=== PATIENT | female | born 1955 | race Caucasian/White ===

== ENCOUNTER 2018-02-08 19:52 | Emergency (ER) | payer BC ==
[2018-02-08] MEDS ORDERED: NORMAL SALINE 1000 ML 1,000 ML IV ONE (20:13)
[2018-02-08 20:29] LABS: ABSOLUTE BASOPHILS # (AUTO) 0.1 10^3/uL (0.0-0.2); ABSOLUTE EOSINOPHILS # (AUTO) 0.1 10^3/uL (0.0-0.6); ABSOLUTE LYMPHOCYTES (AUTO) 2.7 10^3/uL (0.5-4.7); ABSOLUTE MONOCYTES (AUTO) 0.5 10^3/uL (0.1-1.4); ABSOLUTE NEUT (AUTO) 4.8 10^3/uL (1.7-8.2); BASOPHILS % (AUTO) 0.7 % (0-2); EOSINOPHILS % (AUTO) 1.2 % (0-6); HEMATOCRIT 38.3 % (36.0-47.0); HEMOGLOBIN 12.8 g/dL (12.0-15.5); LYMPHOCYTES % (AUTO) 32.8 % (13-45); MEAN CORPUSCULAR HEMOGLOBIN 31.7 pg (27.0-33.4); MEAN CORPUSCULAR HGB CONC 33.5 g/dL (32.0-36.0); MEAN CORPUSCULAR VOLUME 95 fl (80-97); MONOCYTES % (AUTO) 6.6 % (3-13); PLATELET COUNT 253 10^3/uL (150-450); RED BLOOD COUNT 4.04 10^6/uL (3.72-5.28); RED CELL DISTRIBUTION WIDTH 13.2 % (11.5-14.0); SEGMENTED NEUTROPHILS % (AUTO) 58.7 % (42-78); TOTAL CELLS COUNTED % (AUTO) 100 %; WHITE BLOOD COUNT 8.2 10^3/uL (4.0-10.5)
--- NOTE | 2018-02-08 20:39 | ER Document Report ---
ED General - General Stated Complaint: BODY PAIN Time Seen by Provider: 02/08/18 19:59 Mode of Arrival: Medic Information source: Patient, Emergency Med Personnel Notes: Patient presents complaining of a 3 day history of dry mouth. Patient states that she has had recent psychiatric medication changes over the past week. Patient states that her Geodon dose has been increased and Cogentin has been added. Patient states that after taking her medications she feels like she is "on the outside looking in at herself" and feels very drowsy at times. Patient does report cough for the past 3 weeks. Patient denies any nausea vomiting or diarrhea. TRAVEL OUTSIDE OF THE [place] IN LAST 30 DAYS: No - HPI Onset: Other - 3 days Onset/Duration: Persistent Quality of pain: No pain Associated symptoms: Other - dry mouth, fatigue. denies: Fever, Nausea Exacerbated by: Denies Relieved by: Denies Similar symptoms previously: No Recently seen / treated by doctor: No - Related Data Allergies/Adverse Reactions: sulfamethoxazole [From Septra DS] Allergy (Severe, Verified 01/17/16 11:29) trimethoprim [From Septra DS] Allergy (Severe, Verified 01/17/16 11:29) Iodinated Contrast- Oral and IV Dye [IV Dye, Iodine Containing] Allergy (Unknown , Verified 01/17/16 11:29) Sulfa (Sulfonamide Antibiotics) Allergy (Unknown, Verified 01/17/16 11:29) thiopental [Thiopental] Allergy (Unknown, Verified 01/17/16 11:29) mirtazapine [From Remeron] Allergy (Verified 01/17/16 11:29) Seizures zolpidem tartrate [From Ambien] Allergy (Verified 01/17/16 11:29) Past Medical History - General Information source: Patient, Relative - Social History Smoking Status: Never Smoker Frequency of alcohol use: None Drug Abuse: None Occupation: none Lives with: Spouse/Significant other Family History: CAD, DM, Other - Past Medical History Cardiac Medical History: Reports: Hx Atrial Fibrillation - Previous episode in the past, Hx Hypercholesterolemia Pulmonary Medical History: Reports: Hx Asthma - inhaler daily, Hx Bronchitis - 2 YEARS AGO, Hx Pneumonia - 10 YEARS AGO Neurological Medical History: Reports: Hx Migraine, Hx Seizures - SLEEP SEIZURES Malignancy Medical History: Reports: Hx Skin Cancer GI Medical History: Reports: Hx Gastroesophageal Reflux Disease, Hx Ulcer - stomach, states diet controlled Musculoskeltal Medical History: Reports Hx Musculoskeletal Deformity, Reports Hx Musculoskeletal Trauma Psychiatric Medical History: Reports: Hx Anxiety, Hx Bipolar Disorder, Hx Depression Traumatic Medical History: Reports: Hx Fractures Infectious Medical History: Past Surgical History: Reports: Hx Appendectomy, Hx Section, Hx Cholecystectomy, Hx Hysterectomy, Hx Oral Surgery - wisdom teeth, Hx Orthopedic Surgery - cervical fusion - Immunizations Hx Diphtheria, Pertussis, Tetanus Vaccination: Yes Hx Pneumococcal Vaccination: 05/25/11 Review of Systems - Review of Systems Constitutional: Other - drowsy after taking medications EENT: Other - dry mouth Cardiovascular: No symptoms reported. denies: Chest pain, Syncope, Lightheaded Respiratory: Cough. denies: Short of breath Gastrointestinal: No symptoms reported. denies: Abdominal pain, Diarrhea, Nausea, Vomiting Genitourinary: No symptoms reported Female Genitourinary: No symptoms reported Musculoskeletal: No symptoms reported. denies: Back pain, Neck pain Skin: No symptoms reported Hematologic/Lymphatic: No symptoms reported Neurological/Psychological: No symptoms reported. denies: Headaches Physical Exam - Vital signs Vitals: Pulse Ox 92 02/08/18 19:56 - General General appearance: Appears well In distress: None - HEENT Head: Normocephalic Eyes: Normal Eyelashes: Normal Pupils: PERRL Ears: Normal External canal: Normal Tympanic membrane: Normal Mouth/Lips: Normal Mucous membranes: Dry Pharynx: Other - dry mouth/posterior pharynx. No: Exudate, Peritonsillar abscess, Tonsillar hypertrophy Neck: Normal, Supple. No: Lymphadenopathy - Respiratory Respiratory status: No respiratory distress Chest status: Nontender Breath sounds: Normal. No: Rales, Rhonchi, Stridor, Wheezing Chest palpation: Normal - Cardiovascular Rhythm: Regular Heart sounds: S1 appreciated, S2 appreciated Murmur: No - Abdominal Inspection: Obese Distension: No distension Bowel sounds: Normal Tenderness: Nontender Organomegaly: No organomegaly - Back Back: Normal, Nontender. No: CVA tenderness, Vertebra tenderness - Extremities General upper extremity: Normal inspection, Nontender, Normal strength General lower extremity: Normal inspection, Nontender, Normal strength. No: Edema - Neurological Neuro grossly intact: Yes Cognition: Normal [place] Coma Scale Eye Opening: Spontaneous [place] Coma Scale Verbal: Oriented [place] Coma Scale Motor: Obeys Commands [place] Coma Scale Total: 15 - Psychological Associated symptoms: Flat affect - Skin Skin Temperature: Warm Skin Moisture: Dry Skin Color: Normal Course - Re-evaluation Re-evalutation: 02/08/18 23:04 Patient awake, alert and oriented, spouse at bedside. Patient complains of continued dry mouth symptoms. Patient without any additional symptoms at this time. Spoke with RN who had not yet heard back from Dr. Carrion, voice message left on Dr. Carrion's answering machine for return call. Patient presents with symptoms concerning for adverse medication side effects and is likely overmedicated given symptoms reported by patient's spouse. Plan is to consult with Dr. Carrion regarding any potential medication adjustments. 02/08/18 23:[address] Rudd regarding patient's symptoms and recent medication changes. Advises decreasing patient's Geodon dose back to only twice a day versus 3 times a day dosing and cutting her Cogentin dose to just 1 mg daily. Advises that if patient is still having increased drowsy symptoms that she should just stop the Cogentin altogether. Discussed plan medication changes with patient and her spouse. Patient advised of plan medication adjustments. Patient encouraged to follow-up with her mental health provider first thing on Saturday morning to discuss her symptoms and her medication regimen. - Vital Signs Vital signs: Temp Pulse Resp BP Pulse Ox 98.4 F 12 102/63 92 02/08/18 20:00 02/08/18 23:15 02/08/18 23:15 02/08/18 23:15 - Laboratory Result Diagrams: 02/08/18 20:15 02/08/18 20:15 Laboratory results interpreted by me: 02/08/18 22:04 Ur Leukocyte Esterase MODERATE H Labs- Entire Visit 02/08/18 02/08/18 02/08/18 20:15 20:15 20:15 WBC 8.2 RBC 4.04 Hgb 12.8 Hct 38.3 MCV 95 MCH 31.7 MCHC 33.5 RDW 13.2 Plt Count 253 Seg Neutrophils % 58.7 Lymphocytes % 32.8 Monocytes % 6.6 Eosinophils % 1.2 Basophils % 0.7 Absolute Neutrophils 4.8 Absolute Lymphocytes 2.7 Absolute Monocytes 0.5 Absolute Eosinophils 0.1 Absolute Basophils 0.1 Sodium 139.9 Potassium 4.5 Chloride 104 Carbon Dioxide 24 Anion Gap 12 BUN 13 Creatinine 0.82 Est GFR ( Amer) > 60 Est GFR (Non-Af Amer) > 60 Glucose 91 Calcium 9.5 Magnesium 2.0 Total Bilirubin 0.7 Direct Bilirubin 0.3 Neonat Total Bilirubin Not Reportable Neonat Direct Bilirubin Not Reportable Neonat Indirect Bili Not Reportable AST 19 ALT 27 Alkaline Phosphatase 74 Total Protein 6.3 Albumin 4.2 TSH 2.22 Urine Color Urine Appearance Urine pH Ur Specific [place] Urine Protein Urine Glucose (UA) Urine Ketones Urine Blood Urine Nitrite Urine Bilirubin Urine Urobilinogen Ur Leukocyte Esterase Urine WBC (Auto) Urine RBC (Auto) Urine Bacteria (Auto) Squamous Epi Cells Auto Urine Mucus (Auto) Urine Ascorbic Acid 02/08/18 22:04 WBC RBC Hgb Hct MCV MCH MCHC RDW Plt Count Seg Neutrophils % Lymphocytes % Monocytes % Eosinophils % Basophils % Absolute Neutrophils Absolute Lymphocytes Absolute Monocytes Absolute Eosinophils Absolute Basophils Sodium Potassium Chloride Carbon Dioxide Anion Gap BUN Creatinine Est GFR ( Amer) Est GFR (Non-Af Amer) Glucose Calcium Magnesium Total Bilirubin Direct Bilirubin Neonat Total Bilirubin Neonat Direct Bilirubin Neonat Indirect Bili AST ALT Alkaline Phosphatase Total Protein Albumin TSH Urine Color YELLOW Urine Appearance SLIGHTLY-CLOUDY Urine pH 6.0 Ur Specific [place] 1.006 Urine Protein NEGATIVE Urine Glucose (UA) NEGATIVE Urine Ketones NEGATIVE Urine Blood NEGATIVE Urine Nitrite NEGATIVE Urine Bilirubin NEGATIVE Urine Urobilinogen NEGATIVE Ur Leukocyte Esterase MODERATE H Urine WBC (Auto) 15 Urine RBC (Auto) 4 Urine Bacteria (Auto) TRACE Squamous Epi Cells Auto 10 Urine Mucus (Auto) RARE Urine Ascorbic Acid NEGATIVE - Diagnostic Test Radiology reviewed: Reports reviewed Discharge - Discharge Clinical Impression: Medication side effects UTI (urinary tract infection) Qualifiers: Urinary tract infection type: site unspecified Hematuria presence: without hematuria Qualified Code(s): N39.0 - Urinary tract infection, site not specified Condition: Stable Disposition: HOME, SELF-CARE Instructions: Cephalexin ([facility]), Medication Side Effects ([facility]), Urinary Tract Infection ([facility]) Additional Instructions: Return immediately for any new or worsening symptoms Followup with your primary care provider, call tomorrow to make a followup appointment It seems that you are having side effects due to adverse reactions from your medications. You should decrease your Geodon dose to just 80 mg twice a day. You should also cut your Cogentin tablet in half so that you are only taking 1 mg daily. Follow-up with your mental health provider on Saturday morning for recheck to discuss the symptoms that you are having and so that they can adjust your medications as needed. Prescriptions: Cephalexin Monohydrate [Keflex 500 mg Capsule] 500 mg PO BID 7 Days capsule Referrals: BISHNU MERIDA NP [NO LOCAL MD] - 02/10/18
[2018-02-08 20:45] LABS: ALANINE AMINOTRANSFERASE 27 U/L (9-52); ALBUMIN 4.2 g/dL (3.5-5.0); ALKALINE PHOSPHATASE 74 U/L (38-126); ANION GAP 12 (5-19); ASPARTATE AMINO TRANSFERASE 19 U/L (14-36); BILIRUBIN,DIRECT 0.3 mg/dL (0.0-0.4); BILIRUBIN,TOTAL 0.7 mg/dL (0.2-1.3); BLOOD UREA NITROGEN 13 mg/dL (7-20); CALCIUM 9.5 mg/dL (8.4-10.2); CARBON DIOXIDE 24 mmol/L (22-30); CHLORIDE 104 mmol/L (98-107); GLUCOSE 91 mg/dL (75-110); POTASSIUM 4.5 mmol/L (3.6-5.0); SODIUM 139.9 mmol/L (137-145); TOTAL PROTEIN 6.3 g/dL (6.3-8.2)
--- NOTE | 2018-02-08 21:40 | RADIOLOGY REPORT (SQ) ---
EXAM DESCRIPTION: CHEST PA/LAT COMPLETED DATE/TIME: 02/08/2018 9:21 pm REASON FOR STUDY: cough COMPARISON: 05/16/2016 EXAM PARAMETERS: NUMBER OF VIEWS: two views TECHNIQUE: Digital Frontal and Lateral radiographic views of the chest acquired. RADIATION DOSE: NA LIMITATIONS: none FINDINGS: LUNGS AND PLEURA: No opacities, masses or pneumothorax. No pleural effusion. MEDIASTINUM AND HILAR STRUCTURES: No masses or contour abnormalities. HEART AND VASCULAR STRUCTURES: Heart normal size. No evidence for failure. BONES: No acute findings. HARDWARE: None in the chest. OTHER: No other significant finding. IMPRESSION: NO SIGNIFICANT RADIOGRAPHIC FINDING IN THE CHEST. TECHNICAL DOCUMENTATION: JOB ID: [id number] [employer]- All Rights Reserved Reading location - IP/workstation name: [email or web address]
[2018-02-08 22:18] LABS: APPEARANCE,URINE SLIGHTLY-CLOUDY; BILIRUBIN,URINE NEGATIVE (NEGATIVE); COLOR,URINE YELLOW; GLUCOSE, URINE NEGATIVE (NEGATIVE); KETONES,URINE NEGATIVE (NEGATIVE); LEUKOCYTE ESTERASE,URINE MODERATE (NEGATIVE); NITRITE,URINE NEGATIVE (NEGATIVE); PROTEIN,URINE NEGATIVE (NEGATIVE); URINE SPECIFIC GRAVITY 1.006; UROBILINOGEN,URINE NEGATIVE mg/dL (<2.0)
[2018-02-08] MEDS ORDERED: CEFTRIAXONE INJ 1000 MG VIAL IV ONE (22:26)
--- NOTE | 2018-02-08 23:56 | EKG REPORT ---
SEVERITY:- BORDERLINE ECG - SINUS RHYTHM BORDERLINE R WAVE PROGRESSION, ANTERIOR LEADS : Confirmed by: Damon Chew MD 08-Feb-2018 23:54:45
[2018-02-09 00:15] VITALS: BP 102/63
== END 2018-02-09 | disposition home or self-care (01) ==
LOC: ER 19:52
DX: N39.0 Urinary tract infection, site not specified (principal); M79.1 Myalgia; T50.905A Adverse effect of unspecified drugs, medicaments and biological substances, initial encounter; Z88.2 Allergy status to sulfonamides; I48.91 Unspecified atrial fibrillation; Z90.49 Acquired absence of other specified parts of digestive tract; Z90.710 Acquired absence of both cervix and uterus; Z98.1 Arthrodesis status
CPT/HCPCS: 93005; 99284; 96361; 96374; 36415; 87086; 83735; 84443; 85025; 80053; 81001; 71046; 93010; J0696; J7030

== ENCOUNTER 2018-08-05 06:08 | Emergency (ER) | payer BC ==
[2018-08-05] MEDS ORDERED: LORAZEPAM INJ 2 MG/1 ML VIAL ONE (06:12)
[2018-08-05] MEDS ORDERED: LORAZEPAM INJ 2 MG/1 ML VIAL IV ONE (06:13)
--- NOTE | 2018-08-05 06:15 | ER Document Report ---
ED Seizure - General Stated Complaint: POSSIBLE SEIZURES Time Seen by Provider: 08/05/18 06:12 Notes: Family members notified EMS that patient was having a seizure. Patient has history of seizures when she gets off of her benzodiazepines. Was on Restoril. Ran out several days ago. EMS witnessed seizure while in route. Patient became apneic. Rigid and seizing. 2.5 mg of Versed was given. IV established. Patient postictal on arrival to the emergency department. - HPI Patient complains to provider of: History of seizures - Related Data Allergies/Adverse Reactions: sulfamethoxazole [From Septra DS] Allergy (Severe, Verified 01/17/16 11:29) trimethoprim [From Septra DS] Allergy (Severe, Verified 01/17/16 11:29) Iodinated Contrast- Oral and IV Dye [IV Dye, Iodine Containing] Allergy (Unknown , Verified 01/17/16 11:29) Sulfa (Sulfonamide Antibiotics) Allergy (Unknown, Verified 01/17/16 11:29) thiopental [Thiopental] Allergy (Unknown, Verified 01/17/16 11:29) mirtazapine [From Remeron] Allergy (Verified 01/17/16 11:29) Seizures zolpidem tartrate [From Ambien] Allergy (Verified 01/17/16 11:29) Past Medical History - General Information source: Emergency Med Personnel, [facility] Records Cannot obtain history due to: Altered mental status - Social History Smoking Status: Smoker,Current Status Unk Frequency of alcohol use: Unknown Drug Abuse: Other - Unknown Lives with: Other - Unknown Family History: CAD, DM, Other - Past Medical History Cardiac Medical History: Reports: Hx Atrial Fibrillation - Previous episode in the past, Hx Hypercholesterolemia Pulmonary Medical History: Reports: Hx Asthma - inhaler daily, Hx Bronchitis - 2 YEARS AGO, Hx Pneumonia - 10 YEARS AGO Neurological Medical History: Reports: Hx Migraine, Hx Seizures - SLEEP SEIZURES Malignancy Medical History: Reports: Hx Skin Cancer GI Medical History: Reports: Hx Gastroesophageal Reflux Disease, Hx Ulcer - stomach, states diet controlled Musculoskeletal Medical History: Reports Hx Musculoskeletal Deformity, Reports Hx Musculoskeletal Trauma Psychiatric Medical History: Reports: Hx Anxiety, Hx Bipolar Disorder, Hx Depression Traumatic Medical History: Reports: Hx Fractures Infectious Medical History: Past Surgical History: Reports: Hx Appendectomy, Hx Section, Hx Cholecystectomy, Hx Hysterectomy, Hx Oral Surgery - wisdom teeth, Hx Orthopedic Surgery - cervical fusion - Immunizations Hx Diphtheria, Pertussis, Tetanus Vaccination: Yes Hx Pneumococcal Vaccination: 05/25/11 Review of Systems - Review of Systems -: Yes ROS unobtainable due to patient's medical condition - Patient postictal and unresponsive Physical Exam - Vital signs Vitals: Pulse Ox 99 08/05/18 06:10 Interpretation: Normal - General Notes: Patient postictal at this time. Some sonorous respirations - HEENT Head: Normocephalic, Atraumatic Eyes: Normal Pupils: PERRL - Respiratory Respiratory status: No respiratory distress Chest status: Nontender Breath sounds: Normal Chest palpation: Normal - Cardiovascular Rhythm: Regular Heart sounds: Normal auscultation Murmur: No - Abdominal Inspection: Normal Distension: No distension Bowel sounds: Normal Tenderness: Nontender Organomegaly: No organomegaly - Back Back: Normal, Nontender - Extremities General upper extremity: Normal inspection, Nontender, Normal color, Normal ROM , Normal temperature General lower extremity: Normal inspection, Nontender, Normal color, Normal ROM , Normal temperature. No: Marcia's sign - Neurological Sensory: Normal Notes: Postictal time of evaluation. Gross neurological intact. - Skin Skin Temperature: Warm Skin Moisture: Dry Skin Color: Normal Course - Re-evaluation Re-evalutation: 08/05/18 06:29 Patient having benzo withdrawal seizures. 1 mg of Ativan ordered. Placed on monitor. Labs obtained. Will continue to follow. 08/05/18 08:16 Patient back to her baseline mental status. Answering all questions appropriately. is at the bedside and states that she has not taken her Restoril in 2 days and every time she cannot take her Restoril she will have a seizure. states that she never hit the ground. Patient was observed during the initial seizure at home as well as with EMS and no trauma. 08/05/18 08:16 Laboratory 08/05/18 08/05/18 06:26 06:26 WBC 15.2 H RBC 4.15 Hgb 13.0 Hct 40.3 MCV 97 MCH 31.4 MCHC 32.3 RDW 13.5 Plt Count 346 Total Counted 100 Seg Neutrophils % Not Reportable Seg Neuts % (Manual) 78 Band Neutrophils % 1 L Lymphocytes % Not Reportable Lymphocytes % (Manual) 15 Monocytes % Not Reportable Monocytes % (Manual) 4 Eosinophils % Not Reportable Eosinophils % (Manual) 2 Basophils % Not Reportable Basophils % (Manual) 0 Absolute Neutrophils Not Reportable Abs Neuts (Manual) 12.0 H Absolute Lymphocytes Not Reportable Abs Lymphs (Manual) 2.3 Absolute Monocytes Not Reportable Abs Monocytes (Manual) 0.6 Absolute Eosinophils Not Reportable Absolute Eos (Manual) 0.3 Absolute Basophils Not Reportable Abs Basophils (Manual) 0.0 Platelet Comment ADEQUATE Polychromasia SLIGHT Poikilocytosis 1+ Ovalocytes SLIGHT [place] Cells SLIGHT Sodium Cancelled Potassium Cancelled Chloride Cancelled Carbon Dioxide Cancelled Anion Gap Cancelled BUN Cancelled Creatinine Cancelled Est GFR ( Amer) Cancelled Est GFR (Non-Af Amer) Cancelled Glucose Cancelled Calcium Cancelled Total Bilirubin Cancelled Direct Bilirubin Cancelled Neonat Total Bilirubin Cancelled Neonat Direct Bilirubin Cancelled Neonat Indirect Bili Cancelled AST Cancelled ALT Cancelled Alkaline Phosphatase Cancelled Total Protein Cancelled Albumin Cancelled Serum Alcohol Cancelled - Vital Signs Vital signs: Temp Pulse Resp BP Pulse Ox 97.7 F 12 127/77 H 100 08/05/18 06:15 08/05/18 10:01 08/05/18 10:00 08/05/18 10:01 - Laboratory Result Diagrams: 08/05/18 06:26 08/05/18 07:57 Laboratory results interpreted by me: 08/05/18 08/05/18 06:26 07:57 WBC 15.2 H Band Neutrophils % 1 L Abs Neuts (Manual) 12.0 H Glucose 129 H - EKG Interpretation by Fl EKG shows normal: Allison, Intervals, QRS Complexes, ST-T Waves Rate: Tachycardia Discharge - Discharge Clinical Impression: Seizure concurrent with and due to anxiolytic withdrawal Condition: Good Disposition: HOME, SELF-CARE Instructions: Seizure, Known Epileptic ([facility]) Prescriptions: Temazepam [Restoril 7.5 mg Capsule] 7.5 mg PO QHS 15 Days #15 cap
[2018-08-05] MEDS ORDERED: LEVETIRACETAM 1000 MG/NACL-ISO 1,000 MG/100 ML RTUPB IV ONE (06:30)
[2018-08-05 06:39] LABS: HEMATOCRIT 40.3 % (36.0-47.0); MEAN CORPUSCULAR HEMOGLOBIN 31.4 pg (27.0-33.4); MEAN CORPUSCULAR HGB CONC 32.3 g/dL (32.0-36.0); MEAN CORPUSCULAR VOLUME 97 fl (80-97); PLATELET COUNT 346 10^3/uL (150-450); RED BLOOD COUNT 4.15 10^6/uL (3.72-5.28); RED CELL DISTRIBUTION WIDTH 13.5 % (11.5-14.0); WHITE BLOOD COUNT 15.2 10^3/uL (4.0-10.5)
[2018-08-05 07:05] LABS: ABSOLUTE LYMPHOCYTES# (MANUAL) 2.3 10^3/uL (0.5-4.7); ABSOLUTE MONOCYTES # (MANUAL) 0.6 10^3/uL (0.1-1.4); BAND NEUTROPHILS % (MANUAL) 1 % (3-5); BASOPHILS % (MANUAL) 0 % (0-2); BURR CELLS SLIGHT; EOSINOPHILS % (MANUAL) 2 % (0-6); LYMPHOCYTES % (MANUAL) 15 % (13-45); MONOCYTES % (MANUAL) 4 % (3-13); OVALOCYTES SLIGHT; POIKILOCYTOSIS 1+; POLYCHROMASIA SLIGHT; SEGMENTED NEUTROPHILS % (MAN) 78 % (42-78); TOTAL CELLS COUNTED 100
[2018-08-05 07:06] LABS: PLATELET COMMENT ADEQUATE
[2018-08-05 08:59] LABS: ALANINE AMINOTRANSFERASE 22 U/L (9-52); ALBUMIN 4.4 g/dL (3.5-5.0); ALKALINE PHOSPHATASE 93 U/L (38-126); ANION GAP 13 (5-19); ASPARTATE AMINO TRANSFERASE 23 U/L (14-36); BILIRUBIN,DIRECT 0.2 mg/dL (0.0-0.4); BILIRUBIN,TOTAL 0.4 mg/dL (0.2-1.3); BLOOD UREA NITROGEN 7 mg/dL (7-20); CALCIUM 9.5 mg/dL (8.4-10.2); CARBON DIOXIDE 23 mmol/L (22-30); CHLORIDE 104 mmol/L (98-107); GLUCOSE 129 mg/dL (75-110); POTASSIUM 4.4 mmol/L (3.6-5.0); TOTAL PROTEIN 7.1 g/dL (6.3-8.2)
[2018-08-05 09:05] LABS: ALCOHOL < 10 mg/dL (NONE DETECTED)
--- NOTE | 2018-08-05 09:36 | EKG REPORT ---
SEVERITY:- ABNORMAL ECG - SINUS TACHYCARDIA LEFT ATRIAL ABNORMALITY : Confirmed by: Ezio Greenfield 05-Aug-2018 09:35:04
[2018-08-05] MEDS ORDERED: TEMAZEPAM 7.5 MG CAPSULE PO ONE (09:44)
[2018-08-05 10:43] VITALS: BP 127/77
== END 2018-08-05 10:59 | disposition home or self-care (01) ==
LOC: ER 06:08
DX: F13.239 Sedative, hypnotic or anxiolytic dependence with withdrawal, unspecified (principal); T42.4X5A Adverse effect of benzodiazepines, initial encounter; R56.9 Unspecified convulsions; Z79.899 Other long term (current) drug therapy; R06.81 Apnea, not elsewhere classified; F17.200 Nicotine dependence, unspecified, uncomplicated; J45.909 Unspecified asthma, uncomplicated
CPT/HCPCS: 93005; 99284; 36415; 80177; 80307; 85025; 80053; 93010; J2060; J3490; J1953

== ENCOUNTER 2018-08-17 14:08 | Emergency (ER) | payer BC ==
--- NOTE | 2018-08-17 16:14 | ER Document Report ---
ED Medical Screen (RME) - General Chief Complaint: Seizure Stated Complaint: POSSIBLE SEIZURE Time Seen by Provider: 08/17/18 16:10 Notes: Patient is here to be evaluated because she is not feeling right and that is concerning her and her . Patient has a history of seizure disorder of unknown etiology. She had a seizure, her most recent, about 2 weeks ago. She had run out of her Keppra for a couple of days and had a seizure. She has been back on her Keppra plus Aption and temazepam for the seizures and has not had another one since that one about 2 weeks ago. Patient has had seizures since 2010. Unknown why she has seizures.. No history of head injury, brain infection, etc. She is here this evening because she has been feeling funny and she and her are concerned she might have another seizure. She is nauseated but not vomiting. She has had some cough. History of asthma. Has had pneumonia. Has not noted any fever. TRAVEL OUTSIDE OF THE [place] IN LAST 30 DAYS: No - Related Data Allergies/Adverse Reactions: sulfamethoxazole [From Septra DS] Allergy (Severe, Verified 08/17/18 16:06) trimethoprim [From Septra DS] Allergy (Severe, Verified 08/17/18 16:06) Iodinated Contrast- Oral and IV Dye [IV Dye, Iodine Containing] Allergy (Unknown , Verified 08/17/18 16:06) Sulfa (Sulfonamide Antibiotics) Allergy (Unknown, Verified 08/17/18 16:06) thiopental [Thiopental] Allergy (Unknown, Verified 08/17/18 16:06) mirtazapine [From Remeron] Allergy (Verified 08/17/18 16:06) Seizures zolpidem tartrate [From Ambien] Allergy (Verified 08/17/18 16:06) Past Medical History - Social History Chew tobacco use (# tins/day): No Frequency of alcohol use: None Drug Abuse: None - Past Medical History Cardiac Medical History: Reports: Hx Atrial Fibrillation - Previous episode in the past, Hx Hypercholesterolemia Pulmonary Medical History: Reports: Hx Asthma - inhaler daily, Hx Bronchitis - 2 YEARS AGO, Hx Pneumonia - 10 YEARS AGO Neurological Medical History: Reports: Hx Migraine, Hx Seizures - SLEEP SEIZURES Renal/ Medical History: Denies: Hx Peritoneal Dialysis Malignancy Medical History: Reports: Hx Skin Cancer GI Medical History: Reports: Hx Gastroesophageal Reflux Disease, Hx Ulcer - stomach, states diet controlled Musculoskeltal Medical History: Reports Hx Musculoskeletal Deformity, Reports Hx Musculoskeletal Trauma Psychiatric Medical History: Reports: Hx Anxiety, Hx Bipolar Disorder, Hx Depression Traumatic Medical History: Reports: Hx Fractures Infectious Medical History: Past Surgical History: Reports: Hx Appendectomy, Hx Section, Hx Cholecystectomy, Hx Hysterectomy, Hx Oral Surgery - wisdom teeth, Hx Orthopedic Surgery - cervical fusion - Immunizations Hx Diphtheria, Pertussis, Tetanus Vaccination: Yes Physical Exam - Vital signs Vitals: Temp Pulse Resp BP Pulse Ox 98.2 F 76 16 135/75 H 96 08/17/18 14:50 08/17/18 14:50 08/17/18 14:50 08/17/18 14:50 08/17/18 14:50 Course - Vital Signs Vital signs: Temp Pulse Resp BP Pulse Ox 98.2 F 76 16 135/75 H 96 08/17/18 14:50 08/17/18 14:50 08/17/18 14:50 08/17/18 14:50 08/17/18 14:50
[2018-08-17 18:20] LABS: ABSOLUTE EOSINOPHILS # (AUTO) 0.1 10^3/uL (0.0-0.6); ABSOLUTE LYMPHOCYTES (AUTO) 2.5 10^3/uL (0.5-4.7); ABSOLUTE MONOCYTES (AUTO) 0.5 10^3/uL (0.1-1.4); ABSOLUTE NEUT (AUTO) 5.9 10^3/uL (1.7-8.2); BASOPHILS % (AUTO) 0.5 % (0-2); EOSINOPHILS % (AUTO) 1.1 % (0-6); HEMATOCRIT 40.6 % (36.0-47.0); HEMOGLOBIN 13.8 g/dL (12.0-15.5); LYMPHOCYTES % (AUTO) 27.4 % (13-45); MEAN CORPUSCULAR HEMOGLOBIN 32.5 pg (27.0-33.4); MEAN CORPUSCULAR HGB CONC 34.1 g/dL (32.0-36.0); MEAN CORPUSCULAR VOLUME 95 fl (80-97); MONOCYTES % (AUTO) 5.6 % (3-13); PLATELET COUNT 317 10^3/uL (150-450); RED BLOOD COUNT 4.27 10^6/uL (3.72-5.28); RED CELL DISTRIBUTION WIDTH 13.3 % (11.5-14.0); SEGMENTED NEUTROPHILS % (AUTO) 65.4 % (42-78); TOTAL CELLS COUNTED % (AUTO) 100 %
[2018-08-17 18:38] LABS: ALANINE AMINOTRANSFERASE 25 U/L (9-52); ALBUMIN 4.6 g/dL (3.5-5.0); ALKALINE PHOSPHATASE 96 U/L (38-126); ANION GAP 11 (5-19); ASPARTATE AMINO TRANSFERASE 24 U/L (14-36); BILIRUBIN,DIRECT 0.2 mg/dL (0.0-0.4); BILIRUBIN,TOTAL 0.5 mg/dL (0.2-1.3); BLOOD UREA NITROGEN 14 mg/dL (7-20); CALCIUM 10.2 mg/dL (8.4-10.2); CARBON DIOXIDE 29 mmol/L (22-30); CHLORIDE 98 mmol/L (98-107); GLUCOSE 101 mg/dL (75-110); POTASSIUM 5.1 mmol/L (3.6-5.0); SODIUM 138.4 mmol/L (137-145); TOTAL PROTEIN 7.6 g/dL (6.3-8.2)
[2018-08-17 19:46] LABS: APPEARANCE,URINE CLEAR; BILIRUBIN,URINE NEGATIVE (NEGATIVE); COLOR,URINE YELLOW; GLUCOSE, URINE NEGATIVE (NEGATIVE); KETONES,URINE NEGATIVE (NEGATIVE); LEUKOCYTE ESTERASE,URINE NEGATIVE (NEGATIVE); NITRITE,URINE NEGATIVE (NEGATIVE); PROTEIN,URINE NEGATIVE (NEGATIVE); URINE SPECIFIC GRAVITY 1.016; UROBILINOGEN,URINE NEGATIVE mg/dL (<2.0)
[2018-08-17] MEDS ORDERED: DIPHENHYDRAMINE HCL 50 MG/ML VIAL IV ONE (20:29)
[2018-08-17] MEDS ORDERED: METOCLOPRAMIDE HCL INJ/PF 10 MG/2 ML SDV IV ONE (20:29)
[2018-08-17] MEDS ORDERED: LORAZEPAM 1 MG TABLET PO ONE (20:30)
[2018-08-17] MEDS ORDERED: NORMAL SALINE 500 ML IV ONE (20:33)
--- NOTE | 2018-08-17 20:34 | ER Document Report ---
ED General - General Chief Complaint: Seizure Stated Complaint: POSSIBLE SEIZURE Time Seen by Provider: 08/17/18 16:10 Mode of Arrival: Ambulatory Information source: Patient Notes: 61-year-old female with seizures, migraines, atrial fibrillation, obstructive sleep apnea, bipolar disorder, anxiety, Bhandari's palsy presents with complaint of headache and "feeling funny in my head". Patient states that headache started 6 hours prior to arrival. It is located in the temporal region bilaterally and described as a throbbing pain. Patient has had similar headaches in the past and takes Excedrin and Tylenol for them. She states that she experiences headaches several times a week. TRAVEL OUTSIDE OF THE [place] IN LAST 30 DAYS: No - Related Data Allergies/Adverse Reactions: sulfamethoxazole [From Septra DS] Allergy (Severe, Verified 08/17/18 16:06) trimethoprim [From Septra DS] Allergy (Severe, Verified 08/17/18 16:06) Iodinated Contrast- Oral and IV Dye [IV Dye, Iodine Containing] Allergy (Unknown , Verified 08/17/18 16:06) Sulfa (Sulfonamide Antibiotics) Allergy (Unknown, Verified 08/17/18 16:06) thiopental [Thiopental] Allergy (Unknown, Verified 08/17/18 16:06) mirtazapine [From Remeron] Allergy (Verified 08/17/18 16:06) Seizures zolpidem tartrate [From Ambien] Allergy (Verified 08/17/18 16:06) Past Medical History - General Information source: Patient, Relative, PENDING SALE TO [facility] Records - Social History Smoking Status: Never Smoker Chew tobacco use (# tins/day): No Frequency of alcohol use: None Drug Abuse: None Lives with: Spouse/Significant other Family History: CAD, DM, Other Patient has suicidal ideation: No Patient has homicidal ideation: No - Past Medical History Cardiac Medical History: Reports: Hx Atrial Fibrillation - Previous episode in the past, Hx Hypercholesterolemia Pulmonary Medical History: Reports: Hx Asthma - inhaler daily, Hx Bronchitis - 2 YEARS AGO, Hx Pneumonia - 10 YEARS AGO Neurological Medical History: Reports: Hx Migraine, Hx Seizures - SLEEP SEIZURES Renal/ Medical History: Denies: Hx Peritoneal Dialysis Malignancy Medical History: Reports: Hx Skin Cancer GI Medical History: Reports: Hx Gastroesophageal Reflux Disease, Hx Ulcer - stomach, states diet controlled Musculoskeletal Medical History: Reports Hx Musculoskeletal Deformity, Reports Hx Musculoskeletal Trauma Psychiatric Medical History: Reports: Hx Anxiety, Hx Bipolar Disorder, Hx Depression Traumatic Medical History: Reports: Hx Fractures Infectious Medical History: Past Surgical History: Reports: Hx Appendectomy, Hx Section, Hx Cholecystectomy, Hx Hysterectomy, Hx Oral Surgery - wisdom teeth, Hx Orthopedic Surgery - cervical fusion - Immunizations Hx Diphtheria, Pertussis, Tetanus Vaccination: Yes Hx Pneumococcal Vaccination: 05/25/11 Review of Systems - Review of Systems Notes: REVIEW OF SYSTEMS: CONSTITUTIONAL : Denies fever, chills, or sweats. Denies recent illness. Denies weight loss, recent hospitalizations. EENT: Denies visual changes, eye pain. Denies sore throat, oral lesions, difficulty swallowing. CARDIOVASCULAR: Denies chest pain. Denies palpitations. Denies lower extremity edema. RESPIRATORY: Denies cough. Denies shortness of breath, wheezing. GASTROINTESTINAL: Denies abdominal pain or distention. Denies nausea, vomiting , or diarrhea. Denies blood in vomitus, stools, or per rectum. Denies black, tarry stools. Denies constipation. GENITOURINARY: Denies difficulty urinating, painful urination, frequency, blood in urine, or vaginal discharge. MUSCULOSKELETAL: Denies back or neck pain or stiffness. Denies joint pain or swelling. SKIN: Denies rash, lesions or sores. HEMATOLOGIC : Denies easy bruising or bleeding. LYMPHATIC: Denies swollen glands. NEUROLOGICAL: Denies confusion or altered mental status. Denies loss of consciousness. Denies dizziness or lightheadedness. Denies weakness or paralysis. Denies problems difficulty with ambulation, slurred speech. Denies sensory loss, numbness, or tingling. Denies seizures. PSYCHIATRIC: Denies anxiety or stress. Denies depression, suicidal ideation, or homicidal ideation. Denies visual or auditory hallucinations. Physical Exam - Vital signs Vitals: Temp Pulse Resp BP Pulse Ox 98.2 F 76 16 135/75 H 96 08/17/18 14:50 08/17/18 14:50 08/17/18 14:50 08/17/18 14:50 08/17/18 14:50 - Notes Notes: PHYSICAL EXAMINATION: GENERAL: Well-appearing, well-nourished and in no acute distress. HEAD: Atraumatic, normocephalic. EYES: Pupils equal round and reactive to light, extraocular movements intact, conjunctiva are normal. ENT: Nares patent, oropharynx clear without exudates. Moist mucous membranes. NECK: Normal range of motion, supple without lymphadenopathy LUNGS: Breath sounds clear to auscultation bilaterally and equal. No wheezes rales or rhonchi. HEART: Regular rate and rhythm without murmurs ABDOMEN: Soft, nontender, nondistended abdomen. No guarding, no rebound. No masses appreciated. Female : deferred Musculoskeletal: Normal range of motion, no pitting or edema. No cyanosis. NEUROLOGICAL: Cranial nerves grossly intact. Normal speech, normal gait. Normal sensory, motor exams PSYCH: Normal mood, normal affect. SKIN: Warm, Dry, normal turgor, no rashes or lesions noted. Course - Re-evaluation Re-evalutation: Laboratory 08/17/18 08/17/18 08/17/18 18:00 18:00 18:00 WBC 9.0 RBC 4.27 Hgb 13.8 Hct 40.6 MCV 95 MCH 32.5 MCHC 34.1 RDW 13.3 Plt Count 317 Seg Neutrophils % 65.4 Lymphocytes % 27.4 Monocytes % 5.6 Eosinophils % 1.1 Basophils % 0.5 Absolute Neutrophils 5.9 Absolute Lymphocytes 2.5 Absolute Monocytes 0.5 Absolute Eosinophils 0.1 Absolute Basophils 0.0 Sodium 138.4 Potassium 5.1 H Chloride 98 Carbon Dioxide 29 Anion Gap 11 BUN 14 Creatinine 0.84 Est GFR ( Amer) > 60 Est GFR (Non-Af Amer) > 60 Glucose 101 Calcium 10.2 Total Bilirubin 0.5 Direct Bilirubin 0.2 Neonat Total Bilirubin Not Reportable Neonat Direct Bilirubin Not Reportable Neonat Indirect Bili Not Reportable AST 24 ALT 25 Alkaline Phosphatase 96 Troponin I < 0.012 Total Protein 7.6 Albumin 4.6 Urine Color Urine Appearance Urine pH Ur Specific [place] Urine Protein Urine Glucose (UA) Urine Ketones Urine Blood Urine Nitrite Urine Bilirubin Urine Urobilinogen Ur Leukocyte Esterase Urine WBC (Auto) Urine RBC (Auto) Urine Bacteria (Auto) Squamous Epi Cells Auto Urine Mucus (Auto) Urine Ascorbic Acid 08/17/18 18:00 WBC RBC Hgb Hct MCV MCH MCHC RDW Plt Count Seg Neutrophils % Lymphocytes % Monocytes % Eosinophils % Basophils % Absolute Neutrophils Absolute Lymphocytes Absolute Monocytes Absolute Eosinophils Absolute Basophils Sodium Potassium Chloride Carbon Dioxide Anion Gap BUN Creatinine Est GFR ( Amer) Est GFR (Non-Af Amer) Glucose Calcium Total Bilirubin Direct Bilirubin Neonat Total Bilirubin Neonat Direct Bilirubin Neonat Indirect Bili AST ALT Alkaline Phosphatase Troponin I Total Protein Albumin Urine Color YELLOW Urine Appearance CLEAR Urine pH 5.0 Ur Specific [place] 1.016 Urine Protein NEGATIVE Urine Glucose (UA) NEGATIVE Urine Ketones NEGATIVE Urine Blood NEGATIVE Urine Nitrite NEGATIVE Urine Bilirubin NEGATIVE Urine Urobilinogen NEGATIVE Ur Leukocyte Esterase NEGATIVE Urine WBC (Auto) 1 Urine RBC (Auto) 1 Urine Bacteria (Auto) TRACE Squamous Epi Cells Auto 3 Urine Mucus (Auto) RARE Urine Ascorbic Acid NEGATIVE Head CT 08/17/18 20:29 IMPRESSION: No acute intracranial hemorrhage. Unremarkable noncontrast CT of the head. 61-year-old female with seizures, migraines, atrial fibrillation, obstructive sleep apnea, bipolar disorder, anxiety, Bhandari's palsy presents with complaint of headache and "feeling funny in my head". Patient states that headache started 6 hours prior to arrival. It is located in the temporal region bilaterally and described as a throbbing pain. Patient has had similar headaches in the past and takes Excedrin and Tylenol for them. She states that she experiences headaches several times a week. Vital signs stable upon arrival. NIH 0. Patient did receive Reglan, Benadryl and Ativan. No significant laboratory findings CT within normal limits. 08/17/18 23:06 On reevaluation patient is sleeping peacefully. When awoke she reports resolution of her headache. No significant laboratory findings. Has been at the bedside and is comfortable with discharge home. 08/17/18 23:08 After performing a Medical Screening Examination, I estimate there is LOW risk for ACUTE , TEMPORAL ARTERITIS, MENINGITIS, INCRANIAL HEMORRHAGE, or ISCHEMIC STROKE thus I consider the discharge disposition reasonable. I have reevaluated this patient multiple times and no significant life threatening changes are noted. The patient and I have discussed the diagnosis and risks, and we agree with discharging home with close follow-up with the understanding that symptoms and presentations can change. We also discussed returning to the Emergency Department immediately if new or worsening symptoms occur. We have discussed the symptoms which are most concerning (e.g., changing or worsening symptoms, new numbness or weakness, vomiting, fever) that necessitate immediate return. Patient provided the opportunity to ask questions, and express concerns. Discharge instructions discussed. Patient is agreeable with discharge home. Return indications explained and discussed with the patient who displays understanding. Patient encouraged to return to the emergency department immediately with any concerns. Results were discussed with the patient at this point, after careful consideration I feel that that patient can be discharged from the emergency department, the patient was educated treatments and reasons to return to the emergency department based on their presumed diagnosis as noted above, they were advised to followup with a primary care physician in 2-3 days. Patient was agreeable to plan of care. Dictation on this chart was performed using voice recognition software and may result in unintended grammatical, spelling, syntax or errors. 08/19/18 13:22 - Vital Signs Vital signs: Temp Pulse Resp BP Pulse Ox 97.7 F 82 18 123/70 97 08/17/18 23:25 08/17/18 23:25 08/17/18 23:25 08/17/18 23:25 08/17/18 23:25 - Laboratory Result Diagrams: 08/17/18 18:00 08/17/18 18:00 Laboratory results interpreted by me: 08/17/18 18:00 Potassium 5.1 H - Diagnostic Test Radiology reviewed: Image reviewed, Reports reviewed Discharge - Discharge Clinical Impression: Seizure disorder, Elevated blood pressure reading Headache Qualifiers: Headache type: unspecified Headache chronicity pattern: unspecified pattern Intractability: not intractable Qualified Code(s): R51 - Headache Condition: Good Disposition: HOME, SELF-CARE Instructions: Headache ([facility]) Additional Instructions: You have been seen in the Emergency Department (ED) for a headache. Please use Tylenol (acetaminophen) or Motrin (ibuprofen) as needed for symptoms, but only as written on the box. As we have discussed, please follow up with your primary care doctor as soon as possible regarding today's ED visit and your headache symptoms. Call your doctor or return to the ED if you have a worsening headache, sudden and severe headache, confusion, slurred speech, facial droop, weakness or numbness in any arm or leg, extreme fatigue, or other symptoms that concern you. Referrals: ELIZABETH ALVARADO MD [Primary Care Provider] - Follow up as needed ED NIH Stroke Scale - NIH Stroke Scale *: 1. NIH scale should be completed with appropriate accompanying assessment tools. *: 2. The NIH should reflect what the patient is capable of doing and should not be coached by the clinician. 1a. Level of Consciousness: 0=Alert;keenly responsive -: 1=Drowsy -: 2=Obtunded -: 3=Coma/unresponsive or reflex to noxious stimuli. 1a. Responses: 0 1b. Orientation Questions: a. What month is it? -: b. How old are you? -: 0=Answers both questions correctly. -: 1=Answers one question correctly or patient is intubated or has orotracheal trauma. -: 2=Answers neither question correctly. 1b. Responses: 0 1c. Response to commands: a. Open and close eyes? -: b. Physician Office Specialist and release hand? -: Credit is given despite weakness. Demonstration of task is permitted. Substitute command if hands cannot be used. -: 0=Performs both tasks correctly -: 1=Performs one task correctly -: 2=Performs neither task correctly 1c. Responses: 0 2. Gaze: Establish eye contact and instruct patient to "Follow my finger" -: 0=Normal -: 1=Partial gaze palsy. Gaze is abnormal in one or both eyes, but where forced deviation or total gaze paresis is not present. -: 2=Forced deviation or total gaze paresis. 2. Responses: 0 3. Visual Loo: Sees fingers in all four quadrants. -: 0=No visual loss. -: 1=Partial hemianopsia. -: 2=Complete hemianopsia. -: 3=Bilateral hemianopsia (including Cortical blindness) 3. Responses: 0 4. Facial Movement: Instruct patient to: -: a. Show me your teeth -: b. Raise your eyebrows -: c. Close your eyes -: d. Smile -: 0=Normal symmetrical movement -: 1=Minor paralysis (flattened nasolabial fold, asymmetry on smiling). -: 2=Partial paralysis (total or near total paralysis of lower face). -: 3=Complete paralysis of upper and lower face 4. Responses: 0 5. Motor functions (left arm): Alternate sides and extend each arm with palms down (90 degrees if sitting or 45 degrees for supine). -: 0=No drift;limb holds for full 10 seconds. -: 1=Drift; limb holds but drifts down before full 10 seconds, but does not hit bed. -: 2=Some effort against gravity; limb cannot get to or maintain position. -: 3=No effort against gravity; limb falls. -: 4=No movement. -: UN=Amputation, joint fusion, explain in comments. 5. Responses (left arm): 0 5. Motor Functions (right arm): Alternate sides and extend each arm with palms down (90 degrees if sitting or 45 degrees for supine). -: 0=No drift;limb holds for full 10 seconds. -: 1=Drift; limb holds but drifts down before full 10 seconds, but does not hit bed. -: 2=Some effort against gravity; limb cannot get to or maintain position. -: 3=No effort against gravity; limb falls. -: 4=No movement. -: UN=Amputation, joint fusion, explain in comments. 5. Responses (right arm): 0 6. Motor Functions (left leg): With patient lying supine, alternate sides and extend each leg (30 degrees always while supine). -: 0=No drift, leg holds position for full 5 seconds -: 1=Drift; leg falls before full 5 seconds but does not hit bed. -: 2=Some effort against gravity, leg falls to bed but some effort against gravity. -: 3=No effort against gravity, leg falls to bed immediately. -: 4=No movement. -: UN=Amputation, joint fusion; explain in comments. 6. Responses (left leg): 0 6. Motor Functions (right leg): With patient lying supine, alternate sides and extend each leg (30 degrees always while supine). -: 0=No drift, leg holds position for full 5 seconds -: 1=Drift; leg falls before full 5 seconds but does not hit bed. -: 2=Some effort against gravity, leg falls to bed but some effort against gravity. -: 3=No effort against gravity, leg falls to bed immediately. -: 4=No movement. -: UN=Amputation, joint fusion; explain in comments. 6. Responses (right leg): 0 7. Limb Ataxia: With eyes open instruct patient to: -: a. "Touch your finger to your nose". -: b. "Touch your heel to your saravia" -: 0=Absent -: 1=Present in one limb. -: 2=Present in two limbs. -: UN=Amputation or joint fusion; explain in comments. 7. Responses: 0 8. Sensory: Test sensation using pinprick or noxious stimuli. Test as many body parts as possible. -: 0=Normal;no sensory loss -: 1=Mile to moderate sensory loss (patient feels pin prick but is less sharp on affected side). -: 2=Severe or total sensory loss. 8. Responses: 0 9. Best Language: Instruct patient to: -: a. "Describe what you see in this picture." -: b. "Name the items in this picture." -: c. "Read these sentences." -: 0=No aphasia, normal -: 1=Mild to moderate aphasia. -: 2=Severe aphasia -: 3=Mute, global aphasia, no usable speech or auditory comprehension. 9. Responses: 0 10. Articulation, Dysarthia: Instruct patient to: -: "Read these words" or "Repeat these words" -: 0=Normal -: 1=Mild to moderate; patient may slur some words but can be understood without difficulty. -: 2=Severe; patients speech so slurred as to be unintelligible in the absence of dysphasia. -: UN=Intubated or other physical barrier, explain in comments. 10. Responses: 0 11. Extinction or inattention: 0=No abnormality -: 1= Visual, tactile, auditory, spatial, or personal inattention or extinction to bilateral simulation in one or the sensory modalities. -: 2=Profound rocío-inattention or rocío-inattention to more than one modality; does not recognize own hand. 11. Responses: 0 Total Score: 0
--- NOTE | 2018-08-17 21:21 | RADIOLOGY REPORT (SQ) ---
EXAM DESCRIPTION: CT HEAD WITHOUT IV CONTRAST COMPLETED DATE/TME: 08/17/2018 20:29 CLINICAL HISTORY: 62 years, Female, headache Compared to CT head dated 06/04/2016. All CT scanners at this facility use dose modulation, iterative reconstruction, and/or weight based dosing when appropriate to reduce radiation dose to as low as reasonably achievable (ALARA). [facility]: Dose Right [facility]: CareDose [facility]: Dose Right [facility]: Teradose 4D [facility]: Smart Technologies Findings: No acute intracranial hemorrhage, mass effect or midline shift. No extra-axial fluid collections. Ventricles and subarachnoid spaces are preserved. Avina-white matter differentiation is preserved. Visualized paranasal sinuses and the mastoid air cells are clear. The skull is intact. IMPRESSION: No acute intracranial hemorrhage. Unremarkable noncontrast CT of the head.
[2018-08-17 23:27] VITALS: BP 123/70
--- NOTE | 2018-08-18 08:55 | EKG REPORT ---
SEVERITY:- NORMAL ECG - SINUS RHYTHM : Confirmed by: Carla Luke MD 18-Aug-2018 08:54:28
== END 2018-08-17 23:25 | disposition home or self-care (01) ==
LOC: ER 14:08
DX: G40.909 Epilepsy, unspecified, not intractable, without status epilepticus (principal); R51 Headache; R03.0 Elevated blood-pressure reading, without diagnosis of hypertension; J45.909 Unspecified asthma, uncomplicated; Z88.1 Allergy status to other antibiotic agents; Z91.041 Radiographic dye allergy status; Z88.2 Allergy status to sulfonamides; Z88.8 Allergy status to other drugs, medicaments and biological substances; Z85.828 Personal history of other malignant neoplasm of skin
CPT/HCPCS: 93005; 99284; 96374; 96375; 36415; 85025; 80053; 81001; 84484; 70450; 93010; J1200; J2765

== ENCOUNTER → 2018-11-10 | Outpatient (CLI) | payer BC ==
[2018-11-10 15:09] LABS: ALANINE AMINOTRANSFERASE 23 U/L (9-52); ALBUMIN 4.4 g/dL (3.5-5.0); ALKALINE PHOSPHATASE 95 U/L (38-126); ANION GAP 8 (5-19); ASPARTATE AMINO TRANSFERASE 22 U/L (14-36); BILIRUBIN,DIRECT 0.3 mg/dL (0.0-0.4); BILIRUBIN,TOTAL 0.7 mg/dL (0.2-1.3); BLOOD UREA NITROGEN 12 mg/dL (7-20); CALCIUM 9.5 mg/dL (8.4-10.2); CARBON DIOXIDE 31 mmol/L (22-30); CHLORIDE 98 mmol/L (98-107); CHOLESTEROL 233.87 mg/dL (0-200); GLUCOSE 102 mg/dL (75-110); POTASSIUM 5.2 mmol/L (3.6-5.0); SODIUM 137.1 mmol/L (137-145); TOTAL PROTEIN 6.9 g/dL (6.3-8.2); TRIGLYCERIDES 177 mg/dL (<150)
[2018-11-10 15:20] LABS: DIRECT LDL 166 mg/dL (<100)
[2018-11-10 15:23] LABS: VLDL CHOLESTEROL 35.4 mg/dL (10-31)
== END ==
LOC: OD 13:32
PROVIDERS: ATTEND Family Medicine
DX: E78.2 Mixed hyperlipidemia (principal)
CPT/HCPCS: 36415; 80053; 80061

== ENCOUNTER → 2018-11-12 | Outpatient (CLI) | payer BC ==
--- NOTE | 2018-11-12 15:53 | WOMENS IMAGING REPORT ---
EXAM DESCRIPTION: BILAT SCREENING MAMMO W/CAD COMPLETED DATE/TIME: 11/12/2018 8:25 am REASON FOR STUDY: ROUTINE BILATERAL SCREENING;Z12.31 Z12.31 ENCNTR SCREEN MAMMOGRAM FOR MALIGNANT N EOPLASM OF MARY COMPARISON: 2014 TECHNIQUE: Standard craniocaudal and mediolateral oblique views of each breast recorded using InnomiN[employer] l acquisition. LIMITATIONS: None. FINDINGS: Findings present which are benign by mammographic criteria. No suspicious masses, calcifi cations or architectural distortion. Pertinent benign findings: Old stereotactic biopsy clip in the right breast lower inner quadrant. Read with the assistance of CAD. .[facility] - R2 Cenova Version 1.3 .[facility] Imaging - R2 Cenova Version 1.3 .[facility] - R2 Cenova Version 2.4 .[facility] - R2 Cenova Version 2.4 .[facility] BEDS AT THE [facility] - R2 Production Control Coordinator Version 9.2 Benign mammographic findings may include one or more of the following: Smooth masses, popcorn/rim/co arse calcifications, asymmetries, post-procedure changes, and lesions with long-standing stability. IMPRESSION: BENIGN MAMMOGRAPHIC FINDINGS. BIRADS 2 BREAST DENSITY: b. There are scattered areas of fibroglandular density. BIRAD: 2 BENIGN FINDING(S) RECOMMENDATION: ROUTINE SCREENING Please continue yearly bilateral screening mammography/tomosynthesis in October 2019 COMMENT: The patient has been notified of the results by letter per [place] requirements. Additional no tification policies are in place for contacting patient with suspicious or incomplete findings. Quality ID #[id number]: The [employer] [place] recommends an annual screening mammogram for women aged 40 years or over. This facility utilizes a reminder system to ensure that all patients receive reminder letters, and/or direct phone calls for appointments. This includes reminders for routine scr eening mammograms, diagnostic mammograms, or other Breast Imaging Interventions when appropriate. Th is patient will be placed in the appropriate reminder system. The [place] [employer] (ACR) has developed recommendations for screening MRI of the breast s in certain patient populations, to be used in conjunction with mammography. Breast MRI surveillanc e may be appropriate for women with more than 20% lifetime risk of developing breast cancer as deter mined by genetic testing, significant family history of the disease, or history of mantle radiation f or Hodgkins Disease. ACR Practice Guidelines 2008. TECHNICAL DOCUMENTATION: FINDING NUMBER: (1) ASSESSMENT: (1) JOB ID: [id number] [employer]- All Rights Reserved Reading location - IP/workstation name: [email or web address]
== END ==
LOC: WI 07:27
PROVIDERS: ATTEND Family Medicine
DX: Z12.31 Encounter for screening mammogram for malignant neoplasm of breast (principal)
CPT/HCPCS: 77067

== ENCOUNTER → 2019-10-28 | Outpatient (CLI) | payer BC ==
[2019-10-28 12:13] LABS: ABSOLUTE EOSINOPHILS # (AUTO) 0.1 10^3/uL (0.0-0.6); ABSOLUTE LYMPHOCYTES (AUTO) 1.3 10^3/uL (0.5-4.7); ABSOLUTE MONOCYTES (AUTO) 0.2 10^3/uL (0.1-1.4); ABSOLUTE NEUT (AUTO) 4.2 10^3/uL (1.7-8.2); BASOPHILS % (AUTO) 0.3 % (0-2); HEMATOCRIT 37.1 % (36.0-47.0); HEMOGLOBIN 12.8 g/dL (12.0-15.5); LYMPHOCYTES % (AUTO) 22.5 % (13-45); MEAN CORPUSCULAR HEMOGLOBIN 32.3 pg (27.0-33.4); MEAN CORPUSCULAR HGB CONC 34.5 g/dL (32.0-36.0); MEAN CORPUSCULAR VOLUME 94 fl (80-97); MONOCYTES % (AUTO) 4.1 % (3-13); PLATELET COUNT 266 10^3/uL (150-450); RED BLOOD COUNT 3.95 10^6/uL (3.72-5.28); RED CELL DISTRIBUTION WIDTH 12.9 % (11.5-14.0); SEGMENTED NEUTROPHILS % (AUTO) 72.1 % (42-78); TOTAL CELLS COUNTED % (AUTO) 100 %; WHITE BLOOD COUNT 5.8 10^3/uL (4.0-10.5)
[2019-10-28 12:49] LABS: ERYTHROCYTE SEDIMENTATION RATE 19 mm/hr (0-30)
== END ==
LOC: OD 11:11
PROVIDERS: ATTEND Orthopaedic Surgery
DX: M75.122 Complete rotator cuff tear or rupture of left shoulder, not specified as traumatic (principal)
CPT/HCPCS: 36415; 85025; 85652; 86141

== ENCOUNTER 2020-06-28 14:13 | Emergency (ER) | payer MEDICARE ==
--- NOTE | 2020-06-28 17:06 | RADIOLOGY REPORT (SQ) ---
EXAM DESCRIPTION: CHEST SINGLE VIEW IMAGES COMPLETED DATE/TIME: 06/28/2020 4:55 pm REASON FOR STUDY: dyspnea; COVID exposure COMPARISON: None. EXAM PARAMETERS: NUMBER OF VIEWS: One view. TECHNIQUE: Single frontal radiographic view of the chest acquired. RADIATION DOSE: NA LIMITATIONS: None. FINDINGS: LUNGS AND PLEURA: Subtle areas of bilateral ground-glass attenuation. No dense consolidat ion. No pleural effusion or pneumothorax. MEDIASTINUM AND HILAR STRUCTURES: No masses. Contour normal. HEART AND VASCULAR STRUCTURES: Borderline enlarged, stable. BONES: No acute findings. HARDWARE: Cervical fusion hardware. OTHER: No other significant finding. IMPRESSION: Subtle areas of bilateral ground-glass attenuation. Findings nonspecific but are common ly reported imaging features of Covid pneumonia. TECHNICAL DOCUMENTATION: JOB ID: [id number] 2010 [employer]- All Rights Reserved Reading location - IP/workstation name: [email or web address]
[2020-06-28] MEDS ORDERED: AZITHROMYCIN 250 MG TABLET PO ONE (17:14)
[2020-06-28] MEDS ORDERED: DEXAMETHASONE SOD PHOS INJ 10 MG/1 ML VIAL IV ONE (17:14)
[2020-06-28 17:38] VITALS: BP 110/72
[2020-06-28 17:49] LABS: ABSOLUTE LYMPHOCYTES (AUTO) 0.4 10^3/uL (0.5-4.7); ABSOLUTE MONOCYTES (AUTO) 0.2 10^3/uL (0.1-1.4); ABSOLUTE NEUT (AUTO) 6.9 10^3/uL (1.7-8.2); BASOPHILS % (AUTO) 0.2 % (0-2); HEMOGLOBIN 11.4 g/dL (12.0-15.5); LYMPHOCYTES % (AUTO) 5.5 % (13-45); MEAN CORPUSCULAR HEMOGLOBIN 31.6 pg (27.0-33.4); MEAN CORPUSCULAR HGB CONC 33.6 g/dL (32.0-36.0); MEAN CORPUSCULAR VOLUME 94 fl (80-97); MONOCYTES % (AUTO) 2.2 % (3-13); PLATELET COUNT 211 10^3/uL (150-450); RED BLOOD COUNT 3.61 10^6/uL (3.72-5.28); RED CELL DISTRIBUTION WIDTH 13.4 % (11.5-14.0); SEGMENTED NEUTROPHILS % (AUTO) 92.1 % (42-78); TOTAL CELLS COUNTED % (AUTO) 100 %; WHITE BLOOD COUNT 7.4 10^3/uL (4.0-10.5)
[2020-06-28 18:14] LABS: ALBUMIN 3.8 g/dL (3.5-5.0); ALKALINE PHOSPHATASE 145 U/L (38-126); ANION GAP 7 (5-19); ASPARTATE AMINO TRANSFERASE 35 U/L (14-36); BILIRUBIN,DIRECT 0.1 mg/dL (0.0-0.4); BILIRUBIN,TOTAL 0.5 mg/dL (0.2-1.3); BLOOD UREA NITROGEN 7 mg/dL (7-20); CALCIUM 8.5 mg/dL (8.4-10.2); CARBON DIOXIDE 30 mmol/L (22-30); CHLORIDE 96 mmol/L (98-107); GLUCOSE 104 mg/dL (75-110); POTASSIUM 3.6 mmol/L (3.6-5.0); TOTAL PROTEIN 6.5 g/dL (6.3-8.2)
--- NOTE | 2020-06-28 18:18 | ER Document Report ---
ED General - General Chief Complaint: Shortness Of Breath Stated Complaint: SHORTNESS OF BREATH Time Seen by Provider: 06/28/20 16:23 Primary Care Provider: ELIZABETH ALVARADO MD [Primary Care Provider] - Follow up as needed TRAVEL OUTSIDE OF THE [place] IN LAST 30 DAYS: No - HPI Notes: Chief complaint: Shortness of breath, chest pain, cough, alteration of taste and known exposure to COVID-19 History of present illness: 64-year-old female has developed multiple symptoms as indicated above within the past 3 days after exposure to her [id number] who was tested positive for COVID-19 within the last week. Additionally she has some vague flulike symptoms including some dull headache and myalgias. Patient says she is producing scant amounts of white sputum. She denies hemoptysis. She is a non-smoker. - Related Data Allergies/Adverse Reactions: sulfamethoxazole [From Septra DS] Allergy (Severe, Verified 08/17/18 16:06) trimethoprim [From Septra DS] Allergy (Severe, Verified 08/17/18 16:06) Iodinated Contrast Media [IV Dye, Iodine Containing] Allergy (Unknown, Verified 08/17/18 16:06) Sulfa (Sulfonamide Antibiotics) Allergy (Unknown, Verified 08/17/18 16:06) thiopental [Thiopental] Allergy (Unknown, Verified 08/17/18 16:06) mirtazapine [From Remeron] Allergy (Verified 08/17/18 16:06) Seizures zolpidem tartrate [From Ambien] Allergy (Verified 08/17/18 16:06) Home Medications: Keppra Past Medical History - General Information source: Patient, [facility] Records - Social History Smoking Status: Never Smoker Frequency of alcohol use: None Drug Abuse: None Family History: CAD, DM, Other - Past Medical History Cardiac Medical History: Reports: Hx Atrial Fibrillation - Previous episode in the past, Hx Hypercholesterolemia Pulmonary Medical History: Reports: Hx Asthma - inhaler daily, Hx Bronchitis - 2 YEARS AGO, Hx Pneumonia - 10 YEARS AGO Neurological Medical History: Reports: Hx Migraine, Hx Seizures - SLEEP SEIZURES Renal/ Medical History: Denies: Hx Peritoneal Dialysis Malignancy Medical History: Reports: Hx Skin Cancer GI Medical History: Reports: Hx Gastroesophageal Reflux Disease, Hx Ulcer - stomach, states diet controlled Musculoskeletal Medical History: Reports Hx Musculoskeletal Deformity, Reports Hx Musculoskeletal Trauma Psychiatric Medical History: Reports: Hx Anxiety, Hx Bipolar Disorder, Hx Depression Traumatic Medical History: Reports: Hx Fractures Infectious Medical History: Past Surgical History: Reports: Hx Appendectomy, Hx Section, Hx Cholecystectomy, Hx Hysterectomy, Hx Oral Surgery - wisdom teeth, Hx Orthopedic Surgery - cervical fusion - Immunizations Hx Diphtheria, Pertussis, Tetanus Vaccination: Yes Hx Pneumococcal Vaccination: 05/25/11 Review of Systems - Review of Systems Notes: Constitutional: Subjective fever. HENT: Negative for sore throat. Eyes: Negative for visual changes. Cardiovascular: Dull pain in chest with coughing. Respiratory: As per HPI. Gastrointestinal: Negative for abdominal pain, vomiting or diarrhea. Genitourinary: Negative for dysuria. Musculoskeletal: As per HPI. Skin: Negative for rash. Neurological: As per HPI. 10 point ROS negative except as marked above and in HPI. Physical Exam - Vital signs Vitals: Temp Pulse Resp BP Pulse Ox 99.4 F 80 20 102/51 L 96 06/28/20 14:41 06/28/20 14:41 06/28/20 14:41 06/28/20 14:41 06/28/20 14:41 - Notes Notes: Remote Exam Using Telemedicine System for mitigation of COVID-19 risk GENERAL: Well-developed well-nourished female of approximately stated age appearing in no acute distress. SKIN: no rashes. HEAD: Normocephalic atraumatic. EYES: PERRL. EOMI. Conjunctivae and sclerae clear. NOSE: CLEAR. MOUTH: Moist mucosa. Good dentition. No stridor or edema. No drooling. NECK: Full ROM. No visible masses or thyromegaly. No JVD. BACK: Symmetrical. CHEST: Respirations unlabored. Expands symmetrical. Pulse oximetry shows O2 sat 98% on room air. ABDOMEN: Non-distended. GENITALIA: Deferred. EXTREMITIES: No edema. NEUROLOGICAL: GCS 15. Alert and oriented x3. Normal gait. Fluent speech. Cranial nerves II through XII intact. Motor and cerebellar normal. PSYCHIATRIC: Flat affect. Course - Re-evaluation Re-evalutation: 06/28/20 18:23 COVID swab has been requested but presumptively this patient is presenting with a COVID infection. Her chest x-ray shows patchy groundglass infiltrates bilaterally. She also has had classic constellation of symptoms and known exposure to a COVID positive individual. Medically she appears very stable at this time. I am going to empirically give her a dose of Decadron IV and and start her on steroid inhaler at home and I will give her oral azithromycin with a loading dose here and continuation of therapy at home. Patient advised to return here immediately for new or worsening symptoms. She will remain on isolation at home. She will make contact with her primary care physician regarding additional follow-up. Findings, clinical impression and plan of treatment have been discussed with patient/family. Understanding of current findings and recommendations has been acknowledged by them and there is agreement regarding disposition and follow-up. - Vital Signs Vital signs: Temp Pulse Resp BP Pulse Ox 99.6 F 82 20 110/72 97 06/28/20 17:33 06/28/20 17:33 06/28/20 17:33 06/28/20 17:33 06/28/20 17:33 - Laboratory Result Diagrams: 06/28/20 17:38 06/28/20 17:38 Laboratory results interpreted by me: 06/28/20 17:38 RBC 3.61 L Hgb 11.4 L Hct 34.0 L Lymph % (Auto) 5.5 L Mclennan % (Auto) 2.2 L Absolute Lymphs (auto) 0.4 L Seg Neutrophils % 92.1 H - Diagnostic Test Radiology reviewed: Reports reviewed - Patchy bilateral infiltrates with groundg lass appearance consistent with early COVID pneumonia - EKG Interpretation by Me Additional EKG results interpreted by me: 06/28/20 18:27 Twelve-lead EKG obtained at 1732 hrs. reviewed contemporaneously by me showing normal sinus rhythm with a rate of 80 and a normal QRS axis +10 degrees. She has normal intervals. There are no acute ST/T wave changes present. There is no prior tracing for comparison. Indication for current study: Chest pain. Discharge - Discharge Clinical Impression: Bilateral interstitial pneumonitis, Suspected COVID-19 pneumonia Condition: Stable Disposition: HOME, SELF-CARE Additional Instructions: Remain on self-isolation at home. Take prescribed medications. Contact your doctor regarding additional follow-up. Return here as needed for new or worsening symptoms: Shortness of breath that is worsening Uncontrolled vomiting High fever or shaking chills Overall worsening Prescriptions: Hydroxychloroquine Sulfate [Plaquenil 200 mg Tablet] 200 mg PO BID 10 Days #20 tab Budesonide [Pulmicort 90 mcg Flexhaler] 1 inh IH DAILY #1 aer.[email or web address] Azithromycin [Zithromax 250 mg Tablet] 250 mg PO ASDIR PRN #6 tablet PRN Reason: Referrals: ELIZABETH ALVARADO MD [Primary Care Provider] - Follow up as needed
[2020-06-28] MEDS ORDERED: CEFTRIAXONE INJ 1000 MG VIAL IV ONE (18:26)
[2020-06-28] MEDS ORDERED: DEXAMETHASONE SOD PHOSPHATE INJ 4 MG/1 ML VIAL IV ONE (19:00)
--- NOTE | 2020-06-28 19:04 | EKG REPORT ---
SEVERITY:- ABNORMAL ECG - SINUS RHYTHM LOW VOLTAGE IN FRONTAL LEADS : Confirmed by: Damon Chew MD 28-Jun-2020 19:04:04
--- NOTE | 2020-06-28 19:04 | EKG REPORT ---
SEVERITY:- NORMAL ECG - SINUS RHYTHM : Confirmed by: Damon Chew MD 28-Jun-2020 19:03:33
== END 2020-06-28 21:41 | disposition home or self-care (01) ==
LOC: ER 14:13
DX: U07.1 COVID-19 (principal); J84.89 Other specified interstitial pulmonary diseases; Z20.828 Contact with and (suspected) exposure to other viral communicable diseases; I48.91 Unspecified atrial fibrillation; E78.00 Pure hypercholesterolemia, unspecified
CPT/HCPCS: 99285; 96365; A9270; J0696; 36415; 71045; 80053; 85025; 87635; 93005; 93010; C9803

== ENCOUNTER 2020-06-30 09:07 | Inpatient (IN) | payer MEDICARE ==
--- NOTE | 2020-06-30 09:29 | ER Document Report ---
ED Respiratory Problem - General Stated Complaint: FEVER,COUGH Time Seen by Provider: 06/30/20 09:25 Primary Care Provider: ELIZABETH ALVARADO MD [Primary Care Provider] - Follow up as needed TRAVEL OUTSIDE OF THE [place] IN LAST 30 DAYS: No - HPI Notes: 64-year-old female presents with shortness of breath. Patient had a known COVID exposure. For the past 11 days patient has been experiencing cough and trouble breathing. She was seen in the ED 2 days ago for her symptoms, COVID swab was obtained at that time. She was prescribed hydroxychloroquine, azithromycin, and Pulmicort, reports she is taking all these medications. She reports that since her ED visit her symptoms have worsening, she feels very short of breath, states that she becomes extremely short of breath when getting out of bed to use the restroom, she now needs assistance with walking. +productive cough. She feels generally unwell. She has had decreased p.o. intake, nausea and diarrhea. No vomiting. Continues to have fever as well. Her is also sick with similar symptoms. She denies any history of pulmonary disease. - Related Data Allergies/Adverse Reactions: sulfamethoxazole [From Septra DS] Allergy (Severe, Verified 06/30/20 09:47) trimethoprim [From Septra DS] Allergy (Severe, Verified 06/30/20 09:47) Iodinated Contrast Media [IV Dye, Iodine Containing] Allergy (Unknown, Verified 06/30/20 09:47) Sulfa (Sulfonamide Antibiotics) Allergy (Unknown, Verified 06/30/20 09:47) thiopental [Thiopental] Allergy (Unknown, Verified 06/30/20 09:47) mirtazapine [From Remeron] Allergy (Verified 06/30/20 09:47) Seizures zolpidem tartrate [From Ambien] Allergy (Verified 06/30/20 09:47) Past Medical History - Social History Smoking Status: Never Smoker Family History: CAD, DM, Other - Past Medical History Cardiac Medical History: Reports: Hx Atrial Fibrillation - Previous episode in the past, Hx Hypercholesterolemia Pulmonary Medical History: Reports: Hx Asthma - inhaler daily, Hx Bronchitis - 2 YEARS AGO, Hx Pneumonia - 10 YEARS AGO Neurological Medical History: Reports: Hx Migraine, Hx Seizures - SLEEP SEIZURES Renal/ Medical History: Denies: Hx Peritoneal Dialysis Malignancy Medical History: Reports: Hx Skin Cancer GI Medical History: Reports: Hx Gastroesophageal Reflux Disease, Hx Ulcer - stomach, states diet controlled Musculoskeletal Medical History: Reports Hx Musculoskeletal Deformity, Reports Hx Musculoskeletal Trauma Psychiatric Medical History: Reports: Hx Anxiety, Hx Bipolar Disorder, Hx Depression Traumatic Medical History: Reports: Hx Fractures Infectious Medical History: Past Surgical History: Reports: Hx Appendectomy, Hx Section, Hx Cholecystectomy, Hx Hysterectomy, Hx Oral Surgery - wisdom teeth, Hx Orthopedic Surgery - cervical fusion - Immunizations Hx Diphtheria, Pertussis, Tetanus Vaccination: Yes Hx Pneumococcal Vaccination: 05/25/11 Review of Systems - Review of Systems Constitutional: Fever, Weakness EENT: No symptoms reported Cardiovascular: denies: Chest pain Respiratory: Cough, Short of breath, Sputum Gastrointestinal: Diarrhea, Nausea. denies: Abdominal pain, Vomiting Genitourinary: No symptoms reported Musculoskeletal: Other - Algia Skin: No symptoms reported Neurological/Psychological: No symptoms reported Physical Exam - Vital signs Vitals: Resp Pulse Ox 31 H 93 06/30/20 09:19 06/30/20 09:19 Interpretation: No: Tachycardic - General General appearance: Other - Appears unwell - HEENT Head: Normocephalic, Atraumatic Eyes: Normal Pupils: PERRL - Respiratory Respiratory status: No: Respiratory distress Chest status: No: Accessory muscle use Breath sounds: Rhonchi - Cardiovascular Rhythm: Regular Heart sounds: Normal auscultation Normal capillary refill: Yes - Abdominal Tenderness: Nontender - Back Back: Normal - Extremities General lower extremity: No: Edema - Neurological Neuro grossly intact: Yes Cognition: Normal Orientation: AAOx4 - Skin Skin Temperature: Warm Course - Re-evaluation Re-evalutation: 06/30/20 10:23 64-year-old female with fever/cough/shortness of breath, seen in ED 2 days ago for suspected COVID, swab has now resulted and she is positive. She arrived via EMS, febrile to 100 point 8F with them so received 1 g of Tylenol prior to arrival. She was noted to have saturations 91 to 92% on room air therefore supplemental oxygen was started, it has increased her saturations to 94 to 96%. She does have some coarse sounds at her bases. She looks to be unwell, though not overtly toxic appearing. No peripheral edema. Presentation is likely due to acute respiratory disease from COVID-19, superimposed pneumonia a possibility, will check chest x-ray. Will check labs including inflammatory markers. Trial fluids, Zofran and Pepcid for symptoms. Try DuoNeb to see if this improves. Will likely need admission from pulmonary hygiene. 06/30/20 10:47 Labs and imaging reviewed, currently consistent with COVID disease process 06/30/20 10:56 Intubate patient on results. She reports a slight improvement following nebulizer treatment. She was noted to be low 90s on 3 L. Had her do some deep breathing and increased to 4 L, sats improved to 96%. She does look slightly improved, though overall still unwell. Discussed with her need for admission. 06/30/20 10:[address] Farris for admission - Vital Signs Vital signs: Temp Pulse Resp BP Pulse Ox 98.1 F 79 27 H 112/54 L 95 06/30/20 09:42 06/30/20 09:42 06/30/20 10:02 06/30/20 10:02 06/30/20 10:02 - Laboratory Result Diagrams: 06/30/20 09:15 06/30/20 09:15 Laboratory results interpreted by me: 06/30/20 06/30/20 06/30/20 09:15 09:15 09:15 RBC 3.48 L Hgb 11.0 L Hct 32.4 L Lymph % (Auto) 6.6 L Absolute Lymphs (auto) 0.4 L Seg Neutrophils % 87.4 H D-Dimer VBG pH VBG pCO2 Sodium 133.1 L Potassium 3.4 L Glucose 123 H AST 54 H Alkaline Phosphatase 164 H NT-Pro-B Natriuret Pep 906 H Total Protein 6.0 L Albumin 3.2 L 06/30/20 06/30/20 09:15 09:15 RBC Hgb Hct Lymph % (Auto) Absolute Lymphs (auto) Seg Neutrophils % D-Dimer 1.10 H VBG pH 7.48 H VBG pCO2 33.9 L Sodium Potassium Glucose AST Alkaline Phosphatase NT-Pro-B Natriuret Pep Total Protein Albumin Lymphopenia, mild anemia which appears chronic, similar to previous value D-dimer is elevated as expected, this was ordered due to her COVID status, can consider VQ scan as an inpatient as she has a contrast media allergy VBG exhibits evidence of respiratory alkalosis Mild hyponatremia, 1 L of normal saline has been given Mild hypokalemia, will attempt oral supplementation Mild transaminitis which can be seen with COVID disease Elevation of BNP, troponin negative - Diagnostic Test Radiology reviewed: Image reviewed, Reports reviewed Radiology results interpreted by me: 06/30/20 10:16 Bilateral opacities, appear worse from previous chest x-ray 2 days ago - EKG Interpretation by Me Additional EKG results interpreted by me: 06/30/20 10:49 EKG interpreted by me. Overall poor quality. Appears to be a sinus rhythm. Narrow QRS. QTc within normal limits Discharge - Discharge Clinical Impression: Acute respiratory disease due to COVID-19 virus, Hypokalemia, Transaminitis, Elevated d-dimer, Elevated brain natriuretic peptide (BNP) level Condition: Fair Disposition: ADMITTED INPATIENT Admitting Provider: Kaleigh (Hospitalist) Unit Admitted: [facility]U Referrals: ELIZABETH ALVARADO MD [Primary Care Provider] - Follow up as needed
[2020-06-30] MEDS ORDERED: NORMAL SALINE 1000 ML 1,000 ML IV ONE (09:47)
[2020-06-30] MEDS ORDERED: IPRATROPIUM/ALBUTEROL 0.5-2.5 MG/3 ML AMPUL NEB ONE (09:49)
[2020-06-30] MEDS ORDERED: FAMOTIDINE INJ/PF 20 MG/2 ML SDV IV ONE (09:50)
[2020-06-30] MEDS ORDERED: ONDANSETRON HCL INJ/PF 4 MG/2 ML SDV IV ONE (09:50)
[2020-06-30 10:17] LABS: VENOUS BLOOD HCO3 24.5 mmol/L (20-32); VENOUS BLOOD PCO2 33.9 mmHg (35-63); VENOUS BLOOD PH 7.48 (7.30-7.42)
[2020-06-30 10:24] LABS: ALBUMIN 3.2 g/dL (3.5-5.0); ALKALINE PHOSPHATASE 164 U/L (38-126); ANION GAP 8 (5-19); ASPARTATE AMINO TRANSFERASE 54 U/L (14-36); BILIRUBIN,TOTAL 0.4 mg/dL (0.2-1.3); BLOOD UREA NITROGEN 8 mg/dL (7-20); CALCIUM 8.4 mg/dL (8.4-10.2); CARBON DIOXIDE 26 mmol/L (22-30); CHLORIDE 99 mmol/L (98-107); GLUCOSE 123 mg/dL (75-110); POTASSIUM 3.4 mmol/L (3.6-5.0)
--- NOTE | 2020-06-30 10:27 | RADIOLOGY REPORT (SQ) ---
EXAM DESCRIPTION: CHEST SINGLE VIEW IMAGES COMPLETED DATE/TIME: 06/30/2020 10:15 am REASON FOR STUDY: +COVID, SOB COMPARISON: 06/28/2020 EXAM PARAMETERS: NUMBER OF VIEWS: One view. TECHNIQUE: Single frontal radiographic view of the chest acquired. RADIATION DOSE: NA LIMITATIONS: None. FINDINGS: LUNGS AND PLEURA: Progression and multifocal airspace opacities. No pleural effusion. No pneumothorax. MEDIASTINUM AND HILAR STRUCTURES: No masses. Contour normal. HEART AND VASCULAR STRUCTURES: Heart normal in size. Normal vasculature. BONES: No acute findings. HARDWARE: Cervical fusion hardware. OTHER: No other significant finding. IMPRESSION: Increased radiographic conspicuity of multifocal airspace opacities in this patient with reported known diagnosis with COVID. TECHNICAL DOCUMENTATION: JOB ID: [id number] 2010 [employer] All Rights Reserved Reading location - IP/workstation name: [email or web address]
[2020-06-30 10:32] LABS: ABSOLUTE LYMPHOCYTES (AUTO) 0.4 10^3/uL (0.5-4.7); ABSOLUTE MONOCYTES (AUTO) 0.3 10^3/uL (0.1-1.4); ABSOLUTE NEUT (AUTO) 4.8 10^3/uL (1.7-8.2); BASOPHILS % (AUTO) 0.1 % (0-2); EOSINOPHILS % (AUTO) 0.1 % (0-6); HEMATOCRIT 32.4 % (36.0-47.0); LYMPHOCYTES % (AUTO) 6.6 % (13-45); MEAN CORPUSCULAR HEMOGLOBIN 31.7 pg (27.0-33.4); MEAN CORPUSCULAR HGB CONC 34.1 g/dL (32.0-36.0); MEAN CORPUSCULAR VOLUME 93 fl (80-97); MONOCYTES % (AUTO) 5.8 % (3-13); PLATELET COUNT 282 10^3/uL (150-450); RED BLOOD COUNT 3.48 10^6/uL (3.72-5.28); RED CELL DISTRIBUTION WIDTH 13.5 % (11.5-14.0); SEGMENTED NEUTROPHILS % (AUTO) 87.4 % (42-78); TOTAL CELLS COUNTED % (AUTO) 100 %; WHITE BLOOD COUNT 5.4 10^3/uL (4.0-10.5)
[2020-06-30 10:36] LABS: NT PRO BNP 906 pg/mL (<125)
[2020-06-30 10:42] LABS: TROPONIN I < 0.012 ng/mL
[2020-06-30] MEDS ORDERED: POTASSIUM CHLORIDE 20 MEQ PACKET PO ONE (10:47)
[2020-06-30 11:43] LABS: C-REACTIVE PROTEIN 257.5 mg/L (<10.0)
[2020-06-30] MEDS: NORMAL SALINE 1000 ML 1,000 ML IV PRN (12:17)
--- NOTE | 2020-06-30 12:23 | ER Document Report ---
Doctor's Note Notes: 06/30/20 12:22 Saw monitor that patient saturations 88-90%. Into reassess, respirations remain unlabored, she is speaking in complete sentences, is alert and mentating appropriately. Will have nursing give another neb treatment and continue on supplemental oxygen.
[2020-06-30] MEDS: IPRATROPIUM/ALBUTEROL 0.5-2.5 MG/3 ML AMPUL NEB PRN ×2 (12:34→14:40)
--- NOTE | 2020-06-30 12:34 | EKG REPORT ---
SEVERITY:- DEFECTIVE ECG - SINUS OR ECTOPIC ATRIAL RHYTHM LEFT ATRIAL ABNORMALITY ARM LEADS REVERSAL : Confirmed by: Damon Chew MD 30-Jun-2020 12:33:58
[2020-06-30] MEDS ORDERED: REMDESIVIR (EUA) 200 MG in NORMAL SALINE 250 ML IV ONE (14:00)
[2020-06-30] MEDS: IPRATROPIUM/ALBUTEROL 0.5-2.5 MG/3 ML AMPUL NEB SCH ×2 (14:39→20:24)
[2020-06-30] MEDS: LEVETIRACETAM 500 MG TABLET PO SCH ×2 (14:40→22:26)
[2020-06-30] MEDS: DEXAMETHASONE SOD PHOSPHATE INJ 4 MG/1 ML VIAL IV SCH ×2 (14:40→22:26)
--- NOTE | 2020-06-30 16:13 | ER Document Report ---
Doctor's Note Notes: 06/30/20 16:10 Into reassess patient oxygen sats hovering 84 to 86%. With coughing and repositioning the patient will increase her sats to the low 90s, however dips down again to the mid 80s. I discussed with her trialing BiPAP to see if we can help with some recruitment, she is agreeable to this. Respiratory is aware and is currently going to set up BiPAP. Dr Farris made aware
--- NOTE | 2020-06-30 16:28 | ER Document Report ---
Doctor's Note Notes: 06/30/20 16:28 Patient has been started on BiPAP. Her oxygen saturations have increased to 98- 100%. Currently on 08/04 at 50% FiO2. Care is being turned over to Dr. nugent.
--- NOTE | 2020-06-30 18:13 | PDOC H&P ---
History of Present Illness Admission Date/PCP: 06/30/20 11:35 ELIZABETH ALVARADO History of Present Illness: DEMETRI CALDERON is a 64 year old female past medical history of schizoaffective disorder, seizure disorder, depression, hypertension, anxiety, who was exposed to COVID-19 about 11 days ago, came into ED 2 days ago complaining of shortness of breath, fatigue, subjective fever and chills, was tested for COVID and sent home on hydroxychloroquine, azithromycin and Pulmicort, she took all her medication however patient complaining of worsening fatigue, nausea, vomiting, diarrhea, loss of taste, loss of smell, denies any chest pain, abdominal pain, headache, vision changes, weight changes, focal neurological symptoms, or any urinary symptoms. In ED was noted to be hypoxic, tachypneic, tachycardic, elevated INR, elevated ferritin, elevated LDH, elevated C-reactive protein and transaminitis. Surgery was consulted for admission. Past Medical History Cardiac Medical History: Reports: Atrial Fibrillation - Previous episode in the past, Hyperlipidema Pulmonary Medical History: Reports: Asthma - inhaler daily, Bronchitis - 2 YEARS AGO, Pneumonia - 10 YEARS AGO Neurological Medical History: Reports: Migraine, Seizures - SLEEP SEIZURES Malignancy Medical History: Reports: Skin Cancer GI Medical History: Reports: Gastroesophageal Reflux Disease Psychiatric Medical History: Reports: Bipolar Disorder, Depression Hematology: Denies: Anemia, Sickle Cell Disease Past Surgical History Past Surgical History: Reports: Appendectomy, Section, Cholecystectomy, Hysterectomy, Orthopedic Surgery - cervical fusion Denies: Amputation Social History Smoking Status: Never Smoker Frequency of Alcohol Use: None Hx Recreational Drug Use: No Hx Prescription Drug Abuse: No Family History Family History: CAD, DM, Other Parental Family History Reviewed: Yes Children Family History Reviewed: Yes Sibling(s) Family History Reviewed.: Yes Medication/Allergy Home Medications: Amantadine HCl [Amantadine] 100 mg PO QHS 01/17/16 Furosemide [Lasix] 40 mg PO DAILY 01/17/16 Levetiracetam 1,000 mg PO BID 01/17/16 Metoprolol Succinate 25 mg PO DAILY 01/17/16 Omeprazole 40 mg PO DAILY 01/17/16 Paroxetine HCl [Paxil] 40 mg PO QHS 01/17/16 Potassium Chloride [K-Tab] 10 meq PO DAILY 01/17/16 Ziprasidone HCl 60 mg PO QHS 01/17/16 Aspirin [Aspirin 81 mg Chewable Tablet] 81 mg PO QAM 05/16/16 Cephalexin Monohydrate [Keflex 500 mg Capsule] 500 mg PO QAM 05/16/16 Temazepam [Restoril] 30 mg PO QHS 05/16/16 Temazepam [Restoril 7.5 mg Capsule] 7.5 mg PO QHS 15 Days #15 cap 08/05/18 Budesonide [Pulmicort 90 mcg Flexhaler] 1 inh IH DAILY #1 aer.pow.ba 06/28/20 Allergies/Adverse Reactions: sulfamethoxazole [From Septra DS] Allergy (Severe, Verified 06/30/20 09:47) trimethoprim [From Septra DS] Allergy (Severe, Verified 06/30/20 09:47) Iodinated Contrast Media [IV Dye, Iodine Containing] Allergy (Unknown, Verified 06/30/20 09:47) Sulfa (Sulfonamide Antibiotics) Allergy (Unknown, Verified 06/30/20 09:47) thiopental [Thiopental] Allergy (Unknown, Verified 06/30/20 09:47) mirtazapine [From Remeron] Allergy (Verified 06/30/20 09:47) Seizures zolpidem tartrate [From Ambien] Allergy (Verified 06/30/20 09:47) Review of Systems Review of Systems: as per hpi Physical Exam Vital Signs: Temp Pulse Resp BP Pulse Ox 98.1 F 79 27 H 107/60 88 L 06/30/20 09:42 06/30/20 09:42 06/30/20 16:01 06/30/20 16:00 06/30/20 16:01 Intake & Output 06/29/20 06/30/20 07/01/20 06:59 06:59 06:59 Intake Total 1000 Balance 1000 Weight 68.039 kg General appearance: PRESENT: no acute distress, mild distress, well-developed, well-nourished Head exam: PRESENT: atraumatic, normocephalic Neck exam: ABSENT: carotid bruit, JVD, lymphadenopathy, thyromegaly Respiratory exam: PRESENT: clear to auscultation sky, tachypnea. ABSENT: rales, rhonchi, wheezes Cardiovascular exam: PRESENT: RRR. ABSENT: diastolic murmur, rubs, systolic murmur GI/Abdominal exam: PRESENT: normal bowel sounds, soft. ABSENT: distended, guarding, mass, organolmegaly, rebound, tenderness Neurological exam: PRESENT: alert, awake, oriented to person, oriented to place, oriented to time, oriented to situation, CN II-XII grossly intact. ABSENT: mo tor sensory deficit Results Laboratory Results: 06/30/20 09:15 06/30/20 09:15 06/30/20 06/30/20 06/30/20 09:15 09:15 09:15 WBC 5.4 RBC 3.48 L Hgb 11.0 L Hct 32.4 L MCV 93 MCH 31.7 MCHC 34.1 RDW 13.5 Plt Count 282 Seg Neutrophils % 87.4 H VBG pH 7.48 H VBG pCO2 33.9 L VBG HCO3 24.5 VBG Base Excess 1.0 Sodium 133.1 L Potassium 3.4 L Chloride 99 Carbon Dioxide 26 Anion Gap 8 BUN 8 Creatinine 0.59 Est GFR ( Amer) > 60 Glucose 123 H Calcium 8.4 Ferritin Total Bilirubin 0.4 AST 54 H Alkaline Phosphatase 164 H C-Reactive Protein Total Protein 6.0 L Albumin 3.2 L 06/30/20 09:15 WBC RBC Hgb Hct MCV MCH MCHC RDW Plt Count Seg Neutrophils % VBG pH VBG pCO2 VBG HCO3 VBG Base Excess Sodium Potassium Chloride Carbon Dioxide Anion Gap BUN Creatinine Est GFR ( Amer) Glucose Calcium Ferritin 367.00 H Total Bilirubin AST Alkaline Phosphatase C-Reactive Protein 257.5 H Total Protein Albumin 06/30/20 09:15 Troponin I < 0.012 NT-Pro-B Natriuret Pep 906 H Impressions: Chest X-Ray 06/30/20 09:47 IMPRESSION: Increased radiographic conspicuity of multifocal airspace opacities in this patient with reported known diagnosis with COVID. Assessment and Plan - Diagnosis (1) Acute respiratory disease due to COVID-19 virus Is this a current diagnosis for this admission?: Yes Plan: Due to COVID-19 pneumonia, superimposed bacterial pneumonia could not be ruled out. Elevated LDH, elevated d-dimer, elevated CRP, elevated ferritin, transaminitis. Given severely elevated acute phase reactants patient may not do very well with COVID-19. I have talked to pharmacy who have currently provided her with Remdesivir. Admit to [facility] [place], IV azithromycin, IV ceftriaxone, Remdesivir, IV steroids, weight dosed Lovenox, aggressive pulmonary toileting, incentive spirometry, flutter valve, LABA, LABA, sputum culture, blood culture. (2) Seizure disorder Is this a current diagnosis for this admission?: Yes Plan: Resume home meds. Seizure, fall and aspiration precautions. - Time Time Spent with patient: 35 or more minutes Medications reviewed and adjusted accordingly: Yes Anticipated Discharge Disposition: Home with Home Health Anticipated Discharge Timeframe: within 72 hours
[2020-06-30] MEDS: ONDANSETRON HCL INJ/PF 4 MG/2 ML SDV IV PRN (18:39)
[2020-06-30] MEDS ORDERED: TEMAZEPAM 7.5 MG CAPSULE PO SCH (22:00)
[2020-06-30] MEDS: GUAIFENESIN 600 MG TABLET.SA PO SCH (22:47)
[2020-06-30] MEDS: TEMAZEPAM 15 MG CAPSULE PO SCH (22:47)
[2020-06-30] MEDS: PAROXETINE HCL 20 MG TABLET PO SCH (22:47)
[2020-06-30] MEDS: ENOXAPARIN SODIUM INJ 80 MG/0.8 ML DISP.SYRIN SUBCUT SCH (22:48)
[2020-06-30] MEDS ORDERED: ZIPRASIDONE HCL 60 MG CAPSULE PO ONE (23:12)
[2020-06-30] MEDS: ZIPRASIDONE HCL 60 MG CAPSULE PO SCH (23:32)
[2020-07-01 05:13] LABS: HEMATOCRIT 30.9 % (36.0-47.0); HEMOGLOBIN 10.5 g/dL (12.0-15.5); MEAN CORPUSCULAR HEMOGLOBIN 31.8 pg (27.0-33.4); MEAN CORPUSCULAR VOLUME 94 fl (80-97); PLATELET COUNT 283 10^3/uL (150-450); RED CELL DISTRIBUTION WIDTH 13.4 % (11.5-14.0); WHITE BLOOD COUNT 4.5 10^3/uL (4.0-10.5)
[2020-07-01] MEDS: PANTOPRAZOLE SODIUM 20 MG TABLET.DR PO SCH (05:15)
[2020-07-01] MEDS: DEXAMETHASONE SOD PHOSPHATE INJ 4 MG/1 ML VIAL IV SCH ×3 (05:15→21:35)
[2020-07-01] MEDS: NORMAL SALINE 1000 ML 1,000 ML IV PRN (05:16)
[2020-07-01 05:32] LABS: ALKALINE PHOSPHATASE 173 U/L (38-126); ANION GAP 5 (5-19); ASPARTATE AMINO TRANSFERASE 65 U/L (14-36); BILIRUBIN,TOTAL 0.4 mg/dL (0.2-1.3); BLOOD UREA NITROGEN 8 mg/dL (7-20); CALCIUM 8.1 mg/dL (8.4-10.2); CARBON DIOXIDE 26 mmol/L (22-30); CHLORIDE 107 mmol/L (98-107); GLUCOSE 125 mg/dL (75-110); POTASSIUM 4.1 mmol/L (3.6-5.0); TOTAL PROTEIN 5.7 g/dL (6.3-8.2)
[2020-07-01] MEDS: IPRATROPIUM/ALBUTEROL 0.5-2.5 MG/3 ML AMPUL NEB SCH ×3 (08:10→21:20)
[2020-07-01] MEDS: GUAIFENESIN 600 MG TABLET.SA PO SCH ×2 (09:27→21:35)
[2020-07-01] MEDS: METOPROLOL SUCCINATE 25 MG TAB.SR.24H PO SCH (09:27)
[2020-07-01] MEDS: LEVETIRACETAM 500 MG TABLET PO SCH ×2 (09:27→21:35)
[2020-07-01] MEDS: MORPHINE SULFATE 10 MG/ML INJ IV PRN (09:27)
[2020-07-01] MEDS: ZINC SULFATE 220 MG CAPSULE PO SCH (09:27)
[2020-07-01] MEDS: ENOXAPARIN SODIUM INJ 80 MG/0.8 ML DISP.SYRIN SUBCUT SCH ×2 (09:27→21:36)
[2020-07-01] MEDS ORDERED: (PENDING PHARMACY ID) (Eslicarbazepine Acetate [Aptiom] 800 MG) PO SCH (10:00)
[2020-07-01] MEDS: AZITHROMYCIN 500 MG in DEXTROSE 5%-WATER 250 ML IV SCH (10:07)
[2020-07-01] MEDS: FLUTICASONE/UMECLIDIN/VILANTER 100-62.5-25 MCG/DOSE IH SCH (10:07)
[2020-07-01] MEDS: CEFTRIAXONE 1 GM/D5W RTU 1 GM/50 ML RTUPB IV SCH (10:08)
[2020-07-01 10:39] LABS: APPEARANCE,URINE CLEAR; BILIRUBIN,URINE NEGATIVE (NEGATIVE); COLOR,URINE YELLOW; GLUCOSE, URINE NEGATIVE (NEGATIVE); KETONES,URINE 20 mg/dL (NEGATIVE); LEUKOCYTE ESTERASE,URINE NEGATIVE (NEGATIVE); NITRITE,URINE NEGATIVE (NEGATIVE); PROTEIN,URINE NEGATIVE (NEGATIVE); URINE SPECIFIC GRAVITY 1.016; UROBILINOGEN,URINE NEGATIVE mg/dL (<2.0)
--- NOTE | 2020-07-01 11:32 | PDOC PROGRESS REPORT ---
Subjective Progress Note for:: 07/01/20 Subjective:: DEMETRI CALDERON is a 64 year old female past medical history of sc hizoaffective disorder, seizure disorder, depression, hypertension, anxiety, who was exposed to COVID-19 about 11 days ago, came into ED 2 days ago complaining of shortness of breath, fatigue, subjective fever and chills, was tested for COVID and sent home on hydroxychloroquine, azithromycin and Pulmicort, she took all her medication however patient complaining of worsening fatigue, nausea, vomiting, diarrhea, loss of taste, loss of smell, denies any chest pain, abdominal pain, headache, vision changes, weight changes, focal neurological symptoms, or any urinary symptoms. In ED was noted to be hypoxic, tachypneic, tachycardic, elevated INR, elevated ferritin, elevated LDH, elevated C-reactive protein and transaminitis. Surgery was consulted for admission. 07/01/2020. Saw patient this morning. Alert and oriented but unfortunately her respiratory distress is getting worse, stating that she could not sleep last night and hurting all over does not feel like eating, denies any fever or ch ills, chest pain, nausea, vomiting or abdominal pain. She mentions to me that she would like to stay full code on this admission. Reason For Visit: ACUTE RESPIRATORY FAILURE WITH HYPOXIA, COVID-19 Physical Exam Vital Signs: Temp Pulse Resp BP Pulse Ox 98.2 F 74 18 139/86 H 90 L 07/01/20 08:59 07/01/20 08:59 07/01/20 08:59 07/01/20 08:59 07/01/20 08:59 Intake & Output 06/30/20 07/01/20 07/02/20 06:59 06:59 06:59 Intake Total 2000 300 Output Total 350 Balance 1650 300 Weight 69.5 kg General appearance: PRESENT: no acute distress, obese, well-developed, well- nourished, other - Moderate respiratory distress Head exam: PRESENT: atraumatic, normocephalic Neck exam: ABSENT: carotid bruit, JVD, lymphadenopathy, thyromegaly Respiratory exam: PRESENT: accessory muscle use, decreased breath sounds, tachypnea. ABSENT: rales, rhonchi, wheezes Cardiovascular exam: PRESENT: RRR, tachycardia. ABSENT: diastolic murmur, rubs, systolic murmur GI/Abdominal exam: PRESENT: normal bowel sounds, soft. ABSENT: distended, guarding, mass, organolmegaly, rebound, tenderness Neurological exam: PRESENT: alert, awake, oriented to person, oriented to place, oriented to time, oriented to situation, CN II-XII grossly intact. ABSENT: motor sensory deficit Results Laboratory Results: 07/01/20 04:57 07/01/20 04:57 06/30/20 07/01/20 07/01/20 09:15 04:57 04:57 WBC 4.5 RBC 3.30 L Hgb 10.5 L Hct 30.9 L MCV 94 MCH 31.8 MCHC 34.0 RDW 13.4 Plt Count 283 Sodium 138.1 Potassium 4.1 Chloride 107 Carbon Dioxide 26 Anion Gap 5 BUN 8 Creatinine 0.44 L Est GFR ( Amer) > 60 Glucose 125 H Calcium 8.1 L Ferritin 367.00 H Total Bilirubin 0.4 AST 65 H Alkaline Phosphatase 173 H C-Reactive Protein 257.5 H Total Protein 5.7 L Albumin 3.0 L Urine Color Urine Appearance Urine pH Ur Specific [place] Urine Protein Urine Glucose (UA) Urine Ketones Urine Blood Urine Nitrite Ur Leukocyte Esterase Urine WBC (Auto) Urine RBC (Auto) 07/01/20 09:45 WBC RBC Hgb Hct MCV MCH MCHC RDW Plt Count Sodium Potassium Chloride Carbon Dioxide Anion Gap BUN Creatinine Est GFR ( Amer) Glucose Calcium Ferritin Total Bilirubin AST Alkaline Phosphatase C-Reactive Protein Total Protein Albumin Urine Color YELLOW Urine Appearance CLEAR Urine pH 6.0 Ur Specific [place] 1.016 Urine Protein NEGATIVE Urine Glucose (UA) NEGATIVE Urine Ketones 20 H Urine Blood NEGATIVE Urine Nitrite NEGATIVE Ur Leukocyte Esterase NEGATIVE Urine WBC (Auto) 2 Urine RBC (Auto) 1 06/30/20 09:15 Troponin I < 0.012 NT-Pro-B Natriuret Pep 906 H Impressions: Chest X-Ray 06/30/20 09:47 IMPRESSION: Increased radiographic conspicuity of multifocal airspace opacities in this patient with reported known diagnosis with COVID. Assessment and Plan - Diagnosis (1) Acute respiratory disease due to COVID-19 virus Is this a current diagnosis for this admission?: Yes Plan: Worsening. SPO2 WNL on 5 L. Afebrile. WBC WNL. Due to COVID-19 pneumonia, superimposed bacterial pneumonia could not be ruled out. Presented with elevated LDH, elevated d-dimer, elevated CRP, elevated ferritin, transaminitis. Given severely elevated acute phase reactants patient may not do very well with COVID-19. Day 2 IV antibiotics. Day 2 IV ceftriaxone. Day 2 IV azithromycin. Day 2 IV steroids. Torey 2 weight-based Lovenox. Continue telemetry, IV azithromycin, IV ceftriaxone, Remdesivir, IV steroids, weight dosed Lovenox, aggressive pulmonary toileting, incentive spirometry, flutter valve, LABA, LABA, sputum culture, blood culture. (2) Seizure disorder Is this a current diagnosis for this admission?: Yes Plan: Resume home meds. Seizure, fall and aspiration precautions. (3) Transaminitis Is this a current diagnosis for this admission?: Yes Plan: Likely a component of COVID-19 infection. Platelets WNL. PT/INR WNL. LFTs tomorrow. (4) Schizoaffective disorder Qualifiers: Schizoaffective disorder type: bipolar Qualified Code(s): F25.0 - Schizoaffective disorder, bipolar type Is this a current diagnosis for this admission?: Yes Plan: Takes ziprasidone at home. Resume home meds. Outpatient PCP and psychiatry follow-up. (5) Depression Is this a current diagnosis for this admission?: Yes Plan: Denies any suicidal or homicidal ideation. Takes paroxetine at home. Resume home meds. - Time Time Spent with patient: 25-34 minutes Medications reviewed and adjusted accordingly: Yes Anticipated Discharge Disposition: Home with Home Health Anticipated Discharge Timeframe: within 72 hours
[2020-07-01] MEDS: REMDESIVIR (EUA) 100 MG in NORMAL SALINE 250 ML IV SCH (13:28)
[2020-07-01] MEDS: ACETAMINOPHEN 325 MG TABLET PO PRN (20:12)
[2020-07-01] MEDS: PAROXETINE HCL 20 MG TABLET PO SCH (21:35)
[2020-07-01] MEDS: ZIPRASIDONE HCL 60 MG CAPSULE PO SCH (21:35)
[2020-07-01] MEDS: TEMAZEPAM 15 MG CAPSULE PO SCH (21:35)
[2020-07-01] MEDS: LATANOPROST 0.005% OPH SOLN 2.5 ML OU SCH (21:36)
[2020-07-02] MEDS: PANTOPRAZOLE SODIUM 20 MG TABLET.DR PO SCH (05:12)
[2020-07-02] MEDS: DEXAMETHASONE SOD PHOSPHATE INJ 4 MG/1 ML VIAL IV SCH ×3 (05:12→21:03)
[2020-07-02] MEDS: MORPHINE SULFATE 10 MG/ML INJ IV PRN ×2 (05:13→21:04)
[2020-07-02] MEDS: NORMAL SALINE 1000 ML 1,000 ML IV PRN ×2 (05:21→21:06)
[2020-07-02 06:54] LABS: ALBUMIN 3.5 g/dL (3.5-5.0); ALKALINE PHOSPHATASE 191 U/L (38-126); ANION GAP 13 (5-19); ASPARTATE AMINO TRANSFERASE 42 U/L (14-36); BILIRUBIN,DIRECT 0.1 mg/dL (0.0-0.4); BILIRUBIN,TOTAL 0.6 mg/dL (0.2-1.3); BLOOD UREA NITROGEN 10 mg/dL (7-20); CALCIUM 8.7 mg/dL (8.4-10.2); CARBON DIOXIDE 24 mmol/L (22-30); CHLORIDE 103 mmol/L (98-107); GLUCOSE 121 mg/dL (75-110); POTASSIUM 4.1 mmol/L (3.6-5.0); TOTAL PROTEIN 6.5 g/dL (6.3-8.2)
[2020-07-02 08:42] LABS: ARTERIAL BLOOD BASE EXCESS 1.9 mmol/L; ARTERIAL BLOOD H2CO3 1.25 mmol/L (1.05-1.35); ARTERIAL BLOOD HCO3 26.5 mmol/L (20-24); ARTERIAL BLOOD O2 SATURATION 94.2 % (94-98); ARTERIAL BLOOD PCO2 41.6 mmHg (35-45); ARTERIAL BLOOD PH 7.42 (7.35-7.45); ARTERIAL BLOOD TOTAL CO2 27.8 mmol/L (21-25)
[2020-07-02 08:43] LABS: ARTERIAL BLOOD FIO2 100%
[2020-07-02] MEDS: IPRATROPIUM/ALBUTEROL 0.5-2.5 MG/3 ML AMPUL NEB SCH ×3 (08:45→19:45)
[2020-07-02 09:01] LABS: HEMATOCRIT 33.1 % (36.0-47.0); HEMOGLOBIN 11.4 g/dL (12.0-15.5); MEAN CORPUSCULAR HGB CONC 34.4 g/dL (32.0-36.0); MEAN CORPUSCULAR VOLUME 93 fl (80-97); PLATELET COUNT 362 10^3/uL (150-450); RED BLOOD COUNT 3.56 10^6/uL (3.72-5.28); RED CELL DISTRIBUTION WIDTH 13.5 % (11.5-14.0); WHITE BLOOD COUNT 8.5 10^3/uL (4.0-10.5)
[2020-07-02] MEDS: LORAZEPAM INJ 2 MG/1 ML VIAL IV PRN ×4 (09:11→23:31)
[2020-07-02] MEDS: LEVETIRACETAM 500 MG TABLET PO SCH ×2 (09:11→21:04)
[2020-07-02] MEDS: ENOXAPARIN SODIUM INJ 80 MG/0.8 ML DISP.SYRIN SUBCUT SCH ×2 (09:12→21:05)
[2020-07-02] MEDS: CEFTRIAXONE 1 GM/D5W RTU 1 GM/50 ML RTUPB IV SCH (09:12)
[2020-07-02] MEDS: ZINC SULFATE 220 MG CAPSULE PO SCH (09:12)
[2020-07-02] MEDS: METOPROLOL SUCCINATE 25 MG TAB.SR.24H PO SCH (09:12)
[2020-07-02] MEDS: GUAIFENESIN 600 MG TABLET.SA PO SCH ×2 (09:12→21:05)
[2020-07-02] MEDS: FLUTICASONE/UMECLIDIN/VILANTER 100-62.5-25 MCG/DOSE IH SCH (10:12)
[2020-07-02] MEDS: AZITHROMYCIN 500 MG in DEXTROSE 5%-WATER 250 ML IV SCH (10:12)
--- NOTE | 2020-07-02 12:28 | PDOC PROGRESS REPORT ---
Subjective Progress Note for:: 07/02/20 Subjective:: DEMETRI CALDERON is a 64 year old female past medical history of sc hizoaffective disorder, seizure disorder, depression, hypertension, anxiety, who was exposed to COVID-19 about 11 days ago, came into ED 2 days ago complaining of shortness of breath, fatigue, subjective fever and chills, was tested for COVID and sent home on hydroxychloroquine, azithromycin and Pulmicort, she took all her medication however patient complaining of worsening fatigue, nausea, vomiting, diarrhea, loss of taste, loss of smell, denies any chest pain, abdominal pain, headache, vision changes, weight changes, focal neurological symptoms, or any urinary symptoms. In ED was noted to be hypoxic, tachypneic, tachycardic, elevated INR, elevated ferritin, elevated LDH, elevated C-reactive protein and transaminitis. Surgery was consulted for admission. 07/01/2020. Saw patient this morning. Alert and oriented but unfortunately her respiratory distress is getting worse, stating that she could not sleep last night and hurting all over does not feel like eating, denies any fever or ch ills, chest pain, nausea, vomiting or abdominal pain. She mentions to me that she would like to stay full code on this admission. 07/02/2020. Overnight patient has been hypoxic, this morning patient seemed very stressed, tachypneic, on high flow nasal cannula, refuses to wear BiPAP citing claustrophobia, was given some Ativan but he still refused to wear it, ABG showed mild hypoxia otherwise unremarkable, patient still alert and oriented but very distressed denies any chest pain, fever, chills has not been able to eat due to the fact that she is on oxygen 17/06. She is okay to be intubated if needed. Unfortunately she still cannot tolerate BiPAP even though she was given some Ativan. Reason For Visit: ACUTE RESPIRATORY FAILURE WITH HYPOXIA, COVID-19 Physical Exam Vital Signs: Temp Pulse Resp BP Pulse Ox 98.2 F 97 48 H 153/58 H 92 07/02/20 08:10 07/02/20 08:10 07/02/20 08:10 07/02/20 08:10 07/02/20 08:15 Intake & Output 07/01/20 07/02/20 07/03/20 06:59 06:59 06:59 Intake Total 1999 2049 50 Output Total 350 Balance 1649 2049 50 Weight 69.5 kg 71.8 kg 71.8 kg General appearance: PRESENT: severe distress Head exam: PRESENT: atraumatic, normocephalic Respiratory exam: PRESENT: accessory muscle use, decreased breath sounds, symmetrical, tachypnea, wheezes. ABSENT: rales, rhonchi GI/Abdominal exam: PRESENT: normal bowel sounds, soft. ABSENT: distended, guarding, mass, organolmegaly, rebound, tenderness Neurological exam: PRESENT: alert, awake, oriented to person, oriented to place, oriented to time, oriented to situation, CN II-XII grossly intact. ABSENT: motor sensory deficit Results Laboratory Results: 07/02/20 08:49 07/02/20 06:02 07/02/20 07/02/20 07/02/20 06:02 06:02 08:15 WBC Cancelled RBC Cancelled Hgb Cancelled Hct Cancelled MCV Cancelled MCH Cancelled MCHC Cancelled RDW Cancelled Plt Count Cancelled Carbonic Acid 1.25 HCO3/H2CO3 Ratio 21:1 ABG pH 7.42 ABG pCO2 41.6 ABG pO2 69.0 L ABG HCO3 26.5 H ABG O2 Saturation 94.2 ABG Base Excess 1.9 FiO2 100% Sodium 140.3 Potassium 4.1 Chloride 103 Carbon Dioxide 24 Anion Gap 13 BUN 10 Creatinine 0.49 L Est GFR ( Amer) > 60 Glucose 121 H Calcium 8.7 Magnesium 2.0 Total Bilirubin 0.6 AST 42 H Alkaline Phosphatase 191 H Total Protein 6.5 Albumin 3.5 07/02/20 08:49 WBC 8.5 RBC 3.56 L Hgb 11.4 L Hct 33.1 L MCV 93 MCH 32.0 MCHC 34.4 RDW 13.5 Plt Count 362 Carbonic Acid HCO3/H2CO3 Ratio ABG pH ABG pCO2 ABG pO2 ABG HCO3 ABG O2 Saturation ABG Base Excess FiO2 Sodium Potassium Chloride Carbon Dioxide Anion Gap BUN Creatinine Est GFR ( Amer) Glucose Calcium Magnesium Total Bilirubin AST Alkaline Phosphatase Total Protein Albumin 06/30/20 09:15 Troponin I < 0.012 NT-Pro-B Natriuret Pep 906 H Impressions: Chest X-Ray 06/30/20 09:47 IMPRESSION: Increased radiographic conspicuity of multifocal airspace opacities in this patient with reported known diagnosis with COVID. Assessment and Plan - Diagnosis (1) Acute respiratory disease due to COVID-19 virus Is this a current diagnosis for this admission?: Yes Plan: Worsening. On high flow nasal cannula, SPO2 high 80s and low 90s. Cannot tolerate BiPAP. Afebrile. WBC WNL. Due to COVID-19 pneumonia, superimposed bacterial pneumonia could not be ruled out. Presented with elevated LDH, elevated d-dimer, elevated CRP, elevated ferritin, transaminitis. Given severely elevated acute phase reactants patient may not do very well with COVID-19. Day 3 IV antibiotics. Day 3 IV ceftriaxone. Day 3 IV azithromycin. Day 3 IV steroids. Torey 3 weight-based Lovenox. Continue telemetry, IV azithromycin, IV ceftriaxone, Remdesivir, IV steroids, weight dosed Lovenox, aggressive pulmonary toileting, incentive spirometry, flutter valve, LABA, LABA, sputum culture, blood culture. (2) Seizure disorder Is this a current diagnosis for this admission?: Yes Plan: Resume home meds. Seizure, fall and aspiration precautions. (3) Transaminitis Is this a current diagnosis for this admission?: Yes Plan: Likely a component of COVID-19 infection. Platelets WNL. PT/INR WNL. LFTs tomorrow. (4) Schizoaffective disorder Qualifiers: Schizoaffective disorder type: bipolar Qualified Code(s): F25.0 - Schizoaffective disorder, bipolar type Is this a current diagnosis for this admission?: Yes Plan: Takes ziprasidone at home. Resume home meds. Outpatient PCP and psychiatry follow-up. (5) Depression Is this a current diagnosis for this admission?: Yes Plan: Denies any suicidal or homicidal ideation. Takes paroxetine at home. Resume home meds. - Time Time Spent with patient: 25-34 minutes Medications reviewed and adjusted accordingly: Yes Anticipated Discharge Disposition: Home with Home Health Anticipated Discharge Timeframe: within 72 hours
[2020-07-02] MEDS: REMDESIVIR (EUA) 100 MG in NORMAL SALINE 250 ML IV SCH (12:34)
[2020-07-02] MEDS: ONDANSETRON HCL INJ/PF 4 MG/2 ML SDV IV PRN (19:56)
[2020-07-02] MEDS: TEMAZEPAM 15 MG CAPSULE PO SCH (21:04)
[2020-07-02] MEDS: PAROXETINE HCL 20 MG TABLET PO SCH (21:05)
[2020-07-02] MEDS: ZIPRASIDONE HCL 60 MG CAPSULE PO SCH (21:05)
[2020-07-02] MEDS: LATANOPROST 0.005% OPH SOLN 2.5 ML OU SCH (21:14)
[2020-07-03] MEDS: IPRATROPIUM/ALBUTEROL 0.5-2.5 MG/3 ML AMPUL NEB PRN (02:39)
[2020-07-03] MEDS: LORAZEPAM INJ 2 MG/1 ML VIAL IV PRN ×5 (04:51→22:12)
[2020-07-03 05:23] LABS: HEMATOCRIT 31.1 % (36.0-47.0); HEMOGLOBIN 10.6 g/dL (12.0-15.5); MEAN CORPUSCULAR HEMOGLOBIN 31.9 pg (27.0-33.4); MEAN CORPUSCULAR VOLUME 94 fl (80-97); PLATELET COUNT 341 10^3/uL (150-450); RED BLOOD COUNT 3.31 10^6/uL (3.72-5.28); RED CELL DISTRIBUTION WIDTH 13.4 % (11.5-14.0); WHITE BLOOD COUNT 10.5 10^3/uL (4.0-10.5)
[2020-07-03] MEDS: PANTOPRAZOLE SODIUM 20 MG TABLET.DR PO SCH (05:32)
[2020-07-03] MEDS: DEXAMETHASONE SOD PHOSPHATE INJ 4 MG/1 ML VIAL IV SCH ×3 (05:33→22:12)
[2020-07-03 05:36] LABS: ALBUMIN 2.7 g/dL (3.5-5.0); ALKALINE PHOSPHATASE 151 U/L (38-126); ANION GAP 5 (5-19); ASPARTATE AMINO TRANSFERASE 28 U/L (14-36); BILIRUBIN,TOTAL 0.5 mg/dL (0.2-1.3); BLOOD UREA NITROGEN 9 mg/dL (7-20); CALCIUM 8.1 mg/dL (8.4-10.2); CARBON DIOXIDE 29 mmol/L (22-30); CHLORIDE 103 mmol/L (98-107); GLUCOSE 116 mg/dL (75-110); POTASSIUM 3.4 mmol/L (3.6-5.0); TOTAL PROTEIN 5.4 g/dL (6.3-8.2)
[2020-07-03 05:43] LABS: ABSOLUTE LYMPHOCYTES# (MANUAL) 0.5 10^3/uL (0.5-4.7); ABSOLUTE MONOCYTES # (MANUAL) 0.1 10^3/uL (0.1-1.4); BASOPHILS % (MANUAL) 0 % (0-2); EOSINOPHILS % (MANUAL) 0 % (0-6); LYMPHOCYTES % (MANUAL) 5 % (13-45); MONOCYTES % (MANUAL) 1 % (3-13); SEGMENTED NEUTROPHILS % (MAN) 94 % (42-78); TOTAL CELLS COUNTED 100
[2020-07-03 05:45] LABS: OVALOCYTES SLIGHT; PLATELET CLUMPS PRESENT; PLATELET COMMENT ADEQUATE; POLYCHROMASIA SLIGHT
[2020-07-03] MEDS: IPRATROPIUM/ALBUTEROL 0.5-2.5 MG/3 ML AMPUL NEB SCH ×3 (08:23→21:00)
--- NOTE | 2020-07-03 10:04 | PDOC PROGRESS REPORT ---
Subjective Progress Note for:: 07/03/20 Subjective:: DEMETRI CALDERON is a 64 year old female past medical history of sc hizoaffective disorder, seizure disorder, depression, hypertension, anxiety, who was exposed to COVID-19 about 11 days ago, came into ED 2 days ago complaining of shortness of breath, fatigue, subjective fever and chills, was tested for COVID and sent home on hydroxychloroquine, azithromycin and Pulmicort, she took all her medication however patient complaining of worsening fatigue, nausea, vomiting, diarrhea, loss of taste, loss of smell, denies any chest pain, abdominal pain, headache, vision changes, weight changes, focal neurological symptoms, or any urinary symptoms. In ED was noted to be hypoxic, tachypneic, tachycardic, elevated INR, elevated ferritin, elevated LDH, elevated C-reactive protein and transaminitis. Surgery was consulted for admission. 07/01/2020. Saw patient this morning. Alert and oriented but unfortunately her respiratory distress is getting worse, stating that she could not sleep last night and hurting all over does not feel like eating, denies any fever or ch ills, chest pain, nausea, vomiting or abdominal pain. She mentions to me that she would like to stay full code on this admission. 07/02/2020. Overnight patient has been hypoxic, this morning patient seemed very stressed, tachypneic, on high flow nasal cannula, refuses to wear BiPAP citing claustrophobia, was given some Ativan but he still refused to wear it, ABG showed mild hypoxia otherwise unremarkable, patient still alert and oriented but very distressed denies any chest pain, fever, chills has not been able to eat due to the fact that she is on oxygen 17/06. She is okay to be intubated if needed. Unfortunately she still cannot tolerate BiPAP even though she was given some Ativan. 07/03/2020. Saw patient this morning, wearing BiPAP, in mild respiratory distress, alert and oriented and cooperative with physical examination, patient has been wearing her BiPAP since last night been taking benzodiazepine for anxiety, patient is on 100% oxygen and saturating high 80s and low 90s. Denies any chest pain, fever, chills, nausea, vomiting. Yesterday I mentioned to her that I could get her effervescent plasma but she is stating that he cannot receive it due to yarsani beliefs. Reason For Visit: ACUTE RESPIRATORY FAILURE WITH HYPOXIA, COVID-19 Physical Exam Vital Signs: Temp Pulse Resp BP Pulse Ox 98.2 F 102 H 32 H 144/67 H 89 L 07/03/20 07:33 07/03/20 08:25 07/03/20 08:25 07/03/20 07:33 07/03/20 08:25 Intake & Output 07/02/20 07/03/20 07/04/20 06:59 06:59 06:59 Intake Total 2049 1670 Output Total 1300 Balance 2049 370 Weight 71.8 kg 71.8 kg General appearance: PRESENT: no acute distress, mild distress, well-developed, well-nourished Head exam: PRESENT: atraumatic Neck exam: ABSENT: carotid bruit, JVD, lymphadenopathy, thyromegaly Respiratory exam: PRESENT: accessory muscle use, decreased breath sounds, tachypnea. ABSENT: rales, rhonchi, wheezes GI/Abdominal exam: PRESENT: normal bowel sounds, soft. ABSENT: distended, guarding, mass, organolmegaly, rebound, tenderness Neurological exam: PRESENT: alert, awake, oriented to person, oriented to place, oriented to time, oriented to situation, CN II-XII grossly intact. ABSENT: motor sensory deficit Results Laboratory Results: 07/03/20 05:06 07/03/20 05:06 07/03/20 07/03/20 05:06 05:06 WBC 10.5 RBC 3.31 L Hgb 10.6 L Hct 31.1 L MCV 94 MCH 31.9 MCHC 34.0 RDW 13.4 Plt Count 341 Seg Neutrophils % Not Reportable Sodium 137.2 Potassium 3.4 L Chloride 103 Carbon Dioxide 29 Anion Gap 5 BUN 9 Creatinine 0.50 L Est GFR ( Amer) > 60 Glucose 116 H Calcium 8.1 L Magnesium 2.1 Total Bilirubin 0.5 AST 28 Alkaline Phosphatase 151 H Total Protein 5.4 L Albumin 2.7 L 06/30/20 09:15 Troponin I < 0.012 NT-Pro-B Natriuret Pep 906 H Impressions: Chest X-Ray 06/30/20 09:47 IMPRESSION: Increased radiographic conspicuity of multifocal airspace opacities in this patient with reported known diagnosis with COVID. Assessment and Plan - Diagnosis (1) Acute respiratory disease due to COVID-19 virus Is this a current diagnosis for this admission?: Yes Plan: Worsening. BiPAP, 100% oxygen, SPO2 high 80s and low 90s. Afebrile. WBC WNL. Due to COVID-19 pneumonia, superimposed bacterial pneumonia could not be ruled out. Presented with elevated LDH, elevated d-dimer, elevated CRP, elevated ferritin, transaminitis. Given severely elevated acute phase reactants patient may not do very well with COVID-19. Day 4 IV antibiotics. Day 4 IV ceftriaxone. Day 4 IV azithromycin. Day 4 IV steroids. Torey 4 weight-based Lovenox. Day 3 p.o. Remdesivir Continue telemetry, IV azithromycin, IV ceftriaxone, Remdesivir, IV steroids, weight dosed Lovenox, aggressive pulmonary toileting, incentive spirometry, fl utter valve, LABA, LABA, sputum culture, blood culture. (2) Seizure disorder Is this a current diagnosis for this admission?: Yes Plan: Resume home meds. Seizure, fall and aspiration precautions. (3) Transaminitis Is this a current diagnosis for this admission?: Yes Plan: Likely a component of COVID-19 infection. Platelets WNL. PT/INR WNL. LFTs tomorrow. (4) Schizoaffective disorder Qualifiers: Schizoaffective disorder type: bipolar Qualified Code(s): F25.0 - Schizoaffective disorder, bipolar type Is this a current diagnosis for this admission?: Yes Plan: Takes ziprasidone at home. Resume home meds. Outpatient PCP and psychiatry follow-up. (5) Depression Is this a current diagnosis for this admission?: Yes Plan: Denies any suicidal or homicidal ideation. Takes paroxetine at home. Resume home meds. - Time Time Spent with patient: 25-34 minutes Medications reviewed and adjusted accordingly: Yes Anticipated Discharge Disposition: Home with Home Health Anticipated Discharge Timeframe: within 72 hours
[2020-07-03] MEDS: GUAIFENESIN 600 MG TABLET.SA PO SCH ×2 (10:22→22:27)
[2020-07-03] MEDS: METOPROLOL SUCCINATE 25 MG TAB.SR.24H PO SCH (10:22)
[2020-07-03] MEDS: LEVETIRACETAM 500 MG TABLET PO SCH ×2 (10:22→22:27)
[2020-07-03] MEDS: FLUTICASONE/UMECLIDIN/VILANTER 100-62.5-25 MCG/DOSE IH SCH (10:23)
[2020-07-03] MEDS: ZINC SULFATE 220 MG CAPSULE PO SCH (10:23)
[2020-07-03] MEDS: CEFTRIAXONE 1 GM/D5W RTU 1 GM/50 ML RTUPB IV SCH (10:26)
[2020-07-03] MEDS: ENOXAPARIN SODIUM INJ 80 MG/0.8 ML DISP.SYRIN SUBCUT SCH ×2 (10:26→22:12)
[2020-07-03] MEDS: MORPHINE SULFATE 10 MG/ML INJ IV PRN ×3 (10:31→19:43)
[2020-07-03] MEDS: AZITHROMYCIN 500 MG in DEXTROSE 5%-WATER 250 ML IV SCH (11:11)
[2020-07-03] MEDS: REMDESIVIR (EUA) 100 MG in NORMAL SALINE 250 ML IV SCH (13:47)
[2020-07-03] MEDS: LATANOPROST 0.005% OPH SOLN 2.5 ML OU SCH (22:13)
[2020-07-03] MEDS: PAROXETINE HCL 20 MG TABLET PO SCH (22:27)
[2020-07-03] MEDS: ZIPRASIDONE HCL 60 MG CAPSULE PO SCH (22:27)
[2020-07-03] MEDS: TEMAZEPAM 15 MG CAPSULE PO SCH (22:27)
[2020-07-04] MEDS: LORAZEPAM INJ 2 MG/1 ML VIAL IV PRN ×5 (00:42→21:06)
[2020-07-04] MEDS: MORPHINE SULFATE 10 MG/ML INJ IV PRN ×3 (01:24→18:04)
[2020-07-04 01:53] LABS: ARTERIAL BLOOD BASE EXCESS 6.7 mmol/L; ARTERIAL BLOOD FIO2 100%; ARTERIAL BLOOD H2CO3 1.46 mmol/L (1.05-1.35); ARTERIAL BLOOD HCO3 31.8 mmol/L (20-24); ARTERIAL BLOOD O2 SATURATION 87.7 % (94-98); ARTERIAL BLOOD PCO2 48.4 mmHg (35-45); ARTERIAL BLOOD PH 7.44 (7.35-7.45); ARTERIAL BLOOD PO2 52.3 mmHg (80-100); ARTERIAL BLOOD TOTAL CO2 33.3 mmol/L (21-25)
[2020-07-04] MEDS: NORMAL SALINE 1000 ML 1,000 ML IV PRN ×2 (03:35→18:06)
[2020-07-04 04:51] LABS: ARTERIAL BLOOD BASE EXCESS 2.4 mmol/L; ARTERIAL BLOOD H2CO3 1.55 mmol/L (1.05-1.35); ARTERIAL BLOOD HCO3 28.6 mmol/L (20-24); ARTERIAL BLOOD O2 SATURATION 87.3 % (94-98); ARTERIAL BLOOD PCO2 51.6 mmHg (35-45); ARTERIAL BLOOD PH 7.36 (7.35-7.45); ARTERIAL BLOOD PO2 55.3 mmHg (80-100); ARTERIAL BLOOD TOTAL CO2 30.2 mmol/L (21-25)
[2020-07-04 04:52] LABS: ARTERIAL BLOOD FIO2 100%
[2020-07-04] MEDS: PANTOPRAZOLE SODIUM 20 MG TABLET.DR PO SCH (05:14)
[2020-07-04] MEDS: DEXAMETHASONE SOD PHOSPHATE INJ 4 MG/1 ML VIAL IV SCH ×3 (05:15→21:04)
[2020-07-04] MEDS: IPRATROPIUM/ALBUTEROL 0.5-2.5 MG/3 ML AMPUL NEB SCH ×3 (08:51→19:45)
[2020-07-04 09:06] LABS: HEMATOCRIT 30.3 % (36.0-47.0); HEMOGLOBIN 10.1 g/dL (12.0-15.5); MEAN CORPUSCULAR HEMOGLOBIN 31.1 pg (27.0-33.4); MEAN CORPUSCULAR HGB CONC 33.3 g/dL (32.0-36.0); MEAN CORPUSCULAR VOLUME 93 fl (80-97); PLATELET COUNT 376 10^3/uL (150-450); RED BLOOD COUNT 3.25 10^6/uL (3.72-5.28); RED CELL DISTRIBUTION WIDTH 13.4 % (11.5-14.0); WHITE BLOOD COUNT 13.8 10^3/uL (4.0-10.5)
[2020-07-04] MEDS: ZINC SULFATE 220 MG CAPSULE PO SCH (09:12)
[2020-07-04] MEDS: FLUTICASONE/UMECLIDIN/VILANTER 100-62.5-25 MCG/DOSE IH SCH (09:13)
[2020-07-04] MEDS: METOPROLOL SUCCINATE 25 MG TAB.SR.24H PO SCH (09:13)
[2020-07-04] MEDS: GUAIFENESIN 600 MG TABLET.SA PO SCH ×2 (09:13→21:07)
[2020-07-04] MEDS: ENOXAPARIN SODIUM INJ 80 MG/0.8 ML DISP.SYRIN SUBCUT SCH ×2 (09:14→21:14)
[2020-07-04] MEDS: CEFTRIAXONE 1 GM/D5W RTU 1 GM/50 ML RTUPB IV SCH (09:14)
[2020-07-04] MEDS: LEVETIRACETAM 500 MG TABLET PO SCH ×2 (09:14→21:09)
[2020-07-04 09:26] LABS: ALBUMIN 2.7 g/dL (3.5-5.0); ALKALINE PHOSPHATASE 143 U/L (38-126); ANION GAP 7 (5-19); ASPARTATE AMINO TRANSFERASE 35 U/L (14-36); BILIRUBIN,TOTAL 0.5 mg/dL (0.2-1.3); BLOOD UREA NITROGEN 13 mg/dL (7-20); CALCIUM 8.2 mg/dL (8.4-10.2); CARBON DIOXIDE 31 mmol/L (22-30); CHLORIDE 99 mmol/L (98-107); GLUCOSE 133 mg/dL (75-110); PHOSPHORUS 3.4 mg/dL (2.5-4.5); TOTAL PROTEIN 5.5 g/dL (6.3-8.2)
[2020-07-04] MEDS: AZITHROMYCIN 500 MG in DEXTROSE 5%-WATER 250 ML IV SCH (10:09)
[2020-07-04 11:12] LABS: APPEARANCE,URINE CLEAR; BILIRUBIN,URINE NEGATIVE (NEGATIVE); COLOR,URINE YELLOW; GLUCOSE, URINE NEGATIVE (NEGATIVE); KETONES,URINE 20 mg/dL (NEGATIVE); LEUKOCYTE ESTERASE,URINE NEGATIVE (NEGATIVE); NITRITE,URINE NEGATIVE (NEGATIVE); PROTEIN,URINE 30 mg/dL (NEGATIVE); UROBILINOGEN,URINE NEGATIVE mg/dL (<2.0)
--- NOTE | 2020-07-04 12:27 | PDOC PROGRESS REPORT ---
Subjective Progress Note for:: 07/04/20 Subjective:: DEMETRI CALDERON is a 64 year old female past medical history of sc hizoaffective disorder, seizure disorder, depression, hypertension, anxiety, who was exposed to COVID-19 about 11 days ago, came into ED 2 days ago complaining of shortness of breath, fatigue, subjective fever and chills, was tested for COVID and sent home on hydroxychloroquine, azithromycin and Pulmicort, she took all her medication however patient complaining of worsening fatigue, nausea, vomiting, diarrhea, loss of taste, loss of smell, denies any chest pain, abdominal pain, headache, vision changes, weight changes, focal neurological symptoms, or any urinary symptoms. In ED was noted to be hypoxic, tachypneic, tachycardic, elevated INR, elevated ferritin, elevated LDH, elevated C-reactive protein and transaminitis. Surgery was consulted for admission. 07/01/2020. Saw patient this morning. Alert and oriented but unfortunately her respiratory distress is getting worse, stating that she could not sleep last night and hurting all over does not feel like eating, denies any fever or ch ills, chest pain, nausea, vomiting or abdominal pain. She mentions to me that she would like to stay full code on this admission. 07/02/2020. Overnight patient has been hypoxic, this morning patient seemed very stressed, tachypneic, on high flow nasal cannula, refuses to wear BiPAP citing claustrophobia, was given some Ativan but he still refused to wear it, ABG showed mild hypoxia otherwise unremarkable, patient still alert and oriented but very distressed denies any chest pain, fever, chills has not been able to eat due to the fact that she is on oxygen 17/06. She is okay to be intubated if needed. Unfortunately she still cannot tolerate BiPAP even though she was given some Ativan. 07/03/2020. Saw patient this morning, wearing BiPAP, in mild respiratory distress, alert and oriented and cooperative with physical examination, patient has been wearing her BiPAP since last night been taking benzodiazepine for anxiety, patient is on 100% oxygen and saturating high 80s and low 90s. Denies any chest pain, fever, chills, nausea, vomiting. Yesterday I mentioned to her that I could get her effervescent plasma but she is stating that he cannot receive it due to pentecostal beliefs. 07/04/2020. Unfortunately patient still BiPAP dependent and on FiO2 of 100%, saturating high 80s and low 90s, afebrile, noted to be in moderate respiratory distress however she still awake alert and oriented x3, stating that she is feeling weak all over. Denies any chest pain, nausea, vomiting, diarrhea, constipation. As per nursing staff and she was consulted for transfer overnight however they have refused to take the patient yet. Reason For Visit: ACUTE RESPIRATORY FAILURE WITH HYPOXIA, COVID-19 Physical Exam Vital Signs: Temp Pulse Resp BP Pulse Ox 98.0 F 90 24 H 144/77 H 92 07/04/20 08:15 07/04/20 08:50 07/04/20 11:27 07/04/20 08:15 07/04/20 11:27 Intake & Output 07/03/20 07/04/20 07/05/20 06:59 06:59 06:59 Intake Total 1670 1610 300 Output Total 1300 200 Balance 370 1410 300 Weight 71.8 kg 71.5 kg General appearance: PRESENT: severe distress Head exam: PRESENT: atraumatic, normocephalic Neck exam: ABSENT: carotid bruit, JVD, lymphadenopathy, thyromegaly Respiratory exam: PRESENT: accessory muscle use, clear to auscultation sky, symmetrical, tachypnea. ABSENT: rales, rhonchi, wheezes GI/Abdominal exam: PRESENT: normal bowel sounds, soft. ABSENT: distended, guarding, mass, organolmegaly, rebound, tenderness Extremities exam: PRESENT: full ROM. ABSENT: calf tenderness, clubbing, pedal edema Neurological exam: PRESENT: alert, awake, oriented to person, oriented to place, oriented to time, oriented to situation, CN II-XII grossly intact. ABSENT: motor sensory deficit Results Laboratory Results: 07/04/20 08:43 07/04/20 08:43 07/04/20 07/04/20 07/04/20 01:18 04:32 08:43 WBC 13.8 H RBC 3.25 L Hgb 10.1 L Hct 30.3 L MCV 93 MCH 31.1 MCHC 33.3 RDW 13.4 Plt Count 376 Carbonic Acid 1.46 H 1.55 H HCO3/H2CO3 Ratio 21:1 18:1 ABG pH 7.44 7.36 ABG pCO2 48.4 H 51.6 H ABG pO2 52.3 L 55.3 L ABG HCO3 31.8 H 28.6 H ABG O2 Saturation 87.7 L 87.3 L ABG Base Excess 6.7 2.4 FiO2 100% 100% Sodium Potassium Chloride Carbon Dioxide Anion Gap BUN Creatinine Est GFR ( Amer) Glucose Calcium Phosphorus Magnesium Total Bilirubin AST Alkaline Phosphatase Total Protein Albumin Urine Color Urine Appearance Urine pH Ur Specific [place] Urine Protein Urine Glucose (UA) Urine Ketones Urine Blood Urine Nitrite Ur Leukocyte Esterase Urine WBC (Auto) Urine RBC (Auto) 07/04/20 07/04/20 08:43 10:35 WBC RBC Hgb Hct MCV MCH MCHC RDW Plt Count Carbonic Acid HCO3/H2CO3 Ratio ABG pH ABG pCO2 ABG pO2 ABG HCO3 ABG O2 Saturation ABG Base Excess FiO2 Sodium 136.9 L Potassium 4.0 Chloride 99 Carbon Dioxide 31 H Anion Gap 7 BUN 13 Creatinine 0.38 L Est GFR ( Amer) > 60 Glucose 133 H Calcium 8.2 L Phosphorus 3.4 Magnesium 2.3 Total Bilirubin 0.5 AST 35 Alkaline Phosphatase 143 H Total Protein 5.5 L Albumin 2.7 L Urine Color YELLOW Urine Appearance CLEAR Urine pH 6.0 Ur Specific [place] 1.020 Urine Protein 30 H Urine Glucose (UA) NEGATIVE Urine Ketones 20 H Urine Blood NEGATIVE Urine Nitrite NEGATIVE Ur Leukocyte Esterase NEGATIVE Urine WBC (Auto) 5 Urine RBC (Auto) 1 06/30/20 09:15 Troponin I < 0.012 NT-Pro-B Natriuret Pep 906 H Impressions: Chest X-Ray 06/30/20 09:47 IMPRESSION: Increased radiographic conspicuity of multifocal airspace opacities in this patient with reported known diagnosis with COVID. Assessment and Plan - Diagnosis (1) Acute respiratory disease due to COVID-19 virus Is this a current diagnosis for this admission?: Yes Plan: Worsening. BiPAP, 100% oxygen, SPO2 high 80s and low 90s. Afebrile. WBC trending up. Due to COVID-19 pneumonia, superimposed bacterial pneumonia could not be ruled out. Presented with elevated LDH, elevated d-dimer, elevated CRP, elevated ferritin, transaminitis. Given severely elevated acute phase reactants patient may not do very well with COVID-19. Day 5 IV antibiotics. Day 5 IV ceftriaxone. Day 5 IV azithromycin. Day 5 IV steroids. Day 5 weight-based Lovenox. Day 5 p.o. Remdesivir Continue telemetry, IV azithromycin, IV ceftriaxone, Remdesivir, IV steroids, weight dosed Lovenox, aggressive pulmonary toileting, incentive spirometry, flutter valve, LABA, LABA, sputum culture, blood culture. (2) Seizure disorder Is this a current diagnosis for this admission?: Yes Plan: Resume home meds. Seizure, fall and aspiration precautions. (3) Transaminitis Is this a current diagnosis for this admission?: Yes Plan: Improving. Likely a component of COVID-19 infection. Platelets WNL. PT/INR WNL. LFTs tomorrow. (4) Schizoaffective disorder Qualifiers: Schizoaffective disorder type: bipolar Qualified Code(s): F25.0 - Schizoaffective disorder, bipolar type Is this a current diagnosis for this admission?: Yes Plan: Takes ziprasidone at home. Resume home meds. Outpatient PCP and psychiatry follow-up. (5) Depression Is this a current diagnosis for this admission?: Yes Plan: Denies any suicidal or homicidal ideation. Takes paroxetine at home. Resume home meds. - Time Time Spent with patient: 25-34 minutes Medications reviewed and adjusted accordingly: Yes Anticipated Discharge Disposition: Home with Home Health Anticipated Discharge Timeframe: within 72 hours
[2020-07-04] MEDS: REMDESIVIR (EUA) 100 MG in NORMAL SALINE 250 ML IV SCH (13:15)
[2020-07-04] MEDS: ZIPRASIDONE HCL 60 MG CAPSULE PO SCH (21:09)
[2020-07-04] MEDS: PAROXETINE HCL 20 MG TABLET PO SCH (21:10)
[2020-07-04] MEDS: LATANOPROST 0.005% OPH SOLN 2.5 ML OU SCH (21:11)
[2020-07-04] MEDS: TEMAZEPAM 15 MG CAPSULE PO SCH (21:11)
[2020-07-05] MEDS: NORMAL SALINE 1000 ML 1,000 ML IV PRN ×2 (03:35→11:29)
[2020-07-05] MEDS: MORPHINE SULFATE 10 MG/ML INJ IV PRN ×4 (05:10→17:50)
[2020-07-05] MEDS: LORAZEPAM INJ 2 MG/1 ML VIAL IV PRN ×4 (05:10→17:50)
[2020-07-05 06:18] LABS: HEMATOCRIT 29.7 % (36.0-47.0); HEMOGLOBIN 9.9 g/dL (12.0-15.5); MEAN CORPUSCULAR HEMOGLOBIN 31.2 pg (27.0-33.4); MEAN CORPUSCULAR HGB CONC 33.4 g/dL (32.0-36.0); MEAN CORPUSCULAR VOLUME 93 fl (80-97); PLATELET COUNT 376 10^3/uL (150-450); RED BLOOD COUNT 3.18 10^6/uL (3.72-5.28); RED CELL DISTRIBUTION WIDTH 13.5 % (11.5-14.0); WHITE BLOOD COUNT 12.2 10^3/uL (4.0-10.5)
[2020-07-05] MEDS: DEXAMETHASONE SOD PHOSPHATE INJ 4 MG/1 ML VIAL IV SCH ×3 (06:18→22:15)
[2020-07-05] MEDS: PANTOPRAZOLE SODIUM 20 MG TABLET.DR PO SCH (06:22)
[2020-07-05 06:33] LABS: ALBUMIN 2.7 g/dL (3.5-5.0); ALKALINE PHOSPHATASE 129 U/L (38-126); ANION GAP 5 (5-19); ASPARTATE AMINO TRANSFERASE 27 U/L (14-36); BILIRUBIN,DIRECT 0.3 mg/dL (0.0-0.4); BILIRUBIN,TOTAL 0.7 mg/dL (0.2-1.3); BLOOD UREA NITROGEN 13 mg/dL (7-20); CALCIUM 8.1 mg/dL (8.4-10.2); CARBON DIOXIDE 32 mmol/L (22-30); CHLORIDE 99 mmol/L (98-107); GLUCOSE 154 mg/dL (75-110); POTASSIUM 3.5 mmol/L (3.6-5.0); TOTAL PROTEIN 5.4 g/dL (6.3-8.2)
[2020-07-05 07:02] LABS: ABSOLUTE LYMPHOCYTES# (MANUAL) 0.6 10^3/uL (0.5-4.7); ABSOLUTE MONOCYTES # (MANUAL) 0.1 10^3/uL (0.1-1.4); BASOPHILS % (MANUAL) 0 % (0-2); EOSINOPHILS % (MANUAL) 0 % (0-6); LYMPHOCYTES % (MANUAL) 5 % (13-45); MONOCYTES % (MANUAL) 1 % (3-13); SEGMENTED NEUTROPHILS % (MAN) 94 % (42-78); TOTAL CELLS COUNTED 100
[2020-07-05 07:03] LABS: PLATELET CLUMPS PRESENT; PLATELET COMMENT ADEQUATE; RBC MORPHOLOGY COMMENT NORMO-CYTIC/CHROMIC; TOXIC GRANULATION SLIGHT
[2020-07-05] MEDS: IPRATROPIUM/ALBUTEROL 0.5-2.5 MG/3 ML AMPUL NEB SCH ×3 (09:17→21:18)
[2020-07-05] MEDS: LEVETIRACETAM 500 MG TABLET PO SCH (11:19)
[2020-07-05] MEDS: METOPROLOL SUCCINATE 25 MG TAB.SR.24H PO SCH (11:19)
[2020-07-05] MEDS: GUAIFENESIN 600 MG TABLET.SA PO SCH (11:19)
[2020-07-05] MEDS: FLUTICASONE/UMECLIDIN/VILANTER 100-62.5-25 MCG/DOSE IH SCH (11:20)
[2020-07-05] MEDS: ZINC SULFATE 220 MG CAPSULE PO SCH (11:20)
[2020-07-05] MEDS: ENOXAPARIN SODIUM INJ 80 MG/0.8 ML DISP.SYRIN SUBCUT SCH (11:23)
[2020-07-05] MEDS: CEFTRIAXONE 1 GM/D5W RTU 1 GM/50 ML RTUPB IV SCH (11:23)
[2020-07-05 11:24] LABS: ARTERIAL BLOOD BASE EXCESS 5.1 mmol/L; ARTERIAL BLOOD H2CO3 1.52 mmol/L (1.05-1.35); ARTERIAL BLOOD HCO3 31.1 mmol/L (20-24); ARTERIAL BLOOD O2 SATURATION 90.1 % (94-98); ARTERIAL BLOOD PCO2 50.6 mmHg (35-45); ARTERIAL BLOOD PH 7.41 (7.35-7.45); ARTERIAL BLOOD PO2 58.2 mmHg (80-100); ARTERIAL BLOOD TOTAL CO2 32.7 mmol/L (21-25)
--- NOTE | 2020-07-05 11:24 | PDOC PROGRESS REPORT ---
Subjective Progress Note for:: 07/05/20 Subjective:: DEMETRI CALDERON is a 64 year old female past medical history of sc hizoaffective disorder, seizure disorder, depression, hypertension, anxiety, who was exposed to COVID-19 about 11 days ago, came into ED 2 days ago complaining of shortness of breath, fatigue, subjective fever and chills, was tested for COVID and sent home on hydroxychloroquine, azithromycin and Pulmicort, she took all her medication however patient complaining of worsening fatigue, nausea, vomiting, diarrhea, loss of taste, loss of smell, denies any chest pain, abdominal pain, headache, vision changes, weight changes, focal neurological symptoms, or any urinary symptoms. In ED was noted to be hypoxic, tachypneic, tachycardic, elevated INR, elevated ferritin, elevated LDH, elevated C-reactive protein and transaminitis. Surgery was consulted for admission. 07/01/2020. Saw patient this morning. Alert and oriented but unfortunately her respiratory distress is getting worse, stating that she could not sleep last night and hurting all over does not feel like eating, denies any fever or ch ills, chest pain, nausea, vomiting or abdominal pain. She mentions to me that she would like to stay full code on this admission. 07/02/2020. Overnight patient has been hypoxic, this morning patient seemed very stressed, tachypneic, on high flow nasal cannula, refuses to wear BiPAP citing claustrophobia, was given some Ativan but he still refused to wear it, ABG showed mild hypoxia otherwise unremarkable, patient still alert and oriented but very distressed denies any chest pain, fever, chills has not been able to eat due to the fact that she is on oxygen 17/06. She is okay to be intubated if needed. Unfortunately she still cannot tolerate BiPAP even though she was given some Ativan. 07/03/2020. Saw patient this morning, wearing BiPAP, in mild respiratory distress, alert and oriented and cooperative with physical examination, patient has been wearing her BiPAP since last night been taking benzodiazepine for anxiety, patient is on 100% oxygen and saturating high 80s and low 90s. Denies any chest pain, fever, chills, nausea, vomiting. Yesterday I mentioned to her that I could get her effervescent plasma but she is stating that he cannot receive it due to hinduism beliefs. 07/04/2020. Unfortunately patient still BiPAP dependent and on FiO2 of 100%, saturating high 80s and low 90s, afebrile, noted to be in moderate respiratory distress however she still awake alert and oriented x3, stating that she is feeling weak all over. Denies any chest pain, nausea, vomiting, diarrhea, constipation. As per nursing staff and she was consulted for transfer overnight however they have refused to take the patient yet. 07/05/2020. Unfortunately patient still requiring high oxygen, still on 100% oxygen and BiPAP dependent, saturating in the 90s, ABG still shows hypoxemia however pH is WNL, patient is still alert and oriented and cooperative with physical examination, stating that she is feeling very tired and hurting everywhere, patient still does not want effervescent plasma transfusion, denies any chest pain, nausea, vomiting, abdominal pain. Once a while removes her BiPAP however for most of the time she is compliant with her BiPAP. Reason For Visit: ACUTE RESPIRATORY FAILURE WITH HYPOXIA, COVID-19 Physical Exam Vital Signs: Temp Pulse Resp BP Pulse Ox 97.5 F 89 37 H 140/72 H 93 07/05/20 03:33 07/05/20 09:17 07/05/20 09:17 07/05/20 03:33 07/05/20 09:17 Intake & Output 07/04/20 07/05/20 07/06/20 06:59 06:59 06:59 Intake Total 1610 1760 Output Total 200 1400 Balance 1410 360 Weight 71.5 kg 74.2 kg General appearance: PRESENT: obese, well-developed, well-nourished, other - Moderate respiratory distress Head exam: PRESENT: atraumatic, normocephalic Respiratory exam: PRESENT: accessory muscle use, clear to auscultation sky, symmetrical, tachypnea. ABSENT: rales, rhonchi, wheezes Cardiovascular exam: PRESENT: RRR, tachycardia. ABSENT: diastolic murmur, rubs, systolic murmur Pulses: PRESENT: normal dorsalis pedis pul Extremities exam: PRESENT: full ROM. ABSENT: calf tenderness, clubbing, pedal edema Neurological exam: PRESENT: alert, awake, oriented to person, oriented to place, oriented to time, oriented to situation, CN II-XII grossly intact. ABSENT: motor sensory deficit Results Laboratory Results: 07/05/20 05:26 07/05/20 05:26 07/05/20 07/05/20 05:26 05:26 WBC 12.2 H RBC 3.18 L Hgb 9.9 L Hct 29.7 L MCV 93 MCH 31.2 MCHC 33.4 RDW 13.5 Plt Count 376 Seg Neutrophils % Not Reportable Sodium 136.2 L Potassium 3.5 L Chloride 99 Carbon Dioxide 32 H Anion Gap 5 BUN 13 Creatinine 0.41 L Est GFR ( Amer) > 60 Glucose 154 H Calcium 8.1 L Magnesium 2.1 Total Bilirubin 0.7 AST 27 Alkaline Phosphatase 129 H Total Protein 5.4 L Albumin 2.7 L 06/30/20 09:15 Troponin I < 0.012 NT-Pro-B Natriuret Pep 906 H Impressions: Chest X-Ray 06/30/20 09:47 IMPRESSION: Increased radiographic conspicuity of multifocal airspace opacities in this patient with reported known diagnosis with COVID. Assessment and Plan - Diagnosis (1) Acute respiratory disease due to COVID-19 virus Is this a current diagnosis for this admission?: Yes Plan: Unchanged. BiPAP, 100% oxygen, SPO2 high 80s and low 90s. Afebrile. WBC tr ending down. Due to COVID-19 pneumonia, superimposed bacterial pneumonia could not be ruled out. Presented with elevated LDH, elevated d-dimer, elevated CRP, elevated ferritin, transaminitis. Given severely elevated acute phase reactants patient may not do very well with COVID-19. Day 6 IV antibiotics. Day 6 IV ceftriaxone. Day 6 IV azithromycin. Day 6 IV steroids. Day 6 weight-based Lovenox. Day 6 p.o. Remdesivir Continue telemetry, IV azithromycin, IV ceftriaxone, Remdesivir, IV steroids, weight dosed Lovenox, aggressive pulmonary toileting, incentive spirometry, flutter valve, LABA, LABA, sputum culture, blood culture. (2) Seizure disorder Is this a current diagnosis for this admission?: Yes Plan: Resume home meds. Seizure, fall and aspiration precautions. (3) Transaminitis Is this a current diagnosis for this admission?: Yes Plan: Improving. Likely a component of COVID-19 infection. Platelets WNL. PT/INR WNL. LFTs tomorrow. (4) Schizoaffective disorder Qualifiers: Schizoaffective disorder type: bipolar Qualified Code(s): F25.0 - Schizoaffective disorder, bipolar type Is this a current diagnosis for this admission?: Yes Plan: Takes ziprasidone at home. Resume home meds. Outpatient PCP and psychiatry follow-up. (5) Depression Is this a current diagnosis for this admission?: Yes Plan: Denies any suicidal or homicidal ideation. Takes paroxetine at home. Resume home meds. - Time Time Spent with patient: 25-34 minutes Medications reviewed and adjusted accordingly: Yes Anticipated Discharge Disposition: Home with Home Health Anticipated Discharge Timeframe: within 72 hours
[2020-07-05 11:25] LABS: ARTERIAL BLOOD FIO2 100%
[2020-07-05] MEDS: AZITHROMYCIN 500 MG in DEXTROSE 5%-WATER 250 ML IV SCH (13:40)
--- NOTE | 2020-07-05 16:17 | RADIOLOGY REPORT (SQ) ---
EXAM DESCRIPTION: CHEST SINGLE VIEW IMAGES COMPLETED DATE/TIME: 07/05/2020 4:04 pm REASON FOR STUDY: Change in status COMPARISON: 06/30/2020. EXAM PARAMETERS: NUMBER OF VIEWS: One view. TECHNIQUE: Single frontal radiographic view of the chest acquired. RADIATION DOSE: NA LIMITATIONS: None. FINDINGS: LUNGS AND PLEURA: Diffuse bilateral airspace disease, slightly worse in the upper lobes. MEDIASTINUM AND HILAR STRUCTURES: No masses. Contour normal. HEART AND VASCULAR STRUCTURES: Heart normal in size. Normal vasculature. BONES: No acute findings. HARDWARE: None in the chest. Hardware in the cervical spine. OTHER: No other significant finding. IMPRESSION: DIFFUSE BILATERAL AIRSPACE DISEASE WITH WORSENING IN THE UPPER LOBES. TECHNICAL DOCUMENTATION: JOB ID: [id number] 2010 [employer]- All Rights Reserved Reading location - IP/workstation name: [email or web address]
[2020-07-05] MEDS ORDERED: FUROSEMIDE INJ/PF 40 MG/4 ML SDV ONE (16:19)
[2020-07-05] MEDS ORDERED: FUROSEMIDE INJ/PF 40 MG/4 ML SDV IV ONE (16:30)
[2020-07-06] MEDS: TEMAZEPAM 15 MG CAPSULE PO SCH ×2 (03:59→23:50)
[2020-07-06] MEDS: ZIPRASIDONE HCL 60 MG CAPSULE PO SCH ×2 (03:59→23:50)
[2020-07-06] MEDS: LEVETIRACETAM 500 MG TABLET PO SCH ×3 (03:59→23:50)
[2020-07-06] MEDS: PAROXETINE HCL 20 MG TABLET PO SCH ×2 (03:59→23:50)
[2020-07-06] MEDS: GUAIFENESIN 600 MG TABLET.SA PO SCH ×3 (03:59→23:50)
[2020-07-06] MEDS: LORAZEPAM INJ 2 MG/1 ML VIAL IV PRN ×3 (05:30→20:37)
[2020-07-06 05:51] LABS: HEMATOCRIT 30.1 % (36.0-47.0); HEMOGLOBIN 10.1 g/dL (12.0-15.5); MEAN CORPUSCULAR HEMOGLOBIN 31.3 pg (27.0-33.4); MEAN CORPUSCULAR HGB CONC 33.7 g/dL (32.0-36.0); MEAN CORPUSCULAR VOLUME 93 fl (80-97); PLATELET COUNT 414 10^3/uL (150-450); RED BLOOD COUNT 3.24 10^6/uL (3.72-5.28); RED CELL DISTRIBUTION WIDTH 13.6 % (11.5-14.0); WHITE BLOOD COUNT 13.7 10^3/uL (4.0-10.5)
[2020-07-06 06:11] LABS: ALBUMIN 2.8 g/dL (3.5-5.0); ALKALINE PHOSPHATASE 114 U/L (38-126); ANION GAP 6 (5-19); ASPARTATE AMINO TRANSFERASE 26 U/L (14-36); BILIRUBIN,TOTAL 0.5 mg/dL (0.2-1.3); BLOOD UREA NITROGEN 14 mg/dL (7-20); CALCIUM 8.2 mg/dL (8.4-10.2); CARBON DIOXIDE 37 mmol/L (22-30); CHLORIDE 93 mmol/L (98-107); GLUCOSE 137 mg/dL (75-110); POTASSIUM 3.6 mmol/L (3.6-5.0); TOTAL PROTEIN 5.6 g/dL (6.3-8.2)
[2020-07-06 06:20] LABS: ABSOLUTE LYMPHOCYTES# (MANUAL) 0.7 10^3/uL (0.5-4.7); ABSOLUTE MONOCYTES # (MANUAL) 0.3 10^3/uL (0.1-1.4); BAND NEUTROPHILS % (MANUAL) 1 % (3-5); BASOPHILS % (MANUAL) 0 % (0-2); EOSINOPHILS % (MANUAL) 0 % (0-6); LYMPHOCYTES % (MANUAL) 5 % (13-45); MONOCYTES % (MANUAL) 2 % (3-13); SEGMENTED NEUTROPHILS % (MAN) 92 % (42-78); TOTAL CELLS COUNTED 100
[2020-07-06 06:21] LABS: HYPERSEGMENTED NEUTROPHILS PRESENT; PLATELET COMMENT ADEQUATE; RBC MORPHOLOGY COMMENT NORMO-CYTIC/CHROMIC
[2020-07-06 06:47] LABS: ARTERIAL BLOOD BASE EXCESS 7.5 mmol/L; ARTERIAL BLOOD H2CO3 1.66 mmol/L (1.05-1.35); ARTERIAL BLOOD HCO3 33.7 mmol/L (20-24); ARTERIAL BLOOD O2 SATURATION 95.9 % (94-98); ARTERIAL BLOOD PH 7.41 (7.35-7.45); ARTERIAL BLOOD PO2 82.2 mmHg (80-100); ARTERIAL BLOOD TOTAL CO2 35.4 mmol/L (21-25)
[2020-07-06 06:48] LABS: ARTERIAL BLOOD FIO2 85%
[2020-07-06 07:12] LABS: APPEARANCE,URINE CLEAR; BILIRUBIN,URINE NEGATIVE (NEGATIVE); COLOR,URINE YELLOW; GLUCOSE, URINE NEGATIVE (NEGATIVE); KETONES,URINE TRACE mg/dL (NEGATIVE); LEUKOCYTE ESTERASE,URINE NEGATIVE (NEGATIVE); NITRITE,URINE NEGATIVE (NEGATIVE); PROTEIN,URINE 30 mg/dL (NEGATIVE); URINE SPECIFIC GRAVITY 1.018; UROBILINOGEN,URINE NEGATIVE mg/dL (<2.0)
[2020-07-06] MEDS: ENOXAPARIN SODIUM INJ 80 MG/0.8 ML DISP.SYRIN SUBCUT SCH ×3 (07:28→22:00)
[2020-07-06] MEDS: DEXAMETHASONE SOD PHOSPHATE INJ 4 MG/1 ML VIAL IV SCH ×2 (07:30→17:21)
[2020-07-06] MEDS: MORPHINE SULFATE 10 MG/ML INJ IV PRN ×2 (07:32→17:21)
[2020-07-06] MEDS: LATANOPROST 0.005% OPH SOLN 2.5 ML OU SCH ×2 (07:35→22:00)
[2020-07-06] MEDS: PANTOPRAZOLE SODIUM 20 MG TABLET.DR PO SCH (07:36)
[2020-07-06] MEDS: IPRATROPIUM/ALBUTEROL 0.5-2.5 MG/3 ML AMPUL NEB SCH ×3 (08:17→20:12)
[2020-07-06] MEDS: ZINC SULFATE 220 MG CAPSULE PO SCH (09:52)
[2020-07-06] MEDS: METOPROLOL SUCCINATE 25 MG TAB.SR.24H PO SCH (09:52)
[2020-07-06] MEDS: CEFTRIAXONE 1 GM/D5W RTU 1 GM/50 ML RTUPB IV SCH (09:54)
[2020-07-06] MEDS: FLUTICASONE/UMECLIDIN/VILANTER 100-62.5-25 MCG/DOSE IH SCH (09:55)
[2020-07-06] MEDS: AZITHROMYCIN 500 MG in DEXTROSE 5%-WATER 250 ML IV SCH (10:27)
--- NOTE | 2020-07-06 11:36 | PDOC PROGRESS REPORT ---
Subjective Progress Note for:: 07/06/20 Subjective:: DEMETRI CALDERON is a 64 year old female past medical history of sc hizoaffective disorder, seizure disorder, depression, hypertension, anxiety, who was exposed to COVID-19 about 11 days ago, came into ED 2 days ago complaining of shortness of breath, fatigue, subjective fever and chills, was tested for COVID and sent home on hydroxychloroquine, azithromycin and Pulmicort, she took all her medication however patient complaining of worsening fatigue, nausea, vomiting, diarrhea, loss of taste, loss of smell, denies any chest pain, abdominal pain, headache, vision changes, weight changes, focal neurological symptoms, or any urinary symptoms. In ED was noted to be hypoxic, tachypneic, tachycardic, elevated INR, elevated ferritin, elevated LDH, elevated C-reactive protein and transaminitis. Surgery was consulted for admission. 07/01/2020. Saw patient this morning. Alert and oriented but unfortunately her respiratory distress is getting worse, stating that she could not sleep last night and hurting all over does not feel like eating, denies any fever or ch ills, chest pain, nausea, vomiting or abdominal pain. She mentions to me that she would like to stay full code on this admission. 07/02/2020. Overnight patient has been hypoxic, this morning patient seemed very stressed, tachypneic, on high flow nasal cannula, refuses to wear BiPAP citing claustrophobia, was given some Ativan but he still refused to wear it, ABG showed mild hypoxia otherwise unremarkable, patient still alert and oriented but very distressed denies any chest pain, fever, chills has not been able to eat due to the fact that she is on oxygen 17/06. She is okay to be intubated if needed. Unfortunately she still cannot tolerate BiPAP even though she was given some Ativan. 07/03/2020. Saw patient this morning, wearing BiPAP, in mild respiratory distress, alert and oriented and cooperative with physical examination, patient has been wearing her BiPAP since last night been taking benzodiazepine for anxiety, patient is on 100% oxygen and saturating high 80s and low 90s. Denies any chest pain, fever, chills, nausea, vomiting. Yesterday I mentioned to her that I could get her effervescent plasma but she is stating that he cannot receive it due to episcopal beliefs. 07/04/2020. Unfortunately patient still BiPAP dependent and on FiO2 of 100%, saturating high 80s and low 90s, afebrile, noted to be in moderate respiratory distress however she still awake alert and oriented x3, stating that she is feeling weak all over. Denies any chest pain, nausea, vomiting, diarrhea, constipation. As per nursing staff and she was consulted for transfer overnight however they have refused to take the patient yet. 07/05/2020. Unfortunately patient still requiring high oxygen, still on 100% oxygen and BiPAP dependent, saturating in the 90s, ABG still shows hypoxemia however pH is WNL, patient is still alert and oriented and cooperative with physical examination, stating that she is feeling very tired and hurting everywhere, patient still does not want effervescent plasma transfusion, denies any chest pain, nausea, vomiting, abdominal pain. Once a while removes her BiPAP however for most of the time she is compliant with her BiPAP. 07/06/2020. No acute events overnight. Patient having moderate improvement of respiratory symptoms, FiO2 is 85 down from 100% and saturating high 90s, still seems to be more restless and however is alert and oriented x3 and cooperative with physical examination. Denies any fever, chills, nausea, vomiting. Feeling of back pain. Reason For Visit: ACUTE RESPIRATORY FAILURE WITH HYPOXIA, COVID-19 Physical Exam Vital Signs: Temp Pulse Resp BP Pulse Ox 97.5 F 69 17 147/73 H 97 07/06/20 08:05 07/06/20 08:17 07/06/20 08:17 07/06/20 08:05 07/06/20 08:17 Intake & Output 07/05/20 07/06/20 07/07/20 06:59 06:59 06:59 Intake Total 1760 1558 Output Total 1400 2300 Balance 360 -742 Weight 74.2 kg 74.2 kg General appearance: PRESENT: no acute distress, well-developed, well-nourished, other - Moderate distress Head exam: PRESENT: atraumatic, normocephalic Respiratory exam: PRESENT: accessory muscle use, clear to auscultation sky, tachypnea. ABSENT: rales, rhonchi, wheezes Cardiovascular exam: PRESENT: RRR, tachycardia. ABSENT: diastolic murmur, rubs, systolic murmur GI/Abdominal exam: PRESENT: normal bowel sounds, soft. ABSENT: distended, guarding, mass, organolmegaly, rebound, tenderness Neurological exam: PRESENT: alert, awake, oriented to person, oriented to place, oriented to time, oriented to situation, CN II-XII grossly intact. ABSENT: motor sensory deficit Results Laboratory Results: 07/06/20 05:15 07/06/20 05:15 07/06/20 07/06/20 07/06/20 05:15 05:15 06:00 WBC 13.7 H RBC 3.24 L Hgb 10.1 L Hct 30.1 L MCV 93 MCH 31.3 MCHC 33.7 RDW 13.6 Plt Count 414 Seg Neutrophils % Not Reportable Carbonic Acid HCO3/H2CO3 Ratio ABG pH ABG pCO2 ABG pO2 ABG HCO3 ABG O2 Saturation ABG Base Excess FiO2 Sodium 136.4 L Potassium 3.6 Chloride 93 L Carbon Dioxide 37 H Anion Gap 6 BUN 14 Creatinine 0.44 L Est GFR ( Amer) > 60 Glucose 137 H Calcium 8.2 L Magnesium 2.1 Total Bilirubin 0.5 AST 26 Alkaline Phosphatase 114 Total Protein 5.6 L Albumin 2.8 L Urine Color YELLOW Urine Appearance CLEAR Urine pH 8.0 Ur Specific [place] 1.018 Urine Protein 30 H Urine Glucose (UA) NEGATIVE Urine Ketones TRACE H Urine Blood SMALL H Urine Nitrite NEGATIVE Ur Leukocyte Esterase NEGATIVE Urine WBC (Auto) 3 Urine RBC (Auto) 10 07/06/20 06:34 WBC RBC Hgb Hct MCV MCH MCHC RDW Plt Count Seg Neutrophils % Carbonic Acid 1.66 H HCO3/H2CO3 Ratio 20:1 ABG pH 7.41 ABG pCO2 55.0 H ABG pO2 82.2 ABG HCO3 33.7 H ABG O2 Saturation 95.9 ABG Base Excess 7.5 FiO2 85% Sodium Potassium Chloride Carbon Dioxide Anion Gap BUN Creatinine Est GFR ( Amer) Glucose Calcium Magnesium Total Bilirubin AST Alkaline Phosphatase Total Protein Albumin Urine Color Urine Appearance Urine pH Ur Specific [place] Urine Protein Urine Glucose (UA) Urine Ketones Urine Blood Urine Nitrite Ur Leukocyte Esterase Urine WBC (Auto) Urine RBC (Auto) 06/30/20 09:15 Blood Blood Culture - Final NO GROWTH IN 5 DAYS 06/30/20 12:23 Blood Blood Culture - Final NO GROWTH IN 5 DAYS 06/30/20 09:15 Troponin I < 0.012 NT-Pro-B Natriuret Pep 906 H Impressions: Chest X-Ray 07/05/20 15:45 IMPRESSION: DIFFUSE BILATERAL AIRSPACE DISEASE WITH WORSENING IN THE UPPER LOBES. Assessment and Plan - Diagnosis (1) Acute respiratory disease due to COVID-19 virus Is this a current diagnosis for this admission?: Yes Plan: Moderate improvement. FiO2 85% down from 100% yesterday. Still requiring BiPAP. SPO2 high 80s and low 90s. Afebrile. WBC trending down. Due to COVID-19 pneumonia, superimposed bacterial pneumonia could not be ruled out. Presented with elevated LDH, elevated d-dimer, elevated CRP, elevated ferritin, transaminitis. Given severely elevated acute phase reactants patient may not do very well with COVID-19. Day 7 IV antibiotics. Day 7 IV ceftriaxone. Day 7 IV azithromycin. Day 7 IV steroids. Day 7 weight-based Lovenox. Completed a course of IV Remdesivir Continue telemetry, IV azithromycin, IV ceftriaxone, Remdesivir, IV steroids, weight dosed Lovenox, aggressive pulmonary toileting, incentive spirometry, flutter valve, LABA, LABA, sputum culture, blood culture. (2) Seizure disorder Is this a current diagnosis for this admission?: Yes Plan: Resume home meds. Seizure, fall and aspiration precautions. (3) Transaminitis Is this a current diagnosis for this admission?: Yes Plan: Improving. Likely a component of COVID-19 infection. Platelets WNL. PT/INR WNL. LFTs tomorrow. (4) Schizoaffective disorder Qualifiers: Schizoaffective disorder type: bipolar Qualified Code(s): F25.0 - Schizoaffective disorder, bipolar type Is this a current diagnosis for this admission?: Yes Plan: Takes ziprasidone at home. Resume home meds. Outpatient PCP and psychiatry follow-up. (5) Depression Is this a current diagnosis for this admission?: Yes Plan: Denies any suicidal or homicidal ideation. Takes paroxetine at home. Resume home meds. - Time Time Spent with patient: 25-34 minutes Medications reviewed and adjusted accordingly: Yes Anticipated Discharge Disposition: Home with Home Health Anticipated Discharge Timeframe: within 72 hours
[2020-07-06 16:38] LABS: APPEARANCE,URINE CLEAR; BILIRUBIN,URINE NEGATIVE (NEGATIVE); COLOR,URINE YELLOW; GLUCOSE, URINE NEGATIVE (NEGATIVE); KETONES,URINE 20 mg/dL (NEGATIVE); LEUKOCYTE ESTERASE,URINE NEGATIVE (NEGATIVE); NITRITE,URINE NEGATIVE (NEGATIVE); PROTEIN,URINE 30 mg/dL (NEGATIVE); URINE SPECIFIC GRAVITY 1.024; UROBILINOGEN,URINE NEGATIVE mg/dL (<2.0)
[2020-07-07] MEDS ORDERED: ASPIRIN 300 MG SUPP, RECTAL PR ONE (04:45)
[2020-07-07 05:39] LABS: HEMATOCRIT 30.2 % (36.0-47.0); HEMOGLOBIN 10.2 g/dL (12.0-15.5); MEAN CORPUSCULAR HEMOGLOBIN 31.2 pg (27.0-33.4); MEAN CORPUSCULAR HGB CONC 33.7 g/dL (32.0-36.0); MEAN CORPUSCULAR VOLUME 93 fl (80-97); PLATELET COUNT 404 10^3/uL (150-450); RED BLOOD COUNT 3.26 10^6/uL (3.72-5.28); RED CELL DISTRIBUTION WIDTH 13.8 % (11.5-14.0); WHITE BLOOD COUNT 13.4 10^3/uL (4.0-10.5)
[2020-07-07 05:56] LABS: ALBUMIN 2.7 g/dL (3.5-5.0); ALKALINE PHOSPHATASE 102 U/L (38-126); ANION GAP 6 (5-19); ASPARTATE AMINO TRANSFERASE 27 U/L (14-36); BILIRUBIN,TOTAL 0.6 mg/dL (0.2-1.3); BLOOD UREA NITROGEN 12 mg/dL (7-20); CALCIUM 8.2 mg/dL (8.4-10.2); CARBON DIOXIDE 36 mmol/L (22-30); CHLORIDE 93 mmol/L (98-107); GLUCOSE 98 mg/dL (75-110); POTASSIUM 3.6 mmol/L (3.6-5.0); TOTAL PROTEIN 5.4 g/dL (6.3-8.2)
[2020-07-07] MEDS: PANTOPRAZOLE SODIUM 20 MG TABLET.DR PO SCH (06:20)
[2020-07-07] MEDS: DEXAMETHASONE SOD PHOSPHATE INJ 4 MG/1 ML VIAL IV SCH ×2 (06:20→17:02)
[2020-07-07 06:25] LABS: ABSOLUTE LYMPHOCYTES# (MANUAL) 0.4 10^3/uL (0.5-4.7); ABSOLUTE MONOCYTES # (MANUAL) 1.1 10^3/uL (0.1-1.4); BASOPHILS % (MANUAL) 0 % (0-2); EOSINOPHILS % (MANUAL) 0 % (0-6); LYMPHOCYTES % (MANUAL) 3 % (13-45); MONOCYTES % (MANUAL) 8 % (3-13); SEGMENTED NEUTROPHILS % (MAN) 89 % (42-78); TOTAL CELLS COUNTED 100
[2020-07-07 06:27] LABS: PLATELET COMMENT ADEQUATE; POLYCHROMASIA SLIGHT; TOXIC GRANULATION SLIGHT; TOXIC VACUOLATION PRESENT
[2020-07-07 06:52] LABS: ARTERIAL BLOOD BASE EXCESS 12.6 mmol/L; ARTERIAL BLOOD H2CO3 1.49 mmol/L (1.05-1.35); ARTERIAL BLOOD HCO3 37.4 mmol/L (20-24); ARTERIAL BLOOD O2 SATURATION 84.2 % (94-98); ARTERIAL BLOOD PCO2 49.5 mmHg (35-45); ARTERIAL BLOOD PO2 45.2 mmHg (80-100); ARTERIAL BLOOD TOTAL CO2 38.9 mmol/L (21-25)
[2020-07-07 06:53] LABS: ARTERIAL BLOOD FIO2 75%
[2020-07-07] MEDS: IPRATROPIUM/ALBUTEROL 0.5-2.5 MG/3 ML AMPUL NEB SCH ×3 (08:31→21:41)
[2020-07-07] MEDS: LEVETIRACETAM 500 MG TABLET PO SCH ×2 (09:12→22:55)
[2020-07-07] MEDS: GUAIFENESIN 600 MG TABLET.SA PO SCH ×2 (09:13→22:55)
[2020-07-07] MEDS: FLUTICASONE/UMECLIDIN/VILANTER 100-62.5-25 MCG/DOSE IH SCH (09:13)
[2020-07-07] MEDS: ZINC SULFATE 220 MG CAPSULE PO SCH (09:13)
[2020-07-07] MEDS: METOPROLOL SUCCINATE 25 MG TAB.SR.24H PO SCH (09:13)
[2020-07-07] MEDS: ENOXAPARIN SODIUM INJ 80 MG/0.8 ML DISP.SYRIN SUBCUT SCH (09:16)
[2020-07-07] MEDS: CEFTRIAXONE 1 GM/D5W RTU 1 GM/50 ML RTUPB IV SCH (09:16)
[2020-07-07] MEDS: AZITHROMYCIN 500 MG in DEXTROSE 5%-WATER 250 ML IV SCH (09:17)
--- NOTE | 2020-07-07 12:18 | PDOC PROGRESS REPORT ---
Subjective Progress Note for:: 07/07/20 Subjective:: DEMETRI CALDERON is a 64 year old female past medical history of sc hizoaffective disorder, seizure disorder, depression, hypertension, anxiety, who was exposed to COVID-19 about 11 days ago, came into ED 2 days ago complaining of shortness of breath, fatigue, subjective fever and chills, was tested for COVID and sent home on hydroxychloroquine, azithromycin and Pulmicort, she took all her medication however patient complaining of worsening fatigue, nausea, vomiting, diarrhea, loss of taste, loss of smell, denies any chest pain, abdominal pain, headache, vision changes, weight changes, focal neurological symptoms, or any urinary symptoms. In ED was noted to be hypoxic, tachypneic, tachycardic, elevated INR, elevated ferritin, elevated LDH, elevated C-reactive protein and transaminitis. Surgery was consulted for admission. 07/01/2020. Saw patient this morning. Alert and oriented but unfortunately her respiratory distress is getting worse, stating that she could not sleep last night and hurting all over does not feel like eating, denies any fever or ch ills, chest pain, nausea, vomiting or abdominal pain. She mentions to me that she would like to stay full code on this admission. 07/02/2020. Overnight patient has been hypoxic, this morning patient seemed very stressed, tachypneic, on high flow nasal cannula, refuses to wear BiPAP citing claustrophobia, was given some Ativan but he still refused to wear it, ABG showed mild hypoxia otherwise unremarkable, patient still alert and oriented but very distressed denies any chest pain, fever, chills has not been able to eat due to the fact that she is on oxygen 17/06. She is okay to be intubated if needed. Unfortunately she still cannot tolerate BiPAP even though she was given some Ativan. 07/03/2020. Saw patient this morning, wearing BiPAP, in mild respiratory distress, alert and oriented and cooperative with physical examination, patient has been wearing her BiPAP since last night been taking benzodiazepine for anxiety, patient is on 100% oxygen and saturating high 80s and low 90s. Denies any chest pain, fever, chills, nausea, vomiting. Yesterday I mentioned to her that I could get her effervescent plasma but she is stating that he cannot receive it due to church beliefs. 07/04/2020. Unfortunately patient still BiPAP dependent and on FiO2 of 100%, saturating high 80s and low 90s, afebrile, noted to be in moderate respiratory distress however she still awake alert and oriented x3, stating that she is feeling weak all over. Denies any chest pain, nausea, vomiting, diarrhea, constipation. As per nursing staff and she was consulted for transfer overnight however they have refused to take the patient yet. 07/05/2020. Unfortunately patient still requiring high oxygen, still on 100% oxygen and BiPAP dependent, saturating in the 90s, ABG still shows hypoxemia however pH is WNL, patient is still alert and oriented and cooperative with physical examination, stating that she is feeling very tired and hurting everywhere, patient still does not want effervescent plasma transfusion, denies any chest pain, nausea, vomiting, abdominal pain. Once a while removes her BiPAP however for most of the time she is compliant with her BiPAP. 07/06/2020. No acute events overnight. Patient having moderate improvement of respiratory symptoms, FiO2 is 85 down from 100% and saturating high 90s, still seems to be more restless and however is alert and oriented x3 and cooperative with physical examination. Denies any fever, chills, nausea, vomiting. Feeling of back pain. 07/07/2020. Overnight patient was noted to be confused and flaccid on one side, suspicion was raised for possible CVA, since patient desaturates as soon as she is off of BiPAP CT head was not able to be done, this morning patient is alert but confused however does communicate and moving all her extremities, cranial nerves noted to be intact, unfortunately patient still on BiPAP however oxygen demand is improving, but noted to be hypoxemic on ABG this morning. Patient is stating that she is tired having pleuritic chest pain otherwise denies any fever, chills, nausea. Has not been able to eat anything as patient is BiPAP dependent. Order Puller consulted, recommendation is to keep patient in IMCU and will transfer to ICU if she worsens or becomes acidotic. Reason For Visit: ACUTE RESPIRATORY FAILURE WITH HYPOXIA, COVID-19 Physical Exam Vital Signs: Temp Pulse Resp BP Pulse Ox 97.3 F 85 23 H 147/74 H 93 07/07/20 08:08 07/07/20 08:31 07/07/20 08:31 07/07/20 08:08 07/07/20 08:31 Intake & Output 07/06/20 07/07/20 07/08/20 06:59 06:59 06:59 Intake Total 1558 300 Output Total 2300 1050 Balance -742 -750 Weight 74.2 kg 72.5 kg General appearance: PRESENT: severe distress Head exam: PRESENT: atraumatic, normocephalic Respiratory exam: PRESENT: accessory muscle use, retraction, tachypnea. ABSENT: rales, rhonchi, wheezes Cardiovascular exam: PRESENT: RRR, tachycardia. ABSENT: diastolic murmur, rubs, systolic murmur GI/Abdominal exam: PRESENT: normal bowel sounds, soft. ABSENT: distended, guarding, mass, organolmegaly, rebound, tenderness Neurological exam: PRESENT: alert, awake, oriented to person, oriented to place, CN II-XII grossly intact. ABSENT: motor sensory deficit Results Laboratory Results: 07/07/20 04:51 07/07/20 04:51 07/06/20 07/07/20 07/07/20 15:57 04:51 04:51 WBC 13.4 H RBC 3.26 L Hgb 10.2 L Hct 30.2 L MCV 93 MCH 31.2 MCHC 33.7 RDW 13.8 Plt Count 404 Seg Neutrophils % Not Reportable Carbonic Acid HCO3/H2CO3 Ratio ABG pH ABG pCO2 ABG pO2 ABG HCO3 ABG O2 Saturation ABG Base Excess FiO2 Sodium 135.4 L Potassium 3.6 Chloride 93 L Carbon Dioxide 36 H Anion Gap 6 BUN 12 Creatinine 0.44 L Est GFR ( Amer) > 60 Glucose 98 Calcium 8.2 L Magnesium 2.1 Total Bilirubin 0.6 AST 27 Alkaline Phosphatase 102 Total Protein 5.4 L Albumin 2.7 L Urine Color YELLOW Urine Appearance CLEAR Urine pH 7.0 Ur Specific [place] 1.024 Urine Protein 30 H Urine Glucose (UA) NEGATIVE Urine Ketones 20 H Urine Blood SMALL H Urine Nitrite NEGATIVE Ur Leukocyte Esterase NEGATIVE Urine WBC (Auto) 2 Urine RBC (Auto) 17 07/07/20 06:30 WBC RBC Hgb Hct MCV MCH MCHC RDW Plt Count Seg Neutrophils % Carbonic Acid 1.49 H HCO3/H2CO3 Ratio 25:1 ABG pH 7.50 H ABG pCO2 49.5 H ABG pO2 45.2 L ABG HCO3 37.4 H ABG O2 Saturation 84.2 L ABG Base Excess 12.6 FiO2 75% Sodium Potassium Chloride Carbon Dioxide Anion Gap BUN Creatinine Est GFR ( Amer) Glucose Calcium Magnesium Total Bilirubin AST Alkaline Phosphatase Total Protein Albumin Urine Color Urine Appearance Urine pH Ur Specific [place] Urine Protein Urine Glucose (UA) Urine Ketones Urine Blood Urine Nitrite Ur Leukocyte Esterase Urine WBC (Auto) Urine RBC (Auto) 06/30/20 09:15 Troponin I < 0.012 NT-Pro-B Natriuret Pep 906 H Impressions: Chest X-Ray 07/05/20 15:45 IMPRESSION: DIFFUSE BILATERAL AIRSPACE DISEASE WITH WORSENING IN THE UPPER LOBES. Assessment and Plan - Diagnosis (1) Acute respiratory disease due to COVID-19 virus Is this a current diagnosis for this admission?: Yes Plan: Moderate improvement. FiO2 75% down from 100% yesterday. Still requiring BiPAP. SPO2 high 80s and low 90s. Afebrile. WBC trending down. Due to COVID-19 pneumonia, superimposed bacterial pneumonia could not be ruled out. Presented with elevated LDH, elevated d-dimer, elevated CRP, elevated ferritin, transaminitis. Given severely elevated acute phase reactants patient may not do very well with COVID-19. Day 8 IV antibiotics. Day 8 IV ceftriaxone. Day 8 IV azithromycin. Day 8 IV steroids. Day 8 weight-based Lovenox. Completed a course of IV Remdesivir Continue telemetry, IV azithromycin, IV ceftriaxone, Remdesivir, IV steroids, weight dosed Lovenox, aggressive pulmonary toileting, incentive spirometry, flutter valve, LABA, LABA, sputum culture, blood culture. Order Puller has been consulted, recommendations keep patient in IMCU and transferred to ICU if patient becomes acidotic or deteriorates. (2) Seizure disorder Is this a current diagnosis for this admission?: Yes Plan: Resume home meds. Seizure, fall and aspiration precautions. (3) Transaminitis Is this a current diagnosis for this admission?: Yes Plan: Improving. Likely a component of COVID-19 infection. Platelets WNL. PT/INR WNL. LFTs tomorrow. (4) Schizoaffective disorder Qualifiers: Schizoaffective disorder type: bipolar Qualified Code(s): F25.0 - Schizoaffective disorder, bipolar type Is this a current diagnosis for this admission?: Yes Plan: Takes ziprasidone at home. Resume home meds. Outpatient PCP and psychiatry follow-up. (5) Depression Is this a current diagnosis for this admission?: Yes Plan: Denies any suicidal or homicidal ideation. Takes paroxetine at home. Resume home meds. - Time Time Spent with patient: 35 or more minutes Medications reviewed and adjusted accordingly: Yes Anticipated Discharge Disposition: Home with Home Health Anticipated Discharge Timeframe: within 72 hours
[2020-07-07] MEDS ORDERED: METOPROLOL TARTRATE PF/INJ 5 MG/5 ML SDV IV PRN (12:20)
--- NOTE | 2020-07-07 13:38 | PDOC CRITICAL CARE PROG REPORT ---
General Date:: 07/07/20 Hospital Day:: 8 Resuscitation Status: Full Code Events in the past 12 to 24 Hours:: This 64-year-old female is seen in consultation at the request of Dr. Dev Farris for recommendations on further evaluation and management of acute hypoxemic respiratory failure. At the time of clinical interview, the patient is on BiPAP. Despite being BiPAP dependent with an FiO2 of 75%, the patient is awake, alert and interactive. She follows commands. She was originally admitted on 06/30/2020 when she presented to the emergency department with complaints of dyspnea, fatigue, fever and chills. She had previously been tested for COVID and sent home on hydroxychloroquine, azithromycin and Pulmicort. She took her medications as prescribed; however, she returned with worsening fatigue, nausea, vomiting, diarrhea, dysgeusia and anosmia. She was noted to be hypoxic in the emergency department. She had multiple laboratory abnormalities consistent with COVID-19 case definitions. PAST MEDICAL HISTORY: * Atrial fibrillation * Asthma/bronchitis * Pneumonia * Migraine * Seizures * GERD * Bipolar disorder * Depression * Appendectomy, cholecystectomy * section, hysterectomy * Cervical fusion SOCIAL HISTORY: * Tobacco: Denies * Alcohol: Denies * Illicit drugs: Denies FAMILY HISTORY: Significant for coronary artery disease and diabetes. HOME MEDICATIONS: * Amantadine 100 mg p.o. nightly * Lasix 40 mg p.o. daily * Keppra 1000 mg p.o. twice daily * Toprol-XL 25 mg p.o. daily * Omeprazole 40 mg p.o. daily * Paxil 40 mg p.o. nightly * Potassium chloride 10 mEq p.o. daily * Ziprasidone 60 mg p.o. nightly * Aspirin 81 mg p.o. daily * Keflex 500 mg p.o. every morning * Restoril 30 mg p.o. nightly * Pulmicort 90 mcg Flexhaler 1 inhalation daily ALLERGIES: * Sulfa/Sulfamethoxazole/Trimethoprim * Iodinated contrast * Thiopental * Mirtazapine * Zolpidem Review of systems relevant to events:: Respiratory: COVID-19 pneumonia, acute hypoxemic respiratory failure. Reason for ICU Addmission:: Acute hypoxemic respiratory failure - Medications: Medications reviewed and adjusted accordingly: Yes Physical Exam Vital Signs: Temp Pulse Resp BP Pulse Ox 97.3 F 85 36 H 147/74 H 93 07/07/20 08:08 07/07/20 08:31 07/07/20 13:04 07/07/20 08:08 07/07/20 08:31 Intake & Output 07/06/20 07/07/20 07/08/20 06:59 06:59 06:59 Intake Total 1558 300 Output Total 2300 1050 Balance -742 -750 Weight 74.2 kg 72.5 kg 72.5 kg Weight/Height Weight 72.5 kg Height 1.55 m General appearance: PRESENT: well-developed, well-nourished Head exam: PRESENT: atraumatic, normocephalic Mouth exam: PRESENT: moist, tongue midline Neck exam: ABSENT: carotid bruit, JVD, lymphadenopathy, thyromegaly Respiratory exam: PRESENT: clear to auscultation sky, tachypnea. ABSENT: rales, rhonchi, wheezes Cardiovascular exam: PRESENT: RRR, tachycardia. ABSENT: diastolic murmur, rubs, systolic murmur Pulses: PRESENT: normal dorsalis pedis pul GI/Abdominal exam: PRESENT: normal bowel sounds, soft. ABSENT: distended, guarding, mass, organolmegaly, rebound, tenderness Extremities exam: PRESENT: full ROM. ABSENT: calf tenderness, clubbing, pedal edema Neurological exam: PRESENT: alert, awake, oriented to person, oriented to place, oriented to time, oriented to situation, CN II-XII grossly intact, motor sensory deficit - Seems to have mild motor weakness of the left lower extremity; however, during physical exam, she does demonstrate that she is able to demonstrate 4+/5 strength. ABSENT: reflexes normal Psychiatric exam: ABSENT: agitated, anxious Skin exam: PRESENT: dry, intact, warm. ABSENT: cyanosis, rash Laboratory/Radiographs Laboratory Results: 07/07/20 04:51 07/07/20 04:51 07/06/20 07/07/20 07/07/20 15:57 04:51 04:51 WBC 13.4 H RBC 3.26 L Hgb 10.2 L Hct 30.2 L MCV 93 MCH 31.2 MCHC 33.7 RDW 13.8 Plt Count 404 Seg Neutrophils % Not Reportable Carbonic Acid HCO3/H2CO3 Ratio ABG pH ABG pCO2 ABG pO2 ABG HCO3 ABG O2 Saturation ABG Base Excess FiO2 Sodium 135.4 L Potassium 3.6 Chloride 93 L Carbon Dioxide 36 H Anion Gap 6 BUN 12 Creatinine 0.44 L Est GFR ( Amer) > 60 Glucose 98 Calcium 8.2 L Magnesium 2.1 Total Bilirubin 0.6 AST 27 Alkaline Phosphatase 102 Total Protein 5.4 L Albumin 2.7 L Urine Color YELLOW Urine Appearance CLEAR Urine pH 7.0 Ur Specific [place] 1.024 Urine Protein 30 H Urine Glucose (UA) NEGATIVE Urine Ketones 20 H Urine Blood SMALL H Urine Nitrite NEGATIVE Ur Leukocyte Esterase NEGATIVE Urine WBC (Auto) 2 Urine RBC (Auto) 17 07/07/20 06:30 WBC RBC Hgb Hct MCV MCH MCHC RDW Plt Count Seg Neutrophils % Carbonic Acid 1.49 H HCO3/H2CO3 Ratio 25:1 ABG pH 7.50 H ABG pCO2 49.5 H ABG pO2 45.2 L ABG HCO3 37.4 H ABG O2 Saturation 84.2 L ABG Base Excess 12.6 FiO2 75% Sodium Potassium Chloride Carbon Dioxide Anion Gap BUN Creatinine Est GFR ( Amer) Glucose Calcium Magnesium Total Bilirubin AST Alkaline Phosphatase Total Protein Albumin Urine Color Urine Appearance Urine pH Ur Specific [place] Urine Protein Urine Glucose (UA) Urine Ketones Urine Blood Urine Nitrite Ur Leukocyte Esterase Urine WBC (Auto) Urine RBC (Auto) 06/30/20 09:15 Troponin I < 0.012 NT-Pro-B Natriuret Pep 906 H Impressions: Chest X-Ray 07/05/20 15:45 IMPRESSION: DIFFUSE BILATERAL AIRSPACE DISEASE WITH WORSENING IN THE UPPER LOBES. All labs, radiographs, diagnostic studies and EKGs were personally reviewed: Yes In addition, reports of radiographic and diagnostic studies were read: Yes Assessment and Plan - Diagnosis (1) Acute hypoxemic respiratory failure due to severe acute respiratory syndrome coronavirus 2 (SARS-CoV-2) disease Is this a current diagnosis for this admission?: Yes Plan: This was discussed with Dr. Farris. The patient's NIPPV was titrated at the bedside. Changed mode from BiPAP to CPAP 10, FiO2 75%. SPO2 improved to 93%. Setting the FiO2 to 100% and titrating only CPAP pressure may prove to be an easier method of titration and may result in earlier liberation from CPAP/BiPAP. Otherwise, I agree with the ongoing management of this patient. The patient should continue to be monitored for mental status and ventilatory status (ABG pH). The patient has completed Plaquenil (as an outpatient) and remdesivir. She also received convalescent plasma. Ongoing treatment with ceftriaxone/azithromycin, zinc and dexamethasone are noted. Trelegy is noted to be a home medication. Use of the Ellipta device is not feasible at this time, add budesonide. Critical Time Critical Time (minutes): 45 Level of Care: ICU -: 1. The care of a critical patient is a dynamic process. This note is a financial services sales representative synopsis but static in nature. The timeframe for treatments given in order is not necessarily the actual time these treatments may have been done. 2. This patient requires critical care secondary to ongoing requirements for therapy not offered or safe outside the critical care environment. Transfer to a lower level of care will result in altered life or limb morbidity and mortality. 3. Multidisciplinary rounds completed. 4. ABCDE bundle addressed.
[2020-07-07] MEDS: MORPHINE SULFATE 10 MG/ML INJ IV PRN ×2 (15:13→21:45)
[2020-07-07] MEDS: PAROXETINE HCL 20 MG TABLET PO SCH (22:55)
[2020-07-07] MEDS: ZIPRASIDONE HCL 60 MG CAPSULE PO SCH (22:55)
[2020-07-07] MEDS: TEMAZEPAM 15 MG CAPSULE PO SCH (22:55)
[2020-07-08] MEDS: ENOXAPARIN SODIUM INJ 80 MG/0.8 ML DISP.SYRIN SUBCUT SCH ×3 (00:24→21:28)
[2020-07-08] MEDS: LATANOPROST 0.005% OPH SOLN 2.5 ML OU SCH (00:25)
[2020-07-08] MEDS: MORPHINE SULFATE 10 MG/ML INJ IV PRN ×2 (04:05→08:49)
[2020-07-08 05:22] LABS: HEMATOCRIT 30.1 % (36.0-47.0); HEMOGLOBIN 10.2 g/dL (12.0-15.5); MEAN CORPUSCULAR HEMOGLOBIN 31.4 pg (27.0-33.4); MEAN CORPUSCULAR HGB CONC 33.9 g/dL (32.0-36.0); MEAN CORPUSCULAR VOLUME 93 fl (80-97); PLATELET COUNT 337 10^3/uL (150-450); RED BLOOD COUNT 3.24 10^6/uL (3.72-5.28); RED CELL DISTRIBUTION WIDTH 13.8 % (11.5-14.0); WHITE BLOOD COUNT 10.4 10^3/uL (4.0-10.5)
[2020-07-08 05:44] LABS: ALBUMIN 2.8 g/dL (3.5-5.0); ALKALINE PHOSPHATASE 95 U/L (38-126); ANION GAP 8 (5-19); ASPARTATE AMINO TRANSFERASE 27 U/L (14-36); BILIRUBIN,TOTAL 0.8 mg/dL (0.2-1.3); BLOOD UREA NITROGEN 16 mg/dL (7-20); CALCIUM 8.4 mg/dL (8.4-10.2); CARBON DIOXIDE 35 mmol/L (22-30); CHLORIDE 95 mmol/L (98-107); GLUCOSE 120 mg/dL (75-110); POTASSIUM 3.7 mmol/L (3.6-5.0); TOTAL PROTEIN 5.7 g/dL (6.3-8.2)
[2020-07-08 05:50] LABS: ABSOLUTE MONOCYTES # (MANUAL) 0.2 10^3/uL (0.1-1.4); BASOPHILS % (MANUAL) 0 % (0-2); EOSINOPHILS % (MANUAL) 0 % (0-6); LYMPHOCYTES % (MANUAL) 0 % (13-45); MONOCYTES % (MANUAL) 2 % (3-13); SEGMENTED NEUTROPHILS % (MAN) 98 % (42-78); TOTAL CELLS COUNTED 100
[2020-07-08 05:51] LABS: RBC MORPHOLOGY COMMENT NORMO-CYTIC/CHROMIC
[2020-07-08 05:52] LABS: PLATELET COMMENT ADEQUATE
[2020-07-08] MEDS: PANTOPRAZOLE SODIUM 20 MG TABLET.DR PO SCH (06:21)
[2020-07-08] MEDS: DEXAMETHASONE SOD PHOSPHATE INJ 4 MG/1 ML VIAL IV SCH ×2 (06:21→16:59)
[2020-07-08 06:52] LABS: ARTERIAL BLOOD BASE EXCESS 9.9 mmol/L; ARTERIAL BLOOD FIO2 70%; ARTERIAL BLOOD H2CO3 1.59 mmol/L (1.05-1.35); ARTERIAL BLOOD HCO3 35.4 mmol/L (20-24); ARTERIAL BLOOD O2 SATURATION 94.4 % (94-98); ARTERIAL BLOOD PCO2 52.9 mmHg (35-45); ARTERIAL BLOOD PH 7.44 (7.35-7.45); ARTERIAL BLOOD PO2 70.3 mmHg (80-100); ARTERIAL BLOOD TOTAL CO2 37.1 mmol/L (21-25)
[2020-07-08] MEDS: IPRATROPIUM/ALBUTEROL 0.5-2.5 MG/3 ML AMPUL NEB SCH ×3 (07:49→21:34)
[2020-07-08] MEDS ORDERED: METOPROLOL SUCCINATE 25 MG TAB.SR.24H PO SCH (10:00)
[2020-07-08] MEDS: CEFTRIAXONE 1 GM/D5W RTU 1 GM/50 ML RTUPB IV SCH (12:10)
--- NOTE | 2020-07-08 12:21 | PDOC PROGRESS REPORT ---
Subjective Progress Note for:: 07/08/20 Subjective:: DEMETRI CALDERON is a 64 year old female past medical history of sc hizoaffective disorder, seizure disorder, depression, hypertension, anxiety, who was exposed to COVID-19 about 11 days ago, came into ED 2 days ago complaining of shortness of breath, fatigue, subjective fever and chills, was tested for COVID and sent home on hydroxychloroquine, azithromycin and Pulmicort, she took all her medication however patient complaining of worsening fatigue, nausea, vomiting, diarrhea, loss of taste, loss of smell, denies any chest pain, abdominal pain, headache, vision changes, weight changes, focal neurological symptoms, or any urinary symptoms. In ED was noted to be hypoxic, tachypneic, tachycardic, elevated INR, elevated ferritin, elevated LDH, elevated C-reactive protein and transaminitis. Surgery was consulted for admission. 07/01/2020. Saw patient this morning. Alert and oriented but unfortunately her respiratory distress is getting worse, stating that she could not sleep last night and hurting all over does not feel like eating, denies any fever or ch ills, chest pain, nausea, vomiting or abdominal pain. She mentions to me that she would like to stay full code on this admission. 07/02/2020. Overnight patient has been hypoxic, this morning patient seemed very stressed, tachypneic, on high flow nasal cannula, refuses to wear BiPAP citing claustrophobia, was given some Ativan but he still refused to wear it, ABG showed mild hypoxia otherwise unremarkable, patient still alert and oriented but very distressed denies any chest pain, fever, chills has not been able to eat due to the fact that she is on oxygen 17/06. She is okay to be intubated if needed. Unfortunately she still cannot tolerate BiPAP even though she was given some Ativan. 07/03/2020. Saw patient this morning, wearing BiPAP, in mild respiratory distress, alert and oriented and cooperative with physical examination, patient has been wearing her BiPAP since last night been taking benzodiazepine for anxiety, patient is on 100% oxygen and saturating high 80s and low 90s. Denies any chest pain, fever, chills, nausea, vomiting. Yesterday I mentioned to her that I could get her effervescent plasma but she is stating that he cannot receive it due to episcopalian beliefs. 07/04/2020. Unfortunately patient still BiPAP dependent and on FiO2 of 100%, saturating high 80s and low 90s, afebrile, noted to be in moderate respiratory distress however she still awake alert and oriented x3, stating that she is feeling weak all over. Denies any chest pain, nausea, vomiting, diarrhea, constipation. As per nursing staff and she was consulted for transfer overnight however they have refused to take the patient yet. 07/05/2020. Unfortunately patient still requiring high oxygen, still on 100% oxygen and BiPAP dependent, saturating in the 90s, ABG still shows hypoxemia however pH is WNL, patient is still alert and oriented and cooperative with physical examination, stating that she is feeling very tired and hurting everywhere, patient still does not want effervescent plasma transfusion, denies any chest pain, nausea, vomiting, abdominal pain. Once a while removes her BiPAP however for most of the time she is compliant with her BiPAP. 07/06/2020. No acute events overnight. Patient having moderate improvement of respiratory symptoms, FiO2 is 85 down from 100% and saturating high 90s, still seems to be more restless and however is alert and oriented x3 and cooperative with physical examination. Denies any fever, chills, nausea, vomiting. Feeling of back pain. 07/07/2020. Overnight patient was noted to be confused and flaccid on one side, suspicion was raised for possible CVA, since patient desaturates as soon as she is off of BiPAP CT head was not able to be done, this morning patient is alert but confused however does communicate and moving all her extremities, cranial nerves noted to be intact, unfortunately patient still on BiPAP however oxygen demand is improving, but noted to be hypoxemic on ABG this morning. Patient is stating that she is tired having pleuritic chest pain otherwise denies any fever, chills, nausea. Has not been able to eat anything as patient is BiPAP dependent. Transition Social Worker consulted, recommendation is to keep patient in IMCU and will transfer to ICU if she worsens or becomes acidotic. 07/08/2020. No acute events overnight. Patient oxygen demand is improving, still on BiPAP FiO2 of 70% saturating in WNL, patient still alert but confused, alert and oriented x2, tends to pull on her BiPAP, stating that she is feeling b steven today, denies any chest pain, nausea, vomiting. Complaining of back pain. Reason For Visit: ACUTE RESPIRATORY FAILURE WITH HYPOXIA, COVID-19 Physical Exam Vital Signs: Temp Pulse Resp BP Pulse Ox 98.7 F 95 36 H 136/71 H 93 07/08/20 08:14 07/08/20 08:14 07/08/20 08:14 07/08/20 08:14 07/08/20 08:14 Intake & Output 07/07/20 07/08/20 07/09/20 06:59 06:59 06:59 Intake Total 300 Output Total 1050 750 Balance -750 -750 Weight 72.5 kg 72.5 kg General appearance: PRESENT: severe distress, well-developed, well-nourished Head exam: PRESENT: atraumatic, normocephalic Respiratory exam: PRESENT: decreased breath sounds, tachypnea. ABSENT: rales, rhonchi, wheezes Cardiovascular exam: PRESENT: RRR, tachycardia. ABSENT: diastolic murmur, rubs, systolic murmur GI/Abdominal exam: PRESENT: normal bowel sounds, soft. ABSENT: distended, guarding, mass, organolmegaly, rebound, tenderness Neurological exam: PRESENT: alert, awake, oriented to person, oriented to place, CN II-XII grossly intact. ABSENT: motor sensory deficit Results Laboratory Results: 07/08/20 04:47 07/08/20 04:47 07/08/20 07/08/20 07/08/20 04:47 04:47 06:15 WBC 10.4 RBC 3.24 L Hgb 10.2 L Hct 30.1 L MCV 93 MCH 31.4 MCHC 33.9 RDW 13.8 Plt Count 337 Seg Neutrophils % Not Reportable Carbonic Acid 1.59 H HCO3/H2CO3 Ratio 22:1 ABG pH 7.44 ABG pCO2 52.9 H ABG pO2 70.3 L ABG HCO3 35.4 H ABG O2 Saturation 94.4 ABG Base Excess 9.9 FiO2 70% Sodium 138.2 Potassium 3.7 Chloride 95 L Carbon Dioxide 35 H Anion Gap 8 BUN 16 Creatinine 0.46 L Est GFR ( Amer) > 60 Glucose 120 H Calcium 8.4 Magnesium 2.3 Total Bilirubin 0.8 AST 27 Alkaline Phosphatase 95 Total Protein 5.7 L Albumin 2.8 L 06/30/20 09:15 Troponin I < 0.012 NT-Pro-B Natriuret Pep 906 H Impressions: Chest X-Ray 07/05/20 15:45 IMPRESSION: DIFFUSE BILATERAL AIRSPACE DISEASE WITH WORSENING IN THE UPPER LOBES. Assessment and Plan - Diagnosis (1) Acute respiratory disease due to COVID-19 virus Is this a current diagnosis for this admission?: Yes Plan: Moderate improvement. FiO2 75% down from 75% yesterday. Still requiring BiPAP. SPO2 high low 90s. Afebrile. WBC WNL. Due to COVID-19 pneumonia, superimposed bacterial pneumonia could not be ruled out. Presented with elevated LDH, elevated d-dimer, elevated CRP, elevated ferritin, transaminitis. Given severely elevated acute phase reactants patient may not do very well with COVID-19. Day 9 IV antibiotics. Day 9 IV ceftriaxone. Day 9 IV azithromycin. Day 9 IV steroids. Day 9 weight-based Lovenox. Completed a course of IV Remdesivir Continue telemetry, IV azithromycin, IV ceftriaxone, Remdesivir, IV steroids, weight dosed Lovenox, aggressive pulmonary toileting, incentive spirometry, flutter valve, LABA, LABA, sputum culture, blood culture. Transition Social Worker has been consulted, recommendations keep patient in IMCU and transferred to ICU if patient becomes acidotic or deteriorates. (2) Seizure disorder Is this a current diagnosis for this admission?: Yes Plan: Resume home meds. Seizure, fall and aspiration precautions. (3) Transaminitis Is this a current diagnosis for this admission?: Yes Plan: Improving. Likely a component of COVID-19 infection. Platelets WNL. PT/INR WNL. LFTs tomorrow. (4) Schizoaffective disorder Qualifiers: Schizoaffective disorder type: bipolar Qualified Code(s): F25.0 - Schizoaffective disorder, bipolar type Is this a current diagnosis for this admission?: Yes Plan: Takes ziprasidone at home. Resume home meds. Outpatient PCP and psychiatry follow-up. (5) Depression Is this a current diagnosis for this admission?: Yes Plan: Denies any suicidal or homicidal ideation. Takes paroxetine at home. Resume home meds. - Time Time Spent with patient: 25-34 minutes Medications reviewed and adjusted accordingly: Yes Anticipated Discharge Disposition: Home with Home Health Anticipated Discharge Timeframe: within 72 hours
[2020-07-08] MEDS: ZINC SULFATE 220 MG CAPSULE PO SCH (12:22)
[2020-07-08] MEDS: FLUTICASONE/UMECLIDIN/VILANTER 100-62.5-25 MCG/DOSE IH SCH (12:22)
[2020-07-08] MEDS: GUAIFENESIN 600 MG TABLET.SA PO SCH ×2 (12:22→21:28)
[2020-07-08] MEDS: METOPROLOL SUCCINATE 50 MG TAB.SR.24H PO SCH (12:22)
[2020-07-08] MEDS: LEVETIRACETAM 500 MG TABLET PO SCH ×2 (12:22→21:27)
[2020-07-08] MEDS: AZITHROMYCIN 500 MG in DEXTROSE 5%-WATER 250 ML IV SCH (13:09)
[2020-07-08] MEDS: TEMAZEPAM 15 MG CAPSULE PO SCH (21:27)
[2020-07-08] MEDS: ZIPRASIDONE HCL 60 MG CAPSULE PO SCH (21:28)
[2020-07-08] MEDS: PAROXETINE HCL 20 MG TABLET PO SCH (21:28)
[2020-07-08 23:19] LABS: APPEARANCE,URINE CLEAR; BILIRUBIN,URINE NEGATIVE (NEGATIVE); COLOR,URINE YELLOW; GLUCOSE, URINE NEGATIVE (NEGATIVE); KETONES,URINE 20 mg/dL (NEGATIVE); LEUKOCYTE ESTERASE,URINE NEGATIVE (NEGATIVE); NITRITE,URINE NEGATIVE (NEGATIVE); PROTEIN,URINE 30 mg/dL (NEGATIVE); URINE SPECIFIC GRAVITY 1.028; UROBILINOGEN,URINE NEGATIVE mg/dL (<2.0)
[2020-07-09] MEDS: LATANOPROST 0.005% OPH SOLN 2.5 ML OU SCH ×2 (01:44→21:04)
[2020-07-09] MEDS: PANTOPRAZOLE SODIUM 20 MG TABLET.DR PO SCH (05:56)
[2020-07-09] MEDS: DEXAMETHASONE SOD PHOSPHATE INJ 4 MG/1 ML VIAL IV SCH ×2 (05:56→17:11)
[2020-07-09 06:35] LABS: ALBUMIN 2.9 g/dL (3.5-5.0); ALKALINE PHOSPHATASE 62 U/L (38-126); ASPARTATE AMINO TRANSFERASE 38 U/L (14-36); BILIRUBIN,DIRECT 0.4 mg/dL (0.0-0.4); BLOOD UREA NITROGEN 20 mg/dL (7-20); CALCIUM 8.3 mg/dL (8.4-10.2); CARBON DIOXIDE 37 mmol/L (22-30); CHLORIDE 98 mmol/L (98-107); GLUCOSE 118 mg/dL (75-110); POTASSIUM 4.6 mmol/L (3.6-5.0); TOTAL PROTEIN 6.3 g/dL (6.3-8.2)
[2020-07-09 06:37] LABS: ANION GAP 2 (5-19)
[2020-07-09] MEDS: IPRATROPIUM/ALBUTEROL 0.5-2.5 MG/3 ML AMPUL NEB SCH ×3 (08:07→21:07)
[2020-07-09] MEDS: BUDESONIDE NEB 0.5 MG/2 ML AMPUL NEB SCH ×2 (08:10→21:16)
[2020-07-09 08:45] LABS: ARTERIAL BLOOD BASE EXCESS 12.8 mmol/L; ARTERIAL BLOOD FIO2 70%; ARTERIAL BLOOD HCO3 38.7 mmol/L (20-24); ARTERIAL BLOOD O2 SATURATION 97.3 % (94-98); ARTERIAL BLOOD PCO2 56.4 mmHg (35-45); ARTERIAL BLOOD PH 7.45 (7.35-7.45); ARTERIAL BLOOD PO2 93.7 mmHg (80-100); ARTERIAL BLOOD TOTAL CO2 40.4 mmol/L (21-25)
[2020-07-09 09:09] LABS: HEMATOCRIT 30.7 % (36.0-47.0); HEMOGLOBIN 10.4 g/dL (12.0-15.5); MEAN CORPUSCULAR HEMOGLOBIN 31.6 pg (27.0-33.4); MEAN CORPUSCULAR VOLUME 93 fl (80-97); PLATELET COUNT 276 10^3/uL (150-450); RED CELL DISTRIBUTION WIDTH 13.8 % (11.5-14.0); WHITE BLOOD COUNT 8.5 10^3/uL (4.0-10.5)
[2020-07-09 09:52] LABS: ABSOLUTE LYMPHOCYTES# (MANUAL) 0.3 10^3/uL (0.5-4.7); ABSOLUTE MONOCYTES # (MANUAL) 0.2 10^3/uL (0.1-1.4); BASOPHILS % (MANUAL) 0 % (0-2); EOSINOPHILS % (MANUAL) 0 % (0-6); LYMPHOCYTES % (MANUAL) 4 % (13-45); MONOCYTES % (MANUAL) 2 % (3-13); SEGMENTED NEUTROPHILS % (MAN) 94 % (42-78); TOTAL CELLS COUNTED 100
[2020-07-09 09:53] LABS: PLATELET CLUMPS PRESENT; PLATELET COMMENT ADEQUATE; RBC MORPHOLOGY COMMENT NORMO-CYTIC/CHROMIC
[2020-07-09] MEDS: CEFTRIAXONE 1 GM/D5W RTU 1 GM/50 ML RTUPB IV SCH (10:08)
[2020-07-09] MEDS: ZINC SULFATE 220 MG CAPSULE PO SCH (10:09)
[2020-07-09] MEDS: ENOXAPARIN SODIUM INJ 80 MG/0.8 ML DISP.SYRIN SUBCUT SCH ×2 (10:09→21:02)
[2020-07-09] MEDS: LEVETIRACETAM 500 MG TABLET PO SCH ×2 (10:10→21:02)
[2020-07-09] MEDS: GUAIFENESIN 600 MG TABLET.SA PO SCH ×2 (10:10→21:02)
[2020-07-09] MEDS: ACETAMINOPHEN 325 MG TABLET PO PRN (10:10)
[2020-07-09] MEDS: METOPROLOL SUCCINATE 50 MG TAB.SR.24H PO SCH (10:11)
--- NOTE | 2020-07-09 17:15 | PDOC PROGRESS REPORT ---
Subjective Progress Note for:: 07/09/20 Subjective:: Patient still short of breath but is mentating well. She would like to eat some food today. Denies chest pain. Reason For Visit: ACUTE RESPIRATORY FAILURE WITH HYPOXIA, COVID-19 Physical Exam Vital Signs: Temp Pulse Resp BP Pulse Ox 97.8 F 97 19 140/67 H 95 07/09/20 10:34 07/09/20 14:50 07/09/20 15:16 07/09/20 10:34 07/09/20 14:50 Intake & Output 07/08/20 07/09/20 07/10/20 06:59 06:59 06:59 Intake Total 300 50 300 Output Total 750 650 Balance -450 -600 300 Weight 72.5 kg 70.2 kg General appearance: PRESENT: no acute distress, cooperative Neck exam: ABSENT: JVD Respiratory exam: PRESENT: symmetrical, unlabored. ABSENT: tachypnea, wheezes Cardiovascular exam: PRESENT: RRR, +S1, +S2. ABSENT: tachycardia GI/Abdominal exam: PRESENT: soft. ABSENT: rebound, rigid, tenderness Neurological exam: PRESENT: alert, awake, other - Answers appropriately to questions. Conversational. Psychiatric exam: ABSENT: agitated, anxious Results Laboratory Results: 07/09/20 08:47 07/09/20 05:20 07/08/20 07/09/20 07/09/20 22:35 05:20 05:20 WBC Cancelled RBC Cancelled Hgb Cancelled Hct Cancelled MCV Cancelled MCH Cancelled MCHC Cancelled RDW Cancelled Plt Count Cancelled Seg Neutrophils % Cancelled Carbonic Acid HCO3/H2CO3 Ratio ABG pH ABG pCO2 ABG pO2 ABG HCO3 ABG O2 Saturation ABG Base Excess FiO2 Sodium 137.3 Potassium 4.6 Chloride 98 Carbon Dioxide 37 H Anion Gap 2 L BUN 20 Creatinine 0.35 L Est GFR ( Amer) > 60 Glucose 118 H Calcium 8.3 L Magnesium 2.4 H Total Bilirubin 1.0 AST 38 H Alkaline Phosphatase 62 Total Protein 6.3 Albumin 2.9 L Urine Color YELLOW Urine Appearance CLEAR Urine pH 6.0 Ur Specific [place] 1.028 Urine Protein 30 H Urine Glucose (UA) NEGATIVE Urine Ketones 20 H Urine Blood SMALL H Urine Nitrite NEGATIVE Ur Leukocyte Esterase NEGATIVE Urine WBC (Auto) 4 Urine RBC (Auto) 13 07/09/20 07/09/20 08:15 08:47 WBC 8.5 RBC 3.30 L Hgb 10.4 L Hct 30.7 L MCV 93 MCH 31.6 MCHC 34.0 RDW 13.8 Plt Count 276 Seg Neutrophils % Not Reportable Carbonic Acid 1.70 H HCO3/H2CO3 Ratio 22:1 ABG pH 7.45 ABG pCO2 56.4 H ABG pO2 93.7 ABG HCO3 38.7 H ABG O2 Saturation 97.3 ABG Base Excess 12.8 FiO2 70% Sodium Potassium Chloride Carbon Dioxide Anion Gap BUN Creatinine Est GFR ( Amer) Glucose Calcium Magnesium Total Bilirubin AST Alkaline Phosphatase Total Protein Albumin Urine Color Urine Appearance Urine pH Ur Specific [place] Urine Protein Urine Glucose (UA) Urine Ketones Urine Blood Urine Nitrite Ur Leukocyte Esterase Urine WBC (Auto) Urine RBC (Auto) 06/30/20 09:15 Troponin I < 0.012 NT-Pro-B Natriuret Pep 906 H Impressions: Chest X-Ray 07/05/20 15:45 IMPRESSION: DIFFUSE BILATERAL AIRSPACE DISEASE WITH WORSENING IN THE UPPER LOBES. Assessment and Plan - Diagnosis (1) Acute respiratory disease due to COVID-19 virus Is this a current diagnosis for this admission?: Yes Plan: Due to COVID-19 pneumonia, superimposed bacterial pneumonia could not be ruled out. Day 9 IV ceftriaxone. DC ceftriaxone tomorrow. Day 9 IV azithromycin. DC azithromycin. Day 9/10 of dexamethasone IV Day 9 weight-based Lovenox. Completed a course of IV Remdesivir ABG looks better this morning. On CPAP this morning. Wean FiO2 to 50%. Place on Oxymizer at 15 L during meals to allow patient to eat. Check another blood gas tomorrow morning. (2) Depression Is this a current diagnosis for this admission?: Yes Plan: Takes paroxetine at home. Resume home meds. (3) Schizoaffective disorder Qualifiers: Schizoaffective disorder type: bipolar Qualified Code(s): F25.0 - Schizoaffective disorder, bipolar type Is this a current diagnosis for this admission?: Yes (4) Seizure disorder Is this a current diagnosis for this admission?: Yes (5) Transaminitis Is this a current diagnosis for this admission?: Yes - Time Time Spent with patient: 15-24 minutes Anticipated Discharge Disposition: Home, Self Care Anticipated Discharge Timeframe: undetermined
[2020-07-09] MEDS: LORAZEPAM INJ 2 MG/1 ML VIAL IV PRN (20:19)
[2020-07-09] MEDS: PAROXETINE HCL 20 MG TABLET PO SCH (21:02)
[2020-07-09] MEDS: ZIPRASIDONE HCL 60 MG CAPSULE PO SCH (21:02)
[2020-07-09] MEDS: TEMAZEPAM 15 MG CAPSULE PO SCH (21:02)
--- NOTE | 2020-07-09 23:25 | EKG REPORT ---
SEVERITY:- BORDERLINE ECG - SINUS RHYTHM PROBABLE LEFT ATRIAL ABNORMALITY : Confirmed by: Mike Mccray MD 09-Jul-2020 23:25:22
[2020-07-10] MEDS: DEXAMETHASONE SOD PHOSPHATE INJ 4 MG/1 ML VIAL IV SCH ×2 (05:27→17:13)
[2020-07-10] MEDS: LORAZEPAM INJ 2 MG/1 ML VIAL IV PRN (05:27)
[2020-07-10] MEDS: PANTOPRAZOLE SODIUM 20 MG TABLET.DR PO SCH (05:28)
[2020-07-10 06:28] LABS: ARTERIAL BLOOD BASE EXCESS 11.1 mmol/L; ARTERIAL BLOOD H2CO3 1.56 mmol/L (1.05-1.35); ARTERIAL BLOOD HCO3 36.4 mmol/L (20-24); ARTERIAL BLOOD O2 SATURATION 94.6 % (94-98); ARTERIAL BLOOD PCO2 51.7 mmHg (35-45); ARTERIAL BLOOD PH 7.47 (7.35-7.45); ARTERIAL BLOOD PO2 69.7 mmHg (80-100); ARTERIAL BLOOD TOTAL CO2 37.9 mmol/L (21-25)
[2020-07-10 06:32] LABS: ARTERIAL BLOOD FIO2 60%
[2020-07-10] MEDS: BUDESONIDE NEB 0.5 MG/2 ML AMPUL NEB SCH ×2 (07:53→20:54)
[2020-07-10] MEDS: IPRATROPIUM/ALBUTEROL 0.5-2.5 MG/3 ML AMPUL NEB SCH ×3 (07:53→20:55)
[2020-07-10] MEDS: ENOXAPARIN SODIUM INJ 80 MG/0.8 ML DISP.SYRIN SUBCUT SCH ×2 (09:29→21:39)
[2020-07-10] MEDS: METOPROLOL SUCCINATE 50 MG TAB.SR.24H PO SCH (09:30)
[2020-07-10] MEDS: LEVETIRACETAM 500 MG TABLET PO SCH ×2 (09:30→21:40)
[2020-07-10] MEDS: ZINC SULFATE 220 MG CAPSULE PO SCH (09:30)
[2020-07-10] MEDS: CEFTRIAXONE 1 GM/D5W RTU 1 GM/50 ML RTUPB IV SCH (09:30)
[2020-07-10] MEDS: GUAIFENESIN 600 MG TABLET.SA PO SCH ×2 (09:30→21:40)
--- NOTE | 2020-07-10 10:18 | PDOC PROGRESS REPORT ---
Subjective Progress Note for:: 07/10/20 Subjective:: I was informed by nursing staff that patient was able to eat some bites of her meals yesterday. She also did well on Oxymizer during the daytime. Seems that she was given 1 mg of Ativan at 5 AM this morning and is currently quite lethargic. We will continue to monitor patient. Protecting her airway adequately. Able to wake up to noxious stimulus but drifts back into sleep. Reason For Visit: ACUTE RESPIRATORY FAILURE WITH HYPOXIA, COVID-19 Physical Exam Vital Signs: Temp Pulse Resp BP Pulse Ox 98.2 F 69 24 H 150/70 H 95 07/10/20 07:46 07/10/20 07:53 07/10/20 07:53 07/10/20 07:46 07/10/20 07:53 Intake & Output 07/09/20 07/10/20 07/11/20 06:59 06:59 06:59 Intake Total 50 670 Output Total 650 600 Balance -600 70 Weight 70.2 kg 65.8 kg General appearance: PRESENT: no acute distress, cooperative Neck exam: ABSENT: JVD Respiratory exam: PRESENT: clear to auscultation sky, symmetrical, unlabored, other - Somewhat shallow breaths. ABSENT: tachypnea, wheezes Cardiovascular exam: PRESENT: RRR, +S1, +S2. ABSENT: tachycardia GI/Abdominal exam: PRESENT: soft. ABSENT: rebound, rigid, tenderness Extremities exam: ABSENT: pedal edema Neurological exam: PRESENT: altered - Lethargic. ABSENT: awake Psychiatric exam: ABSENT: agitated, anxious Focused psych exam: ABSENT: pressured speech Skin exam: ABSENT: jaundice Results Laboratory Results: 07/09/20 08:47 07/09/20 05:20 07/10/20 06:00 Carbonic Acid 1.56 H HCO3/H2CO3 Ratio 23:1 ABG pH 7.47 H ABG pCO2 51.7 H ABG pO2 69.7 L ABG HCO3 36.4 H ABG O2 Saturation 94.6 ABG Base Excess 11.1 FiO2 60% 06/30/20 09:15 Troponin I < 0.012 NT-Pro-B Natriuret Pep 906 H Impressions: Chest X-Ray 07/05/20 15:45 IMPRESSION: DIFFUSE BILATERAL AIRSPACE DISEASE WITH WORSENING IN THE UPPER LO BES. Assessment and Plan - Diagnosis (1) Acute respiratory disease due to COVID-19 virus Is this a current diagnosis for this admission?: Yes Plan: Acute hypoxic respiratory failure due to COVID-19 pneumonia. Status post 9 days of ceftriaxone for antibacterial coverage. I have disconti nued ceftriaxone. Status post 9 days of IV azithromycin. Day 10 of dexamethasone IV Still on therapeutic dose Lovenox-check d-dimer tomorrow Completed a 5-day course of IV Remdesivir ABG looks acceptable this morning though not optimal. Has some CO2 retention still. pH alkalotic for metabolic alkalosis. Likely dehydrated. On CPAP this morning while sleeping. Once patient wakes up, we will put patient on Oxymizer at 15 L throughout the day and see how patient does. CPAP at nighttime. Check venous blood gas this afternoon. (2) Poor nutrition Is this a current diagnosis for this admission?: Yes Plan: Has not been able to eat much for the last several days due to her acute infection with COVID-19 and NIPPV dependence. Now that her hypoxia seems to be improving will be able to put her on Oxymizer, we will continue to have patient eat by mouth. Monitor nutritional status. She is likely also having some contraction alkalosis from dehydration and will benefit from gentle IV hydration with D5 normal saline. (3) Depression Is this a current diagnosis for this admission?: Yes Plan: Continue psych meds. Seems stable at this time. (4) Schizoaffective disorder Qualifiers: Schizoaffective disorder type: bipolar Qualified Code(s): F25.0 - Schizoaffective disorder, bipolar type Is this a current diagnosis for this admission?: Yes (5) Seizure disorder Is this a current diagnosis for this admission?: Yes (6) Transaminitis Is this a current diagnosis for this admission?: Yes - Time Time Spent with patient: Less than 15 minutes Anticipated Discharge Disposition: Home, Self Care Anticipated Discharge Timeframe: undetermined
[2020-07-10] MEDS: DEXTROSE 5%-NORMAL SALINE 1,000 ML IV PRN (10:47)
[2020-07-10] MEDS: MONTELUKAST SODIUM 10 MG TABLET PO SCH (21:39)
[2020-07-10] MEDS: TEMAZEPAM 15 MG CAPSULE PO SCH (21:40)
[2020-07-10] MEDS: ZIPRASIDONE HCL 60 MG CAPSULE PO SCH (21:40)
[2020-07-10] MEDS: PAROXETINE HCL 20 MG TABLET PO SCH (21:40)
[2020-07-10] MEDS: LATANOPROST 0.005% OPH SOLN 2.5 ML OU SCH (21:41)
--- NOTE | 2020-07-11 00:05 | RADIOLOGY REPORT (SQ) ---
EXAM DESCRIPTION: XR ABDOMEN 1 VIEW (KUB) COMPLETED DATE/TME: 07/10/2020 22:51 CLINICAL HISTORY: 64 years, Female, labored work of breathing; diminished height of volumes COMPARISON: Prior chest radiograph from 07/05/2020 NUMBER OF VIEWS: One TECHNIQUE: Single frontal view of the abdomen was obtained. LIMITATIONS: None. FINDINGS: Gas and a mild amount of stool are noted throughout the large bowel. Minimal, if any small bowel gas is noted, limiting the evaluation of its caliber. Surgical clips project over the right upper quadrant. Multilevel degenerative changes are evident about the lumbar spine. Assessment for subdiaphragmatic free air is limited by supine technique. No indirect signs are definitively appreciated. IMPRESSION: Indeterminate bowel gas pattern. Mild colonic stool load. copyright 2010 [employer]- All Rights Reserved
[2020-07-11] MEDS: LEVETIRACETAM 500 MG TABLET PO SCH ×2 (01:30→09:34)
[2020-07-11] MEDS: GUAIFENESIN 600 MG TABLET.SA PO SCH ×2 (01:30→09:35)
[2020-07-11] MEDS: DEXTROSE 5%-NORMAL SALINE 1,000 ML IV PRN (02:00)
[2020-07-11] MEDS: DEXAMETHASONE SOD PHOSPHATE INJ 4 MG/1 ML VIAL IV SCH (05:41)
[2020-07-11] MEDS: PANTOPRAZOLE SODIUM 20 MG TABLET.DR PO SCH (05:41)
[2020-07-11 06:56] LABS: HEMATOCRIT 29.5 % (36.0-47.0); MEAN CORPUSCULAR HEMOGLOBIN 31.2 pg (27.0-33.4); MEAN CORPUSCULAR HGB CONC 33.9 g/dL (32.0-36.0); MEAN CORPUSCULAR VOLUME 92 fl (80-97); PLATELET COUNT 215 10^3/uL (150-450); RED CELL DISTRIBUTION WIDTH 13.7 % (11.5-14.0); WHITE BLOOD COUNT 6.6 10^3/uL (4.0-10.5)
[2020-07-11 07:01] LABS: APPEARANCE,URINE CLEAR; BILIRUBIN,URINE NEGATIVE (NEGATIVE); COLOR,URINE YELLOW; GLUCOSE, URINE NEGATIVE (NEGATIVE); KETONES,URINE NEGATIVE (NEGATIVE); LEUKOCYTE ESTERASE,URINE NEGATIVE (NEGATIVE); NITRITE,URINE NEGATIVE (NEGATIVE); PROTEIN,URINE NEGATIVE (NEGATIVE); URINE SPECIFIC GRAVITY 1.013; UROBILINOGEN,URINE NEGATIVE mg/dL (<2.0)
[2020-07-11 07:18] LABS: BLOOD UREA NITROGEN 11 mg/dL (7-20); CALCIUM 8.1 mg/dL (8.4-10.2); CARBON DIOXIDE 34 mmol/L (22-30); GLUCOSE 109 mg/dL (75-110); PHOSPHORUS 3.8 mg/dL (2.5-4.5)
[2020-07-11 07:23] LABS: CHLORIDE 100 mmol/L (98-107)
[2020-07-11 07:26] LABS: ANION GAP 4 (5-19)
[2020-07-11] MEDS: BUDESONIDE NEB 0.5 MG/2 ML AMPUL NEB SCH (07:41)
[2020-07-11] MEDS: IPRATROPIUM/ALBUTEROL 0.5-2.5 MG/3 ML AMPUL NEB SCH ×3 (07:41→20:04)
[2020-07-11] MEDS: METOPROLOL SUCCINATE 50 MG TAB.SR.24H PO SCH (09:34)
[2020-07-11] MEDS: ENOXAPARIN SODIUM INJ 80 MG/0.8 ML DISP.SYRIN SUBCUT SCH ×2 (09:35→21:45)
[2020-07-11] MEDS: ZINC SULFATE 220 MG CAPSULE PO SCH (09:35)
[2020-07-11] MEDS ORDERED: DEXTROSE 5%-NORMAL SALINE 1,000 ML IV PRN (13:40)
--- NOTE | 2020-07-11 13:47 | PDOC PROGRESS REPORT ---
Subjective Progress Note for:: 07/11/20 Subjective:: This morning, patient still having some shortness of breath. Mildly confused but may be related to her just waking up. Laying in bed. On CPAP. O2 saturation is 98%. Reason For Visit: ACUTE RESPIRATORY FAILURE WITH HYPOXIA, COVID-19 Physical Exam Vital Signs: Temp Pulse Resp BP Pulse Ox 99.1 F 86 26 H 119/92 H 85 L 07/11/20 10:47 07/11/20 10:47 07/11/20 10:47 07/11/20 10:47 07/11/20 11:32 Intake & Output 07/10/20 07/11/20 07/12/20 06:59 06:59 06:59 Intake Total 670 1650 Output Total 600 775 Balance 70 875 Weight 65.8 kg 65.8 kg 65.8 kg General appearance: PRESENT: no acute distress, cooperative Neck exam: ABSENT: JVD Respiratory exam: PRESENT: clear to auscultation sky, symmetrical, unlabored. ABSENT: crackles, rales, tachypnea, wheezes Cardiovascular exam: PRESENT: RRR, +S1, +S2. ABSENT: tachycardia GI/Abdominal exam: PRESENT: soft. ABSENT: rebound, rigid, tenderness Neurological exam: PRESENT: alert, awake Results Laboratory Results: 07/11/20 06:18 07/11/20 06:18 07/11/20 07/11/20 07/11/20 06:18 06:18 06:30 WBC 6.6 RBC 3.20 L Hgb 10.0 L Hct 29.5 L MCV 92 MCH 31.2 MCHC 33.9 RDW 13.7 Plt Count 215 Sodium 137.6 Potassium 4.0 Chloride 100 Carbon Dioxide 34 H Anion Gap 4 L BUN 11 Creatinine 0.46 L Est GFR ( Amer) > 60 Glucose 109 Calcium 8.1 L Phosphorus 3.8 Magnesium 2.1 Urine Color YELLOW Urine Appearance CLEAR Urine pH 7.0 Ur Specific [place] 1.013 Urine Protein NEGATIVE Urine Glucose (UA) NEGATIVE Urine Ketones NEGATIVE Urine Blood LARGE H Urine Nitrite NEGATIVE Ur Leukocyte Esterase NEGATIVE Urine WBC (Auto) 4 Urine RBC (Auto) 45 06/30/20 09:15 Troponin I < 0.012 NT-Pro-B Natriuret Pep 906 H Impressions: Chest X-Ray 07/05/20 15:45 IMPRESSION: DIFFUSE BILATERAL AIRSPACE DISEASE WITH WORSENING IN THE UPPER LOBES. KUB X-Ray 07/10/20 22:51 IMPRESSION: Indeterminate bowel gas pattern. Mild colonic stool load. copyright 2011 [employer]- All Rights Reserved Assessment and Plan - Diagnosis (1) Acute respiratory disease due to COVID-19 virus Is this a current diagnosis for this admission?: Yes Plan: Acute hypoxic respiratory failure due to COVID-19 pneumonia. Transaminitis resolved. Status post 9 days of ceftriaxone for antibacterial coverage. I have discontinued ceftriaxone. Status post 9 days of IV azithromycin. Status post 10 days of dexamethasone IV-discontinued today. Still on therapeutic dose [id number]-azmus seems to be improving. Continue to trend. Completed a 5-day course of IV Remdesivir Today, patient noted to be de-satting below 88% on Oxymizer at [address] on HFNC 40% 40L and titrate accordingly to keep SPO2 89-94%. We will try to see if we can avoid CPAP use. ABG in the morning. (2) Poor nutrition Is this a current diagnosis for this admission?: Yes Plan: Tolerating some bites of meals. We will continue to encourage p.o. intake. Continue gentle IV hydration with D5 normal saline 60 cc/h until patient is able to eat significantly better. (3) Depression Is this a current diagnosis for this admission?: Yes Plan: Continue psych meds. Seems stable at this time. (4) Schizoaffective disorder Qualifiers: Schizoaffective disorder type: bipolar Qualified Code(s): F25.0 - Schizoaffective disorder, bipolar type Is this a current diagnosis for this admission?: Yes Plan: Takes ziprasidone at home. on home meds. Outpatient PCP and psychiatry follow- up. (5) Asthma Is this a current diagnosis for this admission?: Yes Plan: Continue Trelegy and nebulizer treatments (6) Weakness Is this a current diagnosis for this admission?: Yes Plan: She seems generally weak. She has also been critically ill. She will need a lot of physical therapy. I suspect she will eventually need short-term rehab once respiratory status has been optimized. (7) Seizure disorder Is this a current diagnosis for this admission?: Yes Plan: Continue home Keppra - Time Time Spent with patient: Less than 15 minutes Anticipated Discharge Disposition: [facility] Anticipated Discharge Timeframe: undetermined
[2020-07-11] MEDS: LATANOPROST 0.005% OPH SOLN 2.5 ML OU SCH (21:46)
[2020-07-11] MEDS: TEMAZEPAM 15 MG CAPSULE PO SCH (21:46)
[2020-07-11 22:47] LABS: ARTERIAL BLOOD BASE EXCESS 6.6 mmol/L; ARTERIAL BLOOD H2CO3 1.24 mmol/L (1.05-1.35); ARTERIAL BLOOD HCO3 30.6 mmol/L (20-24); ARTERIAL BLOOD O2 SATURATION 74.5 % (94-98); ARTERIAL BLOOD PCO2 41.3 mmHg (35-45); ARTERIAL BLOOD PH 7.49 (7.35-7.45); ARTERIAL BLOOD TOTAL CO2 31.8 mmol/L (21-25)
[2020-07-11 22:56] LABS: ARTERIAL BLOOD FIO2 15L
[2020-07-11 22:57] LABS: ARTERIAL BLOOD PO2 36.7 mmHg (80-100)
[2020-07-11] MEDS ORDERED: MORPHINE SULFATE 10 MG/ML INJ ONE (23:21)
[2020-07-11] MEDS: MORPHINE SULFATE 10 MG/ML INJ IV PRN (23:28)
[2020-07-12] MEDS: LORAZEPAM INJ 2 MG/1 ML VIAL IV PRN ×2 (00:38→19:44)
[2020-07-12] MEDS: ZIPRASIDONE HCL 60 MG CAPSULE PO SCH ×2 (01:30→21:36)
[2020-07-12] MEDS: MONTELUKAST SODIUM 10 MG TABLET PO SCH ×2 (01:30→21:36)
[2020-07-12] MEDS: PAROXETINE HCL 20 MG TABLET PO SCH ×2 (01:30→21:36)
[2020-07-12] MEDS ORDERED: INSULIN REG, HUMAN 100 UNIT/ML 3 ML VIAL (PYX) ONE (01:54)
--- NOTE | 2020-07-12 03:38 | Progress Note ---
Provider Note Provider Note: I was called by the hospitalist to evaluate pateint Mrs. Lazcano in room 308 due to increased respiratory rate. I evaluated the patient and found her to have a respiratory rate in the 40's however her sats was in the mid 90's. Per nursing staff the patient has history of dropping her saturation when CPAP mask removed. I placed the patient back on BIPAP and ordered her to have morphine PRN and ATIVAN as needed for agitation. I also proned the patient and ordered that she remain prone for 18 hours a day with repositioning every 2 hours and supine for 6 hours if tolerated. I suggest not taking her BIPAP off unless necessary. I do not feel the need for ICU monitoring at this time as the patient responded well to treatment changes.
[2020-07-12] MEDS: MORPHINE SULFATE 10 MG/ML INJ IV PRN ×2 (05:34→15:01)
[2020-07-12] MEDS: PANTOPRAZOLE SODIUM 20 MG TABLET.DR PO SCH (05:34)
[2020-07-12 06:34] LABS: ANION GAP 6 (5-19); BLOOD UREA NITROGEN 11 mg/dL (7-20); CARBON DIOXIDE 32 mmol/L (22-30); CHLORIDE 102 mmol/L (98-107); GLUCOSE 130 mg/dL (75-110); POTASSIUM 3.8 mmol/L (3.6-5.0)
[2020-07-12] MEDS: IPRATROPIUM/ALBUTEROL 0.5-2.5 MG/3 ML AMPUL NEB SCH ×3 (08:11→20:53)
[2020-07-12] MEDS: GUAIFENESIN 600 MG TABLET.SA PO SCH ×2 (10:24→21:36)
[2020-07-12] MEDS: LEVETIRACETAM 500 MG TABLET PO SCH ×2 (10:24→21:36)
[2020-07-12] MEDS: ENOXAPARIN SODIUM INJ 80 MG/0.8 ML DISP.SYRIN SUBCUT SCH ×2 (10:24→21:36)
[2020-07-12] MEDS: ZINC SULFATE 220 MG CAPSULE PO SCH (10:24)
[2020-07-12] MEDS: METOPROLOL SUCCINATE 50 MG TAB.SR.24H PO SCH (10:24)
[2020-07-12] MEDS: FLUTICASONE/UMECLIDIN/VILANTER 100-62.5-25 MCG/DOSE IH SCH (10:48)
--- NOTE | 2020-07-12 15:35 | PDOC PROGRESS REPORT ---
Subjective Progress Note for:: 07/12/20 Subjective:: The patient appears to be still slightly tachypneic. She has had decreased urine output. Reason For Visit: ACUTE RESPIRATORY FAILURE WITH HYPOXIA, COVID-19 Physical Exam Vital Signs: Temp Pulse Resp BP Pulse Ox 98.4 F 91 24 H 102/57 L 93 07/12/20 12:07 07/12/20 13:50 07/12/20 13:50 07/12/20 12:07 07/12/20 13:50 Intake & Output 07/11/20 07/12/20 07/13/20 06:59 06:59 06:59 Intake Total 1650 1277 Output Total 775 1525 Balance 875 -248 Weight 65.8 kg 65.3 kg General appearance: PRESENT: cooperative, mild distress, well-developed Head exam: PRESENT: atraumatic, normocephalic Eye exam: PRESENT: conjunctiva pink. ABSENT: scleral icterus Ear exam: PRESENT: normal external ear exam. ABSENT: bleeding, drainage Mouth exam: PRESENT: dry mucosa, tongue midline Respiratory exam: PRESENT: rales - Faint Velcro rales on the left, symmetrical, tachypnea, other - Coarse breath sounds. ABSENT: rhonchi, wheezes Cardiovascular exam: PRESENT: RRR, +S1, +S2. ABSENT: bradycardia, diastolic murmur, irregular rhythm, systolic murmur, tachycardia GI/Abdominal exam: PRESENT: normal bowel sounds, soft. ABSENT: distended, guarding, tenderness Rectal exam: PRESENT: deferred Gentrourinary exam: ABSENT: indwelling catheter Extremities exam: ABSENT: pedal edema Musculoskeletal exam: PRESENT: normal inspection. ABSENT: deformity, dislo cation Neurological exam: PRESENT: alert, awake, oriented to person, oriented to place, CN II-XII grossly intact Psychiatric exam: PRESENT: anxious. ABSENT: agitated Results Laboratory Results: 07/11/20 06:18 07/12/20 05:44 07/11/20 07/12/20 22:32 05:44 Carbonic Acid 1.24 HCO3/H2CO3 Ratio 24:1 ABG pH 7.49 H ABG pCO2 41.3 ABG pO2 36.7 L* ABG HCO3 30.6 H ABG O2 Saturation 74.5 L ABG Base Excess 6.6 FiO2 15L Sodium 140.4 Potassium 3.8 Chloride 102 Carbon Dioxide 32 H Anion Gap 6 BUN 11 Creatinine 0.46 L Est GFR ( Amer) > 60 Glucose 130 H Calcium 8.0 L 06/30/20 09:15 Troponin I < 0.012 NT-Pro-B Natriuret Pep 906 H Impressions: Chest X-Ray 07/05/20 15:45 IMPRESSION: DIFFUSE BILATERAL AIRSPACE DISEASE WITH WORSENING IN THE UPPER LOBES. KUB X-Ray 07/10/20 22:51 IMPRESSION: Indeterminate bowel gas pattern. Mild colonic stool load. copyright 2010 [employer]- All Rights Reserved Assessment and Plan - Diagnosis (1) Acute respiratory disease due to COVID-19 virus Is this a current diagnosis for this admission?: Yes Plan: Was experiencing significant desaturations despite the Oxymizer at 15 L. The clinic office coordinator did consult on the patient. The patient is now pronating 18 hours a day and back on BiPAP. Consider and pronating. Will monitor closely. (2) Poor nutrition Is this a current diagnosis for this admission?: Yes Plan: Poor appetite. Consider appetite stimulant. Continue D5 normal saline and mon itor serum glucose. Acceptable hyperglycemia at this point. (3) Depression Qualifiers: Depression Type: unspecified Qualified Code(s): F32.9 - Major depressive disorder, single episode, unspecified Is this a current diagnosis for this admission?: Yes Plan: Continue Paxil. Also on Geodon. (4) Schizoaffective disorder Qualifiers: Schizoaffective disorder type: bipolar Qualified Code(s): F25.0 - Marcelina izoaffective disorder, bipolar type Is this a current diagnosis for this admission?: Yes Plan: Continue Geodon and Paxil. PRN medications available. Resume outpatient care once discharged. (5) Asthma Qualifiers: Asthma severity: moderate Asthma persistence: unspecified Asthma complication type: uncomplicated Qualified Code(s): J45.909 - Unspecified asthma, uncomplicated Is this a current diagnosis for this admission?: Yes Plan: No wheezes. Covid-19 infection predominantly responsible for hypoxia. Continue Trelegy and nebulizer treatments. She is no longer on systemic steroids. (6) Seizure disorder Is this a current diagnosis for this admission?: Yes Plan: No evidence of recurrent seizures. Continue Keppra. The patient is also supposed to be on Aptiom but this is not available on our pharmacy formulary. Consider asking family to bring in the patient's medication. (7) Weakness Is this a current diagnosis for this admission?: Yes Plan: Most likely due to her critical illness. PT evaluation currently on hold due to acute dyspnea with minimal exertion. PT eval when clinically stable. - Time Time Spent with patient: 25-34 minutes Medications reviewed and adjusted accordingly: Yes Anticipated Discharge Disposition: Care Home Facility Anticipated Discharge Timeframe: Unknown
[2020-07-12] MEDS: LATANOPROST 0.005% OPH SOLN 2.5 ML OU SCH (21:37)
[2020-07-12] MEDS: RINGERS SOLUTION,LACTATED 1,000 ML IV PRN (21:52)
[2020-07-13] MEDS: PANTOPRAZOLE SODIUM 20 MG TABLET.DR PO SCH (05:11)
[2020-07-13] MEDS: RINGERS SOLUTION,LACTATED 1,000 ML IV PRN (06:00)
[2020-07-13 06:56] LABS: HEMATOCRIT 30.3 % (36.0-47.0); HEMOGLOBIN 10.1 g/dL (12.0-15.5); MEAN CORPUSCULAR HEMOGLOBIN 31.1 pg (27.0-33.4); MEAN CORPUSCULAR HGB CONC 33.2 g/dL (32.0-36.0); MEAN CORPUSCULAR VOLUME 94 fl (80-97); PLATELET COUNT 178 10^3/uL (150-450); RED BLOOD COUNT 3.24 10^6/uL (3.72-5.28); RED CELL DISTRIBUTION WIDTH 13.6 % (11.5-14.0); WHITE BLOOD COUNT 7.8 10^3/uL (4.0-10.5)
[2020-07-13 06:57] LABS: ANION GAP 6 (5-19); BLOOD UREA NITROGEN 9 mg/dL (7-20); CALCIUM 8.2 mg/dL (8.4-10.2); CARBON DIOXIDE 30 mmol/L (22-30); CHLORIDE 102 mmol/L (98-107); GLUCOSE 86 mg/dL (75-110); POTASSIUM 3.5 mmol/L (3.6-5.0)
[2020-07-13 07:22] LABS: ABSOLUTE LYMPHOCYTES# (MANUAL) 1.4 10^3/uL (0.5-4.7); ABSOLUTE MONOCYTES # (MANUAL) 0.3 10^3/uL (0.1-1.4); BASOPHILS % (MANUAL) 0 % (0-2); EOSINOPHILS % (MANUAL) 3 % (0-6); LYMPHOCYTES % (MANUAL) 18 % (13-45); MONOCYTES % (MANUAL) 4 % (3-13); SEGMENTED NEUTROPHILS % (MAN) 75 % (42-78); TOTAL CELLS COUNTED 100
[2020-07-13 07:23] LABS: OVALOCYTES SLIGHT; PLATELET COMMENT ADEQUATE
[2020-07-13] MEDS: MORPHINE SULFATE 10 MG/ML INJ IV PRN ×2 (07:45→20:50)
[2020-07-13] MEDS: DEXTROSE 5%-NORMAL SALINE 1,000 ML IV PRN (07:46)
[2020-07-13] MEDS: IPRATROPIUM/ALBUTEROL 0.5-2.5 MG/3 ML AMPUL NEB SCH ×3 (08:52→19:43)
--- NOTE | 2020-07-13 09:33 | PDOC PROGRESS REPORT ---
Subjective Progress Note for:: 07/13/20 Subjective:: Patient still exhibits shallow inspirations. Seems to be improving with proneing. Reason For Visit: ACUTE RESPIRATORY FAILURE WITH HYPOXIA, COVID-19 Physical Exam Vital Signs: Temp Pulse Resp BP Pulse Ox 98.2 F 71 19 133/70 H 97 07/13/20 03:20 07/13/20 08:52 07/13/20 08:52 07/13/20 03:20 07/13/20 08:52 Intake & Output 07/12/20 07/13/20 07/14/20 06:59 06:59 06:59 Intake Total 1277 1887 213 Output Total 1525 400 Balance -248 1487 213 Weight 65.3 kg 65.8 kg General appearance: PRESENT: cooperative, mild distress, well-developed Head exam: PRESENT: atraumatic, normocephalic Ear exam: PRESENT: normal external ear exam. ABSENT: bleeding, drainage Mouth exam: PRESENT: moist, tongue midline Respiratory exam: PRESENT: symmetrical, tachypnea, other - Still with decreased inspiratory phase. ABSENT: rales, rhonchi, wheezes Cardiovascular exam: PRESENT: RRR, +S1, +S2. ABSENT: bradycardia, diastolic murmur, irregular rhythm, systolic murmur, tachycardia GI/Abdominal exam: PRESENT: diminished bowel sounds, soft. ABSENT: distended, tenderness Rectal exam: PRESENT: deferred Gentrourinary exam: ABSENT: indwelling catheter Extremities exam: ABSENT: pedal edema Musculoskeletal exam: ABSENT: deformity, dislocation, normal inspection Neurological exam: PRESENT: alert, altered - Still mildly confused, awake, oriented to person, oriented to situation, CN II-XII grossly intact Psychiatric exam: PRESENT: appropriate affect. ABSENT: agitated, anxious Focused psych exam: ABSENT: delusional, paranoid, restlessness Skin exam: PRESENT: dry, normal color, warm. ABSENT: rash Results Laboratory Results: 07/13/20 06:04 07/13/20 06:04 07/13/20 07/13/20 06:04 06:04 WBC 7.8 RBC 3.24 L Hgb 10.1 L Hct 30.3 L MCV 94 MCH 31.1 MCHC 33.2 RDW 13.6 Plt Count 178 Seg Neutrophils % Not Reportable Sodium 137.8 Potassium 3.5 L Chloride 102 Carbon Dioxide 30 Anion Gap 6 BUN 9 Creatinine 0.38 L Est GFR ( Amer) > 60 Glucose 86 Calcium 8.2 L Magnesium 2.0 Ferritin 294.00 H 06/30/20 09:15 Troponin I < 0.012 NT-Pro-B Natriuret Pep 906 H Impressions: Chest X-Ray 07/05/20 15:45 IMPRESSION: DIFFUSE BILATERAL AIRSPACE DISEASE WITH WORSENING IN THE UPPER LO BES. KUB X-Ray 07/10/20 22:51 IMPRESSION: Indeterminate bowel gas pattern. Mild colonic stool load. copyright 2010 [employer]- All Rights Reserved Assessment and Plan - Diagnosis (1) Acute respiratory disease due to COVID-19 virus Is this a current diagnosis for this admission?: Yes Plan: Still struggling. Breathing is improved in the prone position. Continue current management. (2) Poor nutrition Is this a current diagnosis for this admission?: Yes Plan: We will need to place a Dobbhoff catheter with bolus feeds versus central line with TPN. (3) Depression Qualifiers: Depression Type: unspecified Qualified Code(s): F32.9 - Major depressive disorder, single episode, unspecified Is this a current diagnosis for this admission?: Yes Plan: Stable at this point. Continue current regimen. (4) Schizoaffective disorder Qualifiers: Schizoaffective disorder type: bipolar Qualified Code(s): F25.0 - Schizoaffective disorder, bipolar type Is this a current diagnosis for this admission?: Yes Plan: Adversely affected by critical illness. Seems to be stabilizing. (5) Asthma Qualifiers: Asthma severity: moderate Asthma persistence: unspecified Asthma complication type: uncomplicated Qualified Code(s): J45.909 - Unspecified asthma, uncomplicated Is this a current diagnosis for this admission?: Yes Plan: Possibly contributing to respiratory failure however COVID 19 pneumonia is the predominant etiology. (6) Seizure disorder Is this a current diagnosis for this admission?: Yes Plan: No evidence of seizures. Continue current medication. (7) Weakness Is this a current diagnosis for this admission?: Yes Plan: Profound weakness from critical illness. Unable to utilize physical therapy at this point due to severely decreased exercise capacity due to hypoxia. - Time Time Spent with patient: 15-24 minutes Medications reviewed and adjusted accordingly: Yes Anticipated Discharge Disposition: Retirement Facility Anticipated Discharge Timeframe: Unable to determine at this time
[2020-07-13] MEDS: ENOXAPARIN SODIUM INJ 80 MG/0.8 ML DISP.SYRIN SUBCUT SCH ×2 (11:38→23:08)
[2020-07-13] MEDS: LEVETIRACETAM 500 MG TABLET PO SCH ×2 (11:38→23:09)
[2020-07-13] MEDS: GUAIFENESIN 600 MG TABLET.SA PO SCH ×2 (11:38→23:10)
[2020-07-13] MEDS: METOPROLOL SUCCINATE 50 MG TAB.SR.24H PO SCH (11:38)
[2020-07-13] MEDS: ZINC SULFATE 220 MG CAPSULE PO SCH (11:38)
[2020-07-13] MEDS: FLUTICASONE/UMECLIDIN/VILANTER 100-62.5-25 MCG/DOSE IH SCH (11:39)
[2020-07-13 17:07] LABS: APPEARANCE,URINE CLEAR; BILIRUBIN,URINE NEGATIVE (NEGATIVE); COLOR,URINE STRAW; GLUCOSE, URINE NEGATIVE (NEGATIVE); KETONES,URINE NEGATIVE (NEGATIVE); LEUKOCYTE ESTERASE,URINE NEGATIVE (NEGATIVE); NITRITE,URINE NEGATIVE (NEGATIVE); PROTEIN,URINE NEGATIVE (NEGATIVE); UROBILINOGEN,URINE NEGATIVE mg/dL (<2.0)
[2020-07-13] MEDS: LORAZEPAM INJ 2 MG/1 ML VIAL IV PRN (21:05)
[2020-07-13] MEDS ORDERED: MORPHINE SULFATE 10 MG/ML INJ ONE (21:19)
[2020-07-13 22:54] LABS: ARTERIAL BLOOD BASE EXCESS 3.6 mmol/L; ARTERIAL BLOOD H2CO3 1.85 mmol/L (1.05-1.35); ARTERIAL BLOOD PCO2 61.6 mmHg (35-45); ARTERIAL BLOOD PH 7.32 (7.35-7.45); ARTERIAL BLOOD PO2 61.5 mmHg (80-100); ARTERIAL BLOOD TOTAL CO2 32.9 mmol/L (21-25)
[2020-07-13 22:55] LABS: ARTERIAL BLOOD FIO2 75%
[2020-07-13] MEDS ORDERED: MORPHINE SULFATE 10 MG/ML INJ IV ONE (23:00)
[2020-07-13] MEDS: ZIPRASIDONE HCL 60 MG CAPSULE PO SCH (23:09)
[2020-07-13] MEDS: PAROXETINE HCL 20 MG TABLET PO SCH (23:10)
[2020-07-13] MEDS: MONTELUKAST SODIUM 10 MG TABLET PO SCH (23:10)
[2020-07-13] MEDS: LATANOPROST 0.005% OPH SOLN 2.5 ML OU SCH (23:11)
[2020-07-14] MEDS ORDERED: NALOXONE HCL INJ/PF 0.4 MG/1 ML SDV ONE (00:57)
[2020-07-14] MEDS ORDERED: MORPHINE SULFATE 10 MG/ML INJ ONE ×2 (00:57→04:14)
[2020-07-14] MEDS: MORPHINE SULFATE 10 MG/ML INJ IV PRN ×3 (01:03→22:32)
[2020-07-14] MEDS ORDERED: MORPHINE SULFATE 10 MG/ML INJ IV ONE (05:00)
[2020-07-14] MEDS: PANTOPRAZOLE SODIUM 20 MG TABLET.DR PO SCH (06:45)
[2020-07-14] MEDS: IPRATROPIUM/ALBUTEROL 0.5-2.5 MG/3 ML AMPUL NEB SCH ×3 (07:58→20:07)
[2020-07-14] MEDS: DEXTROSE 5%-NORMAL SALINE 1,000 ML IV PRN ×2 (08:21→23:17)
--- NOTE | 2020-07-14 10:37 | PDOC PROGRESS REPORT ---
Subjective Progress Note for:: 07/14/20 Subjective:: Patient responded very nicely to 10 mg morphine dose last night. It helps her relax enough to tolerate being in the prone position for longer periods. The goal is to prone the patient for 18 hours a day and attempt to wean oxygen supplement. Reason For Visit: ACUTE RESPIRATORY FAILURE WITH HYPOXIA, COVID-19 Physical Exam Vital Signs: Temp Pulse Resp BP Pulse Ox 97.8 F 84 21 H 138/67 H 100 07/14/20 09:20 07/14/20 08:26 07/14/20 08:26 07/14/20 08:26 07/14/20 08:26 Intake & Output 07/13/20 07/14/20 07/15/20 06:59 06:59 06:59 Intake Total 1887 1243 Output Total 400 1700 Balance 1487 -457 Weight 65.8 kg 65.8 kg General appearance: PRESENT: no acute distress, cooperative, well-developed, other - BiPAP mask in place Head exam: PRESENT: atraumatic, normocephalic Respiratory exam: PRESENT: clear to auscultation sky, symmetrical, unlabored. ABSENT: rales, rhonchi, tachypnea, wheezes Cardiovascular exam: PRESENT: RRR, +S1, +S2. ABSENT: bradycardia, diastolic murmur, irregular rhythm, systolic murmur, tachycardia GI/Abdominal exam: PRESENT: normal bowel sounds, soft. ABSENT: distended, tenderness Rectal exam: PRESENT: deferred Gentrourinary exam: ABSENT: indwelling catheter Extremities exam: ABSENT: pedal edema Musculoskeletal exam: PRESENT: normal inspection. ABSENT: ambulatory - too weak and short of breath to even attempt physical therapy, deformity Neurological exam: PRESENT: alert, altered, awake, oriented to person, other. ABSENT: oriented to place Psychiatric exam: PRESENT: flat affect. ABSENT: agitated, anxious Focused psych exam: ABSENT: delusional, paranoid, restlessness Skin exam: PRESENT: dry, normal color, warm. ABSENT: rash Results Laboratory Results: 07/13/20 06:04 07/13/20 06:04 07/13/20 07/13/20 16:00 22:23 Carbonic Acid 1.85 H HCO3/H2CO3 Ratio 16:1 ABG pH 7.32 L ABG pCO2 61.6 H ABG pO2 61.5 L ABG HCO3 31.0 H ABG O2 Saturation 89.0 L ABG Base Excess 3.6 FiO2 75% Urine Color STRAW Urine Appearance CLEAR Urine pH 8.0 Ur Specific [place] [employer] 1.010 Urine Protein NEGATIVE Urine Glucose (UA) NEGATIVE Urine Ketones NEGATIVE Urine Blood NEGATIVE Urine Nitrite NEGATIVE Ur Leukocyte Esterase NEGATIVE Urine WBC (Auto) 1 06/30/20 09:15 Troponin I < 0.012 NT-Pro-B Natriuret Pep 906 H Impressions: Chest X-Ray 07/05/20 15:45 IMPRESSION: DIFFUSE BILATERAL AIRSPACE DISEASE WITH WORSENING IN THE UPPER LOBES. KUB X-Ray 07/10/20 22:51 IMPRESSION: Indeterminate bowel gas pattern. Mild colonic stool load. copyright 2010 [employer]- All Rights Reserved Assessment and Plan - Diagnosis (1) Acute respiratory disease due to COVID-19 virus Is this a current diagnosis for this admission?: Yes Plan: Still requiring prone positioning for 18 hours a day. The increased dose of morphine seems to make this easier for the patient. (2) Poor nutrition Is this a current diagnosis for this admission?: Yes Plan: Faced with a central line versus tube feeds I have opted to trial low volume tube feeds. We will keep the patient in reverse Trendelenburg position and this will not adversely affect pronating and will decrease the risk of aspiration. The only limitation to eating is her dyspnea. If we can utilize her GI tract that would be preferable. If this fails we will need to place a central line (radiology will not place a PICC line on COVID positive patient's) and initiate TPN. (3) Depression Qualifiers: Depression Type: unspecified Qualified Code(s): F32.9 - Major depressive disorder, single episode, unspecified Is this a current diagnosis for this admission?: Yes Plan: Continue Paxil. Increase stress of her critical illness seems to exacerbate her depression and schizoaffective disorder (4) Schizoaffective disorder Qualifiers: Schizoaffective disorder type: bipolar Qualified Code(s): F25.0 - Schizoaffective disorder, bipolar type Is this a current diagnosis for this admission?: Yes Plan: Exacerbated by her critical illness. Continue Geodon. (5) Asthma Qualifiers: Asthma severity: moderate Asthma persistence: unspecified Asthma complication type: uncomplicated Qualified Code(s): J45.909 - Unspecified asthma, uncomplicated Is this a current diagnosis for this admission?: Yes Plan: Currently superseded by Covid-19 pneumonia. (6) Seizure disorder Is this a current diagnosis for this admission?: Yes Plan: Continue Keppra (7) Weakness Is this a current diagnosis for this admission?: Yes Plan: From prolonged illness and poor nutrition. We will place a nasogastric tube to trial tube feeds. - Time Time Spent with patient: 25-34 minutes Medications reviewed and adjusted accordingly: Yes Anticipated Discharge Disposition: Unknown Anticipated Discharge Timeframe: Unknown
[2020-07-14] MEDS: METOPROLOL SUCCINATE 50 MG TAB.SR.24H PO SCH (10:52)
[2020-07-14] MEDS: GUAIFENESIN 600 MG TABLET.SA PO SCH ×2 (10:52→22:31)
[2020-07-14] MEDS: ZINC SULFATE 220 MG CAPSULE PO SCH (10:52)
[2020-07-14] MEDS: ENOXAPARIN SODIUM INJ 80 MG/0.8 ML DISP.SYRIN SUBCUT SCH ×2 (10:52→22:31)
[2020-07-14] MEDS: LEVETIRACETAM 500 MG TABLET PO SCH ×2 (10:52→22:31)
[2020-07-14] MEDS: FLUTICASONE/UMECLIDIN/VILANTER 100-62.5-25 MCG/DOSE IH SCH (10:53)
--- NOTE | 2020-07-14 15:13 | RADIOLOGY REPORT (SQ) ---
EXAM DESCRIPTION: KUB/ABDOMEN (SINGLE VIEW) IMAGES COMPLETED DATE/TIME: 07/14/2020 2:47 pm REASON FOR STUDY: NG tube placement verification COMPARISON: 07/10/2020 NUMBER OF VIEWS: One view. TECHNIQUE: Supine radiographic image of the abdomen acquired. LIMITATIONS: None. FINDINGS: Nasogastric tube tip overlies the gastric fundus. IMPRESSION: Nasogastric tube in the stomach. TECHNICAL DOCUMENTATION: JOB ID: [id number] 2010 [employer]- All Rights Reserved Reading location - IP/workstation name: [email or web address]
[2020-07-14] MEDS: PAROXETINE HCL 20 MG TABLET PO SCH (22:31)
[2020-07-14] MEDS: ZIPRASIDONE HCL 60 MG CAPSULE PO SCH (22:31)
[2020-07-14] MEDS: MONTELUKAST SODIUM 10 MG TABLET PO SCH (22:31)
[2020-07-14] MEDS: LATANOPROST 0.005% OPH SOLN 2.5 ML OU SCH (22:32)
[2020-07-14] MEDS: LORAZEPAM INJ 2 MG/1 ML VIAL IV PRN (23:18)
[2020-07-15] MEDS: MORPHINE SULFATE 10 MG/ML INJ IV PRN ×4 (04:02→19:40)
[2020-07-15] MEDS: PANTOPRAZOLE SODIUM 20 MG TABLET.DR PO SCH (05:03)
[2020-07-15 05:32] LABS: HEMATOCRIT 31.4 % (36.0-47.0); HEMOGLOBIN 10.5 g/dL (12.0-15.5); MEAN CORPUSCULAR HEMOGLOBIN 31.1 pg (27.0-33.4); MEAN CORPUSCULAR HGB CONC 33.4 g/dL (32.0-36.0); MEAN CORPUSCULAR VOLUME 93 fl (80-97); PLATELET COUNT 205 10^3/uL (150-450); RED BLOOD COUNT 3.37 10^6/uL (3.72-5.28); RED CELL DISTRIBUTION WIDTH 13.6 % (11.5-14.0); WHITE BLOOD COUNT 12.1 10^3/uL (4.0-10.5)
[2020-07-15] MEDS: LORAZEPAM INJ 2 MG/1 ML VIAL IV PRN ×4 (05:39→21:42)
[2020-07-15 05:53] LABS: ALBUMIN 2.8 g/dL (3.5-5.0); ALKALINE PHOSPHATASE 93 U/L (38-126); ASPARTATE AMINO TRANSFERASE 35 U/L (14-36); BILIRUBIN,DIRECT 0.1 mg/dL (0.0-0.4); BILIRUBIN,TOTAL 1.2 mg/dL (0.2-1.3); BLOOD UREA NITROGEN 4 mg/dL (7-20); CALCIUM 8.2 mg/dL (8.4-10.2); GLUCOSE 133 mg/dL (75-110); POTASSIUM 3.2 mmol/L (3.6-5.0); TOTAL PROTEIN 5.4 g/dL (6.3-8.2)
[2020-07-15 05:58] LABS: ANION GAP 6 (5-19); CARBON DIOXIDE 33 mmol/L (22-30); CHLORIDE 99 mmol/L (98-107)
[2020-07-15] MEDS: IPRATROPIUM/ALBUTEROL 0.5-2.5 MG/3 ML AMPUL NEB SCH ×3 (09:32→19:54)
[2020-07-15] MEDS: METOPROLOL SUCCINATE 50 MG TAB.SR.24H PO SCH (09:58)
[2020-07-15] MEDS: ENOXAPARIN SODIUM INJ 80 MG/0.8 ML DISP.SYRIN SUBCUT SCH ×2 (09:58→21:38)
[2020-07-15] MEDS: GUAIFENESIN 600 MG TABLET.SA PO SCH ×2 (09:58→21:39)
[2020-07-15] MEDS: LEVETIRACETAM 500 MG TABLET PO SCH (09:58)
[2020-07-15] MEDS: ZINC SULFATE 220 MG CAPSULE PO SCH (09:59)
[2020-07-15] MEDS: FLUTICASONE/UMECLIDIN/VILANTER 100-62.5-25 MCG/DOSE IH SCH (10:00)
--- NOTE | 2020-07-15 11:53 | PDOC PROGRESS REPORT ---
Subjective Progress Note for:: 07/15/20 Subjective:: The patient is having a rough morning. She is quite tachypneic. Reason For Visit: ACUTE RESPIRATORY FAILURE WITH HYPOXIA, COVID-19 Physical Exam Vital Signs: Temp Pulse Resp BP Pulse Ox 98.9 F 95 26 H 151/73 H 84 L 07/15/20 09:00 07/15/20 08:00 07/15/20 08:00 07/15/20 08:00 07/15/20 08:00 Intake & Output 07/14/20 07/15/20 07/16/20 06:59 06:59 06:59 Intake Total 1243 1096 Output Total 1700 600 Balance -457 496 Weight 65.8 kg 64.3 kg General appearance: PRESENT: severe distress, well-developed Head exam: PRESENT: atraumatic, normocephalic Eye exam: PRESENT: other - BiPAP mask in place Ear exam: PRESENT: normal external ear exam. ABSENT: bleeding, drainage Mouth exam: PRESENT: other - Unable to assess Respiratory exam: PRESENT: decreased breath sounds, symmetrical, tachypnea. ABSENT: rales, rhonchi, wheezes Cardiovascular exam: PRESENT: +S1, +S2, tachycardia GI/Abdominal exam: PRESENT: diminished bowel sounds, soft. ABSENT: distended, tenderness Rectal exam: PRESENT: deferred Gentrourinary exam: ABSENT: indwelling catheter Extremities exam: ABSENT: pedal edema Musculoskeletal exam: PRESENT: normal inspection. ABSENT: ambulatory Neurological exam: PRESENT: altered, awake, oriented to person. ABSENT: alert Psychiatric exam: PRESENT: agitated Focused psych exam: ABSENT: delusional, paranoid, restlessness Skin exam: PRESENT: dry, pallor, warm. ABSENT: rash Results Laboratory Results: 07/15/20 04:31 07/15/20 04:31 07/15/20 07/15/20 04:31 04:31 WBC 12.1 H RBC 3.37 L Hgb 10.5 L Hct 31.4 L MCV 93 MCH 31.1 MCHC 33.4 RDW 13.6 Plt Count 205 Sodium 138.3 Potassium 3.2 L Chloride 99 Carbon Dioxide 33 H Anion Gap 6 BUN 4 L Creatinine 0.35 L Est GFR ( Amer) > 60 Glucose 133 H Calcium 8.2 L Magnesium 1.7 Total Bilirubin 1.2 AST 35 Alkaline Phosphatase 93 Total Protein 5.4 L Albumin 2.8 L 06/30/20 09:15 Troponin I < 0.012 NT-Pro-B Natriuret Pep 906 H Impressions: Chest X-Ray 07/05/20 15:45 IMPRESSION: DIFFUSE BILATERAL AIRSPACE DISEASE WITH WORSENING IN THE UPPER LOBES. KUB X-Ray 07/14/20 13:41 IMPRESSION: Nasogastric tube in the stomach. Assessment and Plan - Diagnosis (1) Acute respiratory disease due to COVID-19 virus Is this a current diagnosis for this admission?: Yes Plan: Doing poorly today. Unable to come off of BiPAP. Pain medication and antianxiety medication have helped her breathing since she is somewhat more relaxed. We will continue to prone for 18 hours during the day. (2) Poor nutrition Is this a current diagnosis for this admission?: Yes Plan: Central line placed today. We will start TPN. (3) Depression Qualifiers: Depression Type: unspecified Qualified Code(s): F32.9 - Major depressive disorder, single episode, unspecified Is this a current diagnosis for this admission?: Yes Plan: Continue Paxil. Increase stress of her critical illness seems to exacerbate her depression and schizoaffective disorder (4) Schizoaffective disorder Qualifiers: Schizoaffective disorder type: bipolar Qualified Code(s): F25.0 - Schizoaffective disorder, bipolar type Is this a current diagnosis for this admission?: Yes Plan: Exacerbated by her critical illness. Continue Geodon. (5) Asthma Qualifiers: Asthma severity: moderate Asthma persistence: unspecified Asthma complication type: uncomplicated Qualified Code(s): J45.909 - Unspecified asthma, uncomplicated Is this a current diagnosis for this admission?: Yes Plan: Currently has nebulizer therapy ordered. And still on systemic steroids. She is BiPAP dependent at this time. She is not wheezy on exam. (6) Seizure disorder Is this a current diagnosis for this admission?: Yes Plan: Continue [place] (7) Weakness Is this a current diagnosis for this admission?: Yes Plan: Secondary to critical illness. When appropriate initiate physical therapy. - Time Time Spent with patient: 15-24 minutes Medications reviewed and adjusted accordingly: Yes Anticipated Discharge Disposition: Senior Living Facility Anticipated Discharge Timeframe: Unknown
--- NOTE | 2020-07-15 11:54 | Operative Report ---
Bedside Procedure - History of Present Illness Indication for Procedure: TPN Date: 07/15/20 Provider: ROSY OWENS - Central Line Left Femoral Time completed: 11:50 Consent obtained: Yes Central line pre-insertion: Sterile PPE donned, Chloraprep applied, Sterile drapes applied Central line lumen type: Triple Anesthetic type: 1% Lidocaine Ultrasound guided: No Line secured with sutures: Yes Central line post-insertion: Blood return from lumens, Biopatch applied, Sutured Number of attempts: 1 Complications: No Notes: 07/15/20 11:00 The patient was given 1 mg of lorazepam and 7 mg of morphine. This helped reduce her tachypnea significantly. Once the line was secured her IV fluids were removed the central line. TPN should start tonight or tomorrow and the patient will no longer need venipuncture for blood work. The patient tolerated the procedure without difficulty.
[2020-07-15] MEDS ORDERED: DEXTROSE 50%-WATER 25 GM/50 ML DISP.SYRIN IV PRN ×2 (12:52)
[2020-07-15] MEDS ORDERED: DEXTROSE 40% GEL 15 GM TUBE PO PRN ×2 (12:52)
[2020-07-15] MEDS ORDERED: GLUCAGON,HUMAN RECOMB 1 MG INJ IM PRN (12:52)
[2020-07-15] MEDS ORDERED: DEXTROSE 10%-WATER 1,000 ML IV PRN (14:00)
--- NOTE | 2020-07-15 14:15 | RADIOLOGY REPORT (SQ) ---
EXAM DESCRIPTION: CHEST SINGLE VIEW IMAGES COMPLETED DATE/TIME: 07/15/2020 2:04 pm REASON FOR STUDY: Femoral Central Line Placement verification COMPARISON: 07/05/2020 EXAM PARAMETERS: NUMBER OF VIEWS: One view. TECHNIQUE: Single frontal radiographic view of the chest acquired. RADIATION DOSE: NA LIMITATIONS: None. FINDINGS: LUNGS AND PLEURA: Extensive diffuse bilateral airspace disease, mildly worsened from prior . No large effusion. No pneumothorax. MEDIASTINUM AND HILAR STRUCTURES: Largely obscured. HEART AND VASCULAR STRUCTURES: Stable, largely obscured. BONES: No acute findings. Cervical fusion hardware. HARDWARE: Cholecystectomy clips. Cervical hardware. OTHER: No other significant finding. IMPRESSION: Extensive diffuse bilateral airspace disease, mildly worsened from prior. TECHNICAL DOCUMENTATION: JOB ID: [id number] 2010 [employer] All Rights Reserved Reading location - IP/workstation name: [email or web address]
[2020-07-15] MEDS: DEXTROSE 5%-NORMAL SALINE 1,000 ML IV PRN (16:00)
[2020-07-15 16:18] LABS: HEMATOCRIT 30.1 % (36.0-47.0); HEMOGLOBIN 10.2 g/dL (12.0-15.5); MEAN CORPUSCULAR HEMOGLOBIN 31.7 pg (27.0-33.4); MEAN CORPUSCULAR VOLUME 93 fl (80-97); PLATELET COUNT 210 10^3/uL (150-450); RED BLOOD COUNT 3.23 10^6/uL (3.72-5.28); RED CELL DISTRIBUTION WIDTH 13.7 % (11.5-14.0); WHITE BLOOD COUNT 10.3 10^3/uL (4.0-10.5)
[2020-07-15 16:22] LABS: ARTERIAL BLOOD BASE EXCESS 7.9 mmol/L; ARTERIAL BLOOD HCO3 35.4 mmol/L (20-24); ARTERIAL BLOOD O2 SATURATION 77.4 % (94-98); ARTERIAL BLOOD PCO2 63.2 mmHg (35-45); ARTERIAL BLOOD PH 7.37 (7.35-7.45); ARTERIAL BLOOD PO2 44.4 mmHg (80-100); ARTERIAL BLOOD TOTAL CO2 37.3 mmol/L (21-25)
[2020-07-15 16:23] LABS: INTERNATIONAL RATION (INR) 1.16
[2020-07-15 16:31] LABS: ARTERIAL BLOOD FIO2 85%
[2020-07-15] MEDS: METOPROLOL TARTRATE PF/INJ 5 MG/5 ML SDV IV SCH (17:51)
[2020-07-15] MEDS: INSULIN REG, HUMAN 100 UNIT/ML 3 ML VIAL SUBCUT SCH (17:51)
[2020-07-15] MEDS: AMINO ACIDS 5 %/DEXTROSE 20 % 1,000 ML IV PRN ×2 (19:00→19:45)
[2020-07-15 20:21] LABS: ARTERIAL BLOOD BASE EXCESS 5.4 mmol/L; ARTERIAL BLOOD H2CO3 1.97 mmol/L (1.05-1.35); ARTERIAL BLOOD HCO3 33.2 mmol/L (20-24); ARTERIAL BLOOD O2 SATURATION 84.2 % (94-98); ARTERIAL BLOOD PCO2 65.4 mmHg (35-45); ARTERIAL BLOOD PH 7.32 (7.35-7.45); ARTERIAL BLOOD PO2 53.6 mmHg (80-100); ARTERIAL BLOOD TOTAL CO2 35.2 mmol/L (21-25)
[2020-07-15 20:22] LABS: ARTERIAL BLOOD FIO2 90%
[2020-07-15] MEDS: LEVETIRACETAM 1000 MG/NACL-ISO 1,000 MG/100 ML RTUPB IV SCH (21:37)
[2020-07-15] MEDS: ZIPRASIDONE HCL 60 MG CAPSULE PO SCH (21:38)
[2020-07-15] MEDS: MONTELUKAST SODIUM 10 MG TABLET PO SCH (21:39)
[2020-07-15] MEDS: LATANOPROST 0.005% OPH SOLN 2.5 ML OU SCH (21:39)
[2020-07-15] MEDS: PAROXETINE HCL 20 MG TABLET PO SCH (21:39)
[2020-07-15] MEDS: HYDRALAZINE HCL INJ/PF 20 MG/1 ML SDV IV PRN (21:43)
[2020-07-15] MEDS ORDERED: DIAZEPAM INJ 10 MG/2 ML DISP.SYRIN ONE (22:54)
[2020-07-15] MEDS ORDERED: MORPHINE SULFATE 10 MG/ML INJ ONE (22:58)
[2020-07-15] MEDS ORDERED: LEVALBUTEROL HCL NEB 1.25 MG/3 ML AMPUL NEB ONE (23:07)
[2020-07-15] MEDS ORDERED: IPRATROPIUM BROMIDE 0.02% NEB 0.5 MG/2.5 ML AMPUL NEB ONE (23:07)
[2020-07-15] MEDS ORDERED: LEVALBUTEROL HCL NEB 1.25 MG/3 ML AMPUL NEB PRN (23:19)
[2020-07-15] MEDS ORDERED: MORPHINE SULFATE 60 MG/60 ML RTUINJ IV ONE (23:26)
[2020-07-15] MEDS ORDERED: MORPHINE SULFATE 60 MG/60 ML RTUINJ IV PRN (23:39)
[2020-07-15] MEDS ORDERED: DEXAMETHASONE SOD PHOSPHATE INJ 4 MG/1 ML VIAL IV ONE (23:45)
--- NOTE | 2020-07-15 23:46 | Progress Note ---
Provider Note Provider Note: Critical CARE note: 07/15/2020 Critical care start time: 2252 Critical care issue: Tachypnea with hypoxia I responded to a rapid response called in the patient's room due to severe hypoxia (O2 sat less than 70%) and severe tachypnea. The patient was not responding to the current therapeutic regiment of Valium 2.5 mg IV every 4 hours and morphine sulfate 10 mg IV every 4 hours. Additional morphine and Valium were given to the patient at my direction and she was also started on a 1 hour- long nebulizer therapy treatment utilizing Xopenex and Atrovent at the suggestion of the groover and turner service. She responded well to the addition of morphine and Valium and after discussion the groover and turner service recommended that possible HANDKERCHIEF SAMPLE CLERK pump utilizing a basal rate for morphine as a solution to providing an adequate and continuous pain control and relaxation for the patient to provide a better opportunity for continued pronation and improve ambulation. A morphine sulfate HANDKERCHIEF SAMPLE CLERK pump was ordered with a basal rate of 5 mg/h initially and this will be titrated to whenever level is required to provide adequate relaxation and pain control for the patient. Patient's Valium dose was increased to 5 mg IV every 4 hours. The patient's heart rate dropped to the 110s and her respiratory rate dropped to the low 20s with an O2 sat of 92%. Patient will be monitored throughout the remainder of the evening. Critical care end time: 7 Total critical care time: 45 minutes
[2020-07-16] MEDS: INSULIN REG, HUMAN 100 UNIT/ML 3 ML VIAL SUBCUT SCH ×2 (00:38→06:43)
[2020-07-16] MEDS ORDERED: DIAZEPAM INJ 10 MG/2 ML DISP.SYRIN IV ONE (00:45)
[2020-07-16] MEDS ORDERED: DIAZEPAM INJ 10 MG/2 ML DISP.SYRIN ONE (00:47)
[2020-07-16] MEDS: METOPROLOL TARTRATE PF/INJ 5 MG/5 ML SDV IV SCH ×5 (00:51→23:29)
[2020-07-16] MEDS: DIAZEPAM INJ 10 MG/2 ML DISP.SYRIN IV SCH ×6 (02:45→22:16)
[2020-07-16 07:05] LABS: ALBUMIN 2.8 g/dL (3.5-5.0); ALKALINE PHOSPHATASE 93 U/L (38-126); ASPARTATE AMINO TRANSFERASE 30 U/L (14-36); BILIRUBIN,TOTAL 0.6 mg/dL (0.2-1.3); BLOOD UREA NITROGEN 12 mg/dL (7-20); CALCIUM 8.3 mg/dL (8.4-10.2); GLUCOSE 214 mg/dL (75-110); PHOSPHORUS 4.1 mg/dL (2.5-4.5); POTASSIUM 3.7 mmol/L (3.6-5.0); TOTAL PROTEIN 5.6 g/dL (6.3-8.2)
[2020-07-16 07:10] LABS: CARBON DIOXIDE 39 mmol/L (22-30); CHLORIDE 98 mmol/L (98-107)
[2020-07-16 07:12] LABS: PREALBUMIN 7.5 mg/dL (17.6-36.0)
[2020-07-16 07:17] LABS: ANION GAP 4 (5-19)
[2020-07-16] MEDS: IPRATROPIUM/ALBUTEROL 0.5-2.5 MG/3 ML AMPUL NEB SCH ×3 (08:19→20:11)
[2020-07-16] MEDS: NALOXONE HCL INJ/PF 0.4 MG/1 ML SDV IV PRN ×2 (08:54→09:20)
[2020-07-16] MEDS ORDERED: NALOXONE HCL INJ/PF 0.4 MG/1 ML SDV ONE (09:03)
[2020-07-16] MEDS: GUAIFENESIN 600 MG TABLET.SA PO SCH ×2 (09:07→22:12)
[2020-07-16] MEDS: FLUTICASONE/UMECLIDIN/VILANTER 100-62.5-25 MCG/DOSE IH SCH (09:07)
[2020-07-16] MEDS: ZINC SULFATE 220 MG CAPSULE PO SCH (09:07)
[2020-07-16 09:57] LABS: ARTERIAL BLOOD BASE EXCESS 8.8 mmol/L; ARTERIAL BLOOD H2CO3 4.27 mmol/L (1.05-1.35); ARTERIAL BLOOD HCO3 42.5 mmol/L (20-24); ARTERIAL BLOOD O2 SATURATION 90.6 % (94-98); ARTERIAL BLOOD PO2 84.8 mmHg (80-100); ARTERIAL BLOOD TOTAL CO2 46.9 mmol/L (21-25)
[2020-07-16 09:59] LABS: ARTERIAL BLOOD FIO2 100%; ARTERIAL BLOOD PCO2 141.8 mmHg (35-45)
[2020-07-16] MEDS ORDERED: FLUMAZENIL INJ 0.5 MG/5 ML VIAL ONE (10:04)
[2020-07-16] MEDS: DEXAMETHASONE SOD PHOSPHATE INJ 4 MG/1 ML VIAL IV SCH (10:50)
[2020-07-16] MEDS: ENOXAPARIN SODIUM INJ 80 MG/0.8 ML DISP.SYRIN SUBCUT SCH ×2 (10:50→22:11)
[2020-07-16] MEDS: NORMAL SALINE 1000 ML 1,000 ML IV PRN (11:00)
[2020-07-16] MEDS ORDERED: ETOMIDATE INJ/PF 20 MG/10 ML SDV IV ONE ×2 (11:06→14:00)
[2020-07-16] MEDS ORDERED: DEXMEDETOMIDINE IN 0.9 % NACL 400 MCG/100 ML RTUPB IV ONE (11:26)
--- NOTE | 2020-07-16 11:34 | PDOC PROGRESS REPORT ---
Subjective Progress Note for:: 07/16/20 Subjective:: Called emergently to the bedside. The patient is unresponsive to sternal rubs. She has been given 2 doses of Narcan. She is about to get a third dose of Narcan and a dose of Romazicon. Blood gas showed a PCO2 of 140. Reason For Visit: ACUTE RESPIRATORY FAILURE WITH HYPOXIA, COVID-19 Physical Exam Vital Signs: Temp Pulse Resp BP Pulse Ox 98.2 F 104 H 21 H 124/68 94 07/16/20 09:53 07/16/20 08:20 07/16/20 08:20 07/16/20 04:09 07/16/20 08:20 Intake & Output 07/15/20 07/16/20 07/17/20 06:59 06:59 06:59 Intake Total 1096 1325 Output Total 600 175 Balance 496 1150 Weight 64.3 kg 62.4 kg General appearance: PRESENT: severe distress Mouth exam: PRESENT: other - BiPAP in place Respiratory exam: PRESENT: decreased breath sounds - At bases, rhonchi - On the right, symmetrical, tachypnea. ABSENT: wheezes Cardiovascular exam: PRESENT: +S1, +S2, tachycardia GI/Abdominal exam: PRESENT: diminished bowel sounds, soft. ABSENT: distended Rectal exam: PRESENT: deferred Neurological exam: PRESENT: other - Does not respond to sternal rub. ABSENT: awake Psychiatric exam: PRESENT: other - Obtunded Skin exam: PRESENT: other - Facial flushing Results Laboratory Results: 07/15/20 16:00 07/16/20 06:10 07/15/20 07/15/20 07/15/20 16:00 16:00 16:00 WBC 10.3 RBC 3.23 L Hgb 10.2 L Hct 30.1 L MCV 93 MCH 31.7 MCHC 34.0 RDW 13.7 Plt Count 210 Carbonic Acid 1.90 H HCO3/H2CO3 Ratio 18:1 ABG pH 7.37 ABG pCO2 63.2 H ABG pO2 44.4 L ABG HCO3 35.4 H ABG O2 Saturation 77.4 L ABG Base Excess 7.9 FiO2 85% Sodium Potassium Chloride Carbon Dioxide Anion Gap BUN Creatinine Est GFR ( Amer) Glucose Calcium Phosphorus Magnesium 1.8 Total Bilirubin AST Alkaline Phosphatase Total Protein Albumin Prealbumin Triglycerides 153 H 0807/16/20 07/16/20 20:00 06:10 09:30 WBC RBC Hgb Hct MCV MCH MCHC RDW Plt Count Carbonic Acid 1.97 H 4.27 H HCO3/H2CO3 Ratio 16:1 9:1 ABG pH 7.32 L 7.10 L* ABG pCO2 65.4 H 141.8 H* ABG pO2 53.6 L 84.8 ABG HCO3 33.2 H 42.5 H ABG O2 Saturation 84.2 L 90.6 L ABG Base Excess 5.4 8.8 FiO2 90% 100% Sodium 140.5 Potassium 3.7 Chloride 98 Carbon Dioxide 39 H Anion Gap 4 L BUN 12 Creatinine 0.38 L Est GFR ( Amer) > 60 Glucose 214 H Calcium 8.3 L Phosphorus 4.1 Magnesium Total Bilirubin 0.6 AST 30 Alkaline Phosphatase 93 Total Protein 5.6 L Albumin 2.8 L Prealbumin 7.5 L Triglycerides 06/30/20 09:15 Troponin I < 0.012 NT-Pro-B Natriuret Pep 906 H Impressions: KUB X-Ray 07/14/20 13:41 IMPRESSION: Nasogastric tube in the stomach. Chest X-Ray 07/15/20 12:51 IMPRESSION: Extensive diffuse bilateral airspace disease, mildly worsened from prior. Assessment and Plan - Diagnosis (1) Acute respiratory failure with hypoxia and hypercapnia Is this a current diagnosis for this admission?: Yes Plan: The patient has decompensated significantly. This morning she is tachypneic with decreased saturations. Blood gas revealed a pH of 7.1. PCO2 was 141.8 with a bicarb of 42.5. PO2 was 84. Oxygen saturation was 90% on 100% FiO2. She was given 3 doses of Narcan and 1 dose of Romazicon to reverse any agents present. This did not make any significant improvement. I reached out to the in service education teacher. Dr. Jaramillo excepted the patient. They are preparing the patient for transfer to the ICU. (2) Acute respiratory disease due to COVID-19 virus Is this a current diagnosis for this admission?: Yes Plan: The patient was marginal but stable. This morning there is an acute decompensation. Transferred to the ICU. (3) Poor nutrition Is this a current diagnosis for this admission?: Yes Plan: Continue TPN (4) Depression Qualifiers: Depression Type: unspecified Qualified Code(s): F32.9 - Major depressive disorder, single episode, unspecified Is this a current diagnosis for this admission?: Yes Plan: Continue Indiail. Increase stress of her critical illness seems to exacerbate her depression and schizoaffective disorder (5) Schizoaffective disorder Qualifiers: Schizoaffective disorder type: bipolar Qualified Code(s): F25.0 - Schizoaffective disorder, bipolar type Is this a current diagnosis for this admission?: Yes Plan: Exacerbated by her critical illness. Continue Rodrick. (6) Asthma Qualifiers: Asthma severity: moderate Asthma persistence: unspecified Asthma complication type: uncomplicated Qualified Code(s): J45.909 - Unspecified asthma, uncomplicated Is this a current diagnosis for this admission?: Yes Plan: Currently has nebulizer therapy ordered. And still on systemic steroids. She is BiPAP dependent at this time. She is not wheezy on exam. (7) Seizure disorder Is this a current diagnosis for this admission?: Yes Plan: Continue Yelena (8) Weakness Is this a current diagnosis for this admission?: Yes Plan: Secondary to critical illness. When appropriate initiate physical therapy. - Time Total Critical Time (Minutes): 45 Medications reviewed and adjusted accordingly: Yes Anticipated Discharge Disposition: Transferred to ICU Anticipated Discharge Timeframe: Unknown
[2020-07-16] MEDS ORDERED: DEXMEDETOMIDINE IN 0.9 % NACL 400 MCG/100 ML RTUPB IV PRN (11:37)
[2020-07-16] MEDS ORDERED: PHARMACY COMMUNICATION ORDER MC NR ×2 (11:45→21:45)
--- NOTE | 2020-07-16 11:51 | CRITICAL CARE ADMISSION REPORT ---
HPI Date:: 07/16/20 Time:: 11:00 Reason for ICU Reason:: Need for intubation Admission Date/Time & PCP: Admission Date/Time: 06/30/20 11:35 Primary Care Provider: ELIZABETH ALVARADO HPI: This patient is a 64 yo woman with a COVID-19 infection. She has been tenuos with regard to respiratory status and decompensated this AM with obtundation, hypercarbia to a level of 141. She was brought to the ICU where she was quickly intubated. However she did have a brief episode of hypoxia. Level unknown as the oxymeter was not picking up well. It read a level of 3-14% but she was still pink. Her lips got somewhat dusky briefly so I'm sure there was some brief hypoxia. She is now on the ventilator at 100% for now pending ABG. History obtained from:: Dr. Lan, previous rn eligibility and old records. - Diagnosis/Plan (1) ARDS (adult respiratory distress syndrome) Is this a current diagnosis for this admission?: Yes Plan: This certainly looks the case. Her CXR is not typical but her PaO2/FiO2 gradient on bipap is 84. We'll have to see what it is on ABG on vent. (2) Acute respiratory disease due to COVID-19 virus Is this a current diagnosis for this admission?: Yes Plan: This is undoubtably the main cause her her respiratory distress. Will check a sputum culture to see if she has a bacterial superinfection. (3) Poor nutrition Is this a current diagnosis for this admission?: Yes Plan: She is not on a pressure and if gastic volume is low will start TF. (4) Schizoaffective disorder Qualifiers: Schizoaffective disorder type: bipolar Qualified Code(s): F25.0 - Schizoaffective disorder, bipolar type Is this a current diagnosis for this admission?: Yes Plan: Will continue baseline medications. Plan Summary: Keep on vent and start weaning when more stable. Past Medical History Cardiac Medical History: Reports: Atrial Fibrillation - Previous episode in the past, Hyperlipidema Pulmonary Medical History: Reports: Asthma - inhaler daily, Bronchitis - 2 YEARS AGO, Pneumonia - 10 YEARS AGO Neurological Medical History: Reports: Migraine, Seizures - SLEEP SEIZURES Malignancy Medical History: Reports: Skin Cancer GI Medical History: Reports: Gastroesophageal Reflux Disease Psychiatric Medical History: Reports: Bipolar Disorder, Depression Hematology: Denies: Anemia, Sickle Cell Disease Past Surgical History Past Surgical History: Reports: Appendectomy, Section, Cholecystectomy, Hysterectomy, Orthopedic Surgery - cervical fusion Denies: Amputation Social/Family History - Social History Smoking Status: Never Smoker Frequency of Alcohol Use: None Hx Recreational Drug Use: No Drugs: None Hx Prescription Drug Abuse: No - Medication/Allergies Home Medications: Temazepam [Restoril] 30 mg PO QHS 05/16/16 Eslicarbazepine Acetate [Aptiom] 800 mg PO DAILY 06/30/20 Latanoprost [Xalatan 0.005% Oph Soln 2.5 ml] 1 drop OU QHS 06/30/20 Levetiracetam [Keppra] 1,000 mg PO Q12 06/30/20 Metoprolol Succinate [Toprol Xl 25 mg Tab.sr] 25 mg PO DAILY 06/30/20 Montelukast Sodium [Singulair 10 mg Tablet] 10 mg PO QHS 06/30/20 Paroxetine HCl [Paxil] 10 mg PO DAILY 06/30/20 Ziprasidone HCl [Geodon 40 Mg Capsule] 40 mg PO Q12 06/30/20 Allergies/Adverse Reactions: sulfamethoxazole [From Septra DS] Allergy (Severe, Verified 06/30/20 09:47) trimethoprim [From Septra DS] Allergy (Severe, Verified 06/30/20 09:47) Iodinated Contrast Media [IV Dye, Iodine Containing] Allergy (Unknown, Verified 06/30/20 09:47) Sulfa (Sulfonamide Antibiotics) Allergy (Unknown, Verified 06/30/20 09:47) thiopental [Thiopental] Allergy (Unknown, Verified 06/30/20 09:47) mirtazapine [From Remeron] Allergy (Verified 06/30/20 09:47) Seizures zolpidem tartrate [From Ambien] Allergy (Verified 06/30/20 09:47) Review of Systems ROS unobtainable: Due to endotracheal tube, Due to mental status Physical Exam Vital Signs: Temp Pulse Resp BP Pulse Ox 98.2 F 104 H 21 H 124/68 94 07/16/20 09:53 07/16/20 08:20 07/16/20 08:20 07/16/20 04:09 07/16/20 08:20 Intake & Output 07/15/20 07/16/20 07/17/20 06:59 06:59 06:59 Intake Total 1096 1325 Output Total 600 175 Balance 496 1150 Weight 64.3 kg 62.4 kg Weight/Height Weight 62.4 kg Height 5 ft 1 in General appearance: PRESENT: severe distress, thin Head exam: PRESENT: atraumatic, normocephalic Eye exam: PRESENT: conjunctiva pink, EOMI, PERRLA. ABSENT: scleral icterus Ear exam: PRESENT: normal external ear exam Mouth exam: PRESENT: moist, tongue midline Respiratory exam: PRESENT: crackles, decreased breath sounds, rhonchi, tachypnea Cardiovascular exam: PRESENT: RRR, tachycardia GI/Abdominal exam: PRESENT: normal bowel sounds, soft. ABSENT: distended, guarding, mass, organolmegaly, rebound, tenderness Rectal exam: PRESENT: deferred Gentrourinary exam: PRESENT: indwelling catheter Extremities exam: PRESENT: full ROM. ABSENT: calf tenderness, clubbing, pedal edema Musculoskeletal exam: PRESENT: normal inspection Psychiatric exam: PRESENT: other - Obtunded Skin exam: PRESENT: dry, intact, warm. ABSENT: cyanosis, rash Tubes/Lines: PRESENT: Endotracheal Tube, Central Line, Nasogastic Tube Laboratory/Radiographs Laboratory Results: 07/15/20 16:00 07/16/20 06:10 07/15/20 07/15/20 07/15/20 16:00 16:00 16:00 WBC 10.3 RBC 3.23 L Hgb 10.2 L Hct 30.1 L MCV 93 MCH 31.7 MCHC 34.0 RDW 13.7 Plt Count 210 Carbonic Acid 1.90 H HCO3/H2CO3 Ratio 18:1 ABG pH 7.37 ABG pCO2 63.2 H ABG pO2 44.4 L ABG HCO3 35.4 H ABG O2 Saturation 77.4 L ABG Base Excess 7.9 FiO2 85% Sodium Potassium Chloride Carbon Dioxide Anion Gap BUN Creatinine Est GFR ( Amer) Glucose Calcium Phosphorus Magnesium 1.8 Total Bilirubin AST Alkaline Phosphatase Total Protein Albumin Prealbumin Triglycerides 153 H 07/15/20 07/16/20 07/16/20 20:00 06:10 09:30 WBC RBC Hgb Hct MCV MCH MCHC RDW Plt Count Carbonic Acid 1.97 H 4.27 H HCO3/H2CO3 Ratio 16:1 9:1 ABG pH 7.32 L 7.10 L* ABG pCO2 65.4 H 141.8 H* ABG pO2 53.6 L 84.8 ABG HCO3 33.2 H 42.5 H ABG O2 Saturation 84.2 L 90.6 L ABG Base Excess 5.4 8.8 FiO2 90% 100% Sodium 140.5 Potassium 3.7 Chloride 98 Carbon Dioxide 39 H Anion Gap 4 L BUN 12 Creatinine 0.38 L Est GFR ( Amer) > 60 Glucose 214 H Calcium 8.3 L Phosphorus 4.1 Magnesium Total Bilirubin 0.6 AST 30 Alkaline Phosphatase 93 Total Protein 5.6 L Albumin 2.8 L Prealbumin 7.5 L Triglycerides 06/30/20 09:15 Troponin I < 0.012 NT-Pro-B Natriuret Pep 906 H Impressions: KUB X-Ray 07/14/20 13:41 IMPRESSION: Nasogastric tube in the stomach. Chest X-Ray 07/15/20 12:51 IMPRESSION: Extensive diffuse bilateral airspace disease, mildly worsened from prior. EKG: Pending All labs, radiographs, diagnostic studies and EKGs were personally reviewed: Yes In addition, reports of radiographic and diagnostic studies were read: Yes Critical Time Critical Time (minutes): 45 -: The care of a critically ill patient is dynamic. This note represents a static moment in the admission process. Orders and treatments may be given simultaneously and urgently, and time is not compliance representative of the treatment process. This patient requires Critical Care secondary to life threatening organ or limb dysfunction. Without Critical Care services, the patient is at risk for increased mortality and morbidity.
[2020-07-16] MEDS ORDERED: PROPOFOL 1,000 MG/100 ML INFUS..BTL IV ONE (11:52)
[2020-07-16] MEDS ORDERED: PROPOFOL 1,000 MG/100 ML INFUS..BTL IV PRN (11:53)
--- NOTE | 2020-07-16 11:53 | Progress Note ---
Provider Note Provider Note: The patient was intubated with a #7.5 ETT. CXR pending. 25 cm at lips. CC time 15 minutes
[2020-07-16] MEDS ORDERED: HYDROMORPHONE HCL INJ/PF 2 MG/ML AMPULE ONE (12:02)
[2020-07-16] MEDS: HYDROMORPHONE HCL INJ/PF 2 MG/ML AMPULE IV PRN ×2 (12:15→15:01)
[2020-07-16] MEDS ORDERED: HYDROMORPHONE HCL INJ/PF 2 MG/ML AMPULE IV PRN (12:21)
--- NOTE | 2020-07-16 12:32 | RADIOLOGY REPORT (SQ) ---
EXAM DESCRIPTION: CHEST SINGLE VIEW IMAGES COMPLETED DATE/TIME: 07/16/2020 12:18 pm REASON FOR STUDY: Just intubated COMPARISON: None. NUMBER OF VIEWS: One view. TECHNIQUE: Single frontal radiographic image of the chest acquired. LIMITATIONS: None. FINDINGS: ENDOTRACHEAL TUBE: Endotracheal tube Tip is approximately 5 mm above the level of the mary beth na directed towards the right mainstem bronchus, this could be withdrawn approximately 1.5 cm for mor e ideal placement. OTHER SUPPORT DEVICES: None. CHANGES IN RADIOGRAPHIC FINDINGS: Similar appearance of diffuse interstitial -alveolar opacities sky aterally. . HARDWARE: None in the chest. OTHER: No other significant finding. IMPRESSION: Endotracheal tube Tip is approximately 5 mm above the level of the ludmila directed towar ds the right mainstem bronchus, this could be withdrawn approximately 1.5 cm for more ideal placement . Similar appearance of diffuse interstitial -alveolar opacities bilaterally. COMMENT: The findings were sent to the Radiology Results Communication Center at 12:25 on 07/16/2020 to be communicated to a licensed caregiver. TECHNICAL DOCUMENTATION: JOB ID: [id number] [place]-72 2010 [employer]- All Rights Reserved Reading location - IP/workstation name: [email or web address]
[2020-07-16 12:45] LABS: ARTERIAL BLOOD BASE EXCESS -0.1 mmol/L; ARTERIAL BLOOD FIO2 100%; ARTERIAL BLOOD H2CO3 2.81 mmol/L (1.05-1.35); ARTERIAL BLOOD HCO3 30.5 mmol/L (20-24); ARTERIAL BLOOD O2 SATURATION 73.4 % (94-98); ARTERIAL BLOOD PO2 52.2 mmHg (80-100); ARTERIAL BLOOD TOTAL CO2 33.4 mmol/L (21-25)
[2020-07-16 12:47] LABS: ARTERIAL BLOOD PCO2 93.4 mmHg (35-45); ARTERIAL BLOOD PH 7.13 (7.35-7.45)
[2020-07-16] MEDS ORDERED: NOREPINEPHRINE BITARTRATE INJ/PF 4 MG/4 ML SDV IV ONE (12:58)
[2020-07-16] MEDS: DEXTROSE 5%-WATER 250 ML with NOREPINEPHRINE BITARTRATE 4 MG IV PRN ×4 (13:00→17:30)
[2020-07-16] MEDS ORDERED: NORMAL SALINE 1000 ML 1,000 ML IV PRN ×2 (13:06→13:54)
[2020-07-16 13:15] LABS: APPEARANCE,URINE SLIGHTLY-CLOUDY; BILIRUBIN,URINE NEGATIVE (NEGATIVE); COLOR,URINE AMBER; GLUCOSE, URINE 50 mg/dL (NEGATIVE); KETONES,URINE NEGATIVE (NEGATIVE); LEUKOCYTE ESTERASE,URINE NEGATIVE (NEGATIVE); NITRITE,URINE NEGATIVE (NEGATIVE); PROTEIN,URINE 100 mg/dL (NEGATIVE); URINE SPECIFIC GRAVITY 1.024
[2020-07-16] MEDS ORDERED: DEXMEDETOMIDINE IN NS 400 MCG/100 ML RTUPB IV PRN (13:52)
[2020-07-16] MEDS: LEVETIRACETAM 1000 MG/NACL-ISO 1,000 MG/100 ML RTUPB IV SCH ×2 (14:57→22:12)
[2020-07-16] MEDS: INSULIN REG, HUMAN 100 UNIT/ML 3 ML VIAL (PYX) SUBCUT SCH ×3 (15:03→23:30)
[2020-07-16] MEDS ORDERED: HYDROMORPHONE HCL IV ONE (17:20)
[2020-07-16] MEDS: DEXTROSE 5%-NORMAL SALINE 1,000 ML IV PRN (17:30)
[2020-07-16] MEDS: HYDROMORPHONE HCL 30 MG/60 ML RTUINJ IV PRN (17:30)
[2020-07-16] MEDS: LORAZEPAM INJ 2 MG/1 ML VIAL IV PRN (19:14)
[2020-07-16 19:43] LABS: ARTERIAL BLOOD BASE EXCESS 7.1 mmol/L; ARTERIAL BLOOD H2CO3 2.83 mmol/L (1.05-1.35); ARTERIAL BLOOD HCO3 37.1 mmol/L (20-24); ARTERIAL BLOOD O2 SATURATION 98.1 % (94-98); ARTERIAL BLOOD PH 7.21 (7.35-7.45); ARTERIAL BLOOD PO2 141.1 mmHg (80-100)
[2020-07-16 19:45] LABS: ARTERIAL BLOOD FIO2 100%
[2020-07-16 19:46] LABS: ARTERIAL BLOOD PCO2 94.1 mmHg (35-45)
[2020-07-16 20:02] LABS: BLOOD UREA NITROGEN 12 mg/dL (7-20); CALCIUM 7.9 mg/dL (8.4-10.2); CHLORIDE 103 mmol/L (98-107); GLUCOSE 167 mg/dL (75-110); POTASSIUM 3.3 mmol/L (3.6-5.0)
[2020-07-16 20:07] LABS: CARBON DIOXIDE 37 mmol/L (22-30)
[2020-07-16 20:10] LABS: ANION GAP 3 (5-19)
[2020-07-16] MEDS ORDERED: (PENDING PHARMACY ID) (Levetiracetam [Keppra] 1,000 MG) PO SCH (22:00)
[2020-07-16] MEDS: MONTELUKAST SODIUM 10 MG TABLET PO SCH (22:12)
[2020-07-16] MEDS: ZIPRASIDONE HCL 60 MG CAPSULE PO SCH (22:12)
[2020-07-16] MEDS: PAROXETINE HCL 20 MG TABLET PO SCH (22:12)
[2020-07-16] MEDS: LATANOPROST 0.005% OPH SOLN 2.5 ML OU SCH (22:27)
--- NOTE | 2020-07-16 22:45 | RADIOLOGY REPORT (SQ) ---
EXAM DESCRIPTION: XR ABDOMEN 1 VIEW (KUB) COMPLETED DATE/TME: 07/16/2020 21:44 CLINICAL HISTORY: 64 years, Female, Check Placement of NG Tube COMPARISON: 07/14/2020 abdomen NUMBER OF VIEWS: 1 TECHNIQUE: AP abdomen LIMITATIONS: None. FINDINGS: Enteric tube tip of the stomach. Nonspecific bowel gas pattern. Surgical clips right upper quadrant. Coarse interstitial changes in the lungs bilaterally IMPRESSION: Enteric tube tip in the stomach copyright 2011 [employer]- All Rights Reserved
[2020-07-16 23:10] LABS: ARTERIAL BLOOD BASE EXCESS 8.9 mmol/L; ARTERIAL BLOOD H2CO3 2.41 mmol/L (1.05-1.35); ARTERIAL BLOOD HCO3 37.8 mmol/L (20-24); ARTERIAL BLOOD O2 SATURATION 83.1 % (94-98); ARTERIAL BLOOD PH 7.29 (7.35-7.45); ARTERIAL BLOOD PO2 54.5 mmHg (80-100); ARTERIAL BLOOD TOTAL CO2 40.3 mmol/L (21-25)
[2020-07-16 23:12] LABS: ARTERIAL BLOOD FIO2 80%
[2020-07-16 23:13] LABS: ARTERIAL BLOOD PCO2 80.1 mmHg (35-45)
[2020-07-17] MEDS: DEXTROSE 5%-WATER 250 ML with NOREPINEPHRINE BITARTRATE 4 MG IV PRN ×6 (00:05→07:30)
[2020-07-17] MEDS: DIAZEPAM INJ 10 MG/2 ML DISP.SYRIN IV SCH ×6 (02:42→21:25)
[2020-07-17 04:58] LABS: ARTERIAL BLOOD BASE EXCESS 10.2 mmol/L; ARTERIAL BLOOD H2CO3 2.33 mmol/L (1.05-1.35); ARTERIAL BLOOD HCO3 38.4 mmol/L (20-24); ARTERIAL BLOOD O2 SATURATION 97.6 % (94-98); ARTERIAL BLOOD PH 7.31 (7.35-7.45); ARTERIAL BLOOD PO2 114.7 mmHg (80-100); ARTERIAL BLOOD TOTAL CO2 40.8 mmol/L (21-25)
[2020-07-17 05:03] LABS: ARTERIAL BLOOD FIO2 80%
[2020-07-17 05:06] LABS: ARTERIAL BLOOD PCO2 77.4 mmHg (35-45)
[2020-07-17 05:50] LABS: HEMATOCRIT 24.8 % (36.0-47.0); HEMOGLOBIN 8.2 g/dL (12.0-15.5); MEAN CORPUSCULAR HEMOGLOBIN 31.4 pg (27.0-33.4); MEAN CORPUSCULAR HGB CONC 33.1 g/dL (32.0-36.0); MEAN CORPUSCULAR VOLUME 95 fl (80-97); PLATELET COUNT 183 10^3/uL (150-450); RED BLOOD COUNT 2.62 10^6/uL (3.72-5.28); WHITE BLOOD COUNT 10.1 10^3/uL (4.0-10.5)
[2020-07-17 06:06] LABS: ALBUMIN 2.2 g/dL (3.5-5.0); ALKALINE PHOSPHATASE 78 U/L (38-126); ASPARTATE AMINO TRANSFERASE 32 U/L (14-36); BILIRUBIN,DIRECT 0.3 mg/dL (0.0-0.4); BILIRUBIN,TOTAL 0.6 mg/dL (0.2-1.3); BLOOD UREA NITROGEN 8 mg/dL (7-20); CALCIUM 7.9 mg/dL (8.4-10.2); CARBON DIOXIDE 36 mmol/L (22-30); CHLORIDE 106 mmol/L (98-107); GLUCOSE 145 mg/dL (75-110); PHOSPHORUS 2.2 mg/dL (2.5-4.5); POTASSIUM 3.2 mmol/L (3.6-5.0); TOTAL PROTEIN 4.7 g/dL (6.3-8.2)
[2020-07-17 06:18] LABS: PREALBUMIN 6.4 mg/dL (17.6-36.0)
[2020-07-17 06:23] LABS: ABSOLUTE LYMPHOCYTES# (MANUAL) 0.4 10^3/uL (0.5-4.7); ABSOLUTE MONOCYTES # (MANUAL) 0.6 10^3/uL (0.1-1.4); BASOPHILS % (MANUAL) 0 % (0-2); EOSINOPHILS % (MANUAL) 0 % (0-6); LYMPHOCYTES % (MANUAL) 4 % (13-45); MONOCYTES % (MANUAL) 6 % (3-13); SEGMENTED NEUTROPHILS % (MAN) 90 % (42-78); TOTAL CELLS COUNTED 100
[2020-07-17 06:24] LABS: ANISOCYTOSIS SLIGHT; PLATELET COMMENT ADEQUATE
[2020-07-17 06:26] LABS: OVALOCYTES SLIGHT; POLYCHROMASIA SLIGHT
[2020-07-17 06:39] LABS: ANION GAP 0 (5-19)
[2020-07-17] MEDS: METOPROLOL TARTRATE PF/INJ 5 MG/5 ML SDV IV SCH ×3 (07:00→18:56)
[2020-07-17] MEDS: INSULIN REG, HUMAN 100 UNIT/ML 3 ML VIAL (PYX) SUBCUT SCH ×3 (07:03→18:58)
[2020-07-17] MEDS: IPRATROPIUM/ALBUTEROL 0.5-2.5 MG/3 ML AMPUL NEB SCH ×3 (08:21→20:23)
--- NOTE | 2020-07-17 08:28 | RADIOLOGY REPORT (SQ) ---
EXAM DESCRIPTION: CHEST SINGLE VIEW IMAGES COMPLETED DATE/TIME: 07/17/2020 6:25 am REASON FOR STUDY: vent COMPARISON: 07/16/2020 FINDINGS: One-view chest AP portable semi-upright. Endotracheal and nasogastric tubes are appropriate. Diffuse largely interstitial appearing infiltrates may be mildly improved with globally improved aera tion. No pneumothorax. TECHNICAL DOCUMENTATION: JOB ID: [id number] Reading location - IP/workstation name: [email or web address]
--- NOTE | 2020-07-17 09:51 | PDOC CRITICAL CARE PROG REPORT ---
General Date:: 07/17/20 ICU Day:: 2 Ventilator Day:: 2 Hospital Day:: 17 Resuscitation Status: Full Code Events in the past 12 to 24 Hours:: Intubated, on levophed Review of systems relevant to events:: Pulmonary, CV. Reason for ICU Addmission:: Need for intubation, septic from COVID - Medications: Medications reviewed and adjusted accordingly: Yes Vasopressors:: Levophed Sedation:: Precedex. Physical Exam Vital Signs: Temp Pulse Resp BP Pulse Ox 99.7 F 83 24 H 109/55 L 97 07/17/20 05:56 07/16/20 20:12 07/16/20 20:12 07/16/20 18:00 07/17/20 04:33 Intake & Output 07/16/20 07/17/20 07/18/20 06:59 06:59 06:59 Intake Total 1325 2922 Output Total 175 1290 175 Balance 1150 1632 -175 Weight 62.4 kg 64.6 kg Weight/Height Weight 64.6 kg Height 5 ft 1 in General appearance: PRESENT: no acute distress, thin Head exam: PRESENT: atraumatic, normocephalic Eye exam: PRESENT: conjunctiva pink, EOMI, PERRLA. ABSENT: scleral icterus Ear exam: PRESENT: normal external ear exam Mouth exam: PRESENT: moist, tongue midline Respiratory exam: PRESENT: decreased breath sounds, symmetrical, tachypnea Cardiovascular exam: PRESENT: RRR. ABSENT: diastolic murmur, rubs, systolic murmur GI/Abdominal exam: PRESENT: normal bowel sounds, soft. ABSENT: distended, guarding, mass, organolmegaly, rebound, tenderness Rectal exam: PRESENT: deferred Gentrourinary exam: PRESENT: indwelling catheter Extremities exam: PRESENT: full ROM. ABSENT: calf tenderness, clubbing, pedal edema Musculoskeletal exam: PRESENT: normal inspection Neurological exam: PRESENT: other - Sedated Skin exam: PRESENT: dry, intact, warm. ABSENT: cyanosis, rash Tubes/Lines: PRESENT: Endotracheal Tube, Central Line, Nasogastic Tube Laboratory/Radiographs Laboratory Results: 07/17/20 05:15 07/17/20 05:15 07/16/20 07/16/20 07/16/20 06:10 09:30 12:34 WBC RBC Hgb Hct MCV MCH MCHC RDW Plt Count Seg Neutrophils % Carbonic Acid 4.27 H 2.81 H HCO3/H2CO3 Ratio 9:1 10:1 ABG pH 7.10 L* 7.13 L* ABG pCO2 141.8 H* 93.4 H* ABG pO2 84.8 52.2 L ABG HCO3 42.5 H 30.5 H ABG O2 Saturation 90.6 L 73.4 L ABG Base Excess 8.8 -0.1 FiO2 100% 100% Sodium Potassium Chloride Carbon Dioxide Anion Gap BUN Creatinine Est GFR ( Amer) Glucose Calcium Phosphorus Magnesium Total Bilirubin AST Alkaline Phosphatase Total Protein Albumin Prealbumin Urine Color SCOTTY Urine Appearance SLIGHTLY-CLOUDY Urine pH 6.0 Ur Specific [place] 1.024 Urine Protein 100 H Urine Glucose (UA) 50 H Urine Ketones NEGATIVE Urine Blood SMALL H Urine Nitrite NEGATIVE Ur Leukocyte Esterase NEGATIVE Urine WBC (Auto) 5 Urine RBC (Auto) 9 07/16/20 07/16/20 07/16/20 19:28 19:28 22:40 WBC RBC Hgb Hct MCV MCH MCHC RDW Plt Count Seg Neutrophils % Carbonic Acid 2.83 H 2.41 H HCO3/H2CO3 Ratio 13:1 15:1 ABG pH 7.21 L 7.29 L ABG pCO2 94.1 H* 80.1 H* ABG pO2 141.1 H 54.5 L ABG HCO3 37.1 H 37.8 H ABG O2 Saturation 98.1 H 83.1 L ABG Base Excess 7.1 8.9 FiO2 100% 80% Sodium 142.6 Potassium 3.3 L Chloride 103 Carbon Dioxide 37 H Anion Gap 3 L BUN 12 Creatinine 0.45 L Est GFR ( Amer) > 60 Glucose 167 H Calcium 7.9 L Phosphorus Magnesium Total Bilirubin AST Alkaline Phosphatase Total Protein Albumin Prealbumin Urine Color Urine Appearance Urine pH Ur Specific [place] Urine Protein Urine Glucose (UA) Urine Ketones Urine Blood Urine Nitrite Ur Leukocyte Esterase Urine WBC (Auto) Urine RBC (Auto) 07/17/20 07/17/20 07/17/20 04:30 05:15 05:15 WBC 10.1 RBC 2.62 L Hgb 8.2 L Hct 24.8 L MCV 95 MCH 31.4 MCHC 33.1 RDW 14.0 Plt Count 183 Seg Neutrophils % Not Reportable Carbonic Acid 2.33 H HCO3/H2CO3 Ratio 16:1 ABG pH 7.31 L ABG pCO2 77.4 H* ABG pO2 114.7 H ABG HCO3 38.4 H ABG O2 Saturation 97.6 ABG Base Excess 10.2 FiO2 80% Sodium 141.8 Potassium 3.2 L Chloride 106 Carbon Dioxide 36 H Anion Gap 0 L BUN 8 Creatinine 0.46 L Est GFR ( Amer) > 60 Glucose 145 H Calcium 7.9 L Phosphorus 2.2 L Magnesium 1.8 Total Bilirubin 0.6 AST 32 Alkaline Phosphatase 78 Total Protein 4.7 L Albumin 2.2 L Prealbumin 6.4 L Urine Color Urine Appearance Urine pH Ur Specific [place] Urine Protein Urine Glucose (UA) Urine Ketones Urine Blood Urine Nitrite Ur Leukocyte Esterase Urine WBC (Auto) Urine RBC (Auto) 06/30/20 09:15 Troponin I < 0.012 NT-Pro-B Natriuret Pep 906 H Impressions: KUB X-Ray 07/16/20 21:44 IMPRESSION: Enteric tube tip in the stomach copyright 2011 [employer]- All Rights Reserved All labs, radiographs, diagnostic studies and EKGs were personally reviewed: Yes In addition, reports of radiographic and diagnostic studies were read: Yes Assessment and Plan - Diagnosis (1) ARDS (adult respiratory distress syndrome) Is this a current diagnosis for this admission?: Yes Plan: Her PaO2/FiO2 ratio is only 142 but her CXR does not have the appearance of ARDS. She is still hypercarbic but PCO2 is coming down. (2) Acute respiratory disease due to COVID-19 virus Is this a current diagnosis for this admission?: Yes Plan: She has battled this for a few days. Prognosis is gaurded. (3) Poor nutrition Is this a current diagnosis for this admission?: Yes Plan: If she comes off levophed will start TF. If not TPN. (4) Schizoaffective disorder Qualifiers: Schizoaffective disorder type: bipolar Qualified Code(s): F25.0 - Schizoaffective disorder, bipolar type Is this a current diagnosis for this admission?: Yes Plan: Let's make sure her baseline psychiatry medications are restarted. Plan Summary: She is still critically ill and I anticipate several more days on the ventilator. Critical Time Critical Time (minutes): 45 Level of Care: ICU Anticipated discharge: SNF Anticipated DC Timeframe: Other -: 1. The care of a critical patient is a dynamic process. This note is a screening representative synopsis but static in nature. The timeframe for treatments given in order is not necessarily the actual time these treatments may have been done. 2. This patient requires critical care secondary to ongoing requirements for therapy not offered or safe outside the critical care environment. Transfer to a lower level of care will result in altered life or limb morbidity and mortality. 3. Multidisciplinary rounds completed. 4. ABCDE bundle addressed.
[2020-07-17] MEDS ORDERED: ZIPRASIDONE HCL 40 MG CAPSULE PO SCH (10:00)
[2020-07-17] MEDS ORDERED: (PENDING PHARMACY ID) (Paroxetine Hcl [Paxil] 10 MG) PO SCH (10:00)
[2020-07-17] MEDS: LORAZEPAM INJ 2 MG/1 ML VIAL IV PRN ×2 (10:30→19:57)
[2020-07-17] MEDS: FLUTICASONE/UMECLIDIN/VILANTER 100-62.5-25 MCG/DOSE IH SCH (10:59)
[2020-07-17] MEDS: INSULIN REG, HUMAN 100 UNIT/ML 3 ML VIAL SUBCUT SCH (11:01)
[2020-07-17] MEDS: ENOXAPARIN SODIUM INJ 80 MG/0.8 ML DISP.SYRIN SUBCUT SCH ×2 (11:36→21:26)
[2020-07-17] MEDS: ZINC SULFATE 220 MG CAPSULE NG SCH (11:37)
[2020-07-17] MEDS: POTASSIUM CHLORIDE 20 MEQ PACKET NG SCH ×2 (11:37→21:26)
[2020-07-17] MEDS: GUAIFENESIN 600 MG TABLET.SA PO SCH ×2 (11:37→21:27)
[2020-07-17] MEDS: DEXAMETHASONE SOD PHOSPHATE INJ 4 MG/1 ML VIAL IV SCH (11:38)
[2020-07-17] MEDS: DEXTROSE 5%-NORMAL SALINE 1,000 ML IV PRN (12:30)
[2020-07-17] MEDS: LEVETIRACETAM 1000 MG/NACL-ISO 1,000 MG/100 ML RTUPB IV SCH ×2 (13:42→21:23)
[2020-07-17] MEDS ORDERED: PHARMACY COMMUNICATION ORDER MC NR (15:45)
[2020-07-17] MEDS: HYDROMORPHONE HCL 30 MG/60 ML RTUINJ IV PRN ×2 (19:57→20:15)
[2020-07-17] MEDS: PAROXETINE HCL 20 MG TABLET NG SCH (21:26)
[2020-07-17] MEDS: MONTELUKAST SODIUM 10 MG TABLET NG SCH (21:26)
[2020-07-17] MEDS: LATANOPROST 0.005% OPH SOLN 2.5 ML OU SCH (21:27)
[2020-07-17] MEDS ORDERED: ACETAMINOPHEN 325 MG TABLET NG PRN (22:30)
[2020-07-18] MEDS: INSULIN REG, HUMAN 100 UNIT/ML 3 ML VIAL (PYX) SUBCUT SCH ×4 (00:15→19:01)
[2020-07-18] MEDS: METOPROLOL TARTRATE PF/INJ 5 MG/5 ML SDV IV SCH ×3 (00:15→18:56)
[2020-07-18] MEDS: LORAZEPAM INJ 2 MG/1 ML VIAL IV PRN ×4 (01:08→20:22)
[2020-07-18] MEDS: DIAZEPAM INJ 10 MG/2 ML DISP.SYRIN IV SCH ×6 (01:09→22:33)
[2020-07-18] MEDS: DEXTROSE 5%-WATER 250 ML with NOREPINEPHRINE BITARTRATE 4 MG IV PRN ×2 (02:36)
[2020-07-18] MEDS ORDERED: NORMAL SALINE 500 ML IV ONE (03:13)
[2020-07-18] MEDS: DEXTROSE 5%-NORMAL SALINE 1,000 ML IV PRN ×2 (03:42→22:47)
[2020-07-18] MEDS: ALBUMIN HUMAN 12.5 GM/50 ML RTUINJ IV SCH ×4 (03:43→05:15)
[2020-07-18] MEDS: NORMAL SALINE 1000 ML 1,000 ML IV PRN ×2 (04:01→05:21)
[2020-07-18 05:09] LABS: ARTERIAL BLOOD BASE EXCESS 9.4 mmol/L; ARTERIAL BLOOD H2CO3 1.77 mmol/L (1.05-1.35); ARTERIAL BLOOD HCO3 35.4 mmol/L (20-24); ARTERIAL BLOOD O2 SATURATION 97.9 % (94-98); ARTERIAL BLOOD PCO2 58.7 mmHg (35-45); ARTERIAL BLOOD PO2 110.8 mmHg (80-100); ARTERIAL BLOOD TOTAL CO2 37.2 mmol/L (21-25)
[2020-07-18 05:10] LABS: ARTERIAL BLOOD FIO2 60%
[2020-07-18 05:12] LABS: APPEARANCE,URINE SLIGHTLY-CLOUDY; BILIRUBIN,URINE NEGATIVE (NEGATIVE); COLOR,URINE YELLOW; GLUCOSE, URINE NEGATIVE (NEGATIVE); KETONES,URINE NEGATIVE (NEGATIVE); LEUKOCYTE ESTERASE,URINE SMALL (NEGATIVE); NITRITE,URINE NEGATIVE (NEGATIVE); PROTEIN,URINE 30 mg/dL (NEGATIVE); URINE SPECIFIC GRAVITY 1.021
[2020-07-18 05:15] LABS: INTERNATIONAL RATION (INR) 1.22; PROTHROMBIN TIME 15.6 SEC (11.4-15.4)
[2020-07-18 05:23] LABS: BLOOD UREA NITROGEN 7 mg/dL (7-20); CALCIUM 7.9 mg/dL (8.4-10.2); GLUCOSE 134 mg/dL (75-110); PHOSPHORUS 2.2 mg/dL (2.5-4.5); POTASSIUM 3.6 mmol/L (3.6-5.0)
[2020-07-18 05:29] LABS: CARBON DIOXIDE 37 mmol/L (22-30); CHLORIDE 102 mmol/L (98-107)
[2020-07-18 05:30] LABS: PREALBUMIN 8.8 mg/dL (17.6-36.0)
[2020-07-18 05:49] LABS: ANION GAP 5 (5-19)
[2020-07-18] MEDS: SODIUM BICARBONATE 8.4% INJ 50 MEQ/50 ML DISP.SYRIN ONE ×2 (06:31→06:39)
[2020-07-18] MEDS: IPRATROPIUM/ALBUTEROL 0.5-2.5 MG/3 ML AMPUL NEB SCH ×3 (08:16→20:55)
[2020-07-18] MEDS ORDERED: FAT EMULSIONS 250 ML IV SCH (10:00)
[2020-07-18] MEDS: FLUTICASONE/UMECLIDIN/VILANTER 100-62.5-25 MCG/DOSE IH SCH (10:40)
[2020-07-18] MEDS: ENOXAPARIN SODIUM INJ 80 MG/0.8 ML DISP.SYRIN SUBCUT SCH ×2 (10:50→22:29)
[2020-07-18] MEDS: ZINC SULFATE 220 MG CAPSULE NG SCH (10:51)
[2020-07-18] MEDS: GUAIFENESIN 600 MG TABLET.SA PO SCH ×2 (10:51→22:30)
[2020-07-18] MEDS: POTASSIUM CHLORIDE 20 MEQ PACKET NG SCH ×2 (10:51→22:32)
[2020-07-18] MEDS: DEXAMETHASONE SOD PHOSPHATE INJ 4 MG/1 ML VIAL IV SCH (10:52)
[2020-07-18] MEDS: LEVETIRACETAM 1000 MG/NACL-ISO 1,000 MG/100 ML RTUPB IV SCH ×2 (10:52→22:28)
[2020-07-18] MEDS: FAMOTIDINE INJ/PF 20 MG/2 ML SDV IV SCH ×2 (10:58→22:32)
[2020-07-18 14:00] LABS: HEMATOCRIT 23.1 % (36.0-47.0); MEAN CORPUSCULAR HGB CONC 32.2 g/dL (32.0-36.0); MEAN CORPUSCULAR VOLUME 96 fl (80-97); PLATELET COUNT 154 10^3/uL (150-450); RED CELL DISTRIBUTION WIDTH 14.8 % (11.5-14.0); WHITE BLOOD COUNT 8.3 10^3/uL (4.0-10.5)
[2020-07-18 14:10] LABS: HEMOGLOBIN 7.4 g/dL (12.0-15.5)
[2020-07-18] MEDS: HYDROMORPHONE HCL 30 MG/60 ML RTUINJ IV PRN (16:16)
--- NOTE | 2020-07-18 17:30 | PDOC CRITICAL CARE PROG REPORT ---
General Date:: 07/18/20 ICU Day:: 3 Ventilator Day:: 3 Hospital Day:: 18 Resuscitation Status: Full Code Events in the past 12 to 24 Hours:: Intubated, on levophed 07/18 the patient remains on the ventilator Her CXR shows diffuse Interstitial infiltrates perhaps slightly improved.Late in the day thepatient was dropping her 02 sats to the 89% range . She required some increase in FI02 and PEEP. Reason for ICU Addmission:: Need for intubation, septic from COVID Physical Exam Vital Signs: Temp Pulse Resp BP Pulse Ox 99.7 F 92 25 H 118/64 94 07/17/20 10:00 07/18/20 14:18 07/18/20 14:18 07/18/20 14:15 07/18/20 15:30 Intake & Output 07/17/20 07/18/20 07/19/20 06:59 06:59 06:59 Intake Total 2922 3619 469 Output Total 1290 14510 100 Balance 1632 99150 369 Weight 64.6 kg 66.6 kg 66.6 kg Weight/Height Weight 66.6 kg Height 5 ft 1 in General appearance: PRESENT: no acute distress - Patient opemns her eyes when called but doesn't try to communicate Head exam: PRESENT: atraumatic, normocephalic Eye exam: PRESENT: conjunctiva pink, EOMI Ear exam: PRESENT: TM's normal bilaterally Mouth exam: PRESENT: moist Neck exam: ABSENT: lymphadenopathy Respiratory exam: PRESENT: clear to auscultation sky Cardiovascular exam: PRESENT: RRR GI/Abdominal exam: PRESENT: soft. ABSENT: tenderness Rectal exam: PRESENT: normal inspection. ABSENT: black stool Extremities exam: ABSENT: calf tenderness, clubbing Neurological exam: PRESENT: alert Psychiatric exam: ABSENT: anxious Skin exam: PRESENT: normal color Tubes/Lines: PRESENT: Endotracheal Tube, Nasogastic Tube Laboratory/Radiographs Laboratory Results: 07/18/20 04:48 07/18/20 04:48 07/18/20 07/18/20 07/18/20 04:48 04:48 04:48 WBC 8.3 RBC 2.40 L Hgb 7.4 L Hct 23.1 L MCV 96 MCH 31.0 MCHC 32.2 RDW 14.8 H Plt Count 154 Carbonic Acid HCO3/H2CO3 Ratio ABG pH ABG pCO2 ABG pO2 ABG HCO3 ABG O2 Saturation ABG Base Excess FiO2 Sodium 143.7 Potassium 3.6 Chloride 102 Carbon Dioxide 37 H Anion Gap 5 BUN 7 Creatinine 0.49 L Est GFR ( Amer) > 60 Glucose 134 H Calcium 7.9 L Phosphorus 2.2 L Magnesium 1.9 Prealbumin 8.8 L Urine Color YELLOW Urine Appearance SLIGHTLY-CLOUDY Urine pH 5.0 Ur Specific [place] 1.021 Urine Protein 30 H Urine Glucose (UA) NEGATIVE Urine Ketones NEGATIVE Urine Blood SMALL H Urine Nitrite NEGATIVE Ur Leukocyte Esterase SMALL H Urine WBC (Auto) 45 Urine RBC (Auto) 7 07/18/20 04:48 WBC RBC Hgb Hct MCV MCH MCHC RDW Plt Count Carbonic Acid 1.77 H HCO3/H2CO3 Ratio 20:1 ABG pH 7.40 ABG pCO2 58.7 H ABG pO2 110.8 H ABG HCO3 35.4 H ABG O2 Saturation 97.9 ABG Base Excess 9.4 FiO2 60% Sodium Potassium Chloride Carbon Dioxide Anion Gap BUN Creatinine Est GFR ( Amer) Glucose Calcium Phosphorus Magnesium Prealbumin Urine Color Urine Appearance Urine pH Ur Specific [place] Urine Protein Urine Glucose (UA) Urine Ketones Urine Blood Urine Nitrite Ur Leukocyte Esterase Urine WBC (Auto) Urine RBC (Auto) 06/30/20 09:15 Troponin I < 0.012 NT-Pro-B Natriuret Pep 906 H Impressions: KUB X-Ray 07/16/20 21:44 IMPRESSION: Enteric tube tip in the stomach copyright 2011 [employer]- All Rights Reserved Assessment and Plan - Diagnosis (2) Acute respiratory disease due to COVID-19 virus Is this a current diagnosis for this admission?: Yes Plan: She has battled this for a few days. Prognosis is guarded. the patient iuis on 70% FI02 and PEEP of 12. Her P/F ratio is about 100 which is severe respiratory distress syndrome. She is on decadron. I will look into remdesovir and convalescent plasma for patient (3) Schizoaffective disorder Qualifiers: Schizoaffective disorder type: bipolar Qualified Code(s): F25.0 - Schizoaffective disorder, bipolar type Is this a current diagnosis for this admission?: Yes Plan: Let's make sure her baseline psychiatry medications are restarted. Plan Summary: She is still critically ill and I anticipate several more days on the ventilator. Critical Time Critical Time (minutes): 45 Level of Care: ICU -: 1. The care of a critical patient is a dynamic process. This note is a tax representative synopsis but static in nature. The timeframe for treatments given in order is not necessarily the actual time these treatments may have been done. 2. This patient requires critical care secondary to ongoing requirements for therapy not offered or safe outside the critical care environment. Transfer to a lower level of care will result in altered life or limb morbidity and mortality. 3. Multidisciplinary rounds completed. 4. ABCDE bundle addressed.
[2020-07-18] MEDS: MONTELUKAST SODIUM 10 MG TABLET NG SCH (22:30)
[2020-07-18] MEDS: PAROXETINE HCL 20 MG TABLET NG SCH (22:30)
[2020-07-18] MEDS: LATANOPROST 0.005% OPH SOLN 2.5 ML OU SCH (22:35)
[2020-07-19] MEDS: METOPROLOL TARTRATE PF/INJ 5 MG/5 ML SDV IV SCH ×4 (00:02→19:12)
[2020-07-19] MEDS: INSULIN REG, HUMAN 100 UNIT/ML 3 ML VIAL (PYX) SUBCUT SCH ×4 (00:27→17:17)
[2020-07-19] MEDS: DIAZEPAM INJ 10 MG/2 ML DISP.SYRIN IV SCH ×6 (01:53→22:21)
[2020-07-19] MEDS ORDERED: LORAZEPAM INJ 2 MG/1 ML VIAL ONE (03:27)
[2020-07-19 04:47] LABS: ABSOLUTE LYMPHOCYTES (AUTO) 1.1 10^3/uL (0.5-4.7); ABSOLUTE MONOCYTES (AUTO) 0.7 10^3/uL (0.1-1.4); ABSOLUTE NEUT (AUTO) 6.6 10^3/uL (1.7-8.2); BASOPHILS % (AUTO) 0.2 % (0-2); EOSINOPHILS % (AUTO) 0.5 % (0-6); HEMATOCRIT 22.7 % (36.0-47.0); LYMPHOCYTES % (AUTO) 12.7 % (13-45); MEAN CORPUSCULAR HEMOGLOBIN 31.1 pg (27.0-33.4); MEAN CORPUSCULAR HGB CONC 32.7 g/dL (32.0-36.0); MEAN CORPUSCULAR VOLUME 95 fl (80-97); MONOCYTES % (AUTO) 8.1 % (3-13); PLATELET COUNT 141 10^3/uL (150-450); RED BLOOD COUNT 2.38 10^6/uL (3.72-5.28); RED CELL DISTRIBUTION WIDTH 14.2 % (11.5-14.0); SEGMENTED NEUTROPHILS % (AUTO) 78.5 % (42-78); TOTAL CELLS COUNTED % (AUTO) 100 %; WHITE BLOOD COUNT 8.3 10^3/uL (4.0-10.5)
[2020-07-19 04:52] LABS: ARTERIAL BLOOD BASE EXCESS 9.7 mmol/L; ARTERIAL BLOOD H2CO3 2.17 mmol/L (1.05-1.35); ARTERIAL BLOOD PH 7.33 (7.35-7.45); ARTERIAL BLOOD PO2 59.9 mmHg (80-100); ARTERIAL BLOOD TOTAL CO2 39.3 mmol/L (21-25)
[2020-07-19 04:55] LABS: HEMOGLOBIN 7.4 g/dL (12.0-15.5)
[2020-07-19 04:58] LABS: ARTERIAL BLOOD FIO2 60%
[2020-07-19 04:59] LABS: ARTERIAL BLOOD PCO2 72.2 mmHg (35-45)
[2020-07-19 05:15] LABS: ALBUMIN 2.4 g/dL (3.5-5.0); ALKALINE PHOSPHATASE 75 U/L (38-126); ASPARTATE AMINO TRANSFERASE 34 U/L (14-36); BILIRUBIN,DIRECT 0.2 mg/dL (0.0-0.4); BILIRUBIN,TOTAL 0.6 mg/dL (0.2-1.3); BLOOD UREA NITROGEN 6 mg/dL (7-20); CALCIUM 7.6 mg/dL (8.4-10.2); CARBON DIOXIDE 37 mmol/L (22-30); CHLORIDE 104 mmol/L (98-107); GLUCOSE 112 mg/dL (75-110); POTASSIUM 3.5 mmol/L (3.6-5.0); TOTAL PROTEIN 4.4 g/dL (6.3-8.2)
[2020-07-19 05:25] LABS: ANION GAP 2 (5-19)
[2020-07-19] MEDS: LORAZEPAM INJ 2 MG/1 ML VIAL IV PRN (09:00)
--- NOTE | 2020-07-19 09:05 | RADIOLOGY REPORT (SQ) ---
EXAM DESCRIPTION: CHEST SINGLE VIEW IMAGES COMPLETED DATE/TIME: 07/19/2020 8:51 am REASON FOR STUDY: f/u pneumonia COMPARISON: 07/17/2020. EXAM PARAMETERS: NUMBER OF VIEWS: One view. TECHNIQUE: Single frontal radiographic view of the chest acquired. RADIATION DOSE: NA LIMITATIONS: None. FINDINGS: LUNGS AND PLEURA: Interval worsening of extensive diffuse airspace disease and pleural eff usions. MEDIASTINUM AND HILAR STRUCTURES: No masses. Contour normal. HEART AND VASCULAR STRUCTURES: Mild cardiomegaly. BONES: No acute findings. HARDWARE: Stable endotracheal tube and nasogastric tube. OTHER: No other significant finding. IMPRESSION: EXTENSIVE DIFFUSE AIRSPACE DISEASE WITH INTERVAL WORSENING. DIFFERENTIAL INCLUDES DIFFU SE PNEUMONIA AND/OR PULMONARY EDEMA. TECHNICAL DOCUMENTATION: JOB ID: [id number] 2010 [employer]- All Rights Reserved Reading location - IP/workstation name: [email or web address]
[2020-07-19] MEDS: HYDROMORPHONE HCL 30 MG/60 ML RTUINJ IV PRN (09:23)
[2020-07-19] MEDS: IPRATROPIUM/ALBUTEROL 0.5-2.5 MG/3 ML AMPUL NEB SCH ×3 (09:33→20:55)
[2020-07-19] MEDS ORDERED: FUROSEMIDE INJ/PF 20 MG/2 ML SDV IV SCH (10:00)
[2020-07-19] MEDS: FLUTICASONE/UMECLIDIN/VILANTER 100-62.5-25 MCG/DOSE IH SCH (10:47)
[2020-07-19] MEDS: ENOXAPARIN SODIUM INJ 80 MG/0.8 ML DISP.SYRIN SUBCUT SCH ×2 (10:50→22:23)
[2020-07-19] MEDS: FAMOTIDINE INJ/PF 20 MG/2 ML SDV IV SCH ×2 (10:51→22:22)
[2020-07-19] MEDS: ZIPRASIDONE MESYLATE INJ/PF 20 MG SDV IM SCH (10:51)
[2020-07-19] MEDS: DEXAMETHASONE SOD PHOSPHATE INJ 4 MG/1 ML VIAL IV SCH (10:51)
[2020-07-19] MEDS: ZINC SULFATE 220 MG CAPSULE NG SCH (10:51)
[2020-07-19] MEDS: GUAIFENESIN 600 MG TABLET.SA PO SCH ×2 (10:51→22:24)
--- NOTE | 2020-07-19 11:43 | PDOC CRITICAL CARE PROG REPORT ---
General Date:: 07/19/20 ICU Day:: 4 Ventilator Day:: 4 Resuscitation Status: Full Code Events in the past 12 to 24 Hours:: Intubated, on levophed 07/18 the patient remains on the ventilator Her CXR shows diffuse Interstitial infiltrates perhaps slightly improved.Late in the day thepatient was dropping her 02 sats to the 89% range . She required some increase in FI02 and PEEP. 07/19 The patient remains on the ventilator. She has thick secretions. CXR may be a little worse with her diffuse bilateral infiltrates. The patient is on FI02 of about 70%. She is off levophed at this time. I have added lasix 20mg IV q day. I will be sending sputum culture and Procal. Her weight is up thepast 3 days about 5 kg. Reason for ICU Addmission:: Need for intubation, septic from COVID Physical Exam Vital Signs: Temp Pulse Resp BP Pulse Ox 98.8 F 100 31 H 111/47 L 96 07/19/20 08:00 07/19/20 10:00 07/19/20 10:00 07/19/20 10:00 07/19/20 10:00 Intake & Output 07/18/20 07/19/20 07/20/20 06:59 06:59 06:59 Intake Total 3619 1312 Output Total 49346 780 50 Balance -05694 532 -50 Weight 66.6 kg 69.8 kg Weight/Height Weight 69.8 kg Height 5 ft 1 in General appearance: PRESENT: mild distress - The patient appears to be tachypneic and expending effort to get a breath. Some of this may be due to thick secretions. Head exam: PRESENT: atraumatic, normocephalic Eye exam: PRESENT: conjunctiva pink Ear exam: PRESENT: normal external ear exam Neck exam: ABSENT: tenderness Respiratory exam: PRESENT: accessory muscle use Cardiovascular exam: PRESENT: RRR Pulses: PRESENT: normal radial pulses Vascular exam: PRESENT: normal capillary refill GI/Abdominal exam: PRESENT: soft. ABSENT: tenderness Extremities exam: ABSENT: calf tenderness, clubbing Neurological exam: PRESENT: alert - The patient isedated but does open her eyues on occasion. Does not try to communicate. Laboratory/Radiographs Laboratory Results: 07/19/20 04:20 07/19/20 04:20 07/18/20 07/19/2020 04:48 04:20 04:20 WBC 8.3 8.3 RBC 2.40 L 2.38 L Hgb 7.4 L 7.4 L Hct 23.1 L 22.7 L MCV 96 95 MCH 31.0 31.1 MCHC 32.2 32.7 RDW 14.8 H 14.2 H Plt Count 154 141 L Seg Neutrophils % 78.5 H Carbonic Acid 2.17 H HCO3/H2CO3 Ratio 17:1 ABG pH 7.33 L ABG pCO2 72.2 H* ABG pO2 59.9 L ABG HCO3 37.0 H ABG O2 Saturation 88.0 L ABG Base Excess 9.7 FiO2 60% Sodium Potassium Chloride Carbon Dioxide Anion Gap BUN Creatinine Est GFR ( Amer) Glucose Calcium Total Bilirubin AST Alkaline Phosphatase Total Protein Albumin Blood Type Antibody Screen 07/19/20 07/19/20 07/19/20 04:20 04:20 06:05 WBC RBC Hgb Hct MCV MCH MCHC RDW Plt Count Seg Neutrophils % Carbonic Acid HCO3/H2CO3 Ratio ABG pH ABG pCO2 ABG pO2 ABG HCO3 ABG O2 Saturation ABG Base Excess FiO2 Sodium 142.9 Potassium 3.5 L Chloride 104 Carbon Dioxide 37 H Anion Gap 2 L BUN 6 L Creatinine 0.46 L Est GFR ( Amer) > 60 Glucose 112 H Calcium 7.6 L Total Bilirubin 0.6 AST 34 Alkaline Phosphatase 75 Total Protein 4.4 L Albumin 2.4 L Blood Type Cancelled AB POSITIVE Antibody Screen Cancelled NEGATIVE 06/30/20 09:15 Troponin I < 0.012 NT-Pro-B Natriuret Pep 906 H Impressions: KUB X-Ray 07/16/20 21:44 IMPRESSION: Enteric tube tip in the stomach copyright 2011 [employer]- All Rights Reserved Chest X-Ray 07/19/20 00:00 IMPRESSION: EXTENSIVE DIFFUSE AIRSPACE DISEASE WITH INTERVAL WORSENING. DIFFERENTIAL INCLUDES DIFFUSE PNEUMONIA AND/OR PULMONARY EDEMA. Assessment and Plan - Diagnosis (1) Shock Is this a current diagnosis for this admission?: Yes Plan: The shock has resolved . the patient is off Levophed at this time. (2) Acute respiratory disease due to COVID-19 virus Is this a current diagnosis for this admission?: Yes Plan: She has battled this for a few days. Prognosis is guarded. the patient iuis on 70% FI02 and PEEP of 12. Her P/F ratio is about 100 which is severe respiratory distress syndrome. She is on decadron. I will look into remdesovir and convalescent plasma for patient. 07/19 her last Covid test was positive on 06/28 We will repeat the test. I am sending off Procal and sputum culture. The patient could have a bacterial pneumonia. I will consider adding broad spectrum abx. (3) Schizoaffective disorder Qualifiers: Schizoaffective disorder type: bipolar Qualified Code(s): F25.0 - Schizoaffective disorder, bipolar type Is this a current diagnosis for this admission?: Yes Plan: Let's make sure her baseline psychiatry medications are restarted. Plan Summary: She is still critically ill and I anticipate several more days on the ventilator. 07/19 Little overall change in status. the patient remaikns critically ill. Critical Time Critical Time (minutes): 35 Level of Care: ICU -: 1. The care of a critical patient is a dynamic process. This note is a patient admitting representative synopsis but static in nature. The timeframe for treatments given in order is not necessarily the actual time these treatments may have been done. 2. This patient requires critical care secondary to ongoing requirements for therapy not offered or safe outside the critical care environment. Transfer to a lower level of care will result in altered life or limb morbidity and mortality. 3. Multidisciplinary rounds completed. 4. ABCDE bundle addressed.
[2020-07-19] MEDS ORDERED: VANCOMYCIN HCL 0 MG in DEXTROSE 5%-WATER 250 ML IV NR (11:45)
[2020-07-19] MEDS ORDERED: PIPERACILLIN/TAZOBACTAM 4.5 GM VIAL IV SCH (12:00)
[2020-07-19] MEDS: MIDAZOLAM HCL 50 MG/100 ML RTUINJ IV PRN (14:04)
[2020-07-19] MEDS: VANCOMYCIN HCL 1,250 MG in DEXTROSE 5%-WATER 250 ML IV SCH (14:05)
[2020-07-19] MEDS: PIPERACILLIN SODIUM/TAZOBACTAM 4.5 GM in NORMAL SALINE 100 ML IV SCH ×2 (14:05→17:16)
[2020-07-19] MEDS: LEVETIRACETAM 1000 MG/NACL-ISO 1,000 MG/100 ML RTUPB IV SCH ×2 (14:05→22:20)
[2020-07-19] MEDS: DEXTROSE 5%-WATER 250 ML with NOREPINEPHRINE BITARTRATE 4 MG IV PRN ×2 (19:27)
[2020-07-19] MEDS: DEXTROSE 5%-NORMAL SALINE 1,000 ML IV PRN (21:49)
[2020-07-19] MEDS: MONTELUKAST SODIUM 10 MG TABLET NG SCH (22:23)
[2020-07-19] MEDS: PAROXETINE HCL 20 MG TABLET NG SCH (22:23)
[2020-07-19] MEDS: LATANOPROST 0.005% OPH SOLN 2.5 ML OU SCH (22:24)
[2020-07-20] MEDS: METOPROLOL TARTRATE PF/INJ 5 MG/5 ML SDV IV SCH ×3 (00:42→12:35)
[2020-07-20] MEDS: INSULIN REG, HUMAN 100 UNIT/ML 3 ML VIAL (PYX) SUBCUT SCH ×4 (00:57→18:33)
[2020-07-20] MEDS: PIPERACILLIN SODIUM/TAZOBACTAM 4.5 GM in NORMAL SALINE 100 ML IV SCH ×5 (00:58→23:45)
[2020-07-20] MEDS: VANCOMYCIN HCL 1,250 MG in DEXTROSE 5%-WATER 250 ML IV SCH ×3 (00:58→23:45)
[2020-07-20] MEDS: DIAZEPAM INJ 10 MG/2 ML DISP.SYRIN IV SCH ×3 (02:51→23:18)
[2020-07-20] MEDS: MIDAZOLAM HCL 50 MG/100 ML RTUINJ IV PRN ×4 (04:25→23:30)
[2020-07-20] MEDS: DEXTROSE 5%-NORMAL SALINE 1,000 ML IV PRN (04:26)
[2020-07-20 04:44] LABS: ABSOLUTE EOSINOPHILS # (AUTO) 0.1 10^3/uL (0.0-0.6); ABSOLUTE LYMPHOCYTES (AUTO) 0.6 10^3/uL (0.5-4.7); ABSOLUTE MONOCYTES (AUTO) 0.4 10^3/uL (0.1-1.4); ABSOLUTE NEUT (AUTO) 4.7 10^3/uL (1.7-8.2); BASOPHILS % (AUTO) 0.3 % (0-2); EOSINOPHILS % (AUTO) 1.7 % (0-6); HEMATOCRIT 20.8 % (36.0-47.0); MEAN CORPUSCULAR HGB CONC 32.8 g/dL (32.0-36.0); MEAN CORPUSCULAR VOLUME 95 fl (80-97); MONOCYTES % (AUTO) 6.8 % (3-13); PLATELET COUNT 121 10^3/uL (150-450); RED CELL DISTRIBUTION WIDTH 14.6 % (11.5-14.0); SEGMENTED NEUTROPHILS % (AUTO) 80.2 % (42-78); TOTAL CELLS COUNTED % (AUTO) 100 %; WHITE BLOOD COUNT 5.8 10^3/uL (4.0-10.5)
[2020-07-20 04:46] LABS: HEMOGLOBIN 6.8 g/dL (12.0-15.5)
[2020-07-20 05:03] LABS: ALBUMIN 2.2 g/dL (3.5-5.0); ALKALINE PHOSPHATASE 67 U/L (38-126); ASPARTATE AMINO TRANSFERASE 31 U/L (14-36); BILIRUBIN,DIRECT 0.2 mg/dL (0.0-0.4); BILIRUBIN,TOTAL 0.4 mg/dL (0.2-1.3); BLOOD UREA NITROGEN 3 mg/dL (7-20); CALCIUM 7.1 mg/dL (8.4-10.2); CARBON DIOXIDE 39 mmol/L (22-30); CHLORIDE 104 mmol/L (98-107); GLUCOSE 117 mg/dL (75-110); POTASSIUM 3.1 mmol/L (3.6-5.0); TOTAL PROTEIN 4.1 g/dL (6.3-8.2)
[2020-07-20] MEDS ORDERED: NORMAL SALINE 250 ML IV PRN ×2 (05:08)
[2020-07-20 05:09] LABS: ANION GAP 1 (5-19)
[2020-07-20] MEDS: ACETYLCYSTEINE 10% NEB 400 MG/4 ML VIAL NEB SCH ×2 (08:58→19:55)
[2020-07-20] MEDS: IPRATROPIUM/ALBUTEROL 0.5-2.5 MG/3 ML AMPUL NEB SCH ×3 (08:58→19:56)
[2020-07-20] MEDS: FLUTICASONE/UMECLIDIN/VILANTER 100-62.5-25 MCG/DOSE IH SCH (09:44)
[2020-07-20] MEDS: DEXTROSE 5%-WATER 250 ML with NOREPINEPHRINE BITARTRATE 4 MG IV PRN ×2 (11:00)
[2020-07-20] MEDS: LEVETIRACETAM 1000 MG/NACL-ISO 1,000 MG/100 ML RTUPB IV SCH ×2 (11:00→22:29)
[2020-07-20] MEDS: POTASSIUM CHLORIDE 20 MEQ/50 ML RTU IV SCH ×2 (11:15→13:45)
[2020-07-20] MEDS: DEXAMETHASONE SOD PHOSPHATE INJ 4 MG/1 ML VIAL IV SCH (11:25)
[2020-07-20] MEDS: FUROSEMIDE INJ/PF 40 MG/4 ML SDV IV SCH (11:27)
[2020-07-20] MEDS: FAMOTIDINE INJ/PF 20 MG/2 ML SDV IV SCH ×2 (11:30→22:29)
[2020-07-20] MEDS: GUAIFENESIN 600 MG TABLET.SA PO SCH (11:31)
[2020-07-20] MEDS: ZIPRASIDONE MESYLATE INJ/PF 20 MG SDV IM SCH (11:32)
--- NOTE | 2020-07-20 11:37 | PDOC CRITICAL CARE PROG REPORT ---
General Date:: 07/20/20 ICU Day:: 5 Ventilator Day:: 5 Hospital Day:: 20 Resuscitation Status: Full Code Events in the past 12 to 24 Hours:: Intubated, on levophed 07/18 the patient remains on the ventilator Her CXR shows diffuse Interstitial infiltrates perhaps slightly improved.Late in the day thepatient was dropping her 02 sats to the 89% range . She required some increase in FI02 and PEEP. 07/19 The patient remains on the ventilator. She has thick secretions. CXR may be a little worse with her diffuse bilateral i nfiltrates. The patient is on FI02 of about 70%. She is off levophed at this time. I have added lasix 20mg IV q day. I will be sending sputum culture and Procal. Her weight is up the past 3 days about 5 kg. 07/20 The patient remains on the ventilator. not alot has changed. Her had a chance to see her through the window yesterday. Remains hemodynamically stable. Hb has droped from 7.4 to 6.8. The patient has no overt gi bleed. She is a [employer] according to her so blood has not been ordered. Her poatassium was low and is being replaced. Her cortisol evel was low 07/16 at about 7. I am nbot sure thepaptient seeds to remian on full anticoagualtion at this time. Tube feeds are at 40cc/hr. Reason for ICU Addmission:: Need for intubation, septic from COVID Physical Exam Vital Signs: Temp Pulse Resp BP Pulse Ox 98.6 F 72 24 H 89/43 L 100 07/20/20 10:00 07/20/20 10:00 07/20/20 10:19 07/20/20 10:19 07/20/20 10:19 Intake & Output 07/19/20 07/20/20 07/21/20 06:59 06:59 06:59 Intake Total 1312 4057 468 Output Total 780 2270 130 Balance 532 1787 338 Weight 69.8 kg 71.2 kg Weight/Height Weight 71.2 kg Height 5 ft 1 in General appearance: PRESENT: no acute distress Head exam: PRESENT: atraumatic, normocephalic Eye exam: PRESENT: conjunctiva pink Ear exam: PRESENT: normal external ear exam Mouth exam: PRESENT: moist Neck exam: ABSENT: JVD, lymphadenopathy, meningismus Respiratory exam: ABSENT: accessory muscle use Cardiovascular exam: PRESENT: RRR GI/Abdominal exam: PRESENT: soft. ABSENT: guarding, hernia, tenderness Rectal exam: PRESENT: deferred Extremities exam: ABSENT: calf tenderness, clubbing, tenderness Neurological exam: PRESENT: other - the patient remains sedated on the ventilator. Opens eyes but does not follow commands. Laboratory/Radiographs Laboratory Results: 07/20/20 04:25 07/20/20 04:25 07/19/20 07/20/20 07/20/20 06:05 04:25 04:25 WBC 5.8 RBC 2.20 L Hgb 6.8 L Hct 20.8 L MCV 95 MCH 31.0 MCHC 32.8 RDW 14.6 H Plt Count 121 L Seg Neutrophils % 80.2 H Sodium 144.3 Potassium 3.1 L Chloride 104 Carbon Dioxide 39 H Anion Gap 1 L BUN 3 L Creatinine 0.40 L Est GFR ( Amer) > 60 Glucose 117 H Calcium 7.1 L Total Bilirubin 0.4 AST 31 Alkaline Phosphatase 67 Total Protein 4.1 L Albumin 2.2 L Blood Type AB POSITIVE Antibody Screen NEGATIVE 06/30/20 09:15 Troponin I < 0.012 NT-Pro-B Natriuret Pep 906 H Impressions: KUB X-Ray 07/16/20 21:44 IMPRESSION: Enteric tube tip in the stomach copyright 2011 [employer]- All Rights Reserved Chest X-Ray 07/19/20 00:00 IMPRESSION: EXTENSIVE DIFFUSE AIRSPACE DISEASE WITH INTERVAL WORSENING. DIFFERENTIAL INCLUDES DIFFUSE PNEUMONIA AND/OR PULMONARY EDEMA. Assessment and Plan - Diagnosis (1) Shock Is this a current diagnosis for this admission?: Yes Plan: The shock has resolved. The patient is off Levophed at this time. (2) Acute respiratory disease due to COVID-19 virus Is this a current diagnosis for this admission?: Yes Plan: She has battled this for a few days. Prognosis is guarded. the patient iuis on 70% FI02 and PEEP of 12. Her P/F ratio is about 100 which is severe respiratory distress syndrome. She is on decadron. I will look into remdesovir and convalescent plasma for patient. 07/19 her last Covid test was positive on 06/28 We will repeat the test. I am sending off Procal and sputum culture. The patient could have a bacterial pneumonia. I will consider adding broad spectrum abx. 07/20 Sputm gram stains hows many polys and Gram positive rods and cocci. The patient had been placed empirically on Vasnco and Zosyn. The patient is up about 8 kilos. I have increased the lasix to 40mg IV qd and cut back on IV fluids at this time. (3) Schizoaffective disorder Qualifiers: Schizoaffective disorder type: bipolar Qualified Code(s): F25.0 - Schizoaffective disorder, bipolar type Is this a current diagnosis for this admission?: Yes Plan: Let's make sure her baseline psychiatry medications are restarted. Critical Time Critical Time (minutes): 45 Level of Care: ICU -: 1. The care of a critical patient is a dynamic process. This note is a territory service representative synopsis but static in nature. The timeframe for treatments given in order is not necessarily the actual time these treatments may have been done. 2. This patient requires critical care secondary to ongoing requirements for therapy not offered or safe outside the critical care environment. Transfer to a lower level of care will result in altered life or limb morbidity and mortality. 3. Multidisciplinary rounds completed. 4. ABCDE bundle addressed.
[2020-07-20] MEDS: ZINC SULFATE 220 MG CAPSULE NG SCH (11:39)
[2020-07-20] MEDS: ENOXAPARIN SODIUM INJ 80 MG/0.8 ML DISP.SYRIN SUBCUT SCH (12:34)
[2020-07-20] MEDS: HYDROCORTISONE SOD SUCCINATE INJ/PF 100 MG/2 ML SDV IV SCH ×2 (12:35→22:29)
[2020-07-20 16:55] LABS: MEAN CORPUSCULAR HEMOGLOBIN 30.7 pg (27.0-33.4); MEAN CORPUSCULAR HGB CONC 32.6 g/dL (32.0-36.0); MEAN CORPUSCULAR VOLUME 94 fl (80-97); PLATELET COUNT 142 10^3/uL (150-450); RED BLOOD COUNT 2.55 10^6/uL (3.72-5.28); RED CELL DISTRIBUTION WIDTH 14.4 % (11.5-14.0); WHITE BLOOD COUNT 6.8 10^3/uL (4.0-10.5)
[2020-07-20 16:58] LABS: HEMOGLOBIN 7.8 g/dL (12.0-15.5)
[2020-07-20 17:21] LABS: ALBUMIN 2.6 g/dL (3.5-5.0); ALKALINE PHOSPHATASE 79 U/L (38-126); ASPARTATE AMINO TRANSFERASE 35 U/L (14-36); BILIRUBIN,DIRECT 0.2 mg/dL (0.0-0.4); BILIRUBIN,TOTAL 0.7 mg/dL (0.2-1.3); BLOOD UREA NITROGEN 7 mg/dL (7-20); CALCIUM 7.7 mg/dL (8.4-10.2); GLUCOSE 151 mg/dL (75-110); TOTAL PROTEIN 4.8 g/dL (6.3-8.2)
[2020-07-20 17:43] LABS: CHLORIDE 95 mmol/L (98-107); POTASSIUM 3.7 mmol/L (3.6-5.0)
[2020-07-20 17:49] LABS: ANION GAP 6 (5-19)
[2020-07-20 17:51] LABS: CARBON DIOXIDE 43 mmol/L (22-30)
[2020-07-20] MEDS: PAROXETINE HCL 20 MG TABLET NG SCH (22:30)
[2020-07-20] MEDS: LATANOPROST 0.005% OPH SOLN 2.5 ML OU SCH (22:30)
[2020-07-20] MEDS: MONTELUKAST SODIUM 10 MG TABLET NG SCH (22:30)
[2020-07-20] MEDS: HYDROMORPHONE HCL 30 MG/60 ML RTUINJ IV PRN (23:30)
[2020-07-21] MEDS: INSULIN REG, HUMAN 100 UNIT/ML 3 ML VIAL (PYX) SUBCUT SCH ×5 (00:46→23:31)
[2020-07-21] MEDS: LORAZEPAM INJ 2 MG/1 ML VIAL IV PRN ×3 (01:00→22:08)
[2020-07-21] MEDS: PIPERACILLIN SODIUM/TAZOBACTAM 4.5 GM in NORMAL SALINE 100 ML IV SCH (05:15)
[2020-07-21 05:50] LABS: HEMATOCRIT 21.7 % (36.0-47.0); MEAN CORPUSCULAR HEMOGLOBIN 31.1 pg (27.0-33.4); MEAN CORPUSCULAR VOLUME 94 fl (80-97); PLATELET COUNT 135 10^3/uL (150-450); RED BLOOD COUNT 2.31 10^6/uL (3.72-5.28); RED CELL DISTRIBUTION WIDTH 14.7 % (11.5-14.0); WHITE BLOOD COUNT 7.5 10^3/uL (4.0-10.5)
--- NOTE | 2020-07-21 06:01 | Operative Report ---
Bedside Procedure - History of Present Illness Indication for Procedure: venous access Date: 07/15/20 Provider: ANETA ANGUIANO - Central Line Right Internal jugular Time completed: 05:15 Consent obtained: Yes Central line pre-insertion: Sterile PPE donned, Chloraprep applied, Sterile drapes applied Central line lumen type: Triple Anesthetic type: 1% Lidocaine mL's of anesthesia: 3 Ultrasound guided: Yes Line secured with sutures: Yes Central line post-insertion: Blood return from lumens, Biopatch applied, Sutured, Sterile dressing applied, Position confirmed w/ CXR Number of attempts: 1 Complications: No
[2020-07-21 06:04] LABS: ALBUMIN 2.5 g/dL (3.5-5.0); ALKALINE PHOSPHATASE 76 U/L (38-126); ASPARTATE AMINO TRANSFERASE 40 U/L (14-36); BILIRUBIN,DIRECT 0.3 mg/dL (0.0-0.4); BILIRUBIN,TOTAL 0.6 mg/dL (0.2-1.3); BLOOD UREA NITROGEN 11 mg/dL (7-20); C-REACTIVE PROTEIN 23.9 mg/L (<10.0); CALCIUM 7.7 mg/dL (8.4-10.2); CHLORIDE 96 mmol/L (98-107); GLUCOSE 130 mg/dL (75-110); POTASSIUM 4.2 mmol/L (3.6-5.0); TOTAL PROTEIN 4.7 g/dL (6.3-8.2)
[2020-07-21 06:12] LABS: ANION GAP 1 (5-19)
[2020-07-21 06:14] LABS: CARBON DIOXIDE 45 mmol/L (22-30)
[2020-07-21 06:23] LABS: HEMOGLOBIN 7.2 g/dL (12.0-15.5)
[2020-07-21 06:26] LABS: ABSOLUTE LYMPHOCYTES# (MANUAL) 0.5 10^3/uL (0.5-4.7); ABSOLUTE MONOCYTES # (MANUAL) 0.2 10^3/uL (0.1-1.4); BASOPHILS % (MANUAL) 0 % (0-2); EOSINOPHILS % (MANUAL) 0 % (0-6); LYMPHOCYTES % (MANUAL) 7 % (13-45); METAMYELOCYTES % (MANUAL) 1 % (0-1); MONOCYTES % (MANUAL) 2 % (3-13); SEGMENTED NEUTROPHILS % (MAN) 90 % (42-78); TOTAL CELLS COUNTED 100
[2020-07-21 06:27] LABS: ANISOCYTOSIS SLIGHT; PLATELET COMMENT DECREASED; PLATELET LARGE PRESENT; POLYCHROMASIA SLIGHT
[2020-07-21] MEDS ORDERED: NORMAL SALINE INJ/PF 0.9% 10 ML SDV IV PRN (06:32)
--- NOTE | 2020-07-21 07:33 | RADIOLOGY REPORT (SQ) ---
EXAM DESCRIPTION: XR CHEST 1 VIEW COMPLETED DATE/TME: 07/21/2020 00:00 CLINICAL HISTORY: 64 years Female, central line placement COMPARISON: 2 days prior. NUMBER OF VIEWS/TECHNIQUE: 1/AP FINDINGS: Moderate interstitial markings. Small hazy opacity of the lateral left lung field. Small left basilar opacity-effusion.Normal cardiac silhouette size. No pneumothorax. Stable bony thorax. Cervical spinal hardware partially imaged.Adequate appearing endotracheal tube. Adequate appearing enteric tube. Adequate appearing right jugular central line. Limitation: Leads/hardware/artifact. IMPRESSION: Moderate interstitial markings. Small hazy opacity of the lateral left lung field. Small left basilar opacity-effusion.Interval improvement.
[2020-07-21] MEDS: ACETYLCYSTEINE 10% NEB 400 MG/4 ML VIAL NEB SCH ×2 (07:50→20:16)
[2020-07-21] MEDS: IPRATROPIUM/ALBUTEROL 0.5-2.5 MG/3 ML AMPUL NEB SCH ×3 (07:50→20:16)
[2020-07-21] MEDS: FLUTICASONE/UMECLIDIN/VILANTER 100-62.5-25 MCG/DOSE IH SCH (09:15)
[2020-07-21] MEDS: LEVETIRACETAM 1000 MG/NACL-ISO 1,000 MG/100 ML RTUPB IV SCH ×2 (09:42→21:51)
[2020-07-21] MEDS: ZINC SULFATE 220 MG CAPSULE NG SCH (09:48)
[2020-07-21] MEDS: ZIPRASIDONE MESYLATE INJ/PF 20 MG SDV IM SCH (09:53)
[2020-07-21] MEDS: FUROSEMIDE INJ/PF 40 MG/4 ML SDV IV SCH (09:57)
[2020-07-21] MEDS: FAMOTIDINE INJ/PF 20 MG/2 ML SDV IV SCH ×2 (09:57→21:51)
[2020-07-21] MEDS: HYDROCORTISONE SOD SUCCINATE INJ/PF 100 MG/2 ML SDV IV SCH ×2 (10:01→21:50)
--- NOTE | 2020-07-21 11:02 | PDOC CRITICAL CARE PROG REPORT ---
General Date:: 07/21/20 ICU Day:: 6 Ventilator Day:: 6 Hospital Day:: 21 Resuscitation Status: Full Code Events in the past 12 to 24 Hours:: Gordon De La Cruz inserted a new CVP line in the right IJ during the night. Her FI02 requirements have dropped Reason for ICU Addmission:: Need for intubation, septic from COVID Physical Exam Vital Signs: Temp Pulse Resp BP Pulse Ox 98.8 F 65 24 H 100/53 L 100 07/21/20 10:00 07/21/20 08:00 07/21/20 10:25 07/21/20 10:25 07/21/20 10:25 Intake & Output 07/20/20 07/21/20 07/22/20 06:59 06:59 06:59 Intake Total 3873 1974 145 Output Total 2270 3955 625 Balance 2068 -9586 -402 Weight 71.2 kg 71.2 kg Weight/Height Weight 71.2 kg Height 5 ft 1 in General appearance: PRESENT: no acute distress Head exam: PRESENT: atraumatic, normocephalic Eye exam: PRESENT: conjunctiva pink, PERRLA. ABSENT: scleral icterus Mouth exam: PRESENT: moist, neck supple Neck exam: ABSENT: JVD, lymphadenopathy, thyromegaly Respiratory exam: PRESENT: unlabored. ABSENT: accessory muscle use Cardiovascular exam: PRESENT: RRR Pulses: PRESENT: normal radial pulses GI/Abdominal exam: PRESENT: hypoactive bowel sounds, soft. ABSENT: tenderness Rectal exam: PRESENT: deferred Gentrourinary exam: ABSENT: ecchymosis, erythema Extremities exam: ABSENT: calf tenderness, clubbing Musculoskeletal exam: PRESENT: full ROM, normal inspection Skin exam: ABSENT: abrasion, cyanosis Tubes/Lines: PRESENT: Endotracheal Tube, Central Line Laboratory/Radiographs Laboratory Results: 07/21/20 04:45 07/21/20 04:45 07/20/20 07/20/20 07/21/20 16:18 16:18 04:45 WBC 6.8 7.5 RBC 2.55 L 2.31 L Hgb 7.8 L 7.2 L Hct 24.0 L 21.7 L MCV 94 94 MCH 30.7 31.1 MCHC 32.6 33.0 RDW 14.4 H 14.7 H Plt Count 142 L 135 L Seg Neutrophils % Not Reportable Sodium 143.5 Potassium 3.7 Chloride 95 L Carbon Dioxide 43 H* Anion Gap 6 BUN 7 Creatinine 0.58 Est GFR ( Amer) > 60 Glucose 151 H Calcium 7.7 L Ferritin Total Bilirubin 0.7 AST 35 Alkaline Phosphatase 79 C-Reactive Protein Total Protein 4.8 L Albumin 2.6 L 07/21/20 04:45 WBC RBC Hgb Hct MCV MCH MCHC RDW Plt Count Seg Neutrophils % Sodium 141.7 Potassium 4.2 Chloride 96 L Carbon Dioxide 45 H* Anion Gap 1 L BUN 11 Creatinine 0.49 L Est GFR ( Amer) > 60 Glucose 130 H Calcium 7.7 L Ferritin 146.00 Total Bilirubin 0.6 AST 40 H Alkaline Phosphatase 76 C-Reactive Protein 23.9 H Total Protein 4.7 L Albumin 2.5 L 06/30/20 09:15 Troponin I < 0.012 NT-Pro-B Natriuret Pep 906 H Impressions: KUB X-Ray 07/16/20 21:44 IMPRESSION: Enteric tube tip in the stomach copyright 2011 [employer]- All Rights Reserved Chest X-Ray 07/21/20 00:00 IMPRESSION: Moderate interstitial markings. Small hazy opacity of the lateral left lung field. Small left basilar opacity-effusion.Interval improvement. Assessment and Plan - Diagnosis (1) Shock Is this a current diagnosis for this admission?: No Plan: The shock has resolved. The patient is off Levophed at this time. (2) Acute respiratory disease due to COVID-19 virus Is this a current diagnosis for this admission?: Yes Plan: She has battled this for a few days. Prognosis is guarded. the patient iuis on 70% FI02 and PEEP of 12. Her P/F ratio is about 100 which is severe respiratory distress syndrome. She is on decadron. I will look into remdesovir and convalescent plasma for patient. 07/19 her last Covid test was positive on 06/28 We will repeat the test. I am sending off Procal and sputum culture. The patient could have a bacterial pneumonia. I will consider adding broad spectrum abx. 07/20 Sputum gram stains hows many polys and Gram positive rods and cocci. The patient had been placed empirically on Vanco and Zosyn. The patient is up about 8 kilos. I have increased the lasix to 40mg IV qd and cut back on IV fluids at this time. 07/21 The patient is doing a bit better. We have been able to dial down her FI02. CXR shows diffuse infiltrates (mainly interstitial) her secretions have appeared to dry up a bit. (3) Schizoaffective disorder Qualifiers: Schizoaffective disorder type: bipolar Qualified Code(s): F25.0 - Schizoaffective disorder, bipolar type Is this a current diagnosis for this admission?: Yes Plan: Let's make sure her baseline psychiatry medications are restarted. (4) Anemia Is this a current diagnosis for this admission?: Yes Plan: The patient has slowly droped her Hb inthe last few days. the lowest recorded value fwas 6.8 on 07/20. The patient has shown no sign of overt bleeding. DVT prophyalxis has been put on hold for now. She is a [employer] so transfusion is not an option. The patient is on bid Famotodine. I will consider addition of sucralfate. (5) Pneumonia Qualifiers: Pneumonia type: due to methicillin-sensitive Staphylococcus aureus (MSSA) Laterality: bilateral Is this a current diagnosis for this admission?: Yes Plan: The patient has had a worsening in resp[. status the past few days. She has known Covid but that got worse several days into the admission. I cultured hwer and she has grown out MSSA in her sputum. Initially she was on empiric Zosynand Vanco. I have just switched to IV Ancef at this time. Critical Time Critical Time (minutes): 40 Level of Care: ICU -: 1. The care of a critical patient is a dynamic process. This note is a field service representative synopsis but static in nature. The timeframe for treatments given in order is not necessarily the actual time these treatments may have been done. 2. This patient requires critical care secondary to ongoing requirements for therapy not offered or safe outside the critical care environment. Transfer to a lower level of care will result in altered life or limb morbidity and mortality. 3. Multidisciplinary rounds completed. 4. ABCDE bundle addressed.
[2020-07-21] MEDS: SUCRALFATE 1 GM TABLET PO SCH ×2 (11:44→17:34)
[2020-07-21 13:19] LABS: VANCOMYCIN,TROUGH 10.9 ug/mL (5.0-20.0)
[2020-07-21] MEDS: CEFAZOLIN 1 GM/D5W RTU 1 GM/50 ML RTUPB IV SCH ×2 (13:50→21:51)
[2020-07-21] MEDS ORDERED: CEFAZOLIN SODIUM 1 GM in DEXTROSE 5%-WATER 100 ML IV SCH (14:00)
[2020-07-21 15:18] LABS: ARTERIAL BLOOD BASE EXCESS 16.3 mmol/L; ARTERIAL BLOOD H2CO3 1.69 mmol/L (1.05-1.35); ARTERIAL BLOOD HCO3 41.5 mmol/L (20-24); ARTERIAL BLOOD O2 SATURATION 97.9 % (94-98); ARTERIAL BLOOD PCO2 56.3 mmHg (35-45); ARTERIAL BLOOD PH 7.49 (7.35-7.45); ARTERIAL BLOOD PO2 101.6 mmHg (80-100); ARTERIAL BLOOD TOTAL CO2 43.2 mmol/L (21-25)
[2020-07-21 15:23] LABS: ARTERIAL BLOOD FIO2 45
[2020-07-21] MEDS: PAROXETINE HCL 20 MG TABLET NG SCH (21:51)
[2020-07-21] MEDS: MONTELUKAST SODIUM 10 MG TABLET NG SCH (21:51)
[2020-07-21] MEDS: LATANOPROST 0.005% OPH SOLN 2.5 ML OU SCH (21:52)
[2020-07-22] MEDS: SUCRALFATE 1 GM TABLET PO SCH ×4 (00:19→18:19)
[2020-07-22 04:29] LABS: ARTERIAL BLOOD BASE EXCESS 21.3 mmol/L; ARTERIAL BLOOD H2CO3 2.65 mmol/L (1.05-1.35); ARTERIAL BLOOD O2 SATURATION 94.9 % (94-98); ARTERIAL BLOOD PH 7.37 (7.35-7.45); ARTERIAL BLOOD PO2 81.2 mmHg (80-100); ARTERIAL BLOOD TOTAL CO2 52.7 mmol/L (21-25)
[2020-07-22 04:31] LABS: ARTERIAL BLOOD FIO2 45%; HEMATOCRIT 22.3 % (36.0-47.0); MEAN CORPUSCULAR HEMOGLOBIN 31.2 pg (27.0-33.4); MEAN CORPUSCULAR HGB CONC 33.4 g/dL (32.0-36.0); MEAN CORPUSCULAR VOLUME 93 fl (80-97); PLATELET COUNT 155 10^3/uL (150-450); RED CELL DISTRIBUTION WIDTH 14.7 % (11.5-14.0); WHITE BLOOD COUNT 8.2 10^3/uL (4.0-10.5)
[2020-07-22 04:36] LABS: HEMOGLOBIN 7.5 g/dL (12.0-15.5)
[2020-07-22 04:40] LABS: ALBUMIN 2.5 g/dL (3.5-5.0); ALKALINE PHOSPHATASE 77 U/L (38-126); ASPARTATE AMINO TRANSFERASE 47 U/L (14-36); BILIRUBIN,DIRECT 0.2 mg/dL (0.0-0.4); BILIRUBIN,TOTAL 0.6 mg/dL (0.2-1.3); BLOOD UREA NITROGEN 14 mg/dL (7-20); CALCIUM 7.8 mg/dL (8.4-10.2); CHLORIDE 93 mmol/L (98-107); GLUCOSE 138 mg/dL (75-110); POTASSIUM 3.8 mmol/L (3.6-5.0); TOTAL PROTEIN 4.7 g/dL (6.3-8.2)
[2020-07-22 04:46] LABS: ABSOLUTE LYMPHOCYTES# (MANUAL) 0.3 10^3/uL (0.5-4.7); ABSOLUTE MONOCYTES # (MANUAL) 0.6 10^3/uL (0.1-1.4); ANISOCYTOSIS 1+; BAND NEUTROPHILS % (MANUAL) 1 % (3-5); BASOPHILS % (MANUAL) 0 % (0-2); EOSINOPHILS % (MANUAL) 0 % (0-6); LYMPHOCYTES % (MANUAL) 4 % (13-45); MONOCYTES % (MANUAL) 7 % (3-13); PLATELET COMMENT ADEQUATE; POLYCHROMASIA 1+; SEGMENTED NEUTROPHILS % (MAN) 88 % (42-78); TOTAL CELLS COUNTED 100
[2020-07-22 04:47] LABS: ANION GAP 3 (5-19)
[2020-07-22 04:49] LABS: CARBON DIOXIDE 45 mmol/L (22-30)
[2020-07-22] MEDS: MIDAZOLAM HCL 50 MG/100 ML RTUINJ IV PRN (05:20)
[2020-07-22] MEDS: CEFAZOLIN 1 GM/D5W RTU 1 GM/50 ML RTUPB IV SCH ×3 (05:22→22:18)
[2020-07-22] MEDS: INSULIN REG, HUMAN 100 UNIT/ML 3 ML VIAL (PYX) SUBCUT SCH ×3 (05:23→18:18)
[2020-07-22] MEDS: IPRATROPIUM/ALBUTEROL 0.5-2.5 MG/3 ML AMPUL NEB SCH ×3 (08:19→20:30)
[2020-07-22] MEDS: ACETYLCYSTEINE 10% NEB 400 MG/4 ML VIAL NEB SCH ×2 (08:19→20:30)
[2020-07-22] MEDS: ZINC SULFATE 220 MG CAPSULE NG SCH (11:10)
[2020-07-22] MEDS: HYDROCORTISONE SOD SUCCINATE INJ/PF 100 MG/2 ML SDV IV SCH ×2 (11:10→22:18)
[2020-07-22] MEDS: FAMOTIDINE INJ/PF 20 MG/2 ML SDV IV SCH ×2 (11:10→22:18)
[2020-07-22] MEDS: ZIPRASIDONE MESYLATE INJ/PF 20 MG SDV IM SCH (11:10)
[2020-07-22] MEDS: FUROSEMIDE INJ/PF 40 MG/4 ML SDV IV SCH (11:10)
[2020-07-22] MEDS: FLUTICASONE/UMECLIDIN/VILANTER 100-62.5-25 MCG/DOSE IH SCH (11:11)
[2020-07-22] MEDS: LEVETIRACETAM 1000 MG/NACL-ISO 1,000 MG/100 ML RTUPB IV SCH ×2 (11:29→22:17)
--- NOTE | 2020-07-22 11:49 | PDOC CRITICAL CARE PROG REPORT ---
General Date:: 07/22/20 ICU Day:: 7 Ventilator Day:: 7 Hospital Day:: 22 Resuscitation Status: Full Code Events in the past 12 to 24 Hours:: Gordon De La Cruz inserted a new CVP line in the right IJ during the night. Her FI02 requirements have dropped. 07/22 The patient remains on the ventialtor. She did do a short time on CPAP overnight. i will try again latelr once her sedation is weaned off. Her bood count is holding. No obvious blood loss. FI02 isd down to 45%. The patient is about 2.3 liters ahead since 07/19. The patient is being treated for a possible MSSA pneumonia with Ancef. Reason for ICU Addmission:: Need for intubation, septic from COVID Physical Exam Vital Signs: Temp Pulse Resp BP Pulse Ox 97.9 F 79 24 H 104/56 L 99 07/22/20 10:00 07/22/20 10:00 07/22/20 10:32 07/22/20 10:32 07/22/20 10:32 Intake & Output 07/21/20 07/22/20 07/23/20 06:59 06:59 06:59 Intake Total 1974 1532 Output Total 3955 2735 250 Balance -1981 -1203 -250 Weight 71.2 kg 69.4 kg Weight/Height Weight 69.4 kg Height 5 ft 1 in General appearance: PRESENT: no acute distress Head exam: PRESENT: atraumatic Eye exam: PRESENT: EOMI, PERRLA Ear exam: PRESENT: normal external ear exam Mouth exam: PRESENT: moist, neck supple Neck exam: PRESENT: full ROM. ABSENT: JVD, meningismus, tenderness Respiratory exam: PRESENT: clear to auscultation sky. ABSENT: accessory muscle use Cardiovascular exam: PRESENT: RRR Pulses: PRESENT: normal carotid pulses, normal radial pulses GI/Abdominal exam: PRESENT: soft. ABSENT: tenderness Rectal exam: PRESENT: deferred Gentrourinary exam: ABSENT: ecchymosis, lesions Extremities exam: ABSENT: calf tenderness, clubbing Neurological exam: PRESENT: other - Patient is to sedated to get any response to commands presently. Laboratory/Radiographs Laboratory Results: 07/22/20 04:14 07/22/20 04:14 07/21/20 07/22/20 07/22/20 14:47 04:14 04:14 WBC 8.2 RBC 2.40 L Hgb 7.5 L Hct 22.3 L MCV 93 MCH 31.2 MCHC 33.4 RDW 14.7 H Plt Count 155 Seg Neutrophils % Not Reportable Carbonic Acid 1.69 H 2.65 H HCO3/H2CO3 Ratio 24:1 18:1 ABG pH 7.49 H 7.37 ABG pCO2 56.3 H 88.0 H* ABG pO2 101.6 H 81.2 ABG HCO3 41.5 H 50.0 H ABG O2 Saturation 97.9 94.9 ABG Base Excess 16.3 21.3 FiO2 45 45% Sodium Potassium Chloride Carbon Dioxide Anion Gap BUN Creatinine Est GFR ( Amer) Glucose Calcium Total Bilirubin AST Alkaline Phosphatase Total Protein Albumin 07/22/20 04:14 WBC RBC Hgb Hct MCV MCH MCHC RDW Plt Count Seg Neutrophils % Carbonic Acid HCO3/H2CO3 Ratio ABG pH ABG pCO2 ABG pO2 ABG HCO3 ABG O2 Saturation ABG Base Excess FiO2 Sodium 141.4 Potassium 3.8 Chloride 93 L Carbon Dioxide 45 H* Anion Gap 3 L BUN 14 Creatinine 0.49 L Est GFR ( Amer) > 60 Glucose 138 H Calcium 7.8 L Total Bilirubin 0.6 AST 47 H Alkaline Phosphatase 77 Total Protein 4.7 L Albumin 2.5 L 07/19/20 11:18 Tracheal Aspirate Gram Stain - Final 07/19/20 11:18 Tracheal Aspirate Sputum Culture - Final Staphylococcus Aureus Greatly Reduced Normal Marlyn 06/30/20 09:15 Troponin I < 0.012 NT-Pro-B Natriuret Pep 906 H Impressions: KUB X-Ray 07/16/20 21:44 IMPRESSION: Enteric tube tip in the stomach copyright 2011 [employer]- All Rights Reserved Chest X-Ray 07/21/20 00:00 IMPRESSION: Moderate interstitial markings. Small hazy opacity of the lateral left lung field. Small left basilar opacity-effusion.Interval improvement. Assessment and Plan - Diagnosis (1) Shock Is this a current diagnosis for this admission?: No (2) Acute respiratory disease due to COVID-19 virus Is this a current diagnosis for this admission?: Yes Plan: She has battled this for a few days. Prognosis is guarded. the patient is on 70% FI02 and PEEP of 12. Her P/F ratio is about 100 which is severe respiratory distress syndrome. She is on decadron. I will look into remdesovir and convalescent plasma for patient. 07/19 her last Covid test was positive on 06/28 We will repeat the test. I am sending off Procal and sputum culture. The patient could have a bacterial pneumonia. I will consider adding broad spectrum abx. 07/20 Sputum gram stains hows many polys and Gram positive rods and cocci. The patient had been placed empirically on Vanco and Zosyn. The patient is up about 8 kilos. I have increased the lasix to 40mg IV qd and cut back on IV fluids at this time. 07/21 The patient is doing a bit better. We have been able to dial down her FI02. CXR shows diffuse infiltrates (mainly interstitial) her secretions have appeared to dry up a bit. 07/22 We are repeating Covid testing as it has been a while. The patient is bleieved to have abacterial pneumonia with MSSA as well. EWWE have made some headway decreasing PEEP and FI02 thepast few days. (3) Schizoaffective disorder Qualifiers: Schizoaffective disorder type: bipolar Qualified Code(s): F25.0 - Schizoaffective disorder, bipolar type Is this a current diagnosis for this admission?: Yes Plan: Let's make sure her baseline psychiatry medications are restarted. (4) Anemia Qualifiers: Iron deficiency anemia type: chronic blood loss Is this a current diagnosis for this admission?: Yes Plan: The patient has slowly droped her Hb inthe last few days. the lowest recorded value fwas 6.8 on 07/20. The patient has shown no sign of overt bleeding. DVT prophyalxis has been put on hold for now. She is a Orthodox so transfusion is not an option. The patient is on bid Famotodine. I will consider addition of sucralfate. 07/22 Her Hb level has stabilzed. No active gi blood loss. (5) Pneumonia Qualifiers: Pneumonia type: due to methicillin-sensitive Staphylococcus aureus (MSSA) Laterality: bilateral Is this a current diagnosis for this admission?: Yes Critical Time Critical Time (minutes): 35 Level of Care: ICU -: 1. The care of a critical patient is a dynamic process. This note is a re presentative synopsis but static in nature. The timeframe for treatments given in order is not necessarily the actual time these treatments may have been done. 2. This patient requires critical care secondary to ongoing requirements for therapy not offered or safe outside the critical care environment. Transfer to a lower level of care will result in altered life or limb morbidity and mortalit y. 3. Multidisciplinary rounds completed. 4. ABCDE bundle addressed.
[2020-07-22] MEDS: HYDROMORPHONE HCL 30 MG/60 ML RTUINJ IV PRN (12:50)
[2020-07-22] MEDS: DEXTROSE 5%-WATER 250 ML with NOREPINEPHRINE BITARTRATE 4 MG IV PRN ×2 (22:16)
[2020-07-22] MEDS: MONTELUKAST SODIUM 10 MG TABLET NG SCH (22:18)
[2020-07-22] MEDS: PAROXETINE HCL 20 MG TABLET NG SCH (22:19)
[2020-07-22] MEDS: LATANOPROST 0.005% OPH SOLN 2.5 ML OU SCH (22:28)
[2020-07-23] MEDS: INSULIN REG, HUMAN 100 UNIT/ML 3 ML VIAL (PYX) SUBCUT SCH ×4 (00:16→18:08)
[2020-07-23] MEDS: SUCRALFATE 1 GM TABLET PO SCH ×4 (00:48→17:45)
[2020-07-23] MEDS: CEFAZOLIN 1 GM/D5W RTU 1 GM/50 ML RTUPB IV SCH ×3 (05:45→22:19)
[2020-07-23 06:21] LABS: MEAN CORPUSCULAR HEMOGLOBIN 31.1 pg (27.0-33.4); MEAN CORPUSCULAR HGB CONC 33.4 g/dL (32.0-36.0); MEAN CORPUSCULAR VOLUME 93 fl (80-97); PLATELET COUNT 153 10^3/uL (150-450); RED BLOOD COUNT 2.36 10^6/uL (3.72-5.28); RED CELL DISTRIBUTION WIDTH 14.9 % (11.5-14.0); WHITE BLOOD COUNT 6.7 10^3/uL (4.0-10.5)
[2020-07-23 06:33] LABS: BLOOD UREA NITROGEN 15 mg/dL (7-20); CALCIUM 8.1 mg/dL (8.4-10.2); CHLORIDE 90 mmol/L (98-107); GLUCOSE 136 mg/dL (75-110); POTASSIUM 3.5 mmol/L (3.6-5.0)
[2020-07-23 06:52] LABS: ANION GAP 4 (5-19)
[2020-07-23 06:53] LABS: CARBON DIOXIDE 44 mmol/L (22-30)
[2020-07-23 07:32] LABS: HEMOGLOBIN 7.3 g/dL (12.0-15.5)
[2020-07-23 07:33] LABS: ABSOLUTE LYMPHOCYTES# (MANUAL) 0.9 10^3/uL (0.5-4.7); ABSOLUTE MONOCYTES # (MANUAL) 0.1 10^3/uL (0.1-1.4); ANISOCYTOSIS SLIGHT; BASOPHILS % (MANUAL) 0 % (0-2); EOSINOPHILS % (MANUAL) 1 % (0-6); LYMPHOCYTES % (MANUAL) 13 % (13-45); MONOCYTES % (MANUAL) 2 % (3-13); NUCLEATED RED BLOOD CELLS 1 /100 WBC (0); PLATELET COMMENT ADEQUATE; SEGMENTED NEUTROPHILS % (MAN) 84 % (42-78); TOTAL CELLS COUNTED 100
[2020-07-23] MEDS: IPRATROPIUM/ALBUTEROL 0.5-2.5 MG/3 ML AMPUL NEB SCH ×3 (08:09→20:51)
[2020-07-23] MEDS: ACETYLCYSTEINE 10% NEB 400 MG/4 ML VIAL NEB SCH ×2 (08:09→20:51)
--- NOTE | 2020-07-23 10:11 | PDOC CRITICAL CARE PROG REPORT ---
General Date:: 07/02/20 ICU Day:: 8 Ventilator Day:: 8 Hospital Day:: 22 Resuscitation Status: Full Code Events in the past 12 to 24 Hours:: Gordon De La Cruz inserted a new CVP line in the right IJ during the night. Her FI02 requirements have dropped. 07/22 The patient remains on the ventilaltor. She did do a short time on CPAP overnight. i will try again latelr once her sedation is weaned off. Her bood count is holding. No obvious blood loss. FI02 isd down to 45%. The patient is about 2.3 liters ahead since 07/19. The patient is being treated for a possible MSSA pneumonia with Ancef. 07/23 The patient still remains onmechanical ventiation. We nani her on SBT for a few hours yesterday and she did pretty well. I have taken down her sedation. Reason for ICU Addmission:: Need for intubation, septic from COVID Physical Exam Vital Signs: Temp Pulse Resp BP Pulse Ox 98.8 F 93 24 H 97/65 L 98 07/23/20 08:00 07/23/20 08:09 07/23/20 08:09 07/23/20 08:00 07/23/20 08:09 Intake & Output 07/22/20 07/23/20 07/24/20 06:59 06:59 06:59 Intake Total 1582 1603 Output Total 2735 4190 450 Balance -1153 -2587 -450 Weight 69.4 kg 68.7 kg Weight/Height Weight 68.7 kg Height 5 ft 1 in General appearance: PRESENT: no acute distress Head exam: PRESENT: atraumatic, normocephalic Eye exam: PRESENT: conjunctiva pink Ear exam: PRESENT: normal external ear exam Mouth exam: PRESENT: moist Respiratory exam: ABSENT: accessory muscle use Cardiovascular exam: PRESENT: RRR, +S1, +S2 Pulses: PRESENT: normal carotid pulses, normal radial pulses GI/Abdominal exam: PRESENT: diminished bowel sounds, soft. ABSENT: tenderness Gentrourinary exam: ABSENT: ecchymosis Extremities exam: ABSENT: calf tenderness, clubbing Neurological exam: PRESENT: other - Remains fairly heavily sedated at this time.. ABSENT: alert Laboratory/Radiographs Laboratory Results: 07/23/20 04:40 07/23/20 04:40 07/23/20 07/23/20 04:40 04:40 WBC 6.7 RBC 2.36 L Hgb 7.3 L Hct 22.0 L MCV 93 MCH 31.1 MCHC 33.4 RDW 14.9 H Plt Count 153 Seg Neutrophils % Not Reportable Sodium 137.5 Potassium 3.5 L Chloride 90 L Carbon Dioxide 44 H* Anion Gap 4 L BUN 15 Creatinine 0.47 L Est GFR ( Amer) > 60 Glucose 136 H Calcium 8.1 L 06/30/20 09:15 Troponin I < 0.012 NT-Pro-B Natriuret Pep 906 H Impressions: KUB X-Ray 07/16/20 21:44 IMPRESSION: Enteric tube tip in the stomach copyright 2011 [employer]- All Rights Reserved Chest X-Ray 07/21/20 00:00 IMPRESSION: Moderate interstitial markings. Small hazy opacity of the lateral left lung field. Small left basilar opacity-effusion.Interval improvement. Assessment and Plan - Diagnosis (1) Shock Is this a current diagnosis for this admission?: No Plan: The shock has resolved. The patient is off Levophed at this time. (2) Acute respiratory disease due to COVID-19 virus Is this a current diagnosis for this admission?: Yes Plan: She has battled this for a few days. Prognosis is guarded. the patient is on 70% FI02 and PEEP of 12. Her P/F ratio is about 100 which is severe respiratory distress syndrome. She is on decadron. I will look into remdesovir and convalescent plasma for patient. 07/19 her last Covid test was positive on 06/28 We will repeat the test. I am sending off Procal and sputum culture. The patient could have a bacterial pneumonia. I will consider adding broad spectrum abx. 07/20 Sputum gram stains hows many polys and Gram positive rods and cocci. The patient had been placed empirically on Vanco and Zosyn. The patient is up about 8 kilos. I have increased the lasix to 40mg IV qd and cut back on IV fluids at this time. 07/21 The patient is doing a bit better. We have been able to dial down her FI02. CXR shows diffuse infiltrates (mainly interstitial) her secretions have appeared to dry up a bit. 07/22 We are repeating Covid testing as it has been a while. The patient is believed to have abacterial pneumonia with MSSA as well. EWWE have made some headway decreasing PEEP and FI02 thepast few days. 07/23 As noted the patient did tolerate SBT for a few hours yesterday and we are in the process of weaning her presently. (3) Schizoaffective disorder Qualifiers: Schizoaffective disorder type: bipolar Qualified Code(s): F25.0 - Schi zoaffective disorder, bipolar type Is this a current diagnosis for this admission?: Yes Plan: Let's make sure her baseline psychiatry medications are restarted. (4) Anemia Qualifiers: Iron deficiency anemia type: chronic blood loss Is this a current diagnosis for this admission?: Yes Plan: The patient has slowly droped her Hb inthe last few days. the lowest recorded value fwas 6.8 on 07/20. The patient has shown no sign of overt bleeding. DVT prophyalxis has been put on hold for now. She is a [employer] so transfusion is not an option. The patient is on bid Famotodine. I will consider addition of sucralfate. 07/22 Her Hb level has stabilzed. No active gi blood loss. 07/23 Last Hb was 7.3 No overt gi blood loss (5) Pneumonia Qualifiers: Pneumonia type: due to methicillin-sensitive Staphylococcus aureus (MSSA) Laterality: bilateral Is this a current diagnosis for this admission?: Yes Plan: The patient has had a worsening in resp[. status the past few days. She has known Covid but that got worse several days into the admission. I cultured hwer and she has grown out MSSA in her sputum. Initially she was on empiric Zosyn and Vanco. I have just switched to IV Ancef at this time. 07/23 We have been able to decrease the FI02 on this patient. Cxr still shows moderate interstitial marking. There was a small left basilar opacity-effusion. Iv abx was simplified to ANCef (MSSA). WBC within normal limits procal from 07/19 was only 0.14. Critical Time Critical Time (minutes): 35 Level of Care: ICU -: 1. The care of a critical patient is a dynamic process. This note is a physician representative synopsis but static in nature. The timeframe for treatments given in order is not necessarily the actual time these treatments may have been done. 2. This patient requires critical care secondary to ongoing requirements for therapy not offered or safe outside the critical care environment. Transfer to a lower level of care will result in altered life or limb morbidity and mortality. 3. Multidisciplinary rounds completed. 4. ABCDE bundle addressed.
[2020-07-23] MEDS: FLUTICASONE/UMECLIDIN/VILANTER 100-62.5-25 MCG/DOSE IH SCH (12:01)
[2020-07-23] MEDS: LEVETIRACETAM 1000 MG/NACL-ISO 1,000 MG/100 ML RTUPB IV SCH ×2 (12:30→22:19)
[2020-07-23] MEDS: FUROSEMIDE INJ/PF 40 MG/4 ML SDV IV SCH (12:31)
[2020-07-23] MEDS: ZIPRASIDONE MESYLATE INJ/PF 20 MG SDV IM SCH (12:31)
[2020-07-23] MEDS: ZINC SULFATE 220 MG CAPSULE NG SCH (12:31)
[2020-07-23] MEDS: HYDROCORTISONE SOD SUCCINATE INJ/PF 100 MG/2 ML SDV IV SCH ×2 (12:32→22:18)
[2020-07-23] MEDS: FAMOTIDINE INJ/PF 20 MG/2 ML SDV IV SCH ×2 (12:32→22:18)
[2020-07-23] MEDS: ENOXAPARIN SODIUM INJ 40 MG/0.4 ML DISP.SYRIN SUBCUT SCH (12:32)
[2020-07-23] MEDS: MONTELUKAST SODIUM 10 MG TABLET NG SCH (22:18)
[2020-07-23] MEDS: PAROXETINE HCL 20 MG TABLET NG SCH (22:18)
[2020-07-23] MEDS: LATANOPROST 0.005% OPH SOLN 2.5 ML OU SCH (22:20)
[2020-07-24] MEDS: INSULIN REG, HUMAN 100 UNIT/ML 3 ML VIAL (PYX) SUBCUT SCH ×4 (00:27→18:28)
[2020-07-24] MEDS: SUCRALFATE 1 GM TABLET PO SCH ×4 (00:45→18:28)
[2020-07-24] MEDS: MIDAZOLAM HCL 50 MG/100 ML RTUINJ IV PRN (00:46)
[2020-07-24] MEDS: CEFAZOLIN 1 GM/D5W RTU 1 GM/50 ML RTUPB IV SCH ×3 (05:22→21:34)
[2020-07-24] MEDS: HYDROMORPHONE HCL 30 MG/60 ML RTUINJ IV PRN ×4 (06:04→16:22)
[2020-07-24 06:29] LABS: ABSOLUTE LYMPHOCYTES (AUTO) 0.4 10^3/uL (0.5-4.7); ABSOLUTE MONOCYTES (AUTO) 0.3 10^3/uL (0.1-1.4); ABSOLUTE NEUT (AUTO) 7.1 10^3/uL (1.7-8.2); BASOPHILS % (AUTO) 0.2 % (0-2); EOSINOPHILS % (AUTO) 0.4 % (0-6); HEMATOCRIT 22.3 % (36.0-47.0); LYMPHOCYTES % (AUTO) 5.5 % (13-45); MEAN CORPUSCULAR HEMOGLOBIN 30.9 pg (27.0-33.4); MEAN CORPUSCULAR HGB CONC 33.1 g/dL (32.0-36.0); MEAN CORPUSCULAR VOLUME 93 fl (80-97); PLATELET COUNT 181 10^3/uL (150-450); RED BLOOD COUNT 2.38 10^6/uL (3.72-5.28); RED CELL DISTRIBUTION WIDTH 14.3 % (11.5-14.0); SEGMENTED NEUTROPHILS % (AUTO) 89.9 % (42-78); TOTAL CELLS COUNTED % (AUTO) 100 %; WHITE BLOOD COUNT 7.9 10^3/uL (4.0-10.5)
[2020-07-24 07:00] LABS: BLOOD UREA NITROGEN 13 mg/dL (7-20); CALCIUM 7.4 mg/dL (8.4-10.2); CHLORIDE 94 mmol/L (98-107); GLUCOSE 117 mg/dL (75-110)
[2020-07-24 07:13] LABS: HEMOGLOBIN 7.4 g/dL (12.0-15.5)
[2020-07-24 07:40] LABS: ANION GAP 2 (5-19)
[2020-07-24 07:41] LABS: CARBON DIOXIDE 44 mmol/L (22-30); POTASSIUM 2.7 mmol/L (3.6-5.0)
[2020-07-24] MEDS: IPRATROPIUM/ALBUTEROL 0.5-2.5 MG/3 ML AMPUL NEB SCH ×3 (08:02→21:12)
--- NOTE | 2020-07-24 10:32 | PDOC CRITICAL CARE PROG REPORT ---
General Date:: 07/24/20 ICU Day:: 9 Ventilator Day:: 9 Hospital Day:: 23 Resuscitation Status: Full Code Events in the past 12 to 24 Hours:: Gordon De La Cruz inserted a new CVP line in the right IJ during the night. Her FI02 requirements have dropped. 07/22 The patient remains on the ventilaltor. She did do a short time on CPAP overnight. i will try again latelr once her sedation is weaned off. Her blHer potassium is low today so she is getting supplementation. Her blood count is holding. No obvious blood loss. FI02 isd down to 45%. The patient is about 2.3 liters ahead since 07/19. The patient is being treated for a possible MSSA pneumonia with Ancef. 07/23 The patient still remains on mechanical ventiation. We nani her on SBT for a few hours yesterday and she did pretty well. I have taken down her sedation. 07/24 The patient did well on a lengthy CPAP trial yesterday. I have her on SBT today. She does respond to simple commands to wiggle her toes etc., her potassium this AM was 2.7 so she s getting supplementation.. HB is stabilzed in the low to mid 7 range. Will check ABG on CPAP. Reason for ICU Addmission:: Need for intubation, septic from COVID Physical Exam Vital Signs: Temp Pulse Resp BP Pulse Ox 98.8 F 89 24 H 147/57 H 99 07/24/20 08:00 07/24/20 08:02 07/24/20 08:02 07/24/20 08:00 07/24/20 08:02 Intake & Output 07/23/20 07/24/20 07/25/20 06:59 06:59 06:59 Intake Total 1653 1050 Output Total 9770 2705 50 Balance -2537 -1655 -50 Weight 68.7 kg 66.3 kg Weight/Height Weight 66.3 kg Height 5 ft 1 in General appearance: PRESENT: no acute distress, cooperative Head exam: PRESENT: atraumatic, normocephalic Eye exam: PRESENT: EOMI, PERRLA Ear exam: PRESENT: bleeding, normal external ear exam Mouth exam: PRESENT: tongue midline Neck exam: PRESENT: full ROM. ABSENT: JVD, tenderness, thyromegaly Respiratory exam: PRESENT: clear to auscultation sky. ABSENT: accessory muscle use Cardiovascular exam: PRESENT: RRR, +S1, +S2 Pulses: PRESENT: normal carotid pulses GI/Abdominal exam: PRESENT: normal bowel sounds, soft. ABSENT: tenderness Rectal exam: ABSENT: black stool, bloody stool Extremities exam: PRESENT: +1 edema. ABSENT: calf tenderness, clubbing, joint swelling Neurological exam: PRESENT: alert Tubes/Lines: PRESENT: Endotracheal Tube, Central Line Laboratory/Radiographs Laboratory Results: 07/24/20 05:10 07/24/20 05:10 07/24/20 07/24/20 05:10 05:10 WBC 7.9 RBC 2.38 L Hgb 7.4 L Hct 22.3 L MCV 93 MCH 30.9 MCHC 33.1 RDW 14.3 H Plt Count 181 Seg Neutrophils % 89.9 H Sodium 139.6 Potassium 2.7 L* Chloride 94 L Carbon Dioxide 44 H* Anion Gap 2 L BUN 13 Creatinine 0.43 L Est GFR ( Amer) > 60 Glucose 117 H Calcium 7.4 L 06/30/20 09:15 Troponin I < 0.012 NT-Pro-B Natriuret Pep 906 H Impressions: KUB X-Ray 07/16/20 21:44 IMPRESSION: Enteric tube tip in the stomach copyright 2010 [employer]- All Rights Reserved Assessment and Plan - Diagnosis (1) Shock Is this a current diagnosis for this admission?: No Plan: The shock has resolved. The patient is off Levophed at this time. (2) Acute respiratory disease due to COVID-19 virus Is this a current diagnosis for this admission?: No Plan: She has battled this for a few days. Prognosis is guarded. the patient is on 70% FI02 and PEEP of 12. Her P/F ratio is about 100 which is severe respiratory distress syndrome. She is on decadron. I will look into remdesovir and convalescent plasma for patient. 07/19 her last Covid test was positive on 06/28 We will repeat the test. I am sending off Procal and sputum culture. The patient could have a bacterial pneumonia. I will consider adding broad spectrum abx. 07/20 Sputum gram stains hows many polys and Gram positive rods and cocci. The patient had been placed empirically on Vanco and Zosyn. The patient is up about 8 kilos. I have increased the lasix to 40mg IV qd and cu t back on IV fluids at this time. 07/21 The patient is doing a bit better. We have been able to dial down her FI02. CXR shows diffuse infiltrates (mainly interstitial) her secretions have appeared to dry up a bit. 07/22 We are repeating Covid testing as it has been a while. The patient is believed to have abacterial pneumonia with MSSA as well. EWWE have made some headway decreasing PEEP and FI02 thepast few days. 07/23 As noted the patient did tolerate SBT for a few hours yesterday and we are in the process of weaning her presently. 07/24 last 2 Covid tests form thepast few days are negative so it appears that the patient can be taken off isolation (3) Schizoaffective disorder Qualifiers: Schizoaffective disorder type: bipolar Qualified Code(s): F25.0 - Schizoaffective disorder, bipolar type Is this a current diagnosis for this admission?: Yes Plan: Let's make sure her baseline psychiatry medications are restarted. (4) Anemia Qualifiers: Iron deficiency anemia type: chronic blood loss Is this a current diagnosis for this admission?: Yes (5) Pneumonia Qualifiers: Pneumonia type: due to methicillin-sensitive Staphylococcus aureus (MSSA) Laterality: bilateral Is this a current diagnosis for this admission?: Yes Plan: The patient has had a worsening in resp[. status the past few days. She has known Covid but that got worse several days into the admission. I cultured hwer and she has grown out MSSA in her sputum. Initially she was on empiric Zosyn and Vanco. I have just switched to IV Ancef at this time. 07/23 We have been able to decrease the FI02 on this patient. Cxr still shows moderate interstitial marking. There was a small left basilar opacity-effusion. Iv abx was simplified to ANCef (MSSA). WBC within normal limits procal from 07/19 was only 0.14. 07/24 Her gas exchange has improved the past few days. Has some thick secretions. CXR improved from 07/17. Critical Time Critical Time (minutes): 35 Level of Care: ICU -: 1. The care of a critical patient is a dynamic process. This note is a sales representative sales manager synopsis but static in nature. The timeframe for treatments given in order is not necessarily the actual time these treatments may have been done. 2. This patient requires critical care secondary to ongoing requirements for therapy not offered or safe outside the critical care environment. Transfer to a lower level of care will result in altered life or limb morbidity and mortality. 3. Multidisciplinary rounds completed. 4. ABCDE bundle addressed.
[2020-07-24 10:50] LABS: ARTERIAL BLOOD BASE EXCESS 16.1 mmol/L; ARTERIAL BLOOD H2CO3 1.82 mmol/L (1.05-1.35); ARTERIAL BLOOD HCO3 41.8 mmol/L (20-24); ARTERIAL BLOOD O2 SATURATION 89.4 % (94-98); ARTERIAL BLOOD PCO2 60.4 mmHg (35-45); ARTERIAL BLOOD PH 7.46 (7.35-7.45); ARTERIAL BLOOD PO2 55.5 mmHg (80-100); ARTERIAL BLOOD TOTAL CO2 43.7 mmol/L (21-25)
[2020-07-24 10:51] LABS: ARTERIAL BLOOD FIO2 35%
[2020-07-24] MEDS: POTASSI CL 20 MEQ/50 ML RIDER 20 MEQ/50 ML RTUPB IV SCH ×4 (11:23→14:44)
[2020-07-24] MEDS: LEVETIRACETAM 1000 MG/NACL-ISO 1,000 MG/100 ML RTUPB IV SCH ×2 (11:24→21:33)
[2020-07-24] MEDS: HYDROCORTISONE SOD SUCCINATE INJ/PF 100 MG/2 ML SDV IV SCH ×2 (11:25→21:34)
[2020-07-24] MEDS: FAMOTIDINE INJ/PF 20 MG/2 ML SDV IV SCH ×2 (11:26→21:34)
[2020-07-24] MEDS: FUROSEMIDE INJ/PF 40 MG/4 ML SDV IV SCH (11:26)
[2020-07-24] MEDS: ZINC SULFATE 220 MG CAPSULE NG SCH (11:27)
[2020-07-24] MEDS: FLUTICASONE/UMECLIDIN/VILANTER 100-62.5-25 MCG/DOSE IH SCH (11:27)
[2020-07-24] MEDS: ENOXAPARIN SODIUM INJ 40 MG/0.4 ML DISP.SYRIN SUBCUT SCH (11:28)
[2020-07-24] MEDS: ZIPRASIDONE MESYLATE INJ/PF 20 MG SDV IM SCH (11:29)
--- NOTE | 2020-07-24 12:10 | RADIOLOGY REPORT (SQ) ---
EXAM DESCRIPTION: CHEST SINGLE VIEW IMAGES COMPLETED DATE/TIME: 07/24/2020 10:08 am REASON FOR STUDY: respiratory failure COMPARISON: Chest films 07/16/2020, 07/17/2020, 04/13/2020, 07/21/2020 EXAM PARAMETERS: NUMBER OF VIEWS: One view. TECHNIQUE: Single frontal radiographic view of the chest acquired. RADIATION DOSE: NA LIMITATIONS: None. FINDINGS: LUNGS AND PLEURA: Persistent diffuse alveolar and interstitial infiltrates, similar compar ed to previous exams. No pneumothorax no pleural effusion. MEDIASTINUM AND HILAR STRUCTURES: No masses. Contour normal. HEART AND VASCULAR STRUCTURES: Heart normal in size. Normal vasculature. BONES: No acute findings. HARDWARE: Endotracheal tube tip 3 cm above the ludmila. Nasogastric tube tip and side port in the sto mach. Right jugular central line tip superior vena cava OTHER: No other significant finding. IMPRESSION: Tubes and lines in good positioning. Unchanged diffuse bilateral infiltrates TECHNICAL DOCUMENTATION: JOB ID: [id number] 2010 [employer]- All Rights Reserved Reading location - IP/workstation name: [email or web address]
[2020-07-24] MEDS ORDERED: NORMAL SALINE 1000 ML 500 ML IV ONE (12:39)
[2020-07-24] MEDS: DEXTROSE 5%-WATER 250 ML with NOREPINEPHRINE BITARTRATE 4 MG IV PRN ×2 (14:15)
[2020-07-24 18:59] LABS: BLOOD UREA NITROGEN 12 mg/dL (7-20); CHLORIDE 94 mmol/L (98-107); GLUCOSE 160 mg/dL (75-110)
[2020-07-24 19:02] LABS: ANION GAP 7 (5-19)
[2020-07-24 19:12] LABS: POTASSIUM 4.1 mmol/L (3.6-5.0)
[2020-07-24 19:14] LABS: CARBON DIOXIDE 40 mmol/L (22-30)
[2020-07-24] MEDS: MONTELUKAST SODIUM 10 MG TABLET NG SCH (21:34)
[2020-07-24] MEDS: PAROXETINE HCL 20 MG TABLET NG SCH (21:35)
[2020-07-24] MEDS: LATANOPROST 0.005% OPH SOLN 2.5 ML OU SCH (21:36)
[2020-07-24] MEDS: LORAZEPAM INJ 2 MG/1 ML VIAL IV PRN (21:41)
[2020-07-25] MEDS: INSULIN REG, HUMAN 100 UNIT/ML 3 ML VIAL (PYX) SUBCUT SCH ×4 (00:21→17:01)
[2020-07-25] MEDS: SUCRALFATE 1 GM TABLET PO SCH ×4 (00:21→17:00)
[2020-07-25] MEDS: MIDAZOLAM HCL 50 MG/100 ML RTUINJ IV PRN (00:22)
[2020-07-25] MEDS: CEFAZOLIN 1 GM/D5W RTU 1 GM/50 ML RTUPB IV SCH ×3 (05:52→21:39)
[2020-07-25 06:32] LABS: HEMATOCRIT 21.1 % (36.0-47.0); MEAN CORPUSCULAR HEMOGLOBIN 31.1 pg (27.0-33.4); MEAN CORPUSCULAR HGB CONC 33.2 g/dL (32.0-36.0); MEAN CORPUSCULAR VOLUME 94 fl (80-97); PLATELET COUNT 186 10^3/uL (150-450); RED BLOOD COUNT 2.24 10^6/uL (3.72-5.28); RED CELL DISTRIBUTION WIDTH 14.6 % (11.5-14.0); WHITE BLOOD COUNT 7.4 10^3/uL (4.0-10.5)
[2020-07-25 06:37] LABS: BLOOD UREA NITROGEN 11 mg/dL (7-20); CALCIUM 7.6 mg/dL (8.4-10.2); CARBON DIOXIDE 39 mmol/L (22-30); CHLORIDE 100 mmol/L (98-107); GLUCOSE 117 mg/dL (75-110); POTASSIUM 3.3 mmol/L (3.6-5.0)
[2020-07-25 07:21] LABS: ANION GAP -1 (5-19)
[2020-07-25 07:22] LABS: ABSOLUTE LYMPHOCYTES# (MANUAL) 0.2 10^3/uL (0.5-4.7); ABSOLUTE MONOCYTES # (MANUAL) 0.1 10^3/uL (0.1-1.4); BASOPHILS % (MANUAL) 0 % (0-2); EOSINOPHILS % (MANUAL) 0 % (0-6); LYMPHOCYTES % (MANUAL) 3 % (13-45); MONOCYTES % (MANUAL) 2 % (3-13); SEGMENTED NEUTROPHILS % (MAN) 95 % (42-78); TOTAL CELLS COUNTED 100
[2020-07-25 07:31] LABS: TOXIC GRANULATION SLIGHT
[2020-07-25 07:32] LABS: ANISOCYTOSIS SLIGHT; OVALOCYTES SLIGHT; POLYCHROMASIA SLIGHT; STOMATOCYTES SLIGHT; TEAR DROP CELLS SLIGHT
[2020-07-25 07:33] LABS: PLATELET COMMENT ADEQUATE
[2020-07-25] MEDS: LORAZEPAM INJ 2 MG/1 ML VIAL IV PRN ×2 (08:11→15:00)
[2020-07-25] MEDS: HYDROMORPHONE HCL 30 MG/60 ML RTUINJ IV PRN (08:12)
[2020-07-25] MEDS: IPRATROPIUM/ALBUTEROL 0.5-2.5 MG/3 ML AMPUL NEB SCH ×3 (08:42→20:06)
[2020-07-25 08:58] LABS: ARTERIAL BLOOD BASE EXCESS 6.9 mmol/L; ARTERIAL BLOOD H2CO3 2.13 mmol/L (1.05-1.35); ARTERIAL BLOOD HCO3 34.6 mmol/L (20-24); ARTERIAL BLOOD O2 SATURATION 79.3 % (94-98); ARTERIAL BLOOD PH 7.31 (7.35-7.45); ARTERIAL BLOOD PO2 49.1 mmHg (80-100); ARTERIAL BLOOD TOTAL CO2 36.8 mmol/L (21-25)
[2020-07-25 09:03] LABS: ARTERIAL BLOOD FIO2 100%
[2020-07-25 09:05] LABS: ARTERIAL BLOOD PCO2 70.8 mmHg (35-45)
[2020-07-25] MEDS ORDERED: FUROSEMIDE INJ/PF 40 MG/4 ML SDV IV ONE (09:15)
--- NOTE | 2020-07-25 09:23 | RADIOLOGY REPORT (SQ) ---
EXAM DESCRIPTION: CHEST SINGLE VIEW IMAGES COMPLETED DATE/TIME: 07/25/2020 9:15 am REASON FOR STUDY: resp distress COMPARISON: 07/24/2020 EXAM PARAMETERS: NUMBER OF VIEWS: One view. TECHNIQUE: Single frontal radiographic view of the chest acquired. RADIATION DOSE: NA LIMITATIONS: None. FINDINGS: LUNGS AND PLEURA: Diffuse bilateral patchy airspace disease, mildly worsened from prior. Likely small bilateral effusions. No pneumothorax. MEDIASTINUM AND HILAR STRUCTURES: Stable. HEART AND VASCULAR STRUCTURES: Stable. BONES: No acute findings. HARDWARE: Endotracheal tube tip overlies midthoracic trachea. Enteric tube tip overlies gastric body . Right internal jugular central venous catheter tip overlies cavoatrial junction. Partially visual ized cervical fusion hardware. OTHER: No other significant finding. IMPRESSION: Diffuse bilateral airspace disease, mildly worsened from prior. Stable support lines and tubes as above. TECHNICAL DOCUMENTATION: JOB ID: [id number] 2010 [employer]- All Rights Reserved Reading location - IP/workstation name: [email or web address]
[2020-07-25] MEDS: LEVETIRACETAM 1000 MG/NACL-ISO 1,000 MG/100 ML RTUPB IV SCH ×2 (09:38→22:57)
[2020-07-25] MEDS: HYDROCORTISONE SOD SUCCINATE INJ/PF 100 MG/2 ML SDV IV SCH ×2 (09:39→21:47)
[2020-07-25] MEDS: ENOXAPARIN SODIUM INJ 40 MG/0.4 ML DISP.SYRIN SUBCUT SCH (09:39)
[2020-07-25] MEDS: ZINC SULFATE 220 MG CAPSULE NG SCH (09:40)
[2020-07-25] MEDS: FLUTICASONE/UMECLIDIN/VILANTER 100-62.5-25 MCG/DOSE IH SCH (09:42)
[2020-07-25] MEDS: FAMOTIDINE INJ/PF 20 MG/2 ML SDV IV SCH ×2 (09:42→21:47)
--- NOTE | 2020-07-25 15:07 | PDOC CRITICAL CARE PROG REPORT ---
General Date:: 07/25/20 ICU Day:: 9 Ventilator Day:: 9 Hospital Day:: 25 Resuscitation Status: Full Code Events in the past 12 to 24 Hours:: Neurologically not intact. Episode of respiratory distress. Review of systems relevant to events:: Neurological, pulmonary Reason for ICU Addmission:: Need for intubation, septic from COVID - Medications: Medications reviewed and adjusted accordingly: Yes Vasopressors:: None Sedation:: None Physical Exam Vital Signs: Temp Pulse Resp BP Pulse Ox 99.7 F 99 21 H 108/53 L 91 L 07/25/20 10:41 07/25/20 13:44 07/25/20 14:07 07/25/20 14:07 07/25/20 14:07 Intake & Output 07/24/20 07/25/20 07/26/20 06:59 06:59 06:59 Intake Total 1050 1126 145 Output Total 2705 1435 1025 Balance -1655 -309 -880 Weight 66.3 kg 67.7 kg Weight/Height Weight 67.7 kg Height 5 ft 1 in General appearance: PRESENT: no acute distress, thin Head exam: PRESENT: atraumatic, normocephalic Eye exam: PRESENT: PERRLA Ear exam: PRESENT: normal external ear exam Mouth exam: PRESENT: moist, tongue midline Respiratory exam: PRESENT: rhonchi, symmetrical, unlabored Cardiovascular exam: PRESENT: tachycardia GI/Abdominal exam: PRESENT: normal bowel sounds, soft. ABSENT: distended, guarding, mass, organolmegaly, rebound, tenderness Rectal exam: PRESENT: deferred Gentrourinary exam: PRESENT: indwelling catheter Extremities exam: PRESENT: +1 edema Musculoskeletal exam: PRESENT: normal inspection Neurological exam: PRESENT: altered Skin exam: PRESENT: dry, intact, warm. ABSENT: cyanosis, rash Tubes/Lines: PRESENT: Endotracheal Tube, Nasogastic Tube Laboratory/Radiographs Laboratory Results: 07/25/20 05:40 07/25/20 05:40 07/24/20 07/25/20 07/25/20 17:50 05:40 05:40 WBC 7.4 RBC 2.24 L Hgb 7.0 L Hct 21.1 L MCV 94 MCH 31.1 MCHC 33.2 RDW 14.6 H Plt Count 186 Seg Neutrophils % Not Reportable Carbonic Acid HCO3/H2CO3 Ratio ABG pH ABG pCO2 ABG pO2 ABG HCO3 ABG O2 Saturation ABG Base Excess FiO2 Sodium 140.7 138.3 Potassium 4.1 D 3.3 L Chloride 94 L 100 Carbon Dioxide 40 H* 39 H Anion Gap 7 -1 L BUN 12 11 Creatinine 0.46 L 0.38 L Est GFR ( Amer) > 60 > 60 Glucose 160 H 117 H Lactic Acid Calcium 8.0 L 7.6 L 07/25/20 07/25/20 08:50 09:19 WBC RBC Hgb Hct MCV MCH MCHC RDW Plt Count Seg Neutrophils % Carbonic Acid 2.13 H HCO3/H2CO3 Ratio 16:1 ABG pH 7.31 L ABG pCO2 70.8 H* ABG pO2 49.1 L ABG HCO3 34.6 H ABG O2 Saturation 79.3 L ABG Base Excess 6.9 FiO2 100% Sodium Potassium Chloride Carbon Dioxide Anion Gap BUN Creatinine Est GFR ( Amer) Glucose Lactic Acid 1.1 Calcium 06/30/20 09:15 Troponin I < 0.012 NT-Pro-B Natriuret Pep 906 H Impressions: KUB X-Ray 07/16/20 21:44 IMPRESSION: Enteric tube tip in the stomach copyright 2011 [employer]- All Rights Reserved Chest X-Ray 07/25/20 00:00 IMPRESSION: Diffuse bilateral airspace disease, mildly worsened from prior. Stable support lines and tubes as above. All labs, radiographs, diagnostic studies and EKGs were personally reviewed: Yes In addition, reports of radiographic and diagnostic studies were read: Yes Assessment and Plan - Diagnosis (1) ARDS (adult respiratory distress syndrome) Is this a current diagnosis for this admission?: Yes Plan: Resoled. PaO2/FiO2 ratio is still only 157, but ARDS physiology is improved. (2) Acute respiratory disease due to COVID-19 virus Is this a current diagnosis for this admission?: No Plan: COVID 19 is now negative. (3) Poor nutrition Is this a current diagnosis for this admission?: Yes Plan: Continue TF. (4) Schizoaffective disorder Qualifiers: Schizoaffective disorder type: bipolar Qualified Code(s): F25.0 - Schizoaffective disorder, bipolar type Is this a current diagnosis for this admission?: Yes Plan: She is getting her regular medications. Plan Summary: Family has expressed wish that if she has no good functional neurologic recovery they would like to withdraw care. Critical Time Critical Time (minutes): 40 Level of Care: ICU Anticipated discharge: Hospice Anticipated DC Timeframe: Other -: 1. The care of a critical patient is a dynamic process. This note is a internet sales representative synopsis but static in nature. The timeframe for treatments given in order is not necessarily the actual time these treatments may have been done. 2. This patient requires critical care secondary to ongoing requirements for therapy not offered or safe outside the critical care environment. Transfer to a lower level of care will result in altered life or limb morbidity and mortality. 3. Multidisciplinary rounds completed. 4. ABCDE bundle addressed.
--- NOTE | 2020-07-25 17:14 | Progress Note ---
Provider Note Provider Note: After speaking with Mrs. Valverde's , son and daughter, they would not like to see her endure an illness that will not give her a good functional and neurological return. She only withdraws to pain with eyes that do not focus. They will be here tonight to make her DNR and comfort care and withdraw support.
[2020-07-25] MEDS ORDERED: MORPHINE SULFATE 10 MG/ML INJ IV PRN (20:31)
[2020-07-25] MEDS: PAROXETINE HCL 20 MG TABLET NG SCH (21:39)
[2020-07-25] MEDS: MONTELUKAST SODIUM 10 MG TABLET NG SCH (21:47)
[2020-07-25] MEDS: LATANOPROST 0.005% OPH SOLN 2.5 ML OU SCH (21:47)
[2020-07-25] MEDS ORDERED: LORAZEPAM INJ 2 MG/1 ML VIAL IV PRN (22:09)
[2020-07-25] MEDS ORDERED: MORPHINE SULFATE 10 MG/ML INJ IV ONE (23:52)
[2020-07-25] MEDS ORDERED: MORPHINE SULFATE 10 MG/ML INJ ONE (23:57)
[2020-07-26] MEDS: HYDROMORPHONE HCL 30 MG/60 ML RTUINJ IV PRN ×2 (00:09→16:45)
[2020-07-26] MEDS: SUCRALFATE 1 GM TABLET PO SCH ×6 (00:10→23:49)
[2020-07-26] MEDS: HYDROCORTISONE SOD SUCCINATE INJ/PF 100 MG/2 ML SDV IV SCH ×3 (00:12→22:26)
[2020-07-26] MEDS: FAMOTIDINE INJ/PF 20 MG/2 ML SDV IV SCH ×3 (00:13→22:26)
[2020-07-26] MEDS: LATANOPROST 0.005% OPH SOLN 2.5 ML OU SCH ×2 (00:13→22:27)
[2020-07-26] MEDS: MONTELUKAST SODIUM 10 MG TABLET NG SCH ×2 (00:13→22:26)
[2020-07-26] MEDS: CEFAZOLIN 1 GM/D5W RTU 1 GM/50 ML RTUPB IV SCH ×4 (00:13→22:26)
[2020-07-26] MEDS: PAROXETINE HCL 20 MG TABLET NG SCH ×2 (00:34→22:25)
[2020-07-26] MEDS: INSULIN REG, HUMAN 100 UNIT/ML 3 ML VIAL (PYX) SUBCUT SCH ×4 (00:34→18:03)
[2020-07-26] MEDS ORDERED: MORPHINE SULFATE 10 MG/ML INJ IV PRN (02:53)
[2020-07-26] MEDS ORDERED: MORPHINE SULFATE 10 MG/ML INJ ONE (02:55)
[2020-07-26] MEDS: MORPHINE SULFATE 10 MG/ML INJ IV PRN (05:14)
[2020-07-26 06:32] LABS: MEAN CORPUSCULAR HEMOGLOBIN 30.8 pg (27.0-33.4); MEAN CORPUSCULAR HGB CONC 32.8 g/dL (32.0-36.0); MEAN CORPUSCULAR VOLUME 94 fl (80-97); PLATELET COUNT 192 10^3/uL (150-450); RED BLOOD COUNT 2.13 10^6/uL (3.72-5.28); WHITE BLOOD COUNT 6.7 10^3/uL (4.0-10.5)
[2020-07-26 06:35] LABS: BLOOD UREA NITROGEN 12 mg/dL (7-20); CALCIUM 7.3 mg/dL (8.4-10.2); CHLORIDE 98 mmol/L (98-107); GLUCOSE 98 mg/dL (75-110); HEMOGLOBIN 6.6 g/dL (12.0-15.5); POTASSIUM 3.4 mmol/L (3.6-5.0)
[2020-07-26 07:04] LABS: ANION GAP 5 (5-19); CARBON DIOXIDE 39 mmol/L (22-30)
--- NOTE | 2020-07-26 08:25 | RADIOLOGY REPORT (SQ) ---
EXAM DESCRIPTION: CHEST SINGLE VIEW IMAGES COMPLETED DATE/TIME: 07/26/2020 7:52 am REASON FOR STUDY: Check position of RIJ central line. COMPARISON: 07/25/2020. EXAM PARAMETERS: NUMBER OF VIEWS: One view. TECHNIQUE: Single frontal radiographic view of the chest acquired. RADIATION DOSE: NA LIMITATIONS: None. FINDINGS: LUNGS AND PLEURA: Diffuse bilateral airspace disease. MEDIASTINUM AND HILAR STRUCTURES: No masses. Contour normal. HEART AND VASCULAR STRUCTURES: Heart normal in size. Normal vasculature. BONES: No acute findings. HARDWARE: Tip of the central line is now at the level of the right clavicle, previously located lower in the chest. Stable endotracheal tube. The nasogastric tube has been removed. Hardware in the ce rvical spine. OTHER: No other significant finding. IMPRESSION: THE TIP OF THE CENTRAL LINE IS NOW AT THE LEVEL OF THE RIGHT CLAVICLE. OTHERWISE NO SIG NIFICANT CHANGE IN APPEARANCE OF THE CHEST. TECHNICAL DOCUMENTATION: JOB ID: [id number] 2010 [employer]- All Rights Reserved Reading location - IP/workstation name: [email or web address]
[2020-07-26] MEDS: IPRATROPIUM/ALBUTEROL 0.5-2.5 MG/3 ML AMPUL NEB SCH ×3 (08:42→20:31)
--- NOTE | 2020-07-26 09:12 | PDOC CRITICAL CARE PROG REPORT ---
General Date:: 07/26/20 ICU Day:: 10 Ventilator Day:: 10 Hospital Day:: 26 Resuscitation Status: Full Code Events in the past 12 to 24 Hours:: Spoken with family regarding aggressiveness of care. Review of systems relevant to events:: Neurological. Reason for ICU Addmission:: Need for intubation, neurologically damaged. - Medications: Medications reviewed and adjusted accordingly: Yes Vasopressors:: Levophed off this AM. Sedation:: None Physical Exam Vital Signs: Temp Pulse Resp BP Pulse Ox 98 F 83 24 H 124/65 98 07/26/20 05:02 07/26/20 08:42 07/26/20 08:42 07/26/20 07:26 07/26/20 08:42 Intake & Output 07/25/20 07/26/20 07/27/20 06:59 06:59 06:59 Intake Total 1126 521 Output Total 1435 1405 Balance -309 -884 Weight 67.7 kg 65 kg Weight/Height Weight 65 kg Height 5 ft 1 in General appearance: PRESENT: no acute distress, thin Head exam: PRESENT: atraumatic, normocephalic Eye exam: PRESENT: conjunctiva pink, EOMI, PERRLA. ABSENT: scleral icterus Ear exam: PRESENT: normal external ear exam Mouth exam: PRESENT: moist, tongue midline Respiratory exam: PRESENT: rhonchi, symmetrical, unlabored Cardiovascular exam: PRESENT: RRR. ABSENT: diastolic murmur, rubs, systolic murmur GI/Abdominal exam: PRESENT: normal bowel sounds, soft. ABSENT: distended, guarding, mass, organolmegaly, rebound, tenderness Rectal exam: PRESENT: deferred Gentrourinary exam: PRESENT: indwelling catheter Extremities exam: PRESENT: +1 edema Musculoskeletal exam: PRESENT: normal inspection Neurological exam: PRESENT: altered, other - She does not respond purposefully. Does not track consistently Skin exam: PRESENT: dry, intact, warm. ABSENT: cyanosis, rash Tubes/Lines: PRESENT: Endotracheal Tube, Nasogastic Tube Laboratory/Radiographs Laboratory Results: 07/26/20 05:20 07/26/20 05:20 07/25/20 07/25/20 07/26/20 08:50 09:19 05:20 WBC RBC Hgb Hct MCV MCH MCHC RDW Plt Count Carbonic Acid 2.13 H HCO3/H2CO3 Ratio 16:1 ABG pH 7.31 L ABG pCO2 70.8 H* ABG pO2 49.1 L ABG HCO3 34.6 H ABG O2 Saturation 79.3 L ABG Base Excess 6.9 FiO2 100% Sodium 141.6 Potassium 3.4 L Chloride 98 Carbon Dioxide 39 H Anion Gap 5 BUN 12 Creatinine 0.34 L Est GFR ( Amer) > 60 Glucose 98 Lactic Acid 1.1 Calcium 7.3 L 07/26/20 05:20 WBC 6.7 RBC 2.13 L Hgb 6.6 L Hct 20.0 L MCV 94 MCH 30.8 MCHC 32.8 RDW 15.0 H Plt Count 192 Carbonic Acid HCO3/H2CO3 Ratio ABG pH ABG pCO2 ABG pO2 ABG HCO3 ABG O2 Saturation ABG Base Excess FiO2 Sodium Potassium Chloride Carbon Dioxide Anion Gap BUN Creatinine Est GFR ( Amer) Glucose Lactic Acid Calcium 06/30/20 09:15 Troponin I < 0.012 NT-Pro-B Natriuret Pep 906 H Impressions: KUB X-Ray 07/16/20 21:44 IMPRESSION: Enteric tube tip in the stomach copyright 2011 [employer]- All Rights Reserved Chest X-Ray 07/26/20 00:00 IMPRESSION: THE TIP OF THE CENTRAL LINE IS NOW AT THE LEVEL OF THE RIGHT CLAVICLE. OTHERWISE NO SIGNIFICANT CHANGE IN APPEARANCE OF THE CHEST. All labs, radiographs, diagnostic studies and EKGs were personally reviewed: Yes In addition, reports of radiographic and diagnostic studies were read: Yes Assessment and Plan - Diagnosis (1) ARDS (adult respiratory distress syndrome) Is this a current diagnosis for this admission?: Yes Plan: Resolved (2) Acute respiratory disease due to COVID-19 virus Is this a current diagnosis for this admission?: No Plan: This has taken a toll on her survivability. Most recent test is negative. (3) Poor nutrition Is this a current diagnosis for this admission?: Yes Plan: On TF. (4) Schizoaffective disorder Qualifiers: Schizoaffective disorder type: bipolar Qualified Code(s): F25.0 - Schizoaffective disorder, bipolar type Is this a current diagnosis for this admission?: Yes Plan: On her home medications. Plan Summary: Family has been spoken to. Ideally they would withdraw but want to be sure there is no reasonable hope. Critical Time Critical Time (minutes): 35 Level of Care: ICU Anticipated discharge: Hospice Anticipated DC Timeframe: Other -: 1. The care of a critical patient is a dynamic process. This note is a inside technical sales representative synopsis but static in nature. The timeframe for treatments given in order is not necessarily the actual time these treatments may have been done. 2. This patient requires critical care secondary to ongoing requirements for therapy not offered or safe outside the critical care environment. Transfer to a lower level of care will result in altered life or limb morbidity and mortality. 3. Multidisciplinary rounds completed. 4. ABCDE bundle addressed.
[2020-07-26] MEDS ORDERED: CALCIUM GLUCONATE 1000 MG/10 ML INJ IV ONE (09:16)
[2020-07-26] MEDS: ENOXAPARIN SODIUM INJ 40 MG/0.4 ML DISP.SYRIN SUBCUT SCH (10:00)
[2020-07-26] MEDS: LEVETIRACETAM 1000 MG/NACL-ISO 1,000 MG/100 ML RTUPB IV SCH ×2 (10:30→22:25)
[2020-07-26] MEDS: CALCIUM GLUCONATE 1 GM/NS 50 ML RTU IV SCH ×2 (10:42→13:22)
[2020-07-26] MEDS: FLUTICASONE/UMECLIDIN/VILANTER 100-62.5-25 MCG/DOSE IH SCH (13:20)
[2020-07-26] MEDS: ZINC SULFATE 220 MG CAPSULE NG SCH (13:22)
[2020-07-26] MEDS ORDERED: POTASSIUM CHLORIDE 10 MEQ TABLET.ER PO ONE (14:07)
[2020-07-26] MEDS ORDERED: PHARMACY COMMUNICATION ORDER MC NR (14:15)
[2020-07-26] MEDS ORDERED: POTASSIUM CHLORIDE 20 MEQ PACKET NG ONE (15:00)
--- NOTE | 2020-07-26 15:29 | RADIOLOGY REPORT (SQ) ---
EXAM DESCRIPTION: KUB/ABDOMEN (SINGLE VIEW) IMAGES COMPLETED DATE/TIME: 07/26/2020 3:18 pm REASON FOR STUDY: Check Placement of NG Tube COMPARISON: 07/16/2020 NUMBER OF VIEWS: One view. TECHNIQUE: Supine radiographic image of the abdomen acquired. LIMITATIONS: None. FINDINGS: BOWEL GAS PATTERN: Normal bowel gas pattern. No dilated loops. CALCIFICATIONS: No suspicious calcifications. SOFT TISSUES: No gross mass or suggestion of organomegaly. HARDWARE: NG tube has its tip near the gastric antrum. BONES: No acute fracture. No worrisome bone lesions. OTHER: Chronic interstitial changes versus interstitial edema in the lungs. IMPRESSION: NG tube as described. Pulmonary findings as described. TECHNICAL DOCUMENTATION: JOB ID: [id number] 2010 [employer]- All Rights Reserved Reading location - IP/workstation name: [email or web address]
[2020-07-26 23:35] LABS: ARTERIAL BLOOD FIO2 50%; ARTERIAL BLOOD H2CO3 1.82 mmol/L (1.05-1.35); ARTERIAL BLOOD HCO3 36.9 mmol/L (20-24); ARTERIAL BLOOD PCO2 60.6 mmHg (35-45); ARTERIAL BLOOD PO2 93.6 mmHg (80-100); ARTERIAL BLOOD TOTAL CO2 38.8 mmol/L (21-25)
[2020-07-27] MEDS: INSULIN REG, HUMAN 100 UNIT/ML 3 ML VIAL (PYX) SUBCUT SCH ×4 (00:36→17:21)
[2020-07-27] MEDS: LORAZEPAM INJ 2 MG/1 ML VIAL IV PRN ×3 (01:31→17:21)
[2020-07-27] MEDS: SUCRALFATE 1 GM TABLET PO SCH ×3 (05:52→17:22)
[2020-07-27] MEDS: CEFAZOLIN 1 GM/D5W RTU 1 GM/50 ML RTUPB IV SCH ×3 (05:53→21:39)
[2020-07-27 06:07] LABS: HEMATOCRIT 20.5 % (36.0-47.0); MEAN CORPUSCULAR HEMOGLOBIN 30.7 pg (27.0-33.4); MEAN CORPUSCULAR HGB CONC 32.8 g/dL (32.0-36.0); MEAN CORPUSCULAR VOLUME 94 fl (80-97); PLATELET COUNT 236 10^3/uL (150-450); RED BLOOD COUNT 2.19 10^6/uL (3.72-5.28); RED CELL DISTRIBUTION WIDTH 15.2 % (11.5-14.0); WHITE BLOOD COUNT 6.4 10^3/uL (4.0-10.5)
[2020-07-27 06:09] LABS: HEMOGLOBIN 6.7 g/dL (12.0-15.5)
[2020-07-27] MEDS: IPRATROPIUM/ALBUTEROL 0.5-2.5 MG/3 ML AMPUL NEB SCH ×3 (08:20→20:04)
[2020-07-27] MEDS: MORPHINE SULFATE 10 MG/ML INJ IV PRN ×2 (09:55→20:35)
[2020-07-27] MEDS ORDERED: DEXMEDETOMIDINE IN 0.9 % NACL 400 MCG/100 ML RTUPB IV ONE (10:27)
[2020-07-27] MEDS: DEXMEDETOMIDINE IN 0.9 % NACL 400 MCG/100 ML RTUPB IV PRN ×2 (10:32→19:51)
[2020-07-27] MEDS: ENOXAPARIN SODIUM INJ 40 MG/0.4 ML DISP.SYRIN SUBCUT SCH (10:41)
[2020-07-27] MEDS: LEVETIRACETAM 1000 MG/NACL-ISO 1,000 MG/100 ML RTUPB IV SCH ×2 (10:41→22:34)
[2020-07-27] MEDS: FAMOTIDINE INJ/PF 20 MG/2 ML SDV IV SCH ×2 (10:42→21:39)
[2020-07-27] MEDS: ZINC SULFATE 220 MG CAPSULE NG SCH (10:42)
[2020-07-27] MEDS: HYDROCORTISONE SOD SUCCINATE INJ/PF 100 MG/2 ML SDV IV SCH ×2 (10:42→21:39)
[2020-07-27] MEDS: FLUTICASONE/UMECLIDIN/VILANTER 100-62.5-25 MCG/DOSE IH SCH (10:42)
--- NOTE | 2020-07-27 11:04 | PDOC CRITICAL CARE PROG REPORT ---
General Date:: 07/27/20 ICU Day:: 13 Ventilator Day:: 13 Hospital Day:: 27 Resuscitation Status: Full Code Events in the past 12 to 24 Hours:: She seems to be more awake. Has followed commands more consistently. Review of systems relevant to events:: Neurological, pulmonary Reason for ICU Addmission:: Need for intubation, neurologically damaged. - Medications: Medications reviewed and adjusted accordingly: Yes Vasopressors:: None Sedation:: Now on precedex. Physical Exam Vital Signs: Temp Pulse Resp BP Pulse Ox 98.5 F 77 24 H 147/65 H 99 07/27/20 08:49 07/27/20 08:20 07/27/20 08:20 07/27/20 08:09 07/27/20 08:20 Intake & Output 07/26/20 07/27/20 07/28/20 06:59 06:59 06:59 Intake Total 521 706 50 Output Total 1405 1150 15 Balance -884 -444 35 Weight 65 kg 64.9 kg Weight/Height Weight 64.9 kg Height 5 ft 1 in General appearance: PRESENT: mild distress, thin Head exam: PRESENT: atraumatic, normocephalic Eye exam: PRESENT: conjunctiva pink, EOMI, PERRLA. ABSENT: scleral icterus Ear exam: PRESENT: normal external ear exam Mouth exam: PRESENT: moist, tongue midline Respiratory exam: PRESENT: clear to auscultation sky. ABSENT: rales, rhonchi, wheezes Cardiovascular exam: PRESENT: RRR. ABSENT: diastolic murmur, rubs, systolic murmur GI/Abdominal exam: PRESENT: normal bowel sounds, soft. ABSENT: distended, guarding, mass, organolmegaly, rebound, tenderness Rectal exam: PRESENT: deferred Gentrourinary exam: PRESENT: indwelling catheter Extremities exam: PRESENT: full ROM. ABSENT: calf tenderness, clubbing, pedal edema Musculoskeletal exam: PRESENT: normal inspection Neurological exam: PRESENT: altered, awake Psychiatric exam: PRESENT: agitated Skin exam: PRESENT: dry, intact, warm. ABSENT: cyanosis, rash Tubes/Lines: PRESENT: Endotracheal Tube, Nasogastic Tube Laboratory/Radiographs Laboratory Results: 07/27/20 05:50 07/26/20 05:20 09/01/20 09/02/20 09/02/20 23:00 05:50 05:50 WBC 6.4 RBC 2.19 L Hgb 6.7 L Hct 20.5 L MCV 94 MCH 30.7 MCHC 32.8 RDW 15.2 H Plt Count 236 Carbonic Acid 1.82 H HCO3/H2CO3 Ratio 20:1 ABG pH 7.40 ABG pCO2 60.6 H ABG pO2 93.6 ABG HCO3 36.9 H ABG O2 Saturation 97.0 ABG Base Excess 11.0 FiO2 50% Calcium 8.2 L Ionized Calcium Gaby 07/27/20 05:57 WBC RBC Hgb Hct MCV MCH MCHC RDW Plt Count Carbonic Acid HCO3/H2CO3 Ratio ABG pH ABG pCO2 ABG pO2 ABG HCO3 ABG O2 Saturation ABG Base Excess FiO2 Calcium Ionized Calcium Gaby 1.14 06/30/20 09:15 Troponin I < 0.012 NT-Pro-B Natriuret Pep 906 H Impressions: Chest X-Ray 07/26/20 00:00 IMPRESSION: THE TIP OF THE CENTRAL LINE IS NOW AT THE LEVEL OF THE RIGHT CLAVICLE. OTHERWISE NO SIGNIFICANT CHANGE IN APPEARANCE OF THE CHEST. KUB X-Ray 07/26/20 14:06 IMPRESSION: NG tube as described. Pulmonary findings as described. All labs, radiographs, diagnostic studies and EKGs were personally reviewed: Yes In addition, reports of radiographic and diagnostic studies were read: Yes Assessment and Plan - Diagnosis (1) Acute respiratory disease due to COVID-19 virus Is this a current diagnosis for this admission?: No Plan: She has tested negative now. (2) Poor nutrition Is this a current diagnosis for this admission?: Yes Plan: Continue TF at goal (3) Schizoaffective disorder Qualifiers: Schizoaffective disorder type: bipolar Qualified Code(s): F25.0 - Schizoaffective disorder, bipolar type Is this a current diagnosis for this admission?: Yes Plan: Back on geodon IM due to inability to take PO. (4) Agitation Is this a current diagnosis for this admission?: Yes Plan: With being more awake she is now fighting the ventilator and required Precedex again for high RR and resultant dropping O2 saturations to 80s. Plan Summary: Contine to wean ventilaor, restart geodon IM. Still has MSSA in sputum. Hope to extubate soon. Critical Time Critical Time (minutes): 40 Level of Care: ICU Anticipated discharge: SNF Anticipated DC Timeframe: Other -: 1. The care of a critical patient is a dynamic process. This note is a enrollment eligibility representative synopsis but static in nature. The timeframe for treatments given in order is not necessarily the actual time these treatments may have been done. 2. This patient requires critical care secondary to ongoing requirements for therapy not offered or safe outside the critical care environment. Transfer to a lower level of care will result in altered life or limb morbidity and mortality. 3. Multidisciplinary rounds completed. 4. ABCDE bundle addressed.
[2020-07-27] MEDS: ZIPRASIDONE MESYLATE INJ/PF 20 MG SDV IM SCH (12:20)
[2020-07-27] MEDS: PAROXETINE HCL 20 MG TABLET NG SCH (21:39)
[2020-07-27] MEDS: MONTELUKAST SODIUM 10 MG TABLET NG SCH (21:39)
[2020-07-27] MEDS: LATANOPROST 0.005% OPH SOLN 2.5 ML OU SCH (21:40)
[2020-07-28] MEDS: SUCRALFATE 1 GM TABLET PO SCH ×2 (00:14→05:04)
[2020-07-28] MEDS: INSULIN REG, HUMAN 100 UNIT/ML 3 ML VIAL (PYX) SUBCUT SCH ×5 (00:14→23:56)
[2020-07-28] MEDS ORDERED: RINGERS SOLUTION,LACTATED 1,000 ML IV PRN (00:21)
[2020-07-28] MEDS: LORAZEPAM INJ 2 MG/1 ML VIAL IV PRN ×3 (01:53→19:51)
[2020-07-28] MEDS: MORPHINE SULFATE 10 MG/ML INJ IV PRN ×5 (03:10→20:29)
[2020-07-28] MEDS ORDERED: RINGERS SOLUTION,LACTATED 1,000 ML IV ONE (03:15)
[2020-07-28] MEDS: RINGERS SOLUTION,LACTATED 1,000 ML IV PRN ×3 (03:25→21:47)
[2020-07-28] MEDS: DEXMEDETOMIDINE IN 0.9 % NACL 400 MCG/100 ML RTUPB IV PRN ×3 (04:54→21:39)
[2020-07-28] MEDS: CEFAZOLIN 1 GM/D5W RTU 1 GM/50 ML RTUPB IV SCH (05:04)
[2020-07-28 06:07] LABS: ANION GAP 5 (5-19); BLOOD UREA NITROGEN 12 mg/dL (7-20); CALCIUM 8.1 mg/dL (8.4-10.2); CARBON DIOXIDE 37 mmol/L (22-30); CHLORIDE 95 mmol/L (98-107); GLUCOSE 197 mg/dL (75-110); POTASSIUM 3.7 mmol/L (3.6-5.0)
[2020-07-28] MEDS: IPRATROPIUM/ALBUTEROL 0.5-2.5 MG/3 ML AMPUL NEB SCH ×3 (07:48→20:35)
[2020-07-28] MEDS: ZINC SULFATE 220 MG CAPSULE NG SCH (10:13)
[2020-07-28] MEDS: LEVETIRACETAM 1000 MG/NACL-ISO 1,000 MG/100 ML RTUPB IV SCH (10:14)
[2020-07-28] MEDS: ZIPRASIDONE MESYLATE INJ/PF 20 MG SDV IM SCH (10:14)
[2020-07-28] MEDS: HYDROCORTISONE SOD SUCCINATE INJ/PF 100 MG/2 ML SDV IV SCH ×2 (10:14→21:37)
[2020-07-28] MEDS: FAMOTIDINE INJ/PF 20 MG/2 ML SDV IV SCH (10:14)
[2020-07-28] MEDS: ENOXAPARIN SODIUM INJ 40 MG/0.4 ML DISP.SYRIN SUBCUT SCH (10:15)
[2020-07-28] MEDS: FLUTICASONE/UMECLIDIN/VILANTER 100-62.5-25 MCG/DOSE IH SCH (10:15)
[2020-07-28] MEDS: EPOETIN ALFA-EPBX 10,000 UNIT/ML VIAL (NON-ESRD) SUBCUT SCH (10:15)
[2020-07-28] MEDS ORDERED: ACETAMINOPHEN SOLN 325 MG/10.15 ML UDCUP NG PRN (10:35)
--- NOTE | 2020-07-28 11:43 | PDOC CRITICAL CARE PROG REPORT ---
General Date:: 07/28/20 ICU Day:: 9 Ventilator Day:: 9 Resuscitation Status: Full Code Events in the past 12 to 24 Hours:: She has seemingly awakened to follow simple commands. Review of systems relevant to events:: Pulmonary, neurologic. Reason for ICU Addmission:: Need for intubation, neurologically damaged. - Medications: Medications reviewed and adjusted accordingly: Yes Vasopressors:: None Sedation:: Presedex. Physical Exam Vital Signs: Temp Pulse Resp BP Pulse Ox 98.8 F 63 35 H 131/58 H 97 07/28/20 09:12 07/28/20 10:00 07/28/20 10:16 07/28/20 10:16 07/28/20 11:24 Intake & Output 07/27/20 07/28/20 07/29/20 06:59 06:59 06:59 Intake Total 706 2383 Output Total 1150 510 65 Balance -444 1873 -65 Weight 64.9 kg 65.8 kg Weight/Height Weight 65.8 kg Height 5 ft 1 in General appearance: PRESENT: no acute distress, thin Head exam: PRESENT: atraumatic, normocephalic Eye exam: PRESENT: conjunctiva pink, EOMI, PERRLA. ABSENT: scleral icterus Ear exam: PRESENT: normal external ear exam Mouth exam: PRESENT: moist, tongue midline Respiratory exam: PRESENT: decreased breath sounds, tachypnea, unlabored Cardiovascular exam: PRESENT: RRR. ABSENT: diastolic murmur, rubs, systolic murmur GI/Abdominal exam: PRESENT: normal bowel sounds, soft. ABSENT: distended, guar ding, mass, organolmegaly, rebound, tenderness Rectal exam: PRESENT: deferred Gentrourinary exam: PRESENT: indwelling catheter Extremities exam: PRESENT: full ROM. ABSENT: calf tenderness, clubbing, pedal edema Musculoskeletal exam: PRESENT: normal inspection Neurological exam: PRESENT: other - Sedated but I have seen her follow simple commands yesterday. Skin exam: PRESENT: dry, intact, warm. ABSENT: cyanosis, rash Tubes/Lines: PRESENT: Endotracheal Tube, Central Line, Nasogastic Tube Laboratory/Radiographs Laboratory Results: 07/27/20 05:50 07/28/20 05:40 07/28/20 05:40 Sodium 136.8 L Potassium 3.7 Chloride 95 L Carbon Dioxide 37 H Anion Gap 5 BUN 12 Creatinine 0.38 L Est GFR ( Amer) > 60 Glucose 197 H Calcium 8.1 L 06/30/20 09:15 Troponin I < 0.012 NT-Pro-B Natriuret Pep 906 H Impressions: Chest X-Ray 07/26/20 00:00 IMPRESSION: THE TIP OF THE CENTRAL LINE IS NOW AT THE LEVEL OF THE RIGHT CLAVICLE. OTHERWISE NO SIGNIFICANT CHANGE IN APPEARANCE OF THE CHEST. KUB X-Ray 07/26/20 14:06 IMPRESSION: NG tube as described. Pulmonary findings as described. All labs, radiographs, diagnostic studies and EKGs were personally reviewed: Yes In addition, reports of radiographic and diagnostic studies were read: Yes Assessment and Plan - Diagnosis (1) Acute respiratory disease due to COVID-19 virus Is this a current diagnosis for this admission?: No Plan: Retest is negative. (2) Poor nutrition Is this a current diagnosis for this admission?: Yes Plan: Continue TF. Albumin low at 2.5. (3) Schizoaffective disorder Qualifiers: Schizoaffective disorder type: bipolar Qualified Code(s): F25.0 - Schizoaffective disorder, bipolar type Is this a current diagnosis for this admission?: Yes Plan: On her psych meds. (4) Agitation Is this a current diagnosis for this admission?: Yes Plan: This is the main reason for putting her back on Precedex. Plan Summary: Attempt PSV and weaning. As long as her HR and BP are stable, keep weaning. Critical Time Critical Time (minutes): 35 Level of Care: ICU Anticipated discharge: SNF Anticipated DC Timeframe: Other -: 1. The care of a critical patient is a dynamic process. This note is a r epresentative synopsis but static in nature. The timeframe for treatments given in order is not necessarily the actual time these treatments may have been done. 2. This patient requires critical care secondary to ongoing requirements for therapy not offered or safe outside the critical care environment. Transfer to a lower level of care will result in altered life or limb morbidity and mortali ty. 3. Multidisciplinary rounds completed. 4. ABCDE bundle addressed.
[2020-07-28] MEDS: SUCRALFATE 1 GM TABLET NG SCH ×3 (12:09→23:56)
[2020-07-28] MEDS: FAMOTIDINE 40 MG/5 ML SUSP 50 ML NG SCH (21:35)
[2020-07-28] MEDS: MONTELUKAST SODIUM 10 MG TABLET NG SCH (21:35)
[2020-07-28] MEDS: LATANOPROST 0.005% OPH SOLN 2.5 ML OU SCH (21:36)
[2020-07-28] MEDS: LEVETIRACETAM ORAL SOLN 500 MG/5 ML UDCUP NG SCH (21:36)
[2020-07-28] MEDS: PAROXETINE HCL 20 MG TABLET NG SCH (21:37)
[2020-07-29] MEDS: MORPHINE SULFATE 10 MG/ML INJ IV PRN ×5 (00:57→19:12)
[2020-07-29] MEDS: LORAZEPAM INJ 2 MG/1 ML VIAL IV PRN ×5 (02:11→23:14)
[2020-07-29] MEDS: DEXMEDETOMIDINE IN 0.9 % NACL 400 MCG/100 ML RTUPB IV PRN ×4 (02:20→18:37)
[2020-07-29] MEDS: INSULIN REG, HUMAN 100 UNIT/ML 3 ML VIAL (PYX) SUBCUT SCH ×3 (05:57→18:36)
[2020-07-29] MEDS: SUCRALFATE 1 GM TABLET NG SCH ×3 (05:57→18:36)
[2020-07-29] MEDS: IPRATROPIUM/ALBUTEROL 0.5-2.5 MG/3 ML AMPUL NEB SCH ×3 (07:41→20:04)
[2020-07-29] MEDS: RINGERS SOLUTION,LACTATED 1,000 ML IV PRN (08:14)
--- NOTE | 2020-07-29 08:24 | PDOC CRITICAL CARE PROG REPORT ---
General Date:: 07/29/20 ICU Day:: 13 Ventilator Day:: 13 Hospital Day:: 28 Resuscitation Status: Full Code Events in the past 12 to 24 Hours:: Weaned to PSV but became tachypnic. Review of systems relevant to events:: Pulmonary, neurological. Reason for ICU Addmission:: Need for intubation, neurologically damaged. - Medications: Medications reviewed and adjusted accordingly: Yes Vasopressors:: None Sedation:: Precedex Physical Exam Vital Signs: Temp Pulse Resp BP Pulse Ox 99.6 F 65 29 H 152/69 H 98 07/29/20 08:00 07/29/20 08:00 07/29/20 08:00 07/29/20 08:00 07/29/20 08:00 Intake & Output 07/28/20 07/29/20 07/30/20 06:59 06:59 06:59 Intake Total 2383 2941 1113 Output Total 510 2525 100 Balance 0207 657 7902 Weight 65.8 kg 69.3 kg Weight/Height Weight 69.3 kg Height 5 ft 1 in General appearance: PRESENT: no acute distress, thin Head exam: PRESENT: atraumatic, normocephalic Eye exam: PRESENT: conjunctiva pink, EOMI, PERRLA. ABSENT: scleral icterus Ear exam: PRESENT: normal external ear exam Mouth exam: PRESENT: moist, tongue midline Respiratory exam: PRESENT: clear to auscultation sky. ABSENT: rales, rhonchi, wheezes Cardiovascular exam: PRESENT: RRR. ABSENT: diastolic murmur, rubs, systolic murmur GI/Abdominal exam: PRESENT: normal bowel sounds, soft. ABSENT: distended, guarding, mass, organolmegaly, rebound, tenderness Rectal exam: PRESENT: deferred Gentrourinary exam: PRESENT: indwelling catheter Extremities exam: PRESENT: full ROM. ABSENT: calf tenderness, clubbing, pedal edema Musculoskeletal exam: PRESENT: normal inspection Neurological exam: PRESENT: altered, other - Sedated Skin exam: PRESENT: dry, intact, warm. ABSENT: cyanosis, rash Tubes/Lines: PRESENT: Endotracheal Tube, Nasogastic Tube Laboratory/Radiographs Laboratory Results: 07/27/20 05:50 07/28/20 05:40 06/30/20 09:15 Troponin I < 0.012 NT-Pro-B Natriuret Pep 906 H Impressions: Chest X-Ray 07/26/20 00:00 IMPRESSION: THE TIP OF THE CENTRAL LINE IS NOW AT THE LEVEL OF THE RIGHT CLAVICLE. OTHERWISE NO SIGNIFICANT CHANGE IN APPEARANCE OF THE CHEST. KUB X-Ray 07/26/20 14:06 IMPRESSION: NG tube as described. Pulmonary findings as described. All labs, radiographs, diagnostic studies and EKGs were personally reviewed: Yes In addition, reports of radiographic and diagnostic studies were read: Yes Assessment and Plan - Diagnosis (1) Acute respiratory disease due to COVID-19 virus Is this a current diagnosis for this admission?: No Plan: She has tested negative for COVID twice. (2) Poor nutrition Is this a current diagnosis for this admission?: Yes Plan: Continue TF. (3) Schizoaffective disorder Qualifiers: Schizoaffective disorder type: bipolar Qualified Code(s): F25.0 - Schizoaffective disorder, bipolar type Is this a current diagnosis for this admission?: Yes Plan: Keep on psych meds. (4) Agitation Is this a current diagnosis for this admission?: Yes Plan: She will need some sedation with Precedex. She right now, is too sedated and we need to lighten this. Plan Summary: Lighten sedation and wean vent as tolerated. Critical Time Critical Time (minutes): 35 Level of Care: ICU Anticipated discharge: SNF Anticipated DC Timeframe: Other -: 1. The care of a critical patient is a dynamic process. This note is a hotel services sales representative synopsis but static in nature. The timeframe for treatments given in order is not necessarily the actual time these treatments may have been done. 2. This patient requires critical care secondary to ongoing requirements for therapy not offered or safe outside the critical care environment. Transfer to a lower level of care will result in altered life or limb morbidity and mortality. 3. Multidisciplinary rounds completed. 4. ABCDE bundle addressed.
[2020-07-29] MEDS: ZIPRASIDONE MESYLATE INJ/PF 20 MG SDV IM SCH (09:50)
[2020-07-29] MEDS: ZINC SULFATE 220 MG CAPSULE NG SCH (09:51)
[2020-07-29] MEDS: LEVETIRACETAM ORAL SOLN 500 MG/5 ML UDCUP NG SCH ×2 (09:51→22:47)
[2020-07-29] MEDS: HYDROCORTISONE SOD SUCCINATE INJ/PF 100 MG/2 ML SDV IV SCH ×2 (09:51→22:48)
[2020-07-29] MEDS: FLUTICASONE/UMECLIDIN/VILANTER 100-62.5-25 MCG/DOSE IH SCH (09:52)
[2020-07-29] MEDS: FAMOTIDINE 40 MG/5 ML SUSP 50 ML NG SCH ×2 (09:52→22:48)
[2020-07-29] MEDS: ENOXAPARIN SODIUM INJ 40 MG/0.4 ML DISP.SYRIN SUBCUT SCH (09:53)
[2020-07-29] MEDS: EPOETIN ALFA-EPBX 10,000 UNIT/ML VIAL (NON-ESRD) SUBCUT SCH (10:25)
[2020-07-29] MEDS: MONTELUKAST SODIUM 10 MG TABLET NG SCH (22:47)
[2020-07-29] MEDS: PAROXETINE HCL 20 MG TABLET NG SCH (22:48)
[2020-07-29] MEDS: LATANOPROST 0.005% OPH SOLN 2.5 ML OU SCH (22:53)
[2020-07-30] MEDS: SUCRALFATE 1 GM TABLET NG SCH ×4 (00:04→17:45)
[2020-07-30] MEDS: INSULIN REG, HUMAN 100 UNIT/ML 3 ML VIAL (PYX) SUBCUT SCH ×4 (00:06→17:45)
[2020-07-30] MEDS: DEXMEDETOMIDINE IN 0.9 % NACL 400 MCG/100 ML RTUPB IV PRN ×6 (00:44→22:40)
[2020-07-30] MEDS: IPRATROPIUM/ALBUTEROL 0.5-2.5 MG/3 ML AMPUL NEB PRN (02:48)
[2020-07-30] MEDS: RINGERS SOLUTION,LACTATED 1,000 ML IV PRN ×2 (04:20→13:40)
[2020-07-30] MEDS: LORAZEPAM INJ 2 MG/1 ML VIAL IV PRN (04:27)
[2020-07-30 06:06] LABS: HEMATOCRIT 21.2 % (36.0-47.0); MEAN CORPUSCULAR HEMOGLOBIN 30.4 pg (27.0-33.4); MEAN CORPUSCULAR HGB CONC 33.4 g/dL (32.0-36.0); MEAN CORPUSCULAR VOLUME 91 fl (80-97); PLATELET COUNT 265 10^3/uL (150-450); RED BLOOD COUNT 2.32 10^6/uL (3.72-5.28); WHITE BLOOD COUNT 8.4 10^3/uL (4.0-10.5)
[2020-07-30 06:16] LABS: HEMOGLOBIN 7.1 g/dL (12.0-15.5)
[2020-07-30 06:27] LABS: BLOOD UREA NITROGEN 9 mg/dL (7-20); GLUCOSE 148 mg/dL (75-110); POTASSIUM 3.6 mmol/L (3.6-5.0)
[2020-07-30 06:34] LABS: ANION GAP 7 (5-19); CARBON DIOXIDE 35 mmol/L (22-30); CHLORIDE 94 mmol/L (98-107)
[2020-07-30] MEDS: MORPHINE SULFATE 10 MG/ML INJ IV PRN ×2 (07:07→20:15)
[2020-07-30] MEDS: IPRATROPIUM/ALBUTEROL 0.5-2.5 MG/3 ML AMPUL NEB SCH ×3 (08:11→20:12)
[2020-07-30] MEDS: ZINC SULFATE 220 MG CAPSULE NG SCH (09:02)
[2020-07-30] MEDS: LEVETIRACETAM ORAL SOLN 500 MG/5 ML UDCUP NG SCH ×2 (09:02→21:14)
[2020-07-30] MEDS: FAMOTIDINE 40 MG/5 ML SUSP 50 ML NG SCH ×2 (09:02→21:14)
[2020-07-30] MEDS: HYDROCORTISONE SOD SUCCINATE INJ/PF 100 MG/2 ML SDV IV SCH ×2 (09:03→21:14)
[2020-07-30] MEDS: ENOXAPARIN SODIUM INJ 40 MG/0.4 ML DISP.SYRIN SUBCUT SCH (09:03)
[2020-07-30] MEDS: FLUTICASONE/UMECLIDIN/VILANTER 100-62.5-25 MCG/DOSE IH SCH (09:04)
[2020-07-30] MEDS: ZIPRASIDONE MESYLATE INJ/PF 20 MG SDV IM SCH (09:04)
--- NOTE | 2020-07-30 09:17 | PDOC CRITICAL CARE PROG REPORT ---
General Date:: 07/30/20 ICU Day:: 14 Ventilator Day:: 14 Hospital Day:: 29 Resuscitation Status: Full Code Events in the past 12 to 24 Hours:: She has made some progress only to become agitated and take a step backwards in vent weaning Review of systems relevant to events:: Neurological, pulomonary. Reason for ICU Addmission:: Need for intubation, psychologically and neurologically fragile. - Medications: Medications reviewed and adjusted accordingly: Yes Vasopressors:: None Sedation:: Precedex Physical Exam Vital Signs: Temp Pulse Resp BP Pulse Ox 98.4 F 69 33 H 143/70 H 97 07/30/20 08:00 07/30/20 08:10 07/30/20 08:10 07/30/20 08:00 07/30/20 08:10 Intake & Output 07/29/20 07/30/20 07/31/20 06:59 06:59 06:59 Intake Total 2941 3708 Output Total 2525 2600 200 Balance 416 1108 -200 Weight 69.3 kg 68.9 kg Weight/Height Weight 68.9 kg Height 5 ft 1 in General appearance: PRESENT: no acute distress Head exam: PRESENT: atraumatic, normocephalic Eye exam: PRESENT: conjunctiva pink, EOMI, PERRLA. ABSENT: scleral icterus Ear exam: PRESENT: normal external ear exam Mouth exam: PRESENT: moist, tongue midline Respiratory exam: PRESENT: clear to auscultation sky, decreased breath sounds. ABSENT: rales, rhonchi, wheezes Cardiovascular exam: PRESENT: RRR. ABSENT: diastolic murmur, rubs, systolic murmur GI/Abdominal exam: PRESENT: normal bowel sounds, soft. ABSENT: distended, guarding, mass, organolmegaly, rebound, tenderness Rectal exam: PRESENT: deferred Gentrourinary exam: PRESENT: indwelling catheter Extremities exam: PRESENT: full ROM. ABSENT: calf tenderness, clubbing, pedal edema Musculoskeletal exam: PRESENT: normal inspection Neurological exam: PRESENT: altered Psychiatric exam: PRESENT: agitated - At times requiring more sedation Tubes/Lines: PRESENT: Endotracheal Tube, Central Line, Nasogastic Tube Laboratory/Radiographs Laboratory Results: 07/30/20 06:00 07/30/20 06:00 07/30/20 07/30/20 06:00 06:00 WBC 8.4 RBC 2.32 L Hgb 7.1 L Hct 21.2 L MCV 91 MCH 30.4 MCHC 33.4 RDW 15.0 H Plt Count 265 Sodium 136.0 L Potassium 3.6 Chloride 94 L Carbon Dioxide 35 H Anion Gap 7 BUN 9 Creatinine 0.25 L Est GFR ( Amer) > 60 Glucose 148 H Calcium 8.0 L 06/30/20 09:15 Troponin I < 0.012 NT-Pro-B Natriuret Pep 906 H Impressions: Chest X-Ray 07/26/20 00:00 IMPRESSION: THE TIP OF THE CENTRAL LINE IS NOW AT THE LEVEL OF THE RIGHT CLAVICLE. OTHERWISE NO SIGNIFICANT CHANGE IN APPEARANCE OF THE CHEST. KUB X-Ray 07/26/20 14:06 IMPRESSION: NG tube as described. Pulmonary findings as described. All labs, radiographs, diagnostic studies and EKGs were personally reviewed: Yes In addition, reports of radiographic and diagnostic studies were read: Yes Assessment and Plan - Diagnosis (1) Acute respiratory disease due to COVID-19 virus Is this a current diagnosis for this admission?: No Plan: Negative at this point. (2) Poor nutrition Is this a current diagnosis for this admission?: Yes Plan: Tube feeds at goal (3) Schizoaffective disorder Qualifiers: Schizoaffective disorder type: bipolar Qualified Code(s): F25.0 - S chizoaffective disorder, bipolar type Is this a current diagnosis for this admission?: Yes Plan: This has created some agitation requiring vent setting increases. (4) Agitation Is this a current diagnosis for this admission?: Yes Plan: Will increase ativan in an attempt to get her off vent. Plan Summary: Try to extubate soon with a higher dose of ativan. Critical Time Critical Time (minutes): 40 Level of Care: ICU Anticipated discharge: SNF Anticipated DC Timeframe: Other -: 1. The care of a critical patient is a dynamic process. This note is a hardware supplies sales representative synopsis but static in nature. The timeframe for treatments given in order is not necessarily the actual time these treatments may have been done. 2. This patient requires critical care secondary to ongoing requirements for therapy not offered or safe outside the critical care environment. Transfer to a lower level of care will result in altered life or limb morbidity and mortality. 3. Multidisciplinary rounds completed. 4. ABCDE bundle addressed.
[2020-07-30] MEDS: EPOETIN ALFA-EPBX 10,000 UNIT/ML VIAL (NON-ESRD) SUBCUT SCH (10:21)
[2020-07-30] MEDS: LINEZOLID 600 MG/300 ML RTUPB IV SCH ×2 (11:55→21:13)
[2020-07-30] MEDS: LORAZEPAM 1 MG TABLET PO PRN ×5 (13:31→22:27)
[2020-07-30] MEDS: MONTELUKAST SODIUM 10 MG TABLET NG SCH (21:14)
[2020-07-30] MEDS: PAROXETINE HCL 20 MG TABLET NG SCH (21:14)
[2020-07-30] MEDS: LATANOPROST 0.005% OPH SOLN 2.5 ML OU SCH (21:21)
[2020-07-31] MEDS: SUCRALFATE 1 GM TABLET NG SCH ×5 (00:15→23:52)
[2020-07-31] MEDS: INSULIN REG, HUMAN 100 UNIT/ML 3 ML VIAL (PYX) SUBCUT SCH ×5 (00:15→23:48)
[2020-07-31] MEDS: LORAZEPAM 1 MG TABLET PO PRN ×4 (01:16→20:40)
[2020-07-31] MEDS: MORPHINE SULFATE 10 MG/ML INJ IV PRN ×3 (01:16→18:09)
[2020-07-31] MEDS: RINGERS SOLUTION,LACTATED 1,000 ML IV PRN ×3 (01:23→22:04)
[2020-07-31] MEDS: DEXMEDETOMIDINE IN 0.9 % NACL 400 MCG/100 ML RTUPB IV PRN ×5 (03:45→21:49)
[2020-07-31 06:17] LABS: HEMATOCRIT 20.7 % (36.0-47.0); MEAN CORPUSCULAR HGB CONC 33.6 g/dL (32.0-36.0); MEAN CORPUSCULAR VOLUME 89 fl (80-97); PLATELET COUNT 300 10^3/uL (150-450); RED BLOOD COUNT 2.32 10^6/uL (3.72-5.28); RED CELL DISTRIBUTION WIDTH 15.2 % (11.5-14.0); WHITE BLOOD COUNT 8.9 10^3/uL (4.0-10.5)
[2020-07-31 06:31] LABS: BLOOD UREA NITROGEN 7 mg/dL (7-20); CHLORIDE 90 mmol/L (98-107); GLUCOSE 142 mg/dL (75-110)
[2020-07-31 06:49] LABS: ANION GAP 4 (5-19); CARBON DIOXIDE 42 mmol/L (22-30); POTASSIUM 2.7 mmol/L (3.6-5.0)
[2020-07-31] MEDS: IPRATROPIUM/ALBUTEROL 0.5-2.5 MG/3 ML AMPUL NEB SCH ×3 (08:24→20:25)
--- NOTE | 2020-07-31 08:44 | PDOC CRITICAL CARE PROG REPORT ---
General Date:: 07/31/20 ICU Day:: 15 Ventilator Day:: 15 Hospital Day:: 31 Resuscitation Status: Full Code Events in the past 12 to 24 Hours:: Patient has woken up to follow commands according to temporary staff accountant. Review of systems relevant to events:: Neurological, pulmonary. Reason for ICU Addmission:: Need for intubation, psychologically and neurologically fragile. - Medications: Medications reviewed and adjusted accordingly: Yes Vasopressors:: None. Sedation:: Precedex. Physical Exam Vital Signs: Temp Pulse Resp BP Pulse Ox 98 F 70 23 H 153/68 H 93 07/31/20 03:33 07/30/20 20:12 07/31/20 04:00 07/31/20 03:18 07/31/20 04:41 Intake & Output 07/30/20 07/31/20 08/01/20 06:59 06:59 06:59 Intake Total 3708 3605 82 Output Total 2600 6335 Balance 1108 -2730 82 Weight 68.9 kg 64.9 kg Weight/Height Weight 64.9 kg Height 5 ft 1 in General appearance: PRESENT: no acute distress Head exam: PRESENT: atraumatic, normocephalic Eye exam: PRESENT: conjunctiva pink, EOMI, PERRLA. ABSENT: scleral icterus Ear exam: PRESENT: normal external ear exam Respiratory exam: PRESENT: clear to auscultation sky. ABSENT: rales, rhonchi, wheezes Cardiovascular exam: PRESENT: RRR. ABSENT: diastolic murmur, rubs, systolic murmur GI/Abdominal exam: PRESENT: normal bowel sounds, soft. ABSENT: distended, guarding, mass, organolmegaly, rebound, tenderness Rectal exam: PRESENT: deferred Gentrourinary exam: PRESENT: indwelling catheter Extremities exam: PRESENT: full ROM. ABSENT: calf tenderness, clubbing, pedal edema Musculoskeletal exam: PRESENT: normal inspection Neurological exam: PRESENT: altered, awake, CN II-XII grossly intact, other - On occassion said to follow commands. Skin exam: PRESENT: dry, intact, warm. ABSENT: cyanosis, rash Tubes/Lines: PRESENT: Endotracheal Tube, Central Line, Nasogastic Tube Laboratory/Radiographs Laboratory Results: 07/31/20 05:50 07/31/20 05:50 07/31/20 07/31/20 05:50 05:50 WBC 8.9 RBC 2.32 L Hgb 7.0 L Hct 20.7 L MCV 89 MCH 30.0 MCHC 33.6 RDW 15.2 H Plt Count 300 Sodium 136.3 L Potassium 2.7 L* Chloride 90 L Carbon Dioxide 42 H* Anion Gap 4 L BUN 7 Creatinine 0.35 L Est GFR ( Amer) > 60 Glucose 142 H Calcium 8.0 L 06/30/20 09:15 Troponin I < 0.012 NT-Pro-B Natriuret Pep 906 H Impressions: Chest X-Ray 07/26/20 00:00 IMPRESSION: THE TIP OF THE CENTRAL LINE IS NOW AT THE LEVEL OF THE RIGHT CLAVICLE. OTHERWISE NO SIGNIFICANT CHANGE IN APPEARANCE OF THE CHEST. KUB X-Ray 07/26/20 14:06 IMPRESSION: NG tube as described. Pulmonary findings as described. All labs, radiographs, diagnostic studies and EKGs were personally reviewed: Yes In addition, reports of radiographic and diagnostic studies were read: Yes Assessment and Plan - Diagnosis (1) Acute respiratory disease due to COVID-19 virus Is this a current diagnosis for this admission?: No Plan: This is likely still having an effect in prolonging intubation. (2) Poor nutrition Is this a current diagnosis for this admission?: Yes Plan: Tube feeds at goal. (3) Schizoaffective disorder Qualifiers: Schizoaffective disorder type: bipolar Qualified Code(s): F25.0 - Schizoa ffective disorder, bipolar type Is this a current diagnosis for this admission?: Yes Plan: She seems to be responding some to ativan. (4) Agitation Is this a current diagnosis for this admission?: Yes Plan: This causes her to bump her respiratory rate into the 40s. Treated best with ativan. Plan Summary: At this point she has been on PSV with a PSV of 30. Now down to 25. Continue slow wean and extubate this week. Critical Time Critical Time (minutes): 35 Level of Care: ICU Anticipated discharge: SNF Anticipated DC Timeframe: Other -: 1. The care of a critical patient is a dynamic process. This note is a member service representative synopsis but static in nature. The timeframe for treatments given in order is not necessarily the actual time these treatments may have been done. 2. This patient requires critical care secondary to ongoing requirements for therapy not offered or safe outside the critical care environment. Transfer to a lower level of care will result in altered life or limb morbidity and mortality. 3. Multidisciplinary rounds completed. 4. ABCDE bundle addressed.
[2020-07-31] MEDS: LINEZOLID 600 MG/300 ML RTUPB IV SCH ×2 (10:47→21:50)
[2020-07-31] MEDS: EPOETIN ALFA-EPBX 10,000 UNIT/ML VIAL (NON-ESRD) SUBCUT SCH (10:49)
[2020-07-31] MEDS: ZIPRASIDONE MESYLATE INJ/PF 20 MG SDV IM SCH (10:49)
[2020-07-31] MEDS: HYDROCORTISONE SOD SUCCINATE INJ/PF 100 MG/2 ML SDV IV SCH ×2 (10:49→21:52)
[2020-07-31] MEDS: ZINC SULFATE 220 MG CAPSULE NG SCH (10:49)
[2020-07-31] MEDS: ENOXAPARIN SODIUM INJ 40 MG/0.4 ML DISP.SYRIN SUBCUT SCH (10:50)
[2020-07-31] MEDS: LEVETIRACETAM ORAL SOLN 500 MG/5 ML UDCUP NG SCH ×2 (10:50→21:54)
[2020-07-31] MEDS: FAMOTIDINE 40 MG/5 ML SUSP 50 ML NG SCH ×2 (10:52→21:57)
[2020-07-31] MEDS: FLUTICASONE/UMECLIDIN/VILANTER 100-62.5-25 MCG/DOSE IH SCH (10:53)
[2020-07-31] MEDS: POTASSIUM CHLORIDE 20 MEQ PACKET PO SCH ×2 (11:50→22:00)
[2020-07-31] MEDS: MONTELUKAST SODIUM 10 MG TABLET NG SCH (21:59)
[2020-07-31] MEDS: PAROXETINE HCL 20 MG TABLET NG SCH (21:59)
[2020-07-31] MEDS: LATANOPROST 0.005% OPH SOLN 2.5 ML OU SCH (22:04)
[2020-08-01] MEDS: MORPHINE SULFATE 10 MG/ML INJ IV PRN ×4 (01:38→23:14)
[2020-08-01] MEDS: DEXMEDETOMIDINE IN 0.9 % NACL 400 MCG/100 ML RTUPB IV PRN ×5 (02:42→23:35)
[2020-08-01 05:20] LABS: ANION GAP 8 (5-19); BLOOD UREA NITROGEN 8 mg/dL (7-20); CALCIUM 8.5 mg/dL (8.4-10.2); CARBON DIOXIDE 37 mmol/L (22-30); CHLORIDE 92 mmol/L (98-107); GLUCOSE 152 mg/dL (75-110); POTASSIUM 3.1 mmol/L (3.6-5.0)
[2020-08-01] MEDS: SUCRALFATE 1 GM TABLET NG SCH ×4 (06:08→23:15)
[2020-08-01] MEDS: INSULIN REG, HUMAN 100 UNIT/ML 3 ML VIAL (PYX) SUBCUT SCH ×4 (06:13→23:25)
[2020-08-01] MEDS: LORAZEPAM 1 MG TABLET PO PRN ×5 (06:16→21:54)
[2020-08-01] MEDS: RINGERS SOLUTION,LACTATED 1,000 ML IV PRN ×2 (07:47→21:45)
[2020-08-01] MEDS: IPRATROPIUM/ALBUTEROL 0.5-2.5 MG/3 ML AMPUL NEB SCH ×3 (08:24→20:32)
[2020-08-01 08:41] LABS: ARTERIAL BLOOD BASE EXCESS 13.8 mmol/L; ARTERIAL BLOOD H2CO3 1.74 mmol/L (1.05-1.35); ARTERIAL BLOOD HCO3 39.5 mmol/L (20-24); ARTERIAL BLOOD O2 SATURATION 96.2 % (94-98); ARTERIAL BLOOD PCO2 57.7 mmHg (35-45); ARTERIAL BLOOD PH 7.45 (7.35-7.45); ARTERIAL BLOOD PO2 81.6 mmHg (80-100); ARTERIAL BLOOD TOTAL CO2 41.2 mmol/L (21-25)
[2020-08-01 08:46] LABS: ARTERIAL BLOOD FIO2 35%
[2020-08-01] MEDS: LEVETIRACETAM ORAL SOLN 500 MG/5 ML UDCUP NG SCH ×2 (09:10→21:53)
[2020-08-01] MEDS: POTASSIUM CHLORIDE 20 MEQ PACKET PO SCH ×2 (09:10→21:54)
[2020-08-01] MEDS: ENOXAPARIN SODIUM INJ 40 MG/0.4 ML DISP.SYRIN SUBCUT SCH (09:10)
[2020-08-01] MEDS: ZIPRASIDONE MESYLATE INJ/PF 20 MG SDV IM SCH (09:11)
[2020-08-01] MEDS: HYDROCORTISONE SOD SUCCINATE INJ/PF 100 MG/2 ML SDV IV SCH (09:11)
[2020-08-01] MEDS: FLUTICASONE/UMECLIDIN/VILANTER 100-62.5-25 MCG/DOSE IH SCH (09:11)
[2020-08-01] MEDS: FAMOTIDINE 40 MG/5 ML SUSP 50 ML NG SCH ×2 (09:12→21:55)
[2020-08-01] MEDS: ZINC SULFATE 220 MG CAPSULE NG SCH (09:12)
--- NOTE | 2020-08-01 09:57 | Operative Report ---
Bedside Procedure - History of Present Illness History of Present Illness: This 64-year-old female was originally admitted on 06/30/2020 when she presented to the emergency department with complaints of dyspnea, fatigue, fever and chills. She had previously been tested for COVID and sent home on hydroxychloroquine, azithromycin and Pulmicort. She took her medications as prescribed; however, she returned with worsening fatigue, nausea, vomiting, diarrhea, dysgeusia and anosmia. She was noted to be hypoxic in the emergency department. She had multiple laboratory abnormalities consistent with COVID-19 case definitions. Indication for Procedure: frequent blood draw, administration of medications, assessment of volume Date: 07/15/20 Provider: JONO COLEMAN - Central Line Right Internal jugular Time completed: 09:56 Consent obtained: Yes Central line pre-insertion: Sterile PPE donned, Chloraprep applied Central line lumen type: Triple Anesthetic type: 1% Lidocaine - 5 mL's of anesthesia: 5 Ultrasound guided: Yes CM at insertion site: 18 Line secured with sutures: Yes Central line post-insertion: Blood return from lumens, Biopatch applied, Sutured, Sterile dressing applied, Position confirmed w/ CXR Number of attempts: 1 Complications: No
[2020-08-01] MEDS: LINEZOLID 600 MG/300 ML RTUPB IV SCH (10:28)
--- NOTE | 2020-08-01 10:36 | RADIOLOGY REPORT (SQ) ---
EXAM DESCRIPTION: CHEST SINGLE VIEW IMAGES COMPLETED DATE/TIME: 08/01/2020 10:07 am REASON FOR STUDY: central line insertion COMPARISON: 07/26/2020 FINDINGS: One view chest AP portable upright. Endotracheal and nasogastric tubes remain in place, appropriate. Right IJ line has been replaced with tip to the right atrium. No pneumothorax. Diffuse bilateral patchy mixed airspace and interstitial opacities are unchanged. TECHNICAL DOCUMENTATION: JOB ID: [id number] Reading location - IP/workstation name: [email or web address]
[2020-08-01] MEDS ORDERED: POTASSIUM CHLORIDE 20 MEQ PACKET NG ONE (12:30)
[2020-08-01] MEDS: POTASSI CL 20 MEQ/50 ML RIDER 20 MEQ/50 ML RTUPB IV SCH ×2 (12:42→14:01)
[2020-08-01 14:31] LABS: ARTERIAL BLOOD BASE EXCESS 12.9 mmol/L; ARTERIAL BLOOD H2CO3 1.59 mmol/L (1.05-1.35); ARTERIAL BLOOD HCO3 37.9 mmol/L (20-24); ARTERIAL BLOOD O2 SATURATION 96.3 % (94-98); ARTERIAL BLOOD PCO2 52.9 mmHg (35-45); ARTERIAL BLOOD PH 7.47 (7.35-7.45); ARTERIAL BLOOD PO2 80.7 mmHg (80-100); ARTERIAL BLOOD TOTAL CO2 39.5 mmol/L (21-25)
[2020-08-01 14:32] LABS: ARTERIAL BLOOD FIO2 35%
--- NOTE | 2020-08-01 17:49 | PDOC CRITICAL CARE PROG REPORT ---
General Date:: 08/01/20 ICU Day:: 16 Ventilator Day:: 16 Hospital Day:: 33 Resuscitation Status: Full Code Events in the past 12 to 24 Hours:: This 64-year-old female was originally admitted on 06/30/2020 when she presented to the emergency department with complaints of dyspnea, fatigue, fever and chills. She had previously been tested for COVID and sent home on hydroxychloroquine, azithromycin and Pulmicort. She took her medications as prescribed; however, she returned with worsening fatigue, nausea, vomiting, diarrhea, dysgeusia and anosmia. She was noted to be hypoxic in the emergency department. She had multiple laboratory abnormalities consistent with COVID-19 case definitions. She was originally seen by the critical care service on 07/07/2020 in consultation at the request of Dr. Dev Farris for recommendations on further evaluation and management of acute hypoxemic respiratory failure continue to COVID-19 pneumonia. She transferred to the ICU on 07/16/2020, when she had worsening respiratory status associated with altered mental status and hypercapnia. She was intubated at that time and has remained on mechanical ventilatory support. 12/01: Nursing staff reports that they have lost all peripheral IV access. They have been unsuccessful in reestablishing peripheral IVs. He remains intubated. She is off sedation (without IV access). She is awake. Follows commands. Tachypneic (respiratory rate 50s), anxious. She is on SIMV PRVC, FiO2 35%. Review of systems relevant to events:: Neurological, pulmonary. Reason for ICU Addmission:: Need for intubation, psychologically and neurologically fragile. - Medications: Medications reviewed and adjusted accordingly: Yes Sedation:: Off Precedex due to lack of IV access Physical Exam Vital Signs: Temp Pulse Resp BP Pulse Ox 98.4 F 86 26 H 144/70 H 98 08/01/20 03:38 07/31/20 20:25 08/01/20 06:18 08/01/20 06:18 08/01/20 06:18 Intake & Output 07/31/20 08/01/20 08/02/20 06:59 06:59 06:59 Intake Total 3605 3938 1181 Output Total 1605 4070 Balance -2730 -132 1181 Weight 64.9 kg 66.8 kg Weight/Height Weight 66.8 kg Height 1.55 m General appearance: PRESENT: well-developed, well-nourished Head exam: PRESENT: atraumatic, normocephalic Eye exam: PRESENT: conjunctiva pink, EOMI, PERRLA. ABSENT: scleral icterus Mouth exam: PRESENT: moist, tongue midline Neck exam: ABSENT: carotid bruit, JVD, lymphadenopathy, thyromegaly Respiratory exam: PRESENT: clear to auscultation sky, tachypnea. ABSENT: rales, rhonchi, wheezes Cardiovascular exam: PRESENT: RRR. ABSENT: diastolic murmur, rubs, systolic murmur Pulses: PRESENT: normal dorsalis pedis pul GI/Abdominal exam: PRESENT: normal bowel sounds, soft. ABSENT: distended, guarding, mass, organolmegaly, rebound, tenderness Gentrourinary exam: PRESENT: indwelling catheter Extremities exam: PRESENT: full ROM. ABSENT: calf tenderness, clubbing, pedal edema Musculoskeletal exam: PRESENT: normal inspection. ABSENT: deformity Neurological exam: PRESENT: alert, awake, reflexes normal, CN II-XII grossly intact. ABSENT: motor sensory deficit Psychiatric exam: PRESENT: agitated, anxious Skin exam: PRESENT: dry, intact, warm. ABSENT: cyanosis, rash Tubes/Lines: PRESENT: Endotracheal Tube Laboratory/Radiographs Laboratory Results: 07/31/20 05:50 08/01/20 04:33 08/01/20 08/01/20 04:33 08:35 Carbonic Acid 1.74 H HCO3/H2CO3 Ratio 22:1 ABG pH 7.45 ABG pCO2 57.7 H ABG pO2 81.6 ABG HCO3 39.5 H ABG O2 Saturation 96.2 ABG Base Excess 13.8 FiO2 35% Sodium 136.9 L Potassium 3.1 L Chloride 92 L Carbon Dioxide 37 H Anion Gap 8 BUN 8 Creatinine 0.40 L Est GFR ( Amer) > 60 Glucose 152 H Calcium 8.5 07/28/20 05:20 Lau Catheter Urine Culture - Final Pseudomonas Aeruginosa 07/28/20 05:25 Tracheal Aspirate Gram Stain - Final 07/28/20 05:25 Tracheal Aspirate Sputum Culture - Final Staphylococcus Aureus Enterobacter Cloacae Greatly Reduced Normal Marlyn 06/30/20 09:15 Troponin I < 0.012 NT-Pro-B Natriuret Pep 906 H Impressions: Chest X-Ray 07/26/20 00:00 IMPRESSION: THE TIP OF THE CENTRAL LINE IS NOW AT THE LEVEL OF THE RIGHT CLAVICLE. OTHERWISE NO SIGNIFICANT CHANGE IN APPEARANCE OF THE CHEST. KUB X-Ray 07/26/20 14:06 IMPRESSION: NG tube as described. Pulmonary findings as described. All labs, radiographs, diagnostic studies and EKGs were personally reviewed: Yes In addition, reports of radiographic and diagnostic studies were read: Yes Assessment and Plan - Diagnosis (1) Acute hypoxemic respiratory failure due to severe acute respiratory syndrome coronavirus 2 (SARS-CoV-2) disease Is this a current diagnosis for this admission?: Yes Plan: This patient will need dependable IV access. Insert central venous catheter. Restart Precedex. Pressure support trial as tolerated. (2) Normocytic anemia Is this a current diagnosis for this admission?: Yes (3) Patient is Judaism Is this a current diagnosis for this admission?: Yes (4) Bipolar disorder Qualifiers: Active/Remission status: remission status unspecified Qualified Code(s): F31.9 - Bipolar disorder, unspecified Is this a current diagnosis for this admission?: Yes Plan: Stop Solu-Cortef. Continue Keppra, Paxil and Geodon. Restart Aptiom, when possible. Stop Ativan. (5) Agitation Is this a current diagnosis for this admission?: Yes Plan: Stop Ativan. (6) Depression Qualifiers: Depression Type: unspecified Qualified Code(s): F32.9 - Major depressive disorder, single episode, unspecified Is this a current diagnosis for this admission?: Yes Plan: Continue Geodon, Paxil. Restart Aptiom (eslicarbazepine) when possible. Restart temazepam. (7) Asthma Qualifiers: Asthma severity: moderate Asthma persistence: unspecified Asthma complication type: uncomplicated Qualified Code(s): J45.909 - Unspecified asthma, uncomplicated Is this a current diagnosis for this admission?: Yes Plan: Albuterol/budesonide scheduled. Stop Solu-Cortef. Restart Singulair. (8) Hypokalemia Is this a current diagnosis for this admission?: Yes Plan: Potassium. Check magnesium level. (9) MSSA (methicillin susceptible Staphylococcus aureus) pneumonia Is this a current diagnosis for this admission?: Yes Plan: Stop linezolid. Start levofloxacin. This will provide coverage for MSSA, Enterobacter cloacae and Pseudomonas in the urine (10) Enterobacter cloacae pneumonia Is this a current diagnosis for this admission?: Yes (11) Pseudomonas urinary tract infection Is this a current diagnosis for this admission?: Yes Plan Summary: Son and daughter updated by phone. Critical Time Critical Time (minutes): 90 Level of Care: ICU -: 1. The care of a critical patient is a dynamic process. This note is a public health representative synopsis but static in nature. The timeframe for treatments given in order is not necessarily the actual time these treatments may have been done. 2. This patient requires critical care secondary to ongoing requirements for therapy not offered or safe outside the critical care environment. Transfer to a lower level of care will result in altered life or limb morbidity and mortality. 3. Multidisciplinary rounds completed. 4. ABCDE bundle addressed.
[2020-08-01] MEDS: LEVOFLOXACIN 750 MG/D5W RTU 750 MG/150 ML RTUPB IV SCH (18:09)
[2020-08-01] MEDS ORDERED: NORMAL SALINE INJ/PF 0.9% 10 ML SDV IV PRN (19:00)
[2020-08-01] MEDS ORDERED: EPOETIN ALFA-EPBX 3,000 UNIT/ML VIAL (NON-ESRD) SUBCUT ONE (19:00)
[2020-08-01] MEDS: BUDESONIDE NEB 0.25 MG/2 ML AMPUL NEB SCH (20:32)
[2020-08-01] MEDS ORDERED: EPOETIN ALFA-EPBX 10,000 UNIT/ML VIAL (NON-ESRD) ONE (21:22)
[2020-08-01] MEDS: PAROXETINE HCL 20 MG TABLET NG SCH (21:54)
[2020-08-01] MEDS: MONTELUKAST SODIUM 10 MG TABLET NG SCH (21:54)
[2020-08-01] MEDS: LATANOPROST 0.005% OPH SOLN 2.5 ML OU SCH (21:55)
[2020-08-02] MEDS ORDERED: FENTANYL CITRATE INJ/PF 100 MCG/2 ML AMPUL ONE (00:02)
[2020-08-02] MEDS ORDERED: LORAZEPAM INJ 2 MG/1 ML VIAL ONE (00:07)
[2020-08-02] MEDS ORDERED: LORAZEPAM 1 MG TABLET NG PRN (00:17)
[2020-08-02] MEDS ORDERED: FENTANYL CITRATE INJ/PF 100 MCG/2 ML AMPUL IV ONE (00:30)
[2020-08-02] MEDS: IPRATROPIUM/ALBUTEROL 0.5-2.5 MG/3 ML AMPUL NEB SCH ×4 (02:11→20:08)
[2020-08-02] MEDS ORDERED: LORAZEPAM INJ 2 MG/1 ML VIAL IV ONE (03:25)
[2020-08-02] MEDS: DEXMEDETOMIDINE IN 0.9 % NACL 400 MCG/100 ML RTUPB IV PRN ×3 (04:09→17:45)
[2020-08-02] MEDS: INSULIN REG, HUMAN 100 UNIT/ML 3 ML VIAL (PYX) SUBCUT SCH ×4 (05:37→23:41)
[2020-08-02] MEDS: SUCRALFATE 1 GM TABLET NG SCH ×4 (05:37→23:24)
[2020-08-02 05:43] LABS: ARTERIAL BLOOD BASE EXCESS 10.7 mmol/L; ARTERIAL BLOOD HCO3 35.4 mmol/L (20-24); ARTERIAL BLOOD O2 SATURATION 91.4 % (94-98); ARTERIAL BLOOD PCO2 49.9 mmHg (35-45); ARTERIAL BLOOD PH 7.47 (7.35-7.45); ARTERIAL BLOOD PO2 58.3 mmHg (80-100)
[2020-08-02 05:48] LABS: ARTERIAL BLOOD FIO2 35%
[2020-08-02 05:59] LABS: HEMATOCRIT 20.7 % (36.0-47.0); MEAN CORPUSCULAR HEMOGLOBIN 29.8 pg (27.0-33.4); MEAN CORPUSCULAR HGB CONC 32.6 g/dL (32.0-36.0); MEAN CORPUSCULAR VOLUME 91 fl (80-97); PLATELET COUNT 276 10^3/uL (150-450); RED BLOOD COUNT 2.27 10^6/uL (3.72-5.28); RED CELL DISTRIBUTION WIDTH 15.8 % (11.5-14.0); WHITE BLOOD COUNT 10.5 10^3/uL (4.0-10.5)
[2020-08-02 06:05] LABS: BLOOD UREA NITROGEN 5 mg/dL (7-20); CALCIUM 8.3 mg/dL (8.4-10.2); GLUCOSE 111 mg/dL (75-110); PHOSPHORUS 3.7 mg/dL (2.5-4.5)
[2020-08-02 06:25] LABS: CARBON DIOXIDE 37 mmol/L (22-30); CHLORIDE 95 mmol/L (98-107); POTASSIUM 4.6 mmol/L (3.6-5.0)
[2020-08-02 06:29] LABS: ANION GAP 4 (5-19)
[2020-08-02 06:35] LABS: ABSOLUTE LYMPHOCYTES# (MANUAL) 1.3 10^3/uL (0.5-4.7); ABSOLUTE MONOCYTES # (MANUAL) 0.4 10^3/uL (0.1-1.4); BAND NEUTROPHILS % (MANUAL) 1 % (3-5); BASOPHILS % (MANUAL) 0 % (0-2); EOSINOPHILS % (MANUAL) 1 % (0-6); LYMPHOCYTES % (MANUAL) 12 % (13-45); MONOCYTES % (MANUAL) 4 % (3-13); SEGMENTED NEUTROPHILS % (MAN) 82 % (42-78); TOTAL CELLS COUNTED 100
[2020-08-02 06:39] LABS: ANISOCYTOSIS SLIGHT; POIKILOCYTOSIS SLIGHT; TOXIC GRANULATION 1+
[2020-08-02 06:40] LABS: OVALOCYTES SLIGHT; PLATELET COMMENT ADEQUATE
[2020-08-02 06:42] LABS: HEMOGLOBIN 6.8 g/dL (12.0-15.5)
[2020-08-02] MEDS: RINGERS SOLUTION,LACTATED 1,000 ML IV PRN (08:00)
[2020-08-02] MEDS: BUDESONIDE NEB 0.25 MG/2 ML AMPUL NEB SCH ×2 (08:30→20:08)
[2020-08-02] MEDS: MAGNESIUM SULFATE/D5W 1 GM/100 ML RTUPB IV SCH ×2 (08:43→09:45)
--- NOTE | 2020-08-02 09:43 | RADIOLOGY REPORT (SQ) ---
EXAM DESCRIPTION: CHEST SINGLE VIEW IMAGES COMPLETED DATE/TIME: 08/02/2020 6:55 am REASON FOR STUDY: ETT tube COMPARISON: Previous day NUMBER OF VIEWS: One view. TECHNIQUE: Single frontal radiographic image of the chest acquired. LIMITATIONS: None. FINDINGS: LUNGS AND PLEURA: Diffuse bilateral airspace disease not significantly changed. No pneumo thorax. MEDIASTINUM AND HEART: Stable heart size and mediastinal structures. SUPPORT DEVICES: Appropriate location without change. BONY STRUCTURES: No acute findings. HARDWARE: None. OTHER: No other significant finding. IMPRESSION: STABLE APPEARANCE OF THE CHEST. SUPPORT DEVICES UNCHANGED. Reading location - IP/workstation name: [email or web address]
[2020-08-02] MEDS: ZIPRASIDONE MESYLATE INJ/PF 20 MG SDV IM SCH (10:18)
[2020-08-02] MEDS: ZINC SULFATE 220 MG CAPSULE NG SCH (10:19)
[2020-08-02] MEDS: ENOXAPARIN SODIUM INJ 40 MG/0.4 ML DISP.SYRIN SUBCUT SCH (10:23)
[2020-08-02] MEDS: POTASSIUM CHLORIDE 20 MEQ PACKET PO SCH ×2 (10:26→21:35)
[2020-08-02] MEDS: LEVETIRACETAM ORAL SOLN 500 MG/5 ML UDCUP NG SCH ×2 (10:26→21:35)
[2020-08-02] MEDS: FAMOTIDINE 40 MG/5 ML SUSP 50 ML NG SCH ×2 (10:28→21:35)
[2020-08-02] MEDS ORDERED: LORAZEPAM INJ 2 MG/1 ML VIAL IV PRN (10:51)
[2020-08-02] MEDS: FLUTICASONE/UMECLIDIN/VILANTER 100-62.5-25 MCG/DOSE IH SCH (11:06)
[2020-08-02 13:25] LABS: ARTERIAL BLOOD BASE EXCESS 10.4 mmol/L; ARTERIAL BLOOD H2CO3 1.66 mmol/L (1.05-1.35); ARTERIAL BLOOD HCO3 35.9 mmol/L (20-24); ARTERIAL BLOOD O2 SATURATION 92.4 % (94-98); ARTERIAL BLOOD PH 7.43 (7.35-7.45); ARTERIAL BLOOD PO2 63.4 mmHg (80-100); ARTERIAL BLOOD TOTAL CO2 37.5 mmol/L (21-25)
[2020-08-02 13:26] LABS: ARTERIAL BLOOD FIO2 35%
[2020-08-02] MEDS: LORAZEPAM INJ 2 MG/1 ML VIAL IV PRN ×3 (14:57→21:36)
[2020-08-02 16:33] LABS: ARTERIAL BLOOD BASE EXCESS 10.6 mmol/L; ARTERIAL BLOOD HCO3 35.8 mmol/L (20-24); ARTERIAL BLOOD PH 7.45 (7.35-7.45); ARTERIAL BLOOD PO2 64.4 mmHg (80-100); ARTERIAL BLOOD TOTAL CO2 37.5 mmol/L (21-25)
[2020-08-02 16:35] LABS: ARTERIAL BLOOD FIO2 35%
--- NOTE | 2020-08-02 17:37 | PDOC CRITICAL CARE PROG REPORT ---
General Date:: 08/02/20 ICU Day:: 17 Ventilator Day:: 17 Hospital Day:: 34 Resuscitation Status: Full Code Events in the past 12 to 24 Hours:: This 64-year-old female was originally admitted on 06/30/2020 when she presented to the emergency department with complaints of dyspnea, fatigue, fever and chills. She had previously been tested for COVID and sent home on hydroxychloroquine, azithromycin and Pulmicort. She took her medications as prescribed; however, she returned with worsening fatigue, nausea, vomiting, diarrhea, dysgeusia and anosmia. She was noted to be hypoxic in the emergency department. She had multiple laboratory abnormalities consistent with COVID-19 case definitions. She was originally seen by the critical care service on 07/07/2020 in consultation at the request of Dr. Dev Farris for recommendations on further evaluation and management of acute hypoxemic respiratory failure continue to COVID-19 pneumonia. She transferred to the ICU on 07/16/2020, when she had worsening respiratory status associated with altered mental status and hypercapnia. She was intubated at that time and has remained on mechanical ventilatory support. 08/01: Nursing staff reports that they have lost all peripheral IV access. They have been unsuccessful in reestablishing peripheral IVs. He remains intubated. She is off sedation (without IV access). She is awake. Follows commands. Tachypneic (respiratory rate 50s), anxious. She is on SIMV PRVC, FiO2 35%. 08/02: Patient remains intubated. She is quite anxious. On Precedex. On FiO2 35%. Demonstrates tachypnea, irrespective of ventilator mode. However, with sufficient sedation, she demonstrates very normal-appearing respiratory mechani cs and rate. Started on Levaquin yesterday for MSSA and E cloacae in the sputum along with Pseudomonas in the urine. Review of systems relevant to events:: Neurological, pulmonary. Reason for ICU Addmission:: Need for intubation, psychologically and neurologically fragile. - Medications: Medications reviewed and adjusted accordingly: Yes Vasopressors:: Precedex. Physical Exam Vital Signs: Temp Pulse Resp BP Pulse Ox 98.4 F 85 20 127/55 H 98 08/02/20 08:00 08/02/20 08:00 08/02/20 08:00 08/02/20 08:00 08/02/20 08:00 Intake & Output 08/01/20 08/02/20 08/03/20 06:59 06:59 06:59 Intake Total 3934 3729 1153 Output Total 4071 6470 300 Balance -132 -421 853 Weight 66.8 kg 67.1 kg Weight/Height Weight 67.1 kg Height 1.55 m General appearance: PRESENT: no acute distress, well-developed, well-nourished Head exam: PRESENT: atraumatic, normocephalic Eye exam: PRESENT: conjunctiva pink, EOMI, PERRLA. ABSENT: scleral icterus Mouth exam: PRESENT: moist, tongue midline Neck exam: ABSENT: carotid bruit, JVD, lymphadenopathy, thyromegaly Respiratory exam: PRESENT: clear to auscultation sky. ABSENT: rales, rhonchi, wheezes Cardiovascular exam: PRESENT: RRR. ABSENT: diastolic murmur, rubs, systolic murmur Pulses: PRESENT: normal dorsalis pedis pul GI/Abdominal exam: PRESENT: normal bowel sounds, soft. ABSENT: distended, guarding, mass, organolmegaly, rebound, tenderness Gentrourinary exam: PRESENT: indwelling catheter Extremities exam: PRESENT: full ROM. ABSENT: calf tenderness, clubbing, pedal edema Neurological exam: PRESENT: alert, awake, reflexes normal, CN II-XII grossly intact. ABSENT: motor sensory deficit Psychiatric exam: PRESENT: agitated, anxious Skin exam: PRESENT: dry, intact, warm. ABSENT: cyanosis, rash Tubes/Lines: PRESENT: Endotracheal Tube Laboratory/Radiographs Laboratory Results: 08/02/20 05:15 08/02/20 05:15 08/01/20 08/01/20 08/02/20 14:18 18:00 05:15 WBC RBC Hgb Hct MCV MCH MCHC RDW Plt Count Seg Neutrophils % Carbonic Acid 1.59 H 1.50 H HCO3/H2CO3 Ratio 23:1 23:1 ABG pH 7.47 H 7.47 H ABG pCO2 52.9 H 49.9 H ABG pO2 80.7 58.3 L ABG HCO3 37.9 H 35.4 H ABG O2 Saturation 96.3 91.4 L ABG Base Excess 12.9 10.7 FiO2 35% 35% Sodium Potassium 3.7 Chloride Carbon Dioxide Anion Gap BUN Creatinine Est GFR ( Amer) Glucose Calcium Phosphorus Magnesium 08/02/20 08/02/20 05:15 05:15 WBC 10.5 RBC 2.27 L Hgb 6.8 L Hct 20.7 L MCV 91 MCH 29.8 MCHC 32.6 RDW 15.8 H Plt Count 276 Seg Neutrophils % Not Reportable Carbonic Acid HCO3/H2CO3 Ratio ABG pH ABG pCO2 ABG pO2 ABG HCO3 ABG O2 Saturation ABG Base Excess FiO2 Sodium 135.6 L Potassium 4.6 Chloride 95 L Carbon Dioxide 37 H Anion Gap 4 L BUN 5 L Creatinine 0.40 L Est GFR ( Amer) > 60 Glucose 111 H Calcium 8.3 L Phosphorus 3.7 Magnesium 1.8 07/28/20 07:20 Blood Blood Culture - Final NO GROWTH IN 5 DAYS 07/28/20 05:40 Blood Blood Culture - Final NO GROWTH IN 5 DAYS 06/30/20 08/02/20 09:15 05:15 Troponin I < 0.012 NT-Pro-B Natriuret Pep 906 H 763 H Impressions: KUB X-Ray 07/26/20 14:06 IMPRESSION: NG tube as described. Pulmonary findings as described. Chest X-Ray 08/02/20 05:00 IMPRESSION: STABLE APPEARANCE OF THE CHEST. SUPPORT DEVICES UNCHANGED. All labs, radiographs, diagnostic studies and EKGs were personally reviewed: Yes In addition, reports of radiographic and diagnostic studies were read: Yes Assessment and Plan - Diagnosis (1) Acute hypoxemic respiratory failure due to severe acute respiratory syndrome coronavirus 2 (SARS-CoV-2) disease Is this a current diagnosis for this admission?: Yes Plan: Continue pressure support trial. Given her complicated psychiatric history, I suspect that the patient will benefit from remaining on Precedex infusion at the time of extubation. (2) Normocytic anemia Is this a current diagnosis for this admission?: Yes (3) Patient is [place] Is this a current diagnosis for this admission?: Yes (4) Bipolar disorder Qualifiers: Active/Remission status: remission status unspecified Qualified Code(s): F31.9 - Bipolar disorder, unspecified Is this a current diagnosis for this admission?: Yes Plan: Stop Solu-Cortef. Continue Keppra, Paxil and Geodon. Restart Aptiom, when possible. Restart Ativan as needed. (5) Agitation Is this a current diagnosis for this admission?: Yes (6) Depression Qualifiers: Depression Type: unspecified Qualified Code(s): F32.9 - Major depressive disorder, single episode, unspecified Is this a current diagnosis for this admission?: Yes (7) Asthma Qualifiers: Asthma severity: moderate Asthma persistence: unspecified Asthma complication type: uncomplicated Qualified Code(s): J45.909 - Unspecified asthma, uncomplicated Is this a current diagnosis for this admission?: Yes Plan: Albuterol/budesonide scheduled. Continue Singulair. (8) Hypokalemia Is this a current diagnosis for this admission?: Yes (9) MSSA (methicillin susceptible Staphylococcus aureus) pneumonia Is this a current diagnosis for this admission?: Yes Plan: Stop linezolid. Continue Levaquin for MSSA, Enterobacter cloacae in tracheal aspirate and Pseudomonas in the urine (10) Enterobacter cloacae pneumonia Is this a current diagnosis for this admission?: Yes (11) Pseudomonas urinary tract infection Is this a current diagnosis for this admission?: Yes Critical Time Critical Time (minutes): 90 Level of Care: ICU -: 1. The care of a critical patient is a dynamic process. This note is a outreach representative synopsis but static in nature. The timeframe for treatments given in order is not necessarily the actual time these treatments may have been done. 2. This patient requires critical care secondary to ongoing requirements for therapy not offered or safe outside the critical care environment. Transfer to a lower level of care will result in altered life or limb morbidity and mortality. 3. Multidisciplinary rounds completed. 4. ABCDE bundle addressed.
[2020-08-02] MEDS ORDERED: MORPHINE SULFATE 10 MG/ML INJ IV ONE (17:41)
[2020-08-02] MEDS: LEVOFLOXACIN 750 MG/D5W RTU 750 MG/150 ML RTUPB IV SCH (18:09)
[2020-08-02] MEDS: LATANOPROST 0.005% OPH SOLN 2.5 ML OU SCH (21:35)
[2020-08-02] MEDS: MONTELUKAST SODIUM 10 MG TABLET NG SCH (21:35)
[2020-08-02] MEDS: PAROXETINE HCL 20 MG TABLET NG SCH (21:35)
[2020-08-03] MEDS ORDERED: LORAZEPAM INJ 2 MG/1 ML VIAL IV ONE ×3 (01:15→23:59)
[2020-08-03] MEDS ORDERED: LEVETIRACETAM 1000 MG/NACL-ISO 1,000 MG/100 ML RTUPB IV ONE (01:45)
[2020-08-03] MEDS: DEXMEDETOMIDINE IN 0.9 % NACL 400 MCG/100 ML RTUPB IV PRN ×2 (01:51→09:28)
[2020-08-03] MEDS: DEXTROSE 5%-1/2 NORMAL SALINE 1,000 ML IV PRN (02:04)
[2020-08-03] MEDS: IPRATROPIUM/ALBUTEROL 0.5-2.5 MG/3 ML AMPUL NEB SCH ×4 (02:11→20:27)
[2020-08-03 04:50] LABS: ARTERIAL BLOOD BASE EXCESS 8.2 mmol/L; ARTERIAL BLOOD HCO3 33.3 mmol/L (20-24); ARTERIAL BLOOD PCO2 49.7 mmHg (35-45); ARTERIAL BLOOD PH 7.44 (7.35-7.45); ARTERIAL BLOOD PO2 72.6 mmHg (80-100); ARTERIAL BLOOD TOTAL CO2 34.8 mmol/L (21-25)
[2020-08-03 04:51] LABS: ARTERIAL BLOOD FIO2 40%
[2020-08-03 04:53] LABS: HEMATOCRIT 20.6 % (36.0-47.0); MEAN CORPUSCULAR HEMOGLOBIN 29.7 pg (27.0-33.4); MEAN CORPUSCULAR HGB CONC 32.5 g/dL (32.0-36.0); MEAN CORPUSCULAR VOLUME 91 fl (80-97); PLATELET COUNT 287 10^3/uL (150-450); RED BLOOD COUNT 2.26 10^6/uL (3.72-5.28); RED CELL DISTRIBUTION WIDTH 16.6 % (11.5-14.0); WHITE BLOOD COUNT 8.6 10^3/uL (4.0-10.5)
[2020-08-03 04:55] LABS: HEMOGLOBIN 6.7 g/dL (12.0-15.5)
[2020-08-03] MEDS: SUCRALFATE 1 GM TABLET NG SCH ×3 (05:03→17:10)
[2020-08-03 05:44] LABS: BLOOD UREA NITROGEN 7 mg/dL (7-20); CARBON DIOXIDE 37 mmol/L (22-30); GLUCOSE 131 mg/dL (75-110); PHOSPHORUS 4.2 mg/dL (2.5-4.5)
[2020-08-03 05:49] LABS: ANION GAP 5 (5-19); CHLORIDE 99 mmol/L (98-107)
[2020-08-03 05:53] LABS: POTASSIUM 3.5 mmol/L (3.6-5.0)
[2020-08-03] MEDS: INSULIN REG, HUMAN 100 UNIT/ML 3 ML VIAL (PYX) SUBCUT SCH ×3 (06:08→18:06)
[2020-08-03] MEDS: LORAZEPAM INJ 2 MG/1 ML VIAL IV PRN ×3 (07:42→21:52)
[2020-08-03] MEDS: BUDESONIDE NEB 0.25 MG/2 ML AMPUL NEB SCH ×2 (08:03→20:27)
--- NOTE | 2020-08-03 08:24 | RADIOLOGY REPORT (SQ) ---
EXAM DESCRIPTION: CHEST SINGLE VIEW IMAGES COMPLETED DATE/TIME: 08/03/2020 7:02 am REASON FOR STUDY: high oxygen requirement , s/p extubation COMPARISON: AP view of the chest from 08/02/2020. EXAM PARAMETERS: NUMBER OF VIEWS: One view. TECHNIQUE: An AP view of the chest was obtained. RADIATION DOSE: NA LIMITATIONS: None. FINDINGS: LUNGS AND PLEURA: Stable appearance of the lungs and pleura. MEDIASTINUM AND HILAR STRUCTURES: Stable mediastinal and hilar contours. HEART AND VASCULAR STRUCTURES: Stable cardiac silhouette. BONES: No acute findings. HARDWARE: The endotracheal tube and enteric tube are no longer in place. The right IJ central venous catheter remains in place and its tip projects within the right atrium. OTHER: ACDF hardware. IMPRESSION: Status post extubation and removal of the enteric tube. Otherwise unchanged radiographi c appearance of the chest. TECHNICAL DOCUMENTATION: JOB ID: [id number] [email or web address]- All Rights Reserved Reading location - IP/workstation name: [email or web address]
[2020-08-03] MEDS: ZIPRASIDONE MESYLATE INJ/PF 20 MG SDV IM SCH (09:29)
[2020-08-03] MEDS: POTASSI CL 20 MEQ/50 ML RIDER 20 MEQ/50 ML RTUPB IV SCH ×2 (09:29→11:30)
[2020-08-03] MEDS: ENOXAPARIN SODIUM INJ 40 MG/0.4 ML DISP.SYRIN SUBCUT SCH (09:29)
[2020-08-03] MEDS: LEVETIRACETAM 1000 MG/NACL-ISO 1,000 MG/100 ML RTUPB IV SCH ×2 (09:59→22:27)
[2020-08-03] MEDS: POTASSIUM CHLORIDE 20 MEQ PACKET PO SCH ×2 (10:49→23:09)
[2020-08-03] MEDS: FAMOTIDINE 40 MG/5 ML SUSP 50 ML NG SCH ×2 (11:52→23:09)
[2020-08-03] MEDS: ZINC SULFATE 220 MG CAPSULE NG SCH (11:53)
[2020-08-03] MEDS ORDERED: DEXTROSE 10%-WATER 1,000 ML IV PRN (12:02)
[2020-08-03] MEDS: FLUTICASONE/UMECLIDIN/VILANTER 100-62.5-25 MCG/DOSE IH SCH (13:02)
[2020-08-03 13:04] LABS: HEMATOCRIT 20.8 % (36.0-47.0); MEAN CORPUSCULAR HEMOGLOBIN 29.8 pg (27.0-33.4); MEAN CORPUSCULAR HGB CONC 32.7 g/dL (32.0-36.0); MEAN CORPUSCULAR VOLUME 91 fl (80-97); PLATELET COUNT 257 10^3/uL (150-450); RED BLOOD COUNT 2.29 10^6/uL (3.72-5.28); RED CELL DISTRIBUTION WIDTH 16.5 % (11.5-14.0)
[2020-08-03 13:07] LABS: HEMOGLOBIN 6.8 g/dL (12.0-15.5)
[2020-08-03 13:08] LABS: INTERNATIONAL RATION (INR) 1.17; PROTHROMBIN TIME 15.1 SEC (11.4-15.4)
[2020-08-03] MEDS ORDERED: INSULIN REG, HUMAN 100 UNIT/ML 3 ML VIAL SUBCUT SCH (18:00)
[2020-08-03] MEDS: EPOETIN ALFA-EPBX 3,000 UNIT/ML VIAL (NON-ESRD) SUBCUT SCH (18:06)
[2020-08-03] MEDS: AMINO ACIDS 5 %/DEXTROSE 20 % 1,000 ML IV PRN (18:45)
--- NOTE | 2020-08-03 19:51 | PDOC CRITICAL CARE PROG REPORT ---
General Date:: 08/03/20 ICU Day:: 18 Hospital Day:: 35 Resuscitation Status: Full Code Events in the past 12 to 24 Hours:: This 64-year-old female was originally admitted on 06/30/2020 when she presented to the emergency department with complaints of dyspnea, fatigue, fever and chills. She had previously been tested for COVID and sent home on hydroxychloroquine, azithromycin and Pulmicort. She took her medications as prescribed; however, she returned with worsening fatigue, nausea, vomiting, diarrhea, dysgeusia and anosmia. She was noted to be hypoxic in the emergency department. She had multiple laboratory abnormalities consistent with COVID-19 case definitions. She was originally seen by the critical care service on 07/07/2020 in consultation at the request of Dr. Dev Farris for recommendations on further evaluation and management of acute hypoxemic respiratory failure continue to COVID-19 pneumonia. She transferred to the ICU on 07/16/2020, when she had worsening respiratory status associated with altered mental status and hypercapnia. She was intubated at that time and has remained on mechanical ventilatory support. 08/01: Nursing staff reports that they have lost all peripheral IV access. They have been unsuccessful in reestablishing peripheral IVs. He remains intubated. She is off sedation (without IV access). She is awake. Follows commands. Tachypneic (respiratory rate 50s), anxious. She is on SIMV PRVC, FiO2 35%. 08/02: Patient remains intubated. She is quite anxious. On Precedex. On FiO2 35 %. Demonstrates tachypnea, irrespective of ventilator mode. However, with sufficient sedation, she demonstrates very normal-appearing respiratory mechanics and rate. Started on Levaquin yesterday for MSSA and E cloacae in the sputum along with Pseudomonas in the urine. 08/03: Successfully extubated to high flow nasal cannula yesterday. She is cu rrently on FiO2 40%, 25 LPM. She remains quite anxious. Of note, her hemodynamic parameters and respiratory status have not changed despite liberation from mechanical ventilatory support. Demonstrates strong cough. Interactive. Worse. Hemoglobin 6.7. Review of systems relevant to events:: Neurological, pulmonary. Reason for ICU Addmission:: Need for intubation, psychologically and neurologically fragile. - Medications: Medications reviewed and adjusted accordingly: Yes Sedation:: Precedex Physical Exam Vital Signs: Temp Pulse Resp BP Pulse Ox 98.4 F 94 25 H 115/56 L 100 08/03/20 12:00 08/03/20 08:03 08/03/20 12:00 08/03/20 11:50 08/03/20 12:00 Intake & Output 08/02/20 08/03/20 08/04/20 06:59 06:59 06:59 Intake Total 3727 8321 1263 Output Total 4157 4105 800 Balance -421 -0460 463 Weight 67.1 kg 63.9 kg Weight/Height Weight 63.9 kg Height 1.55 m General appearance: PRESENT: mild distress, thin, well-developed Head exam: PRESENT: atraumatic, normocephalic Mouth exam: PRESENT: dry mucosa, tongue midline Respiratory exam: PRESENT: rales, rhonchi. ABSENT: prolonged expiratory phas, wheezes Cardiovascular exam: PRESENT: RRR. ABSENT: diastolic murmur, rubs, systolic murmur GI/Abdominal exam: PRESENT: normal bowel sounds, soft. ABSENT: distended, guarding, mass, organolmegaly, rebound, tenderness Extremities exam: PRESENT: full ROM. ABSENT: calf tenderness, clubbing, pedal edema Tubes/Lines: PRESENT: Central Line - Right IJ Laboratory/Radiographs Laboratory Results: 08/03/20 12:43 08/03/20 04:36 08/02/20 08/03/20 08/03/20 16:05 04:36 04:36 WBC RBC Hgb Hct MCV MCH MCHC RDW Plt Count Carbonic Acid 1.60 H 1.50 H HCO3/H2CO3 Ratio 22:1 22:1 ABG pH 7.45 7.44 ABG pCO2 53.0 H 49.7 H ABG pO2 64.4 L 72.6 L ABG HCO3 35.8 H 33.3 H ABG O2 Saturation 93.0 L 95.0 ABG Base Excess 10.6 8.2 FiO2 35% 40% Sodium 140.9 Potassium 3.5 L D Chloride 99 Carbon Dioxide 37 H Anion Gap 5 BUN 7 Creatinine 0.40 L Est GFR ( Amer) > 60 Glucose 131 H Calcium 8.0 L Phosphorus 4.2 Magnesium 2.3 Triglycerides 08/03/20 08/03/20 08/03/20 04:36 12:43 12:43 WBC 8.6 7.0 RBC 2.26 L 2.29 L Hgb 6.7 L 6.8 L Hct 20.6 L 20.8 L MCV 91 91 MCH 29.7 29.8 MCHC 32.5 32.7 RDW 16.6 H 16.5 H Plt Count 287 257 Carbonic Acid HCO3/H2CO3 Ratio ABG pH ABG pCO2 ABG pO2 ABG HCO3 ABG O2 Saturation ABG Base Excess FiO2 Sodium Potassium Chloride Carbon Dioxide Anion Gap BUN Creatinine Est GFR ( Amer) Glucose Calcium Phosphorus Magnesium 2.3 Triglycerides 132 06/30/20 08/02/20 09:15 05:15 Troponin I < 0.012 NT-Pro-B Natriuret Pep 906 H 763 H Impressions: KUB X-Ray 07/26/20 14:06 IMPRESSION: NG tube as described. Pulmonary findings as described. Chest X-Ray 08/03/20 04:00 IMPRESSION: Status post extubation and removal of the enteric tube. Otherwise unchanged radiographic appearance of the chest. All labs, radiographs, diagnostic studies and EKGs were personally reviewed: Yes In addition, reports of radiographic and diagnostic studies were read: Yes Assessment and Plan - Diagnosis (1) Acute hypoxemic respiratory failure due to severe acute respiratory syndrome coronavirus 2 (SARS-CoV-2) disease Is this a current diagnosis for this admission?: Yes Plan: Continue pressure support trial. Given her complicated psychiatric history, I suspect that the patient will benefit from remaining on Precedex infusion at the time of extubation. Bedside speech/swallow evaluation daily. Start TPN. Consult PT/OT. 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 Restart Aptiom today. Ativan PRN. (5) Agitation Is this a current diagnosis for this admission?: Yes (6) Depression Qualifiers: Depression Type: unspecified Qualified Code(s): F32.9 - Major depressive disorder, single episode, unspecified Is this a current diagnosis for this admission?: Yes (7) Asthma Qualifiers: Asthma severity: moderate Asthma persistence: unspecified Asthma complication type: uncomplicated Qualified Code(s): J45.909 - Unspecified asthma, uncomplicated Is this a current diagnosis for this admission?: Yes (8) Hypokalemia Is this a current diagnosis for this admission?: Yes (9) MSSA (methicillin susceptible Staphylococcus aureus) pneumonia Is this a current diagnosis for this admission?: Yes Plan: Stop linezolid. Continue Levaquin for MSSA, Enterobacter cloacae in tracheal aspirate and Pseudomonas in the urine (10) Enterobacter cloacae pneumonia Is this a current diagnosis for this admission?: Yes (11) Pseudomonas urinary tract infection Is this a current diagnosis for this admission?: Yes Critical Time Critical Time (minutes): 60 Level of Care: ICU -: 1. The care of a critical patient is a dynamic process. This note is a technical service representative synopsis but static in nature. The timeframe for treatments given in order is not necessarily the actual time these treatments may have been done. 2. This patient requires critical care secondary to ongoing requirements for therapy not offered or safe outside the critical care environment. Transfer to a lower level of care will result in altered life or limb morbidity and mortality. 3. Multidisciplinary rounds completed. 4. ABCDE bundle addressed.
[2020-08-03] MEDS: LATANOPROST 0.005% OPH SOLN 2.5 ML OU SCH (23:05)
[2020-08-03] MEDS: APTIOM 800 MG PO SCH (23:09)
[2020-08-03] MEDS: MONTELUKAST SODIUM 10 MG TABLET NG SCH (23:09)
[2020-08-03] MEDS: PAROXETINE HCL 20 MG TABLET NG SCH (23:09)
[2020-08-04] MEDS ORDERED: LORAZEPAM INJ 2 MG/1 ML VIAL ONE
[2020-08-04] MEDS: SUCRALFATE 1 GM TABLET NG SCH ×3 (00:04→11:17)
[2020-08-04] MEDS: LORAZEPAM INJ 2 MG/1 ML VIAL IV PRN ×4 (00:05→19:04)
[2020-08-04] MEDS: INSULIN REG, HUMAN 100 UNIT/ML 3 ML VIAL (PYX) SUBCUT SCH ×4 (01:02→19:03)
[2020-08-04] MEDS: IPRATROPIUM/ALBUTEROL 0.5-2.5 MG/3 ML AMPUL NEB SCH ×3 (01:50→14:05)
[2020-08-04] MEDS: HYDRALAZINE HCL INJ/PF 20 MG/1 ML SDV IV PRN (03:37)
[2020-08-04] MEDS ORDERED: METOPROLOL TARTRATE PF/INJ 5 MG/5 ML SDV IV ONE ×2 (03:47→04:10)
[2020-08-04] MEDS: DEXMEDETOMIDINE IN 0.9 % NACL 400 MCG/100 ML RTUPB IV PRN ×2 (05:00→14:30)
[2020-08-04] MEDS ORDERED: FENTANYL CITRATE INJ/PF 100 MCG/2 ML AMPUL ONE (05:10)
[2020-08-04] MEDS ORDERED: FENTANYL CITRATE INJ/PF 100 MCG/2 ML AMPUL IV ONE (05:30)
[2020-08-04 07:30] LABS: ALBUMIN 3.6 g/dL (3.5-5.0); ALKALINE PHOSPHATASE 81 U/L (38-126); ANION GAP 9 (5-19); ASPARTATE AMINO TRANSFERASE 31 U/L (14-36); BILIRUBIN,DIRECT 0.4 mg/dL (0.0-0.4); BILIRUBIN,TOTAL 1.4 mg/dL (0.2-1.3); BLOOD UREA NITROGEN 9 mg/dL (7-20); CALCIUM 8.8 mg/dL (8.4-10.2); CARBON DIOXIDE 33 mmol/L (22-30); CHLORIDE 97 mmol/L (98-107); GLUCOSE 164 mg/dL (75-110); PHOSPHORUS 3.4 mg/dL (2.5-4.5); POTASSIUM 3.7 mmol/L (3.6-5.0); TOTAL PROTEIN 6.4 g/dL (6.3-8.2)
[2020-08-04 07:38] LABS: PREALBUMIN 21.5 mg/dL (17.6-36.0)
[2020-08-04] MEDS: BUDESONIDE NEB 0.25 MG/2 ML AMPUL NEB SCH ×2 (07:50→19:51)
--- NOTE | 2020-08-04 09:25 | RADIOLOGY REPORT (SQ) ---
EXAM DESCRIPTION: CHEST SINGLE VIEW IMAGES COMPLETED DATE/TIME: 08/04/2020 6:17 am REASON FOR STUDY: high oxygen requirement , s/p extubation COMPARISON: Previous day NUMBER OF VIEWS: One view. TECHNIQUE: Single frontal radiographic image of the chest acquired. LIMITATIONS: None. FINDINGS: LUNGS AND PLEURA: Stable appearance. No progression. No pneumothorax. MEDIASTINUM AND HEART: Stable heart size and mediastinal structures. SUPPORT DEVICES: Appropriate location without change. BONY STRUCTURES: No acute findings. HARDWARE: None. OTHER: No other significant finding. IMPRESSION: STABLE APPEARANCE OF THE CHEST. SUPPORT DEVICES UNCHANGED. Reading location - IP/workstation name: [email or web address]
[2020-08-04] MEDS: LEVETIRACETAM 1000 MG/NACL-ISO 1,000 MG/100 ML RTUPB IV SCH ×2 (11:15→21:27)
[2020-08-04] MEDS: FAT EMULSIONS 250 ML IV SCH (11:15)
[2020-08-04] MEDS: ZIPRASIDONE MESYLATE INJ/PF 20 MG SDV IM SCH (11:16)
[2020-08-04] MEDS: ENOXAPARIN SODIUM INJ 40 MG/0.4 ML DISP.SYRIN SUBCUT SCH (11:16)
[2020-08-04] MEDS: POTASSIUM CHLORIDE 20 MEQ PACKET PO SCH (11:16)
[2020-08-04] MEDS: ZINC SULFATE 220 MG CAPSULE NG SCH (11:17)
[2020-08-04] MEDS: FLUTICASONE/UMECLIDIN/VILANTER 100-62.5-25 MCG/DOSE IH SCH (11:17)
--- NOTE | 2020-08-04 18:19 | PDOC CRITICAL CARE PROG REPORT ---
General Date:: 08/04/20 ICU Day:: 19 Hospital Day:: 36 Resuscitation Status: Full Code Events in the past 12 to 24 Hours:: This 64-year-old female was originally admitted on 06/30/2020 when she presented to the emergency department with complaints of dyspnea, fatigue, fever and chills. She had previously been tested for COVID and sent home on hydroxychloroquine, azithromycin and Pulmicort. She took her medications as prescribed; however, she returned with worsening fatigue, nausea, vomiting, diarrhea, dysgeusia and anosmia. She was noted to be hypoxic in the emergency department. She had multiple laboratory abnormalities consistent with COVID-19 case definitions. She was originally seen by the critical care service on 07/07/2020 in consultation at the request of Dr. Dev Farris for recommendations on further evaluation and management of acute hypoxemic respiratory failure continue to COVID-19 pneumonia. She transferred to the ICU on 07/16/2020, when she had worsening respiratory status associated with altered mental status and hypercapnia. She was intubated at that time and has remained on mechanical ventilatory support. 08/01: Nursing staff reports that they have lost all peripheral IV access. They have been unsuccessful in reestablishing peripheral IVs. He remains intubated. She is off sedation (without IV access). She is awake. Follows commands. Tachypneic (respiratory rate 50s), anxious. She is on SIMV PRVC, FiO2 35%. 08/02: Patient remains intubated. She is quite anxious. On Precedex. On FiO2 35 %. Demonstrates tachypnea, irrespective of ventilator mode. However, with sufficient sedation, she demonstrates very normal-appearing respiratory mechanics and rate. Started on Levaquin yesterday for MSSA and E cloacae in the sputum along with Pseudomonas in the urine. 08/03: Successfully extubated to high flow nasal cannula yesterday. She is cu rrently on FiO2 40%, 25 LPM. She remains quite anxious. Of note, her hemodynamic parameters and respiratory status have not changed despite liberation from mechanical ventilatory support. Demonstrates strong cough. Interactive. Worse. Hemoglobin 6.7. 08/04: Remains extubated. On high flow cannula. Still tachypneic. Still seems to be primarily central/psychologically driven. She is able to slow down her breathing with verbal prompting. Strong cough. Much more interactive. States that she "wants to get up out of here". She "would like some chocolate ice cream". Hemoglobin 6.8. Failed bedside swallow evaluation. Started on TPN yesterday. Review of systems relevant to events:: Neurological, pulmonary. Reason for ICU Addmission:: Need for intubation, psychologically and neurologically fragile. - Medications: Medications reviewed and adjusted accordingly: Yes Sedation:: Precedex Physical Exam Vital Signs: Temp Pulse Resp BP Pulse Ox 98.5 F 91 28 H 123/63 94 08/04/20 16:00 08/04/20 16:00 08/04/20 16:00 08/04/20 16:00 08/04/20 16:00 Intake & Output 08/03/20 08/04/20 08/05/20 06:59 06:59 06:59 Intake Total 1841 1441 139 Output Total 4535 3125 660 Balance -2694 -1684 -521 Weight 63.9 kg 60.7 kg Weight/Height Weight 60.7 kg Height 1.55 m General appearance: PRESENT: no acute distress, well-developed, well-nourished Head exam: PRESENT: atraumatic, normocephalic Eye exam: PRESENT: conjunctiva pink, EOMI, PERRLA. ABSENT: scleral icterus Mouth exam: PRESENT: moist, tongue midline Neck exam: ABSENT: carotid bruit, JVD, lymphadenopathy, thyromegaly Respiratory exam: PRESENT: rales, rhonchi, symmetrical, tachypnea, unlabored. ABSENT: accessory muscle use, wheezes Cardiovascular exam: PRESENT: RRR, tachycardia. ABSENT: diastolic murmur, rubs, systolic murmur GI/Abdominal exam: PRESENT: normal bowel sounds, soft. ABSENT: distended, guarding, mass, organolmegaly, rebound, tenderness Extremities exam: PRESENT: full ROM. ABSENT: calf tenderness, clubbing, pedal edema Neurological exam: PRESENT: alert, awake, oriented to person, oriented to place, oriented to time, oriented to situation, CN II-XII grossly intact. ABSENT: motor sensory deficit Psychiatric exam: PRESENT: anxious, appropriate affect. ABSENT: agitated Skin exam: PRESENT: dry, intact, warm. ABSENT: cyanosis, rash Tubes/Lines: PRESENT: Central Line - Right IJ Laboratory/Radiographs Laboratory Results: 08/03/20 12:43 08/04/20 05:20 08/04/20 05:20 Sodium 138.6 Potassium 3.7 Chloride 97 L Carbon Dioxide 33 H Anion Gap 9 BUN 9 Creatinine 0.33 L Est GFR ( Amer) > 60 Glucose 164 H Calcium 8.8 Phosphorus 3.4 Total Bilirubin 1.4 H AST 31 Alkaline Phosphatase 81 Total Protein 6.4 Albumin 3.6 Prealbumin 21.5 06/30/20 08/02/20 09:15 05:15 Troponin I < 0.012 NT-Pro-B Natriuret Pep 906 H 763 H Impressions: KUB X-Ray 07/26/20 14:06 IMPRESSION: NG tube as described. Pulmonary findings as described. Chest X-Ray 08/04/20 04:00 IMPRESSION: STABLE APPEARANCE OF THE CHEST. SUPPORT DEVICES UNCHANGED. All labs, radiographs, diagnostic studies and EKGs were personally reviewed: Yes In addition, reports of radiographic and diagnostic studies were read: Yes Assessment and Plan - Diagnosis (1) Acute hypoxemic respiratory failure due to severe acute respiratory syndrome coronavirus 2 (SARS-CoV-2) disease Is this a current diagnosis for this admission?: Yes Plan: Successfully extubated to high flow nasal cannula. Wean supplemental oxygen as tolerated to maintain SpO2 90+%. Given her complicated psychiatric history, I suspect that the patient will benefit from remaining on Precedex infusion at the time of extubation. Bedside speech/swallow evaluation daily. Continue TPN. Consult PT/OT. (2) Normocytic anemia Is this a current diagnosis for this admission?: Yes (3) Patient is Islam Is this a current diagnosis for this admission?: Yes (4) Bipolar disorder Qualifiers: Active/Remission status: remission status unspecified Qualified Code(s): F31.9 - Bipolar disorder, unspecified Is this a current diagnosis for this admission?: Yes (5) Agitation Is this a current diagnosis for this admission?: Yes (6) Depression Qualifiers: Depression Type: unspecified Qualified Code(s): F32.9 - Major depressive disorder, single episode, unspecified Is this a current diagnosis for this admission?: Yes (7) Asthma Qualifiers: Asthma severity: moderate Asthma persistence: unspecified Asthma complication type: uncomplicated Qualified Code(s): J45.909 - Unspecified asthma, uncomplicated Is this a current diagnosis for this admission?: Yes (8) Hypokalemia Is this a current diagnosis for this admission?: Yes (9) MSSA (methicillin susceptible Staphylococcus aureus) pneumonia Is this a current diagnosis for this admission?: Yes (10) Enterobacter cloacae pneumonia Is this a current diagnosis for this admission?: Yes (11) Pseudomonas urinary tract infection Is this a current diagnosis for this admission?: Yes Critical Time Critical Time (minutes): 60 Level of Care: ICU -: 1. The care of a critical patient is a dynamic process. This note is a manufacturer's service representative synopsis but static in nature. The timeframe for treatments given in order is not necessarily the actual time these treatments may have been done. 2. This patient requires critical care secondary to ongoing requirements for therapy not offered or safe outside the critical care environment. Transfer to a lower level of care will result in altered life or limb morbidity and mortality. 3. Multidisciplinary rounds completed. 4. ABCDE bundle addressed.
[2020-08-04] MEDS: PANTOPRAZOLE SODIUM 40 MG VIAL IV SCH (19:06)
[2020-08-04] MEDS: AMINO ACIDS 5 %/DEXTROSE 20 % 1,000 ML IV PRN (19:30)
[2020-08-04] MEDS: ALBUTEROL SULFATE 0.083% NEB 2.5 MG/3 ML AMPUL NEB SCH (19:50)
[2020-08-04] MEDS ORDERED: BUDESONIDE NEB 0.25 MG/2 ML AMPUL NEB SCH (20:00)
[2020-08-04] MEDS: PAROXETINE HCL 20 MG TABLET NG SCH (21:28)
[2020-08-04] MEDS: APTIOM 800 MG PO SCH (21:30)
[2020-08-04] MEDS: MONTELUKAST SODIUM 10 MG TABLET NG SCH (21:31)
[2020-08-04] MEDS: LATANOPROST 0.005% OPH SOLN 2.5 ML OU SCH (21:31)
[2020-08-05] MEDS: INSULIN REG, HUMAN 100 UNIT/ML 3 ML VIAL (PYX) SUBCUT SCH ×5 (01:14→23:44)
[2020-08-05] MEDS: ALBUTEROL SULFATE 0.083% NEB 2.5 MG/3 ML AMPUL NEB SCH ×4 (02:04→20:10)
[2020-08-05] MEDS: LORAZEPAM INJ 2 MG/1 ML VIAL IV PRN ×2 (04:52→23:44)
[2020-08-05 06:03] LABS: ALBUMIN 3.4 g/dL (3.5-5.0); ALKALINE PHOSPHATASE 62 U/L (38-126); ANION GAP 6 (5-19); ASPARTATE AMINO TRANSFERASE 40 U/L (14-36); BILIRUBIN,DIRECT 0.3 mg/dL (0.0-0.4); BLOOD UREA NITROGEN 15 mg/dL (7-20); CALCIUM 8.4 mg/dL (8.4-10.2); CARBON DIOXIDE 34 mmol/L (22-30); CHLORIDE 101 mmol/L (98-107); GLUCOSE 122 mg/dL (75-110); PHOSPHORUS 4.5 mg/dL (2.5-4.5); POTASSIUM 3.7 mmol/L (3.6-5.0); TOTAL PROTEIN 6.2 g/dL (6.3-8.2)
[2020-08-05] MEDS: BUDESONIDE NEB 0.25 MG/2 ML AMPUL NEB SCH ×2 (07:57→20:10)
--- NOTE | 2020-08-05 09:30 | PDOC CRITICAL CARE PROG REPORT ---
General Date:: 08/05/20 ICU Day:: 20 Hospital Day:: 37 Resuscitation Status: Full Code Events in the past 12 to 24 Hours:: This 64-year-old female was originally admitted on 06/30/2020 when she presented to the emergency department with complaints of dyspnea, fatigue, fever and chills. She had previously been tested for COVID and sent home on hydroxychloroquine, azithromycin and Pulmicort. She took her medications as prescribed; however, she returned with worsening fatigue, nausea, vomiting, diarrhea, dysgeusia and anosmia. She was noted to be hypoxic in the emergency department. She had multiple laboratory abnormalities consistent with COVID-19 case definitions. She was originally seen by the critical care service on 07/07/2020 in consultation at the request of Dr. Dev Farris for recommendations on further evaluation and management of acute hypoxemic respiratory failure continue to COVID-19 pneumonia. She transferred to the ICU on 07/16/2020, when she had worsening respiratory status associated with altered mental status and hypercapnia. She was intubated at that time and has remained on mechanical ventilatory support. 08/01: Nursing staff reports that they have lost all peripheral IV access. They have been unsuccessful in reestablishing peripheral IVs. He remains intubated. She is off sedation (without IV access). She is awake. Follows commands. Tachypneic (respiratory rate 50s), anxious. She is on SIMV PRVC, FiO2 35%. 08/02: Patient remains intubated. She is quite anxious. On Precedex. On FiO2 35 %. Demonstrates tachypnea, irrespective of ventilator mode. However, with sufficient sedation, she demonstrates very normal-appearing respiratory mechanics and rate. Started on Levaquin yesterday for MSSA and E cloacae in the sputum along with Pseudomonas in the urine. 08/03: Successfully extubated to high flow nasal cannula yesterday. She is cu rrently on FiO2 40%, 25 LPM. She remains quite anxious. Of note, her hemodynamic parameters and respiratory status have not changed despite liberation from mechanical ventilatory support. Demonstrates strong cough. Interactive. Worse. Hemoglobin 6.7. 08/04: Remains extubated. On high flow cannula. Still tachypneic. Still seems to be primarily central/psychologically driven. She is able to slow down her breathing with verbal prompting. Strong cough. Much more interactive. States that she "wants to get up out of here". She "would like some chocolate ice cream". Hemoglobin 6.8. Failed bedside swallow evaluation. Started on TPN yesterday. 08/05: Remains extubated. Now on 5 LPM via nasal cannula. Still tachypneic, but overall, respiratory rate is trending downwards. 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 In good spirits. Interactive. Voice is getting stronger. On TP N. Review of systems relevant to events:: Neurological, pulmonary. Reason for ICU Addmission:: Need for intubation, psychologically and neurologically fragile. - Medications: Medications reviewed and adjusted accordingly: Yes Physical Exam Vital Signs: Temp Pulse Resp BP Pulse Ox 99.2 F 100 21 H 122/65 98 08/05/20 06:00 08/05/20 06:00 08/05/20 07:00 08/05/20 06:50 08/05/20 06:49 Intake & Output 08/04/20 08/05/20 08/06/20 06:59 06:59 06:59 Intake Total 1441 291 Output Total 3125 1345 Balance -1684 -1054 Weight 60.7 kg 59.4 kg Weight/Height Weight 59.4 kg Height 1.55 m General appearance: PRESENT: no acute distress, well-developed, well-nourished Head exam: PRESENT: atraumatic, normocephalic Eye exam: PRESENT: conjunctiva pale, EOMI, PERRLA. ABSENT: scleral icterus Mouth exam: PRESENT: moist, tongue midline Respiratory exam: PRESENT: rales, tachypnea, unlabored. ABSENT: rhonchi, wheezes Cardiovascular exam: PRESENT: RRR. ABSENT: diastolic murmur, rubs, systolic murmur Pulses: PRESENT: normal dorsalis pedis pul GI/Abdominal exam: PRESENT: normal bowel sounds, soft. ABSENT: distended, guarding, mass, organolmegaly, rebound, tenderness Extremities exam: PRESENT: full ROM. ABSENT: calf tenderness, clubbing, pedal edema Musculoskeletal exam: PRESENT: normal inspection. ABSENT: deformity Neurological exam: PRESENT: alert, awake, oriented to person, oriented to place, oriented to time, oriented to situation, CN II-XII grossly intact. ABSENT: motor sensory deficit Psychiatric exam: PRESENT: appropriate affect, normal mood. ABSENT: homicidal ideation, suicidal ideation Skin exam: PRESENT: dry, intact, warm. ABSENT: cyanosis, rash Tubes/Lines: PRESENT: Central Line Laboratory/Radiographs Laboratory Results: 08/03/20 12:43 08/05/20 05:08 08/05/20 05:08 Sodium 141.2 Potassium 3.7 Chloride 101 Carbon Dioxide 34 H Anion Gap 6 BUN 15 Creatinine 0.36 L Est GFR ( Amer) > 60 Glucose 122 H Calcium 8.4 Phosphorus 4.5 Total Bilirubin 1.0 AST 40 H Alkaline Phosphatase 62 Total Protein 6.2 L Albumin 3.4 L Prealbumin 22.0 06/30/20 08/02/20 09:15 05:15 Troponin I < 0.012 NT-Pro-B Natriuret Pep 906 H 763 H Impressions: KUB X-Ray 07/26/20 14:06 IMPRESSION: NG tube as described. Pulmonary findings as described. Chest X-Ray 08/04/20 04:00 IMPRESSION: STABLE APPEARANCE OF THE CHEST. SUPPORT DEVICES UNCHANGED. All labs, radiographs, diagnostic studies and EKGs were personally reviewed: Yes In addition, reports of radiographic and diagnostic studies were read: Yes Assessment and Plan - Diagnosis (1) Acute hypoxemic respiratory failure due to severe acute respiratory syndrome coronavirus 2 (SARS-CoV-2) disease Is this a current diagnosis for this admission?: Yes Plan: * Wean supplemental oxygen as tolerated to maintain SpO2 90+%. * Speech/swallow evaluation. * Continue TPN. * PT/OT. (2) Normocytic anemia Is this a current diagnosis for this admission?: Yes (3) Patient is [place] Is this a current diagnosis for this admission?: Yes (4) Bipolar disorder Qualifiers: Active/Remission status: remission status unspecified Qualified Code(s): F31.9 - Bipolar disorder, unspecified Is this a current diagnosis for this admission?: Yes (5) Agitation Is this a current diagnosis for this admission?: Yes Plan: Ativan 1 mg IV every 6 hours as needed (6) Depression Qualifiers: Depression Type: unspecified Qualified Code(s): F32.9 - Major depressive disorder, single episode, unspecified Is this a current diagnosis for this admission?: Yes (7) Asthma Qualifiers: Asthma severity: moderate Asthma persistence: unspecified Asthma complication type: uncomplicated Qualified Code(s): J45.909 - Unspecified asthma, uncomplicated Is this a current diagnosis for this admission?: Yes (8) Hypokalemia Is this a current diagnosis for this admission?: Yes (9) MSSA (methicillin susceptible Staphylococcus aureus) pneumonia Is this a current diagnosis for this admission?: Yes Plan: Stop linezolid. Continue Levaquin for MSSA, Enterobacter cloacae in tracheal aspirate and Pseudomonas in the urine (10) Enterobacter cloacae pneumonia Is this a current diagnosis for this admission?: Yes (11) Pseudomonas urinary tract infection Is this a current diagnosis for this admission?: Yes Plan Summary: OK for IMCU from pulmonary standpoint. Critical Time Critical Time (minutes): 45 Level of Care: ICU -: 1. The care of a critical patient is a dynamic process. This note is a community relations representative synopsis but static in nature. The timeframe for treatments given in order is not necessarily the actual time these treatments may have been done. 2. This patient requires critical care secondary to ongoing requirements for therapy not offered or safe outside the critical care environment. Transfer to a lower level of care will result in altered life or limb morbidity and mo rtality. 3. Multidisciplinary rounds completed. 4. ABCDE bundle addressed.
[2020-08-05] MEDS: ZINC SULFATE 220 MG CAPSULE NG SCH (09:37)
[2020-08-05] MEDS: ZIPRASIDONE MESYLATE INJ/PF 20 MG SDV IM SCH (09:54)
[2020-08-05] MEDS: EPOETIN ALFA-EPBX 3,000 UNIT/ML VIAL (NON-ESRD) SUBCUT SCH (09:54)
[2020-08-05] MEDS: ENOXAPARIN SODIUM INJ 40 MG/0.4 ML DISP.SYRIN SUBCUT SCH (09:54)
[2020-08-05] MEDS: LEVOFLOXACIN 750 MG/D5W RTU 750 MG/150 ML RTUPB IV SCH (09:54)
[2020-08-05] MEDS: PANTOPRAZOLE SODIUM 40 MG VIAL IV SCH (09:55)
[2020-08-05] MEDS: LEVETIRACETAM 1000 MG/NACL-ISO 1,000 MG/100 ML RTUPB IV SCH ×2 (12:05→21:08)
[2020-08-05] MEDS: AMINO ACIDS 5 %/DEXTROSE 20 % 1,000 ML IV PRN (20:33)
[2020-08-05] MEDS: MONTELUKAST SODIUM 10 MG TABLET NG SCH (21:08)
[2020-08-05] MEDS: LATANOPROST 0.005% OPH SOLN 2.5 ML OU SCH (21:08)
[2020-08-05] MEDS: APTIOM 800 MG PO SCH (21:08)
[2020-08-06] MEDS: ALBUTEROL SULFATE 0.083% NEB 2.5 MG/3 ML AMPUL NEB SCH ×4 (02:39→20:03)
[2020-08-06] MEDS: LORAZEPAM INJ 2 MG/1 ML VIAL IV PRN ×3 (03:27→18:36)
[2020-08-06 04:58] LABS: ALBUMIN 3.6 g/dL (3.5-5.0); ALKALINE PHOSPHATASE 71 U/L (38-126); ANION GAP 7 (5-19); ASPARTATE AMINO TRANSFERASE 44 U/L (14-36); BILIRUBIN,DIRECT 0.2 mg/dL (0.0-0.4); BILIRUBIN,TOTAL 1.1 mg/dL (0.2-1.3); BLOOD UREA NITROGEN 12 mg/dL (7-20); CALCIUM 8.7 mg/dL (8.4-10.2); CARBON DIOXIDE 32 mmol/L (22-30); CHLORIDE 100 mmol/L (98-107); GLUCOSE 157 mg/dL (75-110); PHOSPHORUS 3.9 mg/dL (2.5-4.5); POTASSIUM 3.8 mmol/L (3.6-5.0); TOTAL PROTEIN 6.3 g/dL (6.3-8.2)
[2020-08-06 05:06] LABS: PREALBUMIN 24.4 mg/dL (17.6-36.0)
[2020-08-06] MEDS: INSULIN REG, HUMAN 100 UNIT/ML 3 ML VIAL (PYX) SUBCUT SCH ×3 (05:55→17:24)
[2020-08-06] MEDS: BUDESONIDE NEB 0.25 MG/2 ML AMPUL NEB SCH ×2 (08:14→20:03)
[2020-08-06] MEDS: ZIPRASIDONE MESYLATE INJ/PF 20 MG SDV IM SCH (09:08)
[2020-08-06] MEDS: PANTOPRAZOLE SODIUM 40 MG VIAL IV SCH (09:09)
[2020-08-06] MEDS: ENOXAPARIN SODIUM INJ 40 MG/0.4 ML DISP.SYRIN SUBCUT SCH (09:09)
[2020-08-06] MEDS: LEVOFLOXACIN 750 MG/D5W RTU 750 MG/150 ML RTUPB IV SCH (09:10)
[2020-08-06] MEDS: LEVETIRACETAM 1000 MG/NACL-ISO 1,000 MG/100 ML RTUPB IV SCH ×2 (10:37→21:56)
[2020-08-06 14:53] LABS: HEMATOCRIT 27.1 % (36.0-47.0); HEMOGLOBIN 8.5 g/dL (12.0-15.5); MEAN CORPUSCULAR HEMOGLOBIN 29.5 pg (27.0-33.4); MEAN CORPUSCULAR HGB CONC 31.5 g/dL (32.0-36.0); MEAN CORPUSCULAR VOLUME 94 fl (80-97); PLATELET COUNT 282 10^3/uL (150-450); RED BLOOD COUNT 2.89 10^6/uL (3.72-5.28); RED CELL DISTRIBUTION WIDTH 17.2 % (11.5-14.0); WHITE BLOOD COUNT 9.5 10^3/uL (4.0-10.5)
--- NOTE | 2020-08-06 18:27 | PDOC CRITICAL CARE PROG REPORT ---
General Date:: 08/06/20 ICU Day:: 21 Hospital Day:: 38 Resuscitation Status: Full Code Events in the past 12 to 24 Hours:: This 64-year-old female was originally admitted on 06/30/2020 when she presented to the emergency department with complaints of dyspnea, fatigue, fever and chills. She had previously been tested for COVID and sent home on hydroxychloroquine, azithromycin and Pulmicort. She took her medications as prescribed; however, she returned with worsening fatigue, nausea, vomiting, diarrhea, dysgeusia and anosmia. She was noted to be hypoxic in the emergency department. She had multiple laboratory abnormalities consistent with COVID-19 case definitions. She was originally seen by the critical care service on 07/07/2020 in consultation at the request of Dr. Dev Farris for recommendations on further evaluation and management of acute hypoxemic respiratory failure continue to COVID-19 pneumonia. She transferred to the ICU on 07/16/2020, when she had worsening respiratory status associated with altered mental status and hypercapnia. She was intubated at that time and has remained on mechanical ventilatory support. 08/01: Nursing staff reports that they have lost all peripheral IV access. They have been unsuccessful in reestablishing peripheral IVs. He remains intubated. She is off sedation (without IV access). She is awake. Follows commands. Tachypneic (respiratory rate 50s), anxious. She is on SIMV PRVC, FiO2 35%. 08/02: Patient remains intubated. She is quite anxious. On Precedex. On FiO2 35 %. Demonstrates tachypnea, irrespective of ventilator mode. However, with sufficient sedation, she demonstrates very normal-appearing respiratory mechanics and rate. Started on Levaquin yesterday for MSSA and E cloacae in the sputum along with Pseudomonas in the urine. 08/03: Successfully extubated to high flow nasal cannula yesterday. She is cu rrently on FiO2 40%, 25 LPM. She remains quite anxious. Of note, her hemodynamic parameters and respiratory status have not changed despite liberation from mechanical ventilatory support. Demonstrates strong cough. Interactive. Worse. Hemoglobin 6.7. 08/04: Remains extubated. On high flow cannula. Still tachypneic. Still seems to be primarily central/psychologically driven. She is able to slow down her breathing with verbal prompting. Strong cough. Much more interactive. States that she "wants to get up out of here". She "would like some chocolate ice cream". Hemoglobin 6.8. Failed bedside swallow evaluation. Started on TPN yesterday. 08/05: Remains extubated. Now on 5 LPM via nasal cannula. Still tachypneic, but overall, respiratory rate is trending downwards. 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 In good spirits. Interactive. Voice is getting stronger. On TP N. 08/06: On 2 LPM via nasal cannula. In good spirits, although disappointed with failing her speech/swallow evaluation yesterday, which prevented her from getting any chocolate ice cream. Voice is stronger. On TPN. Review of systems relevant to events:: Neurological, pulmonary. Reason for ICU Addmission:: Need for intubation, psychologically and neurologically fragile. - Medications: Medications reviewed and adjusted accordingly: Yes Physical Exam Vital Signs: Temp Pulse Resp BP Pulse Ox 99.0 F 102 H 26 H 147/79 H 98 08/06/20 09:55 08/06/20 08:14 08/06/20 09:00 08/06/20 08:51 08/06/20 09:00 Intake & Output 08/05/20 08/06/20 08/07/20 06:59 06:59 06:59 Intake Total 291 360 10 Output Total 1345 1605 Balance -1054 -1245 10 Weight 59.4 kg 58.8 kg Weight/Height Weight 58.8 kg Height 1.55 m General appearance: PRESENT: no acute distress, well-developed Head exam: PRESENT: atraumatic, normocephalic Eye exam: PRESENT: conjunctiva pink, EOMI, PERRLA. ABSENT: scleral icterus Mouth exam: PRESENT: moist, tongue midline Neck exam: ABSENT: carotid bruit, JVD, lymphadenopathy, thyromegaly Respiratory exam: PRESENT: rales. ABSENT: rhonchi, wheezes Cardiovascular exam: PRESENT: RRR, tachycardia. ABSENT: diastolic murmur, rubs, systolic murmur Pulses: PRESENT: normal dorsalis pedis pul GI/Abdominal exam: PRESENT: normal bowel sounds, soft. ABSENT: distended, guarding, mass, organolmegaly, rebound, tenderness Gentrourinary exam: PRESENT: indwelling catheter Extremities exam: PRESENT: full ROM, pedal edema. ABSENT: calf tenderness, clubbing Musculoskeletal exam: PRESENT: normal inspection. ABSENT: deformity Neurological exam: PRESENT: alert, awake, oriented to person, oriented to place, oriented to time, oriented to situation, CN II-XII grossly intact. ABSENT: motor sensory deficit Psychiatric exam: PRESENT: appropriate affect. ABSENT: agitated, anxious Skin exam: PRESENT: dry, intact, pallor, warm. ABSENT: cyanosis, rash Tubes/Lines: PRESENT: Central Line - Right IJ 08/01 Laboratory/Radiographs Laboratory Results: 08/03/20 12:43 08/06/20 04:30 08/06/20 04:30 Sodium 138.9 Potassium 3.8 Chloride 100 Carbon Dioxide 32 H Anion Gap 7 BUN 12 Creatinine 0.33 L Est GFR ( Amer) > 60 Glucose 157 H Calcium 8.7 Phosphorus 3.9 Total Bilirubin 1.1 AST 44 H Alkaline Phosphatase 71 Total Protein 6.3 Albumin 3.6 Prealbumin 24.4 06/30/20 08/02/20 09:15 05:15 Troponin I < 0.012 NT-Pro-B Natriuret Pep 906 H 763 H Impressions: KUB X-Ray 07/26/20 14:06 IMPRESSION: NG tube as described. Pulmonary findings as described. Chest X-Ray 08/04/20 04:00 IMPRESSION: STABLE APPEARANCE OF THE CHEST. SUPPORT DEVICES UNCHANGED. All labs, radiographs, diagnostic studies and EKGs were personally reviewed: Yes In addition, reports of radiographic and diagnostic studies were read: Yes Assessment and Plan - Diagnosis (1) Acute hypoxemic respiratory failure due to severe acute respiratory syndrome coronavirus 2 (SARS-CoV-2) disease Is this a current diagnosis for this admission?: Yes Plan: * Wean supplemental oxygen as tolerated to maintain SpO2 90+%. * Speech/swallow evaluation on Saturday. * Continue TPN. * PT/OT. (2) Normocytic anemia Is this a current diagnosis for this admission?: Yes (3) Patient is [employer]orationism Is this a current diagnosis for this admission?: Yes (4) Depression Qualifiers: Depression Type: unspecified Qualified Code(s): F32.9 - Major depressive disorder, single episode, unspecified Is this a current diagnosis for this admission?: Yes Plan: Continue Rodrick. (5) Bipolar disorder Qualifiers: Active/Remission status: remission status unspecified Qualified Code(s): F31.9 - Bipolar disorder, unspecified Is this a current diagnosis for this admission?: Yes (6) Agitation Is this a current diagnosis for this admission?: Yes Plan: Ativan 1 mg IV every 6 hours as needed (7) Asthma Qualifiers: Asthma severity: moderate Asthma persistence: unspecified Asthma complication type: uncomplicated Qualified Code(s): J45.909 - Unspecified asthma, uncomplicated Is this a current diagnosis for this admission?: Yes (8) Hypokalemia Is this a current diagnosis for this admission?: Yes (9) MSSA (methicillin susceptible Staphylococcus aureus) pneumonia Is this a current diagnosis for this admission?: Yes (10) Enterobacter cloacae pneumonia Is this a current diagnosis for this admission?: Yes (11) Pseudomonas urinary tract infection Is this a current diagnosis for this admission?: Yes Plan Summary: Her home medications include Paxil, temazepam, Keppra and Aptiom (eslicarbazepine), which will need to be restarted once she is able to take p.o. medications. She is on Keppra and Aptiom for history of seizures. Critical Time Critical Time (minutes): 45 Level of Care: IMCU -: 1. The care of a critical patient is a dynamic process. This note is a retail wireless sales representative synopsis but static in nature. The timeframe for treatments given in order is not necessarily the actual time these treatments may have been done. 2. This patient requires critical care secondary to ongoing requirements for therapy not offered or safe outside the critical care environment. Transfer to a lower level of care will result in altered life or limb morbidity and mortality. 3. Multidisciplinary rounds completed. 4. ABCDE bundle addressed.
[2020-08-06] MEDS: AMINO ACIDS 5 %/DEXTROSE 20 % 1,000 ML IV PRN (21:56)
[2020-08-06] MEDS: APTIOM 800 MG PO SCH (21:56)
[2020-08-06] MEDS: LATANOPROST 0.005% OPH SOLN 2.5 ML OU SCH (21:56)
[2020-08-06] MEDS: MONTELUKAST SODIUM 10 MG TABLET NG SCH (21:57)
[2020-08-07] MEDS: INSULIN REG, HUMAN 100 UNIT/ML 3 ML VIAL (PYX) SUBCUT SCH ×4 (01:37→18:39)
[2020-08-07] MEDS: ALBUTEROL SULFATE 0.083% NEB 2.5 MG/3 ML AMPUL NEB SCH ×4 (02:50→20:24)
[2020-08-07] MEDS: BUDESONIDE NEB 0.25 MG/2 ML AMPUL NEB SCH ×2 (08:17→20:25)
[2020-08-07] MEDS: ZIPRASIDONE MESYLATE INJ/PF 20 MG SDV IM SCH ×2 (09:22→22:03)
[2020-08-07] MEDS: LEVOFLOXACIN 750 MG/D5W RTU 750 MG/150 ML RTUPB IV SCH (09:22)
[2020-08-07] MEDS: PANTOPRAZOLE SODIUM 40 MG VIAL IV SCH (09:22)
[2020-08-07] MEDS: ENOXAPARIN SODIUM INJ 40 MG/0.4 ML DISP.SYRIN SUBCUT SCH (09:23)
[2020-08-07] MEDS ORDERED: HALOPERIDOL LACTATE INJ 5 MG/1 ML VIAL IV PRN (10:56)
[2020-08-07] MEDS: LEVETIRACETAM 1000 MG/NACL-ISO 1,000 MG/100 ML RTUPB IV SCH ×2 (11:08→22:03)
[2020-08-07] MEDS ORDERED: ZIPRASIDONE MESYLATE INJ/PF 20 MG SDV IM SCH (11:30)
[2020-08-07] MEDS: LORAZEPAM INJ 2 MG/1 ML VIAL IV PRN (17:00)
--- NOTE | 2020-08-07 19:59 | PDOC CRITICAL CARE PROG REPORT ---
General Date:: 08/07/20 ICU Day:: 22 Hospital Day:: 39 Resuscitation Status: Full Code Events in the past 12 to 24 Hours:: This 64-year-old female was originally admitted on 06/30/2020 when she presented to the emergency department with complaints of dyspnea, fatigue, fever and chills. She had previously been tested for COVID and sent home on hydroxychloroquine, azithromycin and Pulmicort. She took her medications as prescribed; however, she returned with worsening fatigue, nausea, vomiting, diarrhea, dysgeusia and anosmia. She was noted to be hypoxic in the emergency department. She had multiple laboratory abnormalities consistent with COVID-19 case definitions. She was originally seen by the critical care service on 07/07/2020 in consultation at the request of Dr. Dev Farris for recommendations on further evaluation and management of acute hypoxemic respiratory failure continue to COVID-19 pneumonia. She transferred to the ICU on 07/16/2020, when she had worsening respiratory status associated with altered mental status and hypercapnia. She was intubated at that time and has remained on mechanical ventilatory support. 08/01: Nursing staff reports that they have lost all peripheral IV access. They have been unsuccessful in reestablishing peripheral IVs. He remains intubated. She is off sedation (without IV access). She is awake. Follows commands. Tachypneic (respiratory rate 50s), anxious. She is on SIMV PRVC, FiO2 35%. 08/02: Patient remains intubated. She is quite anxious. On Precedex. On FiO2 35 %. Demonstrates tachypnea, irrespective of ventilator mode. However, with sufficient sedation, she demonstrates very normal-appearing respiratory mechanics and rate. Started on Levaquin yesterday for MSSA and E cloacae in the sputum along with Pseudomonas in the urine. 08/03: Successfully extubated to high flow nasal cannula yesterday. She is cu rrently on FiO2 40%, 25 LPM. She remains quite anxious. Of note, her hemodynamic parameters and respiratory status have not changed despite liberation from mechanical ventilatory support. Demonstrates strong cough. Interactive. Worse. Hemoglobin 6.7. 08/04: Remains extubated. On high flow cannula. Still tachypneic. Still seems to be primarily central/psychologically driven. She is able to slow down her breathing with verbal prompting. Strong cough. Much more interactive. States that she "wants to get up out of here". She "would like some chocolate ice cream". Hemoglobin 6.8. Failed bedside swallow evaluation. Started on TPN yesterday. 08/05: Remains extubated. Now on 5 LPM via nasal cannula. Still tachypneic, but overall, respiratory rate is trending downwards. 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 In good spirits. Interactive. Voice is getting stronger. On TP N. 08/06: On 2 LPM via nasal cannula. In good spirits, although disappointed with failing her speech/swallow evaluation yesterday, which prevented her from getting any chocolate ice cream. Voice is stronger. On TPN. 08/07: On 2 LPM via nasal cannula. Respiratory rate 17. Heart rate 100. Sleepi ng comfortably. Easily arousable. Notably, more confused today. The daughter raises the same concerns, as she noticed that the patient demonstrated confusion yesterday afternoon during her visit. She remains off her p.o. meds. Review of systems relevant to events:: Neurological, pulmonary. Reason for ICU Addmission:: Need for intubation, psychologically and neurologically fragile. - Medications: Medications reviewed and adjusted accordingly: Yes Physical Exam Vital Signs: Temp Pulse Resp BP Pulse Ox 97.7 F 105 H 22 H 136/70 H 97 08/07/20 08:09 08/07/20 08:17 08/07/20 08:17 08/07/20 08:00 08/07/20 08:17 Intake & Output 08/06/20 08/07/20 08/08/20 06:59 06:59 06:59 Intake Total 360 260 10 Output Total 1605 515 Balance -1245 -255 10 Weight 58.8 kg 59 kg Weight/Height Weight 59 kg Height 1.55 m General appearance: PRESENT: no acute distress, well-developed, well-nourished Head exam: PRESENT: atraumatic, normocephalic Mouth exam: PRESENT: moist, tongue midline Neck exam: ABSENT: carotid bruit, JVD, lymphadenopathy, thyromegaly Respiratory exam: PRESENT: rales, symmetrical, unlabored. ABSENT: accessory muscle use, prolonged expiratory phas, rhonchi, wheezes Cardiovascular exam: PRESENT: RRR, tachycardia. ABSENT: diastolic murmur, rubs, systolic murmur Pulses: PRESENT: normal dorsalis pedis pul GI/Abdominal exam: PRESENT: normal bowel sounds, soft. ABSENT: distended, guarding, mass, organolmegaly, rebound, tenderness Extremities exam: PRESENT: full ROM, pedal edema. ABSENT: calf tenderness, clubbing Musculoskeletal exam: PRESENT: normal inspection. ABSENT: deformity Neurological exam: PRESENT: alert, awake, oriented to person, oriented to place, CN II-XII grossly intact. ABSENT: motor sensory deficit Psychiatric exam: ABSENT: agitated, anxious Focused psych exam: ABSENT: flight of ideas, paranoid, pressured speech, psychomotor agitation, restlessness Skin exam: PRESENT: dry, intact, warm. ABSENT: cyanosis, rash Tubes/Lines: PRESENT: Central Line - Right IJ 08/01 Laboratory/Radiographs Laboratory Results: 08/06/20 04:30 08/06/20 04:30 08/06/20 04:30 WBC 9.5 RBC 2.89 L Hgb 8.5 L Hct 27.1 L MCV 94 MCH 29.5 MCHC 31.5 L RDW 17.2 H Plt Count 282 06/30/20 08/02/20 09:15 05:15 Troponin I < 0.012 NT-Pro-B Natriuret Pep 906 H 763 H Impressions: KUB X-Ray 07/26/20 14:06 IMPRESSION: NG tube as described. Pulmonary findings as described. Chest X-Ray 08/04/20 04:00 IMPRESSION: STABLE APPEARANCE OF THE CHEST. SUPPORT DEVICES UNCHANGED. All labs, radiographs, diagnostic studies and EKGs were personally reviewed: Yes In addition, reports of radiographic and diagnostic studies were read: Yes Assessment and Plan - Diagnosis (1) Acute hypoxemic respiratory failure due to severe acute respiratory syndrome coronavirus 2 (SARS-CoV-2) disease Is this a current diagnosis for this admission?: Yes Plan: * Wean supplemental oxygen as tolerated to maintain SpO2 90+%. * Speech/swallow evaluation on Saturday. * Continue TPN. * PT/OT. (2) Normocytic anemia Is this a current diagnosis for this admission?: Yes Plan: Lab holiday today. Last hemoglobin 8.5 (08/06). (3) Patient is Cheondoism Is this a current diagnosis for this admission?: Yes (4) Depression Qualifiers: Depression Type: unspecified Qualified Code(s): F32.9 - Major depressive disorder, single episode, unspecified Is this a current diagnosis for this admission?: Yes Plan: C needs to restart Paxil as soon as possible. (5) Bipolar disorder Qualifiers: Active/Remission status: remission status unspecified Qualified Code(s): F31.9 - Bipolar disorder, unspecified Is this a current diagnosis for this admission?: Yes (6) Agitation Is this a current diagnosis for this admission?: Yes Plan: Ativan 1 mg IV every 6 hours as needed. Haldol 2.5 mg IV every 6 hours as needed. Change Geodon to 20 mg IM twice daily while awake. She takes Geodon 40 mg p.o. every 12 hours at home. Continue Keppra. She also needs to restart Aptiom as soon as possible. Patient has a history of seizures. (7) Asthma Qualifiers: Asthma severity: moderate Asthma persistence: unspecified Asthma compli cation type: uncomplicated Qualified Code(s): J45.909 - Unspecified asthma, uncomplicated Is this a current diagnosis for this admission?: Yes (8) Hypokalemia Is this a current diagnosis for this admission?: Yes (9) MSSA (methicillin susceptible Staphylococcus aureus) pneumonia Is this a current diagnosis for this admission?: Yes (10) Enterobacter cloacae pneumonia Is this a current diagnosis for this admission?: Yes (11) Pseudomonas urinary tract infection Is this a current diagnosis for this admission?: Yes Critical Time Critical Time (minutes): 60 Level of Care: IMCU -: 1. The care of a critical patient is a dynamic process. This note is a small business sales representative synopsis but static in nature. The timeframe for treatments given in order is not necessarily the actual time these treatments may have been done. 2. This patient requires critical care secondary to ongoing requirements for therapy not offered or safe outside the critical care environment. Transfer to a lower level of care will result in altered life or limb morbidity and mortality. 3. Multidisciplinary rounds completed. 4. ABCDE bundle addressed.
[2020-08-07] MEDS: LATANOPROST 0.005% OPH SOLN 2.5 ML OU SCH (22:02)
[2020-08-07] MEDS: MONTELUKAST SODIUM 10 MG TABLET NG SCH (22:03)
[2020-08-07] MEDS: APTIOM 800 MG PO SCH (22:03)
[2020-08-07] MEDS: AMINO ACIDS 5 %/DEXTROSE 20 % 1,000 ML IV PRN (22:04)
[2020-08-08] MEDS: INSULIN REG, HUMAN 100 UNIT/ML 3 ML VIAL (PYX) SUBCUT SCH ×4 (00:38→17:06)
[2020-08-08] MEDS: ALBUTEROL SULFATE 0.083% NEB 2.5 MG/3 ML AMPUL NEB SCH ×4 (01:48→20:10)
[2020-08-08 07:00] LABS: HEMATOCRIT 27.1 % (36.0-47.0); HEMOGLOBIN 8.7 g/dL (12.0-15.5); MEAN CORPUSCULAR HEMOGLOBIN 29.4 pg (27.0-33.4); MEAN CORPUSCULAR HGB CONC 32.1 g/dL (32.0-36.0); MEAN CORPUSCULAR VOLUME 92 fl (80-97); PLATELET COUNT 260 10^3/uL (150-450); RED BLOOD COUNT 2.96 10^6/uL (3.72-5.28); RED CELL DISTRIBUTION WIDTH 17.5 % (11.5-14.0); WHITE BLOOD COUNT 7.9 10^3/uL (4.0-10.5)
[2020-08-08 07:05] LABS: INTERNATIONAL RATION (INR) 1.05; PROTHROMBIN TIME 13.9 SEC (11.4-15.4)
[2020-08-08 07:26] LABS: ALBUMIN 3.5 g/dL (3.5-5.0); ALKALINE PHOSPHATASE 69 U/L (38-126); ANION GAP 9 (5-19); ASPARTATE AMINO TRANSFERASE 50 U/L (14-36); BILIRUBIN,DIRECT 0.4 mg/dL (0.0-0.4); BILIRUBIN,TOTAL 1.1 mg/dL (0.2-1.3); BLOOD UREA NITROGEN 15 mg/dL (7-20); CALCIUM 8.9 mg/dL (8.4-10.2); CARBON DIOXIDE 31 mmol/L (22-30); CHLORIDE 101 mmol/L (98-107); GLUCOSE 135 mg/dL (75-110); PHOSPHORUS 4.9 mg/dL (2.5-4.5); POTASSIUM 3.9 mmol/L (3.6-5.0); TOTAL PROTEIN 6.2 g/dL (6.3-8.2)
[2020-08-08 07:33] LABS: PREALBUMIN 25.3 mg/dL (17.6-36.0)
[2020-08-08] MEDS: BUDESONIDE NEB 0.25 MG/2 ML AMPUL NEB SCH ×2 (08:06→20:10)
--- NOTE | 2020-08-08 08:13 | PDOC CRITICAL CARE PROG REPORT ---
General Date:: 08/08/20 Hospital Day:: 39 Resuscitation Status: Full Code Events in the past 12 to 24 Hours:: Awake, alert on NC Review of systems relevant to events:: Neurological, pulmonary. Reason for ICU Addmission:: Need for intubation, septic from COVID - Medications: Medications reviewed and adjusted accordingly: Yes Vasopressors:: None Sedation:: None Physical Exam Vital Signs: Temp Pulse Resp BP Pulse Ox 98.7 F 106 H 27 H 134/91 H 99 08/08/20 07:56 08/08/20 07:56 08/08/20 07:56 08/08/20 07:56 08/08/20 07:56 Intake & Output 08/07/20 08/08/20 08/09/20 06:59 06:59 06:59 Intake Total 360 260 Output Total 515 1085 Balance -155 -825 Weight 59 kg 59.5 kg Weight/Height Weight 59.5 kg Height 5 ft 1 in General appearance: PRESENT: no acute distress, well-developed, well-nourished Head exam: PRESENT: atraumatic, normocephalic Eye exam: PRESENT: conjunctiva pink, EOMI, PERRLA. ABSENT: scleral icterus Ear exam: PRESENT: normal external ear exam Mouth exam: PRESENT: moist, tongue midline Respiratory exam: PRESENT: clear to auscultation sky. ABSENT: rales, rhonchi, wheezes Cardiovascular exam: PRESENT: RRR, tachycardia. ABSENT: diastolic murmur, rubs, systolic murmur GI/Abdominal exam: PRESENT: normal bowel sounds, soft. ABSENT: distended, guarding, mass, organolmegaly, rebound, tenderness Rectal exam: PRESENT: deferred Extremities exam: PRESENT: full ROM. ABSENT: calf tenderness, clubbing, pedal edema Musculoskeletal exam: PRESENT: normal inspection Neurological exam: PRESENT: alert, awake, oriented to person, oriented to place Skin exam: PRESENT: dry, intact, warm. ABSENT: cyanosis, rash Tubes/Lines: PRESENT: Central Line Laboratory/Radiographs Laboratory Results: 08/08/20 05:30 08/08/20 05:30 08/08/20 08/08/20 05:30 05:30 WBC 7.9 RBC 2.96 L Hgb 8.7 L Hct 27.1 L MCV 92 MCH 29.4 MCHC 32.1 RDW 17.5 H Plt Count 260 Sodium 140.6 Potassium 3.9 Chloride 101 Carbon Dioxide 31 H Anion Gap 9 BUN 15 Creatinine 0.29 L Est GFR ( Amer) > 60 Glucose 135 H Calcium 8.9 Phosphorus 4.9 H Magnesium 2.1 Total Bilirubin 1.1 AST 50 H Alkaline Phosphatase 69 Total Protein 6.2 L Albumin 3.5 Prealbumin 25.3 06/30/20 08/02/20 09:15 05:15 Troponin I < 0.012 NT-Pro-B Natriuret Pep 906 H 763 H Impressions: KUB X-Ray 07/26/20 14:06 IMPRESSION: NG tube as described. Pulmonary findings as described. Chest X-Ray 08/04/20 04:00 IMPRESSION: STABLE APPEARANCE OF THE CHEST. SUPPORT DEVICES UNCHANGED. All labs, radiographs, diagnostic studies and EKGs were personally reviewed: Yes In addition, reports of radiographic and diagnostic studies were read: Yes Assessment and Plan - Diagnosis (1) Acute respiratory disease due to COVID-19 virus Is this a current diagnosis for this admission?: No Plan: Tested negative. (2) Poor nutrition Is this a current diagnosis for this admission?: Yes Plan: Receiving TPN. To have MBS today to see if she is safe to eat. (3) Schizoaffective disorder Qualifiers: Schizoaffective disorder type: bipolar Qualified Code(s): F25.0 - Schi zoaffective disorder, bipolar type Is this a current diagnosis for this admission?: Yes Plan: Back on routine medications. (4) Physical deconditioning Is this a current diagnosis for this admission?: Yes Plan: PT reordered. Likely will need a SNF. Plan Summary: Plan MBS today. Pt to continue. Hope to get to a SNF soon. Critical Time Critical Time (minutes): 25 Level of Care: IMCU Anticipated discharge: SNF Anticipated DC Timeframe: Other -: 1. The care of a critical patient is a dynamic process. This note is a herbicide service sales representative synopsis but static in nature. The timeframe for treatments given in order is not necessarily the actual time these treatments may have been done. 2. This patient requires critical care secondary to ongoing requirements for therapy not offered or safe outside the critical care environment. Transfer to a lower level of care will result in altered life or limb morbidity and mortality. 3. Multidisciplinary rounds completed. 4. ABCDE bundle addressed.
--- NOTE | 2020-08-08 08:20 | PDOC CRITICAL CARE PROG REPORT ---
General Date:: 07/25/20 Resuscitation Status: Full Code Events in the past 12 to 24 Hours:: Respiratory status slightly improved. Review of systems relevant to events:: Pulmonary, neurological. Reason for ICU Addmission:: Need for intubation, septic from COVID - Medications: Medications reviewed and adjusted accordingly: Yes Physical Exam Vital Signs: Temp Pulse Resp BP Pulse Ox 99.7 F 75 24 H 95/47 L 96 07/25/20 10:41 07/25/20 08:00 07/25/20 12:07 07/25/20 12:07 07/25/20 12:07 Intake & Output 07/24/20 07/25/20 07/26/20 06:59 06:59 06:59 Intake Total 1050 1126 145 Output Total 2705 1435 875 Balance -4428 -309 -730 Weight 66.3 kg 67.7 kg Weight/Height Weight 67.7 kg Height 5 ft 1 in General appearance: PRESENT: no acute distress, thin Head exam: PRESENT: atraumatic, normocephalic Eye exam: PRESENT: conjunctiva pink, EOMI, PERRLA. ABSENT: scleral icterus Ear exam: PRESENT: normal external ear exam Mouth exam: PRESENT: moist, tongue midline Respiratory exam: PRESENT: decreased breath sounds Cardiovascular exam: PRESENT: RRR, tachycardia. ABSENT: diastolic murmur, rubs, systolic murmur GI/Abdominal exam: PRESENT: normal bowel sounds, soft. ABSENT: distended, gu arding, mass, organolmegaly, rebound, tenderness Rectal exam: PRESENT: deferred Gentrourinary exam: PRESENT: indwelling catheter Extremities exam: PRESENT: +1 edema Musculoskeletal exam: PRESENT: normal inspection Neurological exam: PRESENT: altered, other - Sedated. Skin exam: PRESENT: dry, intact, warm. ABSENT: cyanosis, rash Tubes/Lines: PRESENT: Endotracheal Tube, Central Line, Nasogastic Tube Laboratory/Radiographs Laboratory Results: 07/25/20 05:40 07/25/20 05:40 07/24/20 07/25/20 07/25/20 17:50 05:40 05:40 WBC 7.4 RBC 2.24 L Hgb 7.0 L Hct 21.1 L MCV 94 MCH 31.1 MCHC 33.2 RDW 14.6 H Plt Count 186 Seg Neutrophils % Not Reportable Carbonic Acid HCO3/H2CO3 Ratio ABG pH ABG pCO2 ABG pO2 ABG HCO3 ABG O2 Saturation ABG Base Excess FiO2 Sodium 140.7 138.3 Potassium 4.1 D 3.3 L Chloride 94 L 100 Carbon Dioxide 40 H* 39 H Anion Gap 7 -1 L BUN 12 11 Creatinine 0.46 L 0.38 L Est GFR ( Amer) > 60 > 60 Glucose 160 H 117 H Lactic Acid Calcium 8.0 L 7.6 L 07/25/20 07/25/20 08:50 09:19 WBC RBC Hgb Hct MCV MCH MCHC RDW Plt Count Seg Neutrophils % Carbonic Acid 2.13 H HCO3/H2CO3 Ratio 16:1 ABG pH 7.31 L ABG pCO2 70.8 H* ABG pO2 49.1 L ABG HCO3 34.6 H ABG O2 Saturation 79.3 L ABG Base Excess 6.9 FiO2 100% Sodium Potassium Chloride Carbon Dioxide Anion Gap BUN Creatinine Est GFR ( Amer) Glucose Lactic Acid 1.1 Calcium 06/30/20 09:15 Troponin I < 0.012 NT-Pro-B Natriuret Pep 906 H Impressions: KUB X-Ray 07/16/20 21:44 IMPRESSION: Enteric tube tip in the stomach copyright 2011 [employer]- All Rights Reserved Chest X-Ray 07/25/20 00:00 IMPRESSION: Diffuse bilateral airspace disease, mildly worsened from prior. Stable support lines and tubes as above. All labs, radiographs, diagnostic studies and EKGs were personally reviewed: Yes In addition, reports of radiographic and diagnostic studies were read: Yes Assessment and Plan - Diagnosis (1) ARDS (adult respiratory distress syndrome) Is this a current diagnosis for this admission?: Yes Plan: Her PaO2/FiO2 ratio is still low but she does not look like ARDS by CXR criteria. (2) Acute respiratory disease due to COVID-19 virus Is this a current diagnosis for this admission?: Yes Plan: Continue vent support with low volume vent settings. (3) Poor nutrition Is this a current diagnosis for this admission?: Yes Plan: Continue TF (4) Schizoaffective disorder Qualifiers: Schizoaffective disorder type: bipolar Qualified Code(s): F25.0 - Schizoaffective disorder, bipolar type Is this a current diagnosis for this admission?: Yes Plan: Continue her routine psych medications. Plan Summary: Wean ventilator as tolerated. Critical Time Critical Time (minutes): 35 Level of Care: ICU Anticipated discharge: SNF Anticipated DC Timeframe: Other -: 1. The care of a critical patient is a dynamic process. This note is a vendor representatives synopsis but static in nature. The timeframe for treatments given in order is not necessarily the actual time these treatments may have been done. 2. This patient requires critical care secondary to ongoing requirements for therapy not offered or safe outside the critical care environment. Transfer to a lower level of care will result in altered life or limb morbidity and mortality. 3. Multidisciplinary rounds completed. 4. ABCDE bundle addressed.
[2020-08-08] MEDS: ENOXAPARIN SODIUM INJ 40 MG/0.4 ML DISP.SYRIN SUBCUT SCH (09:13)
[2020-08-08] MEDS: PANTOPRAZOLE SODIUM 40 MG VIAL IV SCH (09:13)
[2020-08-08] MEDS: LEVOFLOXACIN 750 MG/D5W RTU 750 MG/150 ML RTUPB IV SCH (09:13)
[2020-08-08] MEDS: ZIPRASIDONE MESYLATE INJ/PF 20 MG SDV IM SCH ×2 (09:14→21:40)
[2020-08-08] MEDS: EPOETIN ALFA-EPBX 3,000 UNIT/ML VIAL (NON-ESRD) SUBCUT SCH (09:14)
[2020-08-08] MEDS: LEVETIRACETAM 1000 MG/NACL-ISO 1,000 MG/100 ML RTUPB IV SCH ×2 (09:37→21:40)
[2020-08-08] MEDS: FAT EMULSIONS 250 ML IV SCH (09:37)
--- NOTE | 2020-08-08 14:01 | ST Inp Modified Barium Swallow ---
Medical Diagnosis - Medical Diagnoses Medical Diagnosis Description & ICD-10 Code(s): dysphagia R13.10 - ICD-10 Tx Diagnosis Coding (1) Acute hypoxemic respiratory failure due to severe acute respiratory syndrome coronavirus 2 (SARS-CoV-2) disease ICD-10 Code(s): U07.1 - COVID-19; J96.01 - ACUTE RESPIRATORY FAILURE WITH HYPOXIA (2) Pneumonia ICD-10 Code(s): J18.9 - PNEUMONIA, UNSPECIFIED ORGANISM [facility] - General Date: 08/08/20 - History -: Medical - per EMR: patient initially admitted 06/30 with dyspnea, fatigue, fever and chills. Was transferred to ICU on 07/16 due to worsening respiratory status, and was intubated until 08/03. Patient failed nursing swallow screens x2 due to coughing. Patient currently on TPN. Patient seen at bedside on 08/05/20, demonstrated coughing with all PO trials. Medications: Medications Reviewed Allergies: Refer to medical record - Subjective Current Nutritional Means: NPO, IV Fluids Current Symptoms: Coughing Pain: Patient reports, 0/5 - Objective Assessment: Upright, Left Lateral - Food Trials Food Trials Used: Thin liquids, Pureed, Regular The Patient: Required Assist - Assessment Labial Function: Within Normal Limits Lingual Function: Within Normal Limits Mandibular Function: Impaired - limited rotary chew pattern seen Dentition: Partial Laryngeal Function: weak voicing, breathy voice - Pharyngeal Stage Initiation of Pharyngeal Stage: Delayed - mild delay, up to 3 seconds Decreased Laryngeal Elevation: No Reduced Velo-Pharyngeal Closure: no Reduced Pressure Generation: No Reduced Tongue Base Retraction: No Pre-Swallowing Pooling in Valleculae: Mild Pre-Swallowing Pooling in Pyriforms: None Reduced Thyro-Hyiod Approximation: No Reduced Epiglottic Excursion: No Reduced Pharyngeal Peristalsis: No Post Swallow Residuals in Valleculae: None Post Swallow Residuals in Pyriforms: None - Esophageal Stage Cricophageal Function: Normal - Impression/Summary Laryngeal Penetration: No Tracheal Aspiration: no Patient Presents With: Oral stage dysphagia - mild Risk of Aspiration: Mild - Recommendations Solid Diet Recommendations: Mechanical Soft, Ground Meat Liquid Diet Recommendations: Thin Strict Aspitarion Precautions: Yes Dysphagia Therapy with MEDIA PROFESSIONAL: Follow Up PRN Recommended Techniques: Fully Upright During Meal, Med Crushed in Applesauce, Small Bites and Sips Supervision: requires assistance Other Recommendations: Recommend assistance with meals due to upper extremity weakness and difficulty feeding self. Speech pathology to follow up with patient x1 for diet tolerance/advancement and to monitor oral phase/chew pattern. - Time Total Time: 30 Total Timed Minutes: 30
--- NOTE | 2020-08-08 14:40 | RADIOLOGY REPORT (SQ) ---
EXAM DESCRIPTION: COOKIE SWALLOW IMAGES COMPLETED DATE/TIME: 08/08/2020 1:41 pm REASON FOR STUDY: Failed bedside evaluation. COMPARISON: None. TECHNIQUE: Videofluoroscopic swallowing examination was performed in conjunction with speech patholo gy. Videofluoroscopic imaging was obtained and reviewed and these are the findings: RADIATION DOSE: Fluoro time 2.5 minutes 1 images saved to PACS. LIMITATIONS: None FINDINGS: The patient was brought into the fluoro room and placed upright on a modified barium swall ow chair. The patient was then given multiple consistencies mixed with barium to swallow under live fluoroscopic video guidance. According to the Speech Pathologist there was no penetration or aspirat ion. Please refer to the speech pathology report for further details. IMPRESSION: NO EVIDENCE OF PENETRATION OR ASPIRATION. PLEASE SEE SPEECH PATHOLOGIST REPORT FOR OTHER FINDINGS AND RECOMMENDATIONS. COMMENT: None Quality ID [id number]: Final reports for procedures using fluoroscopy that document radiation exposure paige stalin, or exposure time and number of fluorographic images (if radiation exposure indices are not avail able) TECHNICAL DOCUMENTATION: JOB ID: [id number] 2010 [email or web address]- All Rights Reserved Reading location - IP/workstation name: [email or web address] [id number]
[2020-08-08] MEDS: GUAIFENESIN/D-METHORPHAN (200-20 MG) SYRUP 10 ML PO PRN (15:39)
[2020-08-08] MEDS: SUCRALFATE 1 GM TABLET NG SCH (17:54)
[2020-08-08] MEDS: AMINO ACIDS 5 %/DEXTROSE 20 % 1,000 ML IV PRN (21:39)
[2020-08-08] MEDS: MONTELUKAST SODIUM 10 MG TABLET NG SCH (21:40)
[2020-08-08] MEDS: APTIOM 800 MG PO SCH (21:40)
[2020-08-08] MEDS: LATANOPROST 0.005% OPH SOLN 2.5 ML OU SCH (21:41)
[2020-08-09] MEDS: INSULIN REG, HUMAN 100 UNIT/ML 3 ML VIAL (PYX) SUBCUT SCH ×4 (00:39→17:02)
[2020-08-09] MEDS: SUCRALFATE 1 GM TABLET NG SCH ×4 (00:39→17:03)
[2020-08-09] MEDS: ALBUTEROL SULFATE 0.083% NEB 2.5 MG/3 ML AMPUL NEB SCH ×4 (01:48→20:01)
[2020-08-09] MEDS: BUDESONIDE NEB 0.25 MG/2 ML AMPUL NEB SCH ×2 (08:23→20:01)
--- NOTE | 2020-08-09 09:05 | PDOC CRITICAL CARE PROG REPORT ---
General Date:: 08/09/20 Hospital Day:: 40 Resuscitation Status: Full Code Events in the past 12 to 24 Hours:: On diet. Not eating much Review of systems relevant to events:: Pulmonary Reason for ICU Addmission:: Extubated and getting ready for discharge. - Medications: Medications reviewed and adjusted accordingly: Yes Vasopressors:: None Sedation:: None Physical Exam Vital Signs: Temp Pulse Resp BP Pulse Ox 98.6 F 103 H 20 139/82 H 100 08/09/20 08:00 08/09/20 08:25 08/09/20 08:25 08/09/20 08:00 08/09/20 08:25 Intake & Output 08/08/20 08/09/20 08/10/20 06:59 06:59 06:59 Intake Total 360 730 Output Total 1085 1590 Balance -725 -860 Weight 59.5 kg 27.034 kg Weight/Height Weight 27.034 kg Height 5 ft 1 in General appearance: PRESENT: no acute distress, cooperative, thin Head exam: PRESENT: atraumatic, normocephalic Eye exam: PRESENT: conjunctival injection Ear exam: PRESENT: normal external ear exam Respiratory exam: PRESENT: clear to auscultation sky, rhonchi - Rhonchi heqard or R side. Secretions. ABSENT: rales, wheezes Cardiovascular exam: PRESENT: RRR, tachycardia. ABSENT: diastolic murmur, rubs, systolic murmur GI/Abdominal exam: PRESENT: normal bowel sounds, soft. ABSENT: distended, guarding, mass, organolmegaly, rebound, tenderness Rectal exam: PRESENT: deferred Gentrourinary exam: PRESENT: indwelling catheter - To be discontinued today Extremities exam: PRESENT: full ROM. ABSENT: calf tenderness, clubbing, pedal e rodrick Musculoskeletal exam: PRESENT: normal inspection Neurological exam: PRESENT: alert, awake, oriented to person, oriented to place, oriented to time, oriented to situation, CN II-XII grossly intact. ABSENT: motor sensory deficit Psychiatric exam: PRESENT: appropriate affect, normal mood. ABSENT: homicidal ideation, suicidal ideation Skin exam: PRESENT: dry, intact, warm. ABSENT: cyanosis, rash Laboratory/Radiographs Laboratory Results: 08/08/20 05:30 08/08/20 05:30 06/30/20 08/02/20 09:15 05:15 Troponin I < 0.012 NT-Pro-B Natriuret Pep 906 H 763 H Impressions: KUB X-Ray 07/26/20 14:06 IMPRESSION: NG tube as described. Pulmonary findings as described. Chest X-Ray 08/04/20 04:00 IMPRESSION: STABLE APPEARANCE OF THE CHEST. SUPPORT DEVICES UNCHANGED. Modified Barium Swallow 08/08/20 00:00 IMPRESSION: NO EVIDENCE OF PENETRATION OR ASPIRATION. PLEASE SEE SPEECH PATHOLOGIST REPORT FOR OTHER FINDINGS AND RECOMMENDATIONS. All labs, radiographs, diagnostic studies and EKGs were personally reviewed: Yes In addition, reports of radiographic and diagnostic studies were read: Yes Assessment and Plan - Diagnosis (1) Acute respiratory disease due to COVID-19 virus Is this a current diagnosis for this admission?: Yes Plan: Now negative (2) Poor nutrition Is this a current diagnosis for this admission?: Yes Plan: Now on diet. Continue TPN until eating more. (3) Schizoaffective disorder Qualifiers: Schizoaffective disorder type: bipolar Qualified Code(s): F25.0 - Schizoaffective disorder, bipolar type Is this a current diagnosis for this admission?: Yes Plan: Stable (4) Physical deconditioning Is this a current diagnosis for this admission?: Yes Plan: Needs PT and likely rehab. Plan Summary: Remove guallpa, stop TPN soon, get ready for SNF/rehab discharge soon. Critical Time Critical Time (minutes): 25 Level of Care: IMCU Anticipated discharge: SNF Anticipated DC Timeframe: Other -: 1. The care of a critical patient is a dynamic process. This note is a route service representative synopsis but static in nature. The timeframe for treatments given in order is not necessarily the actual time these treatments may have been done. 2. This patient requires critical care secondary to ongoing requirements for therapy not offered or safe outside the critical care environment. Transfer to a lower level of care will result in altered life or limb morbidity and mortality. 3. Multidisciplinary rounds completed. 4. ABCDE bundle addressed.
[2020-08-09] MEDS: GUAIFENESIN/D-METHORPHAN (200-20 MG) SYRUP 10 ML PO PRN ×2 (09:10→17:03)
[2020-08-09] MEDS: ENOXAPARIN SODIUM INJ 40 MG/0.4 ML DISP.SYRIN SUBCUT SCH (09:10)
[2020-08-09] MEDS: ZIPRASIDONE MESYLATE INJ/PF 20 MG SDV IM SCH ×2 (09:10→22:42)
[2020-08-09] MEDS: LEVETIRACETAM 1000 MG/NACL-ISO 1,000 MG/100 ML RTUPB IV SCH ×2 (09:10→22:41)
[2020-08-09] MEDS: LEVOFLOXACIN 750 MG/D5W RTU 750 MG/150 ML RTUPB IV SCH (09:11)
[2020-08-09] MEDS: LATANOPROST 0.005% OPH SOLN 2.5 ML OU SCH (22:42)
[2020-08-09] MEDS: APTIOM 800 MG PO SCH (22:42)
[2020-08-10] MEDS: INSULIN REG, HUMAN 100 UNIT/ML 3 ML VIAL (PYX) SUBCUT SCH ×4 (01:02→18:19)
[2020-08-10] MEDS: SUCRALFATE 1 GM TABLET NG SCH ×4 (01:02→18:20)
[2020-08-10] MEDS: ALBUTEROL SULFATE 0.083% NEB 2.5 MG/3 ML AMPUL NEB SCH ×4 (01:49→20:48)
[2020-08-10] MEDS: BUDESONIDE NEB 0.25 MG/2 ML AMPUL NEB SCH ×2 (08:44→20:48)
[2020-08-10] MEDS: LEVETIRACETAM 1000 MG/NACL-ISO 1,000 MG/100 ML RTUPB IV SCH ×2 (11:00→22:23)
[2020-08-10] MEDS: LEVOFLOXACIN 750 MG/D5W RTU 750 MG/150 ML RTUPB IV SCH (11:12)
[2020-08-10] MEDS: ENOXAPARIN SODIUM INJ 40 MG/0.4 ML DISP.SYRIN SUBCUT SCH (11:13)
[2020-08-10] MEDS: ZIPRASIDONE HCL 40 MG CAPSULE PO SCH (11:39)
[2020-08-10] MEDS: EPOETIN ALFA-EPBX 3,000 UNIT/ML VIAL (NON-ESRD) SUBCUT SCH (11:48)
--- NOTE | 2020-08-10 13:09 | PDOC CRITICAL CARE PROG REPORT ---
General Date:: 08/10/20 Hospital Day:: 41 Resuscitation Status: Full Code Events in the past 12 to 24 Hours:: Eating more, TPN stopped. Review of systems relevant to events:: Generally weak. Reason for ICU Addmission:: Extubated and getting ready for discharge. - Medications: Medications reviewed and adjusted accordingly: Yes Vasopressors:: None Sedation:: None Physical Exam Vital Signs: Temp Pulse Resp BP Pulse Ox 97.8 F 117 H 23 H 142/68 H 96 08/10/20 11:57 08/10/20 08:44 08/10/20 12:00 08/10/20 11:56 08/10/20 12:00 Intake & Output 08/09/20 08/10/20 08/11/20 06:59 06:59 06:59 Intake Total 730 710 280 Output Total 1590 160 Balance -860 550 280 Weight 27.034 kg 60.9 kg Weight/Height Weight 60.9 kg Height 5 ft 1 in General appearance: PRESENT: no acute distress, cooperative, thin Head exam: PRESENT: atraumatic, normocephalic Eye exam: PRESENT: conjunctiva pink, EOMI, PERRLA. ABSENT: scleral icterus Ear exam: PRESENT: normal external ear exam Mouth exam: PRESENT: moist, tongue midline Respiratory exam: PRESENT: clear to auscultation sky, decreased breath sounds. ABSENT: rales, rhonchi, wheezes Cardiovascular exam: PRESENT: RRR, tachycardia. ABSENT: diastolic murmur, rubs, systolic murmur GI/Abdominal exam: PRESENT: normal bowel sounds, soft. ABSENT: distended, guarding, mass, organolmegaly, rebound, tenderness Rectal exam: PRESENT: deferred Extremities exam: PRESENT: full ROM. ABSENT: calf tenderness, clubbing, pedal edema Musculoskeletal exam: PRESENT: normal inspection Neurological exam: PRESENT: alert, awake, oriented to person, oriented to place, oriented to time, oriented to situation, CN II-XII grossly intact. ABSENT: motor sensory deficit Psychiatric exam: PRESENT: appropriate affect, normal mood. ABSENT: homicidal ideation, suicidal ideation Skin exam: PRESENT: dry, intact, warm. ABSENT: cyanosis, rash Laboratory/Radiographs Laboratory Results: 08/08/20 05:30 08/08/20 05:30 06/30/20 08/02/20 09:15 05:15 Troponin I < 0.012 NT-Pro-B Natriuret Pep 906 H 763 H Impressions: KUB X-Ray 07/26/20 14:06 IMPRESSION: NG tube as described. Pulmonary findings as described. Chest X-Ray 08/04/20 04:00 IMPRESSION: STABLE APPEARANCE OF THE CHEST. SUPPORT DEVICES UNCHANGED. Modified Barium Swallow 08/08/20 00:00 IMPRESSION: NO EVIDENCE OF PENETRATION OR ASPIRATION. PLEASE SEE SPEECH PATHOLOGIST REPORT FOR OTHER FINDINGS AND RECOMMENDATIONS. All labs, radiographs, diagnostic studies and EKGs were personally reviewed: Yes In addition, reports of radiographic and diagnostic studies were read: Yes Assessment and Plan - Diagnosis (1) Poor nutrition Is this a current diagnosis for this admission?: Yes Plan: She is eating more. TPN stopped. She likely will need to mobilize more before appetite picks up. (2) Schizoaffective disorder Qualifiers: Schizoaffective disorder type: bipolar Qualified Code(s): F25.0 - Schizoaffective disorder, bipolar type Is this a current diagnosis for this admission?: Yes Plan: Calm, on baseline psych meds. (3) Physical deconditioning Is this a current diagnosis for this admission?: Yes Plan: We are awaiting word on rehab bed. She is too weak to walk. Plan Summary: When a bed is available she can likely be discharged Critical Time Critical Time (minutes): 25 Level of Care: IMCU Anticipated discharge: SNF Anticipated DC Timeframe: within 48 hours -: 1. The care of a critical patient is a dynamic process. This note is a medical field representative synopsis but static in nature. The timeframe for treatments given in order is not necessarily the actual time these treatments may have been done. 2. This patient requires critical care secondary to ongoing requirements for therapy not offered or safe outside the critical care environment. Transfer to a lower level of care will result in altered life or limb morbidity and mortality. 3. Multidisciplinary rounds completed. 4. ABCDE bundle addressed.
--- NOTE | 2020-08-10 17:52 | Progress Note ---
Provider Note Provider Note: Machelle Lazcano 64/F, hx of schizophrenia, admitted at [facility] 06/30/20 for SOB, acute hypoxemic resp failure secondary to COVID Pneumonia, in the ICU from 07/16- 08/10, intubated, successfully extubated and transferred to floors 08/10/20 for further management. Full progress notes to follow tomorrow please refer to Dr. Prieto notes for today. She was seen and examined at bedside. VS stable, she is awake, alert, talking and eating. She is awaiting placement.
--- NOTE | 2020-08-10 19:14 | EKG REPORT ---
SEVERITY:- ABNORMAL ECG - SINUS TACHYCARDIA CONSIDER LEFT VENTRICULAR HYPERTROPHY : Confirmed by: Ezio Greenfield 10-Aug-2020 19:13:33
[2020-08-10 21:08] LABS: ABSOLUTE BASOPHILS # (AUTO) 0.1 10^3/uL (0.0-0.2); ABSOLUTE EOSINOPHILS # (AUTO) 0.3 10^3/uL (0.0-0.6); ABSOLUTE LYMPHOCYTES (AUTO) 1.3 10^3/uL (0.5-4.7); ABSOLUTE MONOCYTES (AUTO) 0.6 10^3/uL (0.1-1.4); ABSOLUTE NEUT (AUTO) 3.8 10^3/uL (1.7-8.2); BASOPHILS % (AUTO) 1.2 % (0-2); EOSINOPHILS % (AUTO) 4.8 % (0-6); HEMATOCRIT 25.6 % (36.0-47.0); HEMOGLOBIN 8.4 g/dL (12.0-15.5); LYMPHOCYTES % (AUTO) 21.6 % (13-45); MEAN CORPUSCULAR HEMOGLOBIN 29.5 pg (27.0-33.4); MEAN CORPUSCULAR HGB CONC 32.9 g/dL (32.0-36.0); MEAN CORPUSCULAR VOLUME 90 fl (80-97); PLATELET COUNT 226 10^3/uL (150-450); RED BLOOD COUNT 2.85 10^6/uL (3.72-5.28); RED CELL DISTRIBUTION WIDTH 17.8 % (11.5-14.0); SEGMENTED NEUTROPHILS % (AUTO) 62.4 % (42-78); TOTAL CELLS COUNTED % (AUTO) 100 %; WHITE BLOOD COUNT 6.1 10^3/uL (4.0-10.5)
[2020-08-10 21:23] LABS: ALBUMIN 3.4 g/dL (3.5-5.0); ALKALINE PHOSPHATASE 83 U/L (38-126); ANION GAP 6 (5-19); ASPARTATE AMINO TRANSFERASE 33 U/L (14-36); BILIRUBIN,DIRECT 0.3 mg/dL (0.0-0.4); BILIRUBIN,TOTAL 0.9 mg/dL (0.2-1.3); BLOOD UREA NITROGEN 8 mg/dL (7-20); CALCIUM 8.8 mg/dL (8.4-10.2); CARBON DIOXIDE 34 mmol/L (22-30); CHLORIDE 98 mmol/L (98-107); GLUCOSE 103 mg/dL (75-110); POTASSIUM 3.5 mmol/L (3.6-5.0); TOTAL PROTEIN 6.3 g/dL (6.3-8.2)
[2020-08-10] MEDS: APTIOM 800 MG PO SCH (22:22)
[2020-08-10] MEDS: LATANOPROST 0.005% OPH SOLN 2.5 ML OU SCH (22:23)
[2020-08-10] MEDS: DEXTROSE 5%-1/2 NORMAL SALINE 1,000 ML IV PRN (22:25)
[2020-08-11] MEDS: INSULIN REG, HUMAN 100 UNIT/ML 3 ML VIAL (PYX) SUBCUT SCH ×5 (01:10→23:44)
[2020-08-11] MEDS: ALBUTEROL SULFATE 0.083% NEB 2.5 MG/3 ML AMPUL NEB SCH ×4 (01:51→20:12)
[2020-08-11] MEDS: SUCRALFATE 1 GM TABLET NG SCH ×5 (05:32→23:44)
[2020-08-11] MEDS: BUDESONIDE NEB 0.25 MG/2 ML AMPUL NEB SCH ×2 (07:50→20:12)
[2020-08-11] MEDS: ZIPRASIDONE HCL 40 MG CAPSULE PO SCH (10:46)
[2020-08-11] MEDS: LEVOFLOXACIN 750 MG/D5W RTU 750 MG/150 ML RTUPB IV SCH (10:46)
[2020-08-11] MEDS: LEVETIRACETAM 1000 MG/NACL-ISO 1,000 MG/100 ML RTUPB IV SCH ×2 (10:46→22:19)
[2020-08-11] MEDS ORDERED: ONDANSETRON 4 MG TAB.RAPDIS PO PRN (11:25)
[2020-08-11] MEDS: ENOXAPARIN SODIUM INJ 40 MG/0.4 ML DISP.SYRIN SUBCUT SCH (11:33)
--- NOTE | 2020-08-11 20:26 | PDOC PROGRESS REPORT ---
Subjective Progress Note for:: 08/11/20 Subjective:: DEMETRI CALDERON is a 64 year old female past medical history of s chizoaffective disorder, seizure disorder, depression, hypertension, anxiety, who was exposed to COVID-19 about 11 days ago, came into ED 2 days ago complaining of shortness of breath, fatigue, subjective fever and chills, was tested for COVID and sent home on hydroxychloroquine, azithromycin and Pu lmicort, she took all her medication however patient complaining of worsening fatigue, nausea, vomiting, diarrhea, loss of taste, loss of smell, denies any chest pain, abdominal pain, headache, vision changes, weight changes, focal neurological symptoms, or any urinary symptoms. In ED was noted to be hypoxic, tachypneic, tachycardic, elevated INR, elevated ferritin, elevated LDH, elevated C-reactive protein and transaminitis. Surgery was consulted for admission. She was admitted 06/30/20 07/01/2020. Saw patient this morning. Alert and oriented but unfortunately her respiratory distress is getting worse, stating that she could not sleep last night and hurting all over does not feel like eating, denies any fever or chills, chest pain, nausea, vomiting or abdominal pain. She mentions to me that she would like to stay full code on this admission. 07/02/2020. Overnight patient has been hypoxic, this morning patient seemed very stressed, tachypneic, on high flow nasal cannula, refuses to wear BiPAP citing claustrophobia, was given some Ativan but he still refused to wear it, ABG showed mild hypoxia otherwise unremarkable, patient still alert and oriented but very distressed denies any chest pain, fever, chills has not been able to eat due to the fact that she is on oxygen 24/7. She is okay to be intubated if needed. Unfortunately she still cannot tolerate BiPAP even though she was given some Ativan. 07/03/2020. Saw patient this morning, wearing BiPAP, in mild respiratory distres s, alert and oriented and cooperative with physical examination, patient has been wearing her BiPAP since last night been taking benzodiazepine for anxiety, patient is on 100% oxygen and saturating high 80s and low 90s. Denies any chest pain, fever, chills, nausea, vomiting. Yesterday I mentioned to her that I could get her effervescent plasma but she is stating that he cannot receive it due to anabaptist beliefs. 07/04/2020. Unfortunately patient still BiPAP dependent and on FiO2 of 100%, sat urating high 80s and low 90s, afebrile, noted to be in moderate respiratory distress however she still awake alert and oriented x3, stating that she is feeling weak all over. Denies any chest pain, nausea, vomiting, diarrhea, constipation. As per nursing staff and she was consulted for transfer overnight however they have refused to take the patient yet. 07/05/2020. Unfortunately patient still requiring high oxygen, still on 100% oxygen and BiPAP dependent, saturating in the 90s, ABG still shows hypoxemia however pH is WNL, patient is still alert and oriented and cooperative with physical examination, stating that she is feeling very tired and hurting everywhere, patient still does not want effervescent plasma transfusion, denies any chest pain, nausea, vomiting, abdominal pain. Once a while removes her BiPAP however for most of the time she is compliant with her BiPAP. 07/06/2020. No acute events overnight. Patient having moderate improvement of respiratory symptoms, FiO2 is 85 down from 100% and saturating high 90s, still seems to be more restless and however is alert and oriented x3 and cooperative with physical examination. Denies any fever, chills, nausea, vomiting. Feeling of back pain. 07/07/2020. Overnight patient was noted to be confused and flaccid on one side, suspicion was raised for possible CVA, since patient desaturates as soon as she is off of BiPAP CT head was not able to be done, this morning patient is alert but confused however does communicate and moving all her extremities, cranial nerves noted to be intact, unfortunately patient still on BiPAP however oxygen demand is improving, but noted to be hypoxemic on ABG this morning. Patient is stating that she is tired having pleuritic chest pain otherwise denies any fever, chills, nausea. Has not been able to eat anything as patient is BiPAP dependent. Administrative Coordinator consulted, recommendation is to keep patient in IMCU and will transfer to ICU if she worsens or becomes acidotic. 07/08/2020. No acute events overnight. Patient oxygen demand is improving, still on BiPAP FiO2 of 70% saturating in WNL, patient still alert but confused, alert and oriented x2, tends to pull on her BiPAP, stating that she is feeling better today, denies any chest pain, nausea, vomiting. Complaining of back pain. 07/16/20. She became lethargic and unresponsive and was intubated and was transferred to ICU. 07/18 the patient remains on the ventilator Her CXR shows diffuse Interstitial infiltrates perhaps slightly improved.Late in the day thepatient was dropping her 02 sats to the 89% range . She required some increase in FI02 and PEEP. 07/19 The patient remains on the ventilator. She has thick secretions. CXR may be a little worse with her diffuse bilateral infiltrates.The patient is on FI02 of about 70%.She is off levophed at this time.I have added lasix 20mg IV q day. I will be sending sputum culture and Procal. Her weight is up the past 3 days about 5 kg. 07/20 The patient remains on the ventilator. not alot has changed. Her had a chance to see her through the window yesterday. Remains hemodynamically stable. 07/22 The patient remains on the ventilaltor. She did do a short time on CPAP overnight. i will try again latelr once her sedation is weaned off. Her bood count is holding. No obvious blood loss. FI02 isd down to 45%. The patient is about 2.3 liters ahead since 07/19. The patient is being treated for a possible MSSA pneumonia with Ancef. 07/23 The patient still remains onmechanical ventiation. We nani her on SBT for a few hours yesterday and she did pretty well. I have taken down her sedation. 07/24 The patient did well on a lengthy CPAP trial yesterday. I have her on SBT today. She does respond to simple commands to wiggle her toes etc., her potassium this AM was 2.7 so she s getting supplementation.. HB is stabilzed in the low to mid 7 range. Will check ABG on CPAP. 08/01: Nursing staff reports that they have lost all peripheral IV access. They have been unsuccessful in reestablishing peripheral IVs. He remains intubated. She is off sedation (without IV access). She is awake. Follows commands. Tachypneic (respiratory rate 50s), anxious. She is on SIMV PRVC, FiO2 35%. 08/02: Patient remains intubated. She is quite anxious. On Precedex. On FiO2 35%. Demonstrates tachypnea, irrespective of ventilator mode. However, with sufficient sedation, she demonstrates very normal-appearing respiratory mechanics and rate. Started on Levaquin yesterday for MSSA and E cloacae in the sputum along with Pseudomonas in the urine. 08/03: Successfully extubated to high flow nasal cannula yesterday. She is currently on FiO2 40%, 25 LPM. She remains quite anxious. Of note, her hemodynamic parameters and respiratory status have not changed despite liberation from mechanical ventilatory support. Demonstrates strong cough. Interactive. Worse. Hemoglobin 6.7. 08/04: Remains extubated. On high flow cannula. Still tachypneic. Still seems to be primarily central/psychologically driven. She is able to slow down her breathing with verbal prompting. Strong cough. Much more interactive. States that she "wants to get up out of here". She "would like some chocolate ice cream". Hemoglobin 6.8. Failed bedside swallow evaluation. Started on TPN yesterday. 08/05: Remains extubated. Now on 5 LPM via nasal cannula. Still tachypneic, but overall, respiratory rate is trending downwards. Got 2 doses of Ativan during prisoner classification interviewer. In good spirits. Interactive. Voice is getting stronger. On TPN. 08/06: On 2 LPM via nasal cannula. In good spirits, although disappointed with failing her speech/swallow evaluation yesterday, which prevented her from getting any chocolate ice cream. Voice is stronger. On TPN. 08/07: On 2 LPM via nasal cannula. Respiratory rate 17. Heart rate 100. Slee ping comfortably. Easily arousable. Notably, more confused today. The daughter raises the same concerns, as she noticed that the patient demonstrated confusion yesterday afternoon during her visit. She remains off her p.o. meds. 08/10/20. Transferred to floors awaiting SNF placement. 08/11/20. Seen and examined at bedside. Denies any chest pain, SOB, has mild cough. Appetite improving. Reason For Visit: ACUTE RESPIRATORY FAILURE WITH HYPOXIA, COVID-19 Physical Exam Vital Signs: Temp Pulse Resp BP Pulse Ox 97.3 F 121 H 18 118/60 99 08/11/20 17:00 08/11/20 17:00 08/11/20 13:39 08/11/20 17:00 08/11/20 17:00 Intake & Output 08/10/20 08/11/20 08/12/20 06:59 06:59 06:59 Intake Total 077 837 0328 Output Total 160 Balance 608 130 0987 Weight 60.9 kg 60.7 kg General appearance: PRESENT: no acute distress, cooperative Head exam: PRESENT: atraumatic, normocephalic Eye exam: PRESENT: EOMI, PERRLA Mouth exam: PRESENT: moist Neck exam: PRESENT: full ROM, other - central line right IJ Respiratory exam: PRESENT: clear to auscultation sky, rales, symmetrical, unlabored Cardiovascular exam: PRESENT: RRR, +S1, +S2 Pulses: PRESENT: normal dorsalis pedis pul GI/Abdominal exam: PRESENT: normal bowel sounds, soft. ABSENT: rebound, tenderness Extremities exam: PRESENT: full ROM Musculoskeletal exam: PRESENT: full ROM Neurological exam: PRESENT: alert, awake, oriented to person Psychiatric exam: PRESENT: normal mood Skin exam: PRESENT: normal color Results Laboratory Results: 08/10/20 20:50 08/10/20 20:50 08/10/20 08/10/20 20:50 20:50 WBC 6.1 RBC 2.85 L Hgb 8.4 L Hct 25.6 L MCV 90 MCH 29.5 MCHC 32.9 RDW 17.8 H Plt Count 226 Seg Neutrophils % 62.4 Sodium 138.2 Potassium 3.5 L Chloride 98 Carbon Dioxide 34 H Anion Gap 6 BUN 8 Creatinine 0.44 L Est GFR ( Amer) > 60 Glucose 103 Calcium 8.8 Total Bilirubin 0.9 AST 33 Alkaline Phosphatase 83 Total Protein 6.3 Albumin 3.4 L 06/30/20 08/02/20 09:15 05:15 Troponin I < 0.012 NT-Pro-B Natriuret Pep 906 H 763 H Impressions: KUB X-Ray 07/26/20 14:06 IMPRESSION: NG tube as described. Pulmonary findings as described. Chest X-Ray 08/04/20 04:00 IMPRESSION: STABLE APPEARANCE OF THE CHEST. SUPPORT DEVICES UNCHANGED. Modified Barium Swallow 08/08/20 00:00 IMPRESSION: NO EVIDENCE OF PENETRATION OR ASPIRATION. PLEASE SEE SPEECH PATHOLOGIST REPORT FOR OTHER FINDINGS AND RECOMMENDATIONS. Assessment and Plan - Diagnosis (1) Acute hypoxemic respiratory failure due to severe acute respiratory syndrome coronavirus 2 (SARS-CoV-2) disease Is this a current diagnosis for this admission?: Yes Plan: - intubated on the 07/16, extubated 08/03 - secondary to ARDS from severe COVID pneumonia - resolved - on 2l NC sats 95% (2) Acute respiratory failure with hypoxia and hypercapnia Is this a current diagnosis for this admission?: Yes (3) Poor nutrition Is this a current diagnosis for this admission?: Yes Plan: She is eating more. TPN stopped. She likely will need to mobilize more before appetite picks up. (4) Depression Qualifiers: Depression Type: unspecified Qualified Code(s): F32.9 - Major depressive disorder, single episode, unspecified Is this a current diagnosis for this admission?: Yes Plan: on paxil. (5) Schizoaffective disorder Qualifiers: Schizoaffective disorder type: bipolar Qualified Code(s): F25.0 - Schizoaffective disorder, bipolar type Is this a current diagnosis for this admission?: Yes Plan: Calm, on baseline psych meds. (6) Asthma Qualifiers: Asthma severity: moderate Asthma persistence: unspecified Asthma complication type: uncomplicated Qualified Code(s): J45.909 - Unspecified asthma, uncomplicated Is this a current diagnosis for this admission?: Yes Plan: Albuterol/budesonide scheduled. Continue Singulair. (7) Seizure disorder Is this a current diagnosis for this admission?: Yes Plan: Continue Keppra (8) Weakness Is this a current diagnosis for this admission?: Yes Plan: Secondary to critical illness. When appropriate initiate physical therapy. - Plan Summary Summary: Plan is to [facility] her [facility]. - Time Time Spent with patient: 25-34 minutes Anticipated Discharge Disposition: [facility] Anticipated Discharge Timeframe: within 48 hours
[2020-08-11] MEDS: APTIOM 800 MG PO SCH (22:19)
[2020-08-11] MEDS: LATANOPROST 0.005% OPH SOLN 2.5 ML OU SCH (22:19)
[2020-08-12] MEDS: DEXTROSE 5%-1/2 NORMAL SALINE 1,000 ML IV PRN ×2 (01:17→14:51)
[2020-08-12] MEDS: ALBUTEROL SULFATE 0.083% NEB 2.5 MG/3 ML AMPUL NEB SCH ×4 (01:55→21:04)
[2020-08-12] MEDS: INSULIN REG, HUMAN 100 UNIT/ML 3 ML VIAL (PYX) SUBCUT SCH ×4 (05:48→23:00)
[2020-08-12] MEDS: SUCRALFATE 1 GM TABLET NG SCH ×4 (05:57→23:00)
[2020-08-12] MEDS: BUDESONIDE NEB 0.25 MG/2 ML AMPUL NEB SCH ×2 (08:33→21:04)
[2020-08-12] MEDS: LEVETIRACETAM 1000 MG/NACL-ISO 1,000 MG/100 ML RTUPB IV SCH (09:32)
[2020-08-12] MEDS: ZIPRASIDONE HCL 40 MG CAPSULE PO SCH (09:33)
[2020-08-12] MEDS: EPOETIN ALFA-EPBX 3,000 UNIT/ML VIAL (NON-ESRD) SUBCUT SCH (09:36)
[2020-08-12] MEDS: ENOXAPARIN SODIUM INJ 40 MG/0.4 ML DISP.SYRIN SUBCUT SCH (09:42)
--- NOTE | 2020-08-12 14:18 | PDOC PROGRESS REPORT ---
Subjective Progress Note for:: 08/12/20 Subjective:: DEMETRI CALDERON is a 64 year old female past medical history of s chizoaffective disorder, seizure disorder, depression, hypertension, anxiety, who was exposed to COVID-19 about 11 days ago, came into ED 2 days ago complaining of shortness of breath, fatigue, subjective fever and chills, was tested for COVID and sent home on hydroxychloroquine, azithromycin and Pu lmicort, she took all her medication however patient complaining of worsening fatigue, nausea, vomiting, diarrhea, loss of taste, loss of smell, denies any chest pain, abdominal pain, headache, vision changes, weight changes, focal neurological symptoms, or any urinary symptoms. In ED was noted to be hypoxic, tachypneic, tachycardic, elevated INR, elevated ferritin, elevated LDH, elevated C-reactive protein and transaminitis. Surgery was consulted for admission. She was admitted 06/30/20 07/01/2020. Saw patient this morning. Alert and oriented but unfortunately her respiratory distress is getting worse, stating that she could not sleep last night and hurting all over does not feel like eating, denies any fever or chills, chest pain, nausea, vomiting or abdominal pain. She mentions to me that she would like to stay full code on this admission. 07/02/2020. Overnight patient has been hypoxic, this morning patient seemed very stressed, tachypneic, on high flow nasal cannula, refuses to wear BiPAP citing claustrophobia, was given some Ativan but he still refused to wear it, ABG showed mild hypoxia otherwise unremarkable, patient still alert and oriented but very distressed denies any chest pain, fever, chills has not been able to eat due to the fact that she is on oxygen 24/. She is okay to be intubated if needed. Unfortunately she still cannot tolerate BiPAP even though she was given some Ativan. 07/03/2020. Saw patient this morning, wearing BiPAP, in mild respiratory distres s, alert and oriented and cooperative with physical examination, patient has been wearing her BiPAP since last night been taking benzodiazepine for anxiety, patient is on 100% oxygen and saturating high 80s and low 90s. Denies any chest pain, fever, chills, nausea, vomiting. Yesterday I mentioned to her that I could get her effervescent plasma but she is stating that he cannot receive it due to taoism beliefs. 07/04/2020. Unfortunately patient still BiPAP dependent and on FiO2 of 100%, sat urating high 80s and low 90s, afebrile, noted to be in moderate respiratory distress however she still awake alert and oriented x3, stating that she is feeling weak all over. Denies any chest pain, nausea, vomiting, diarrhea, constipation. As per nursing staff and she was consulted for transfer overnight however they have refused to take the patient yet. 07/05/2020. Unfortunately patient still requiring high oxygen, still on 100% oxygen and BiPAP dependent, saturating in the 90s, ABG still shows hypoxemia however pH is WNL, patient is still alert and oriented and cooperative with physical examination, stating that she is feeling very tired and hurting everywhere, patient still does not want effervescent plasma transfusion, denies any chest pain, nausea, vomiting, abdominal pain. Once a while removes her BiPAP however for most of the time she is compliant with her BiPAP. 07/06/2020. No acute events overnight. Patient having moderate improvement of respiratory symptoms, FiO2 is 85 down from 100% and saturating high 90s, still seems to be more restless and however is alert and oriented x3 and cooperative with physical examination. Denies any fever, chills, nausea, vomiting. Feeling of back pain. 07/07/2020. Overnight patient was noted to be confused and flaccid on one side, suspicion was raised for possible CVA, since patient desaturates as soon as she is off of BiPAP CT head was not able to be done, this morning patient is alert but confused however does communicate and moving all her extremities, cranial nerves noted to be intact, unfortunately patient still on BiPAP however oxygen demand is improving, but noted to be hypoxemic on ABG this morning. Patient is stating that she is tired having pleuritic chest pain otherwise denies any fever, chills, nausea. Has not been able to eat anything as patient is BiPAP dependent. Single Pass Soil Stabilizer Operator consulted, recommendation is to keep patient in IMCU and will transfer to ICU if she worsens or becomes acidotic. 07/08/2020. No acute events overnight. Patient oxygen demand is improving, still on BiPAP FiO2 of 70% saturating in WNL, patient still alert but confused, alert and oriented x2, tends to pull on her BiPAP, stating that she is feeling better today, denies any chest pain, nausea, vomiting. Complaining of back pain. 07/16/20. She became lethargic and unresponsive and was intubated and was transferred to ICU. 07/18 the patient remains on the ventilator Her CXR shows diffuse Interstitial infiltrates perhaps slightly improved.Late in the day thepatient was dropping her 02 sats to the 89% range . She required some increase in FI02 and PEEP. 07/19 The patient remains on the ventilator. She has thick secretions. CXR may be a little worse with her diffuse bilateral infiltrates.The patient is on FI02 of about 70%.She is off levophed at this time.I have added lasix 20mg IV q day. I will be sending sputum culture and Procal. Her weight is up the past 3 days about 5 kg. 07/20 The patient remains on the ventilator. not alot has changed. Her had a chance to see her through the window yesterday. Remains hemodynamically stable. 07/22 The patient remains on the ventilaltor. She did do a short time on CPAP overnight. i will try again latelr once her sedation is weaned off. Her bood count is holding. No obvious blood loss. FI02 isd down to 45%. The patient is about 2.3 liters ahead since 07/19. The patient is being treated for a possible MSSA pneumonia with Ancef. 07/23 The patient still remains onmechanical ventiation. We nani her on SBT for a few hours yesterday and she did pretty well. I have taken down her sedation. 07/24 The patient did well on a lengthy CPAP trial yesterday. I have her on SBT today. She does respond to simple commands to wiggle her toes etc., her potassium this AM was 2.7 so she s getting supplementation.. HB is stabilzed in the low to mid 7 range. Will check ABG on CPAP. 08/01: Nursing staff reports that they have lost all peripheral IV access. They have been unsuccessful in reestablishing peripheral IVs. He remains intubated. She is off sedation (without IV access). She is awake. Follows commands. Tachypneic (respiratory rate 50s), anxious. She is on SIMV PRVC, FiO2 35%. 08/02: Patient remains intubated. She is quite anxious. On Precedex. On FiO2 35%. Demonstrates tachypnea, irrespective of ventilator mode. However, with sufficient sedation, she demonstrates very normal-appearing respiratory mechanics and rate. Started on Levaquin yesterday for MSSA and E cloacae in the sputum along with Pseudomonas in the urine. 08/03: Successfully extubated to high flow nasal cannula yesterday. She is currently on FiO2 40%, 25 LPM. She remains quite anxious. Of note, her hemodynamic parameters and respiratory status have not changed despite liberation from mechanical ventilatory support. Demonstrates strong cough. Interactive. Worse. Hemoglobin 6.7. 08/04: Remains extubated. On high flow cannula. Still tachypneic. Still seems to be primarily central/psychologically driven. She is able to slow down her breathing with verbal prompting. Strong cough. Much more interactive. States that she "wants to get up out of here". She "would like some chocolate ice cream". Hemoglobin 6.8. Failed bedside swallow evaluation. Started on TPN yesterday. 08/05: Remains extubated. Now on 5 LPM via nasal cannula. Still tachypneic, but overall, respiratory rate is trending downwards. 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 In good spirits. Interactive. Voice is getting stronger. On TPN. 08/06: On 2 LPM via nasal cannula. In good spirits, although disappointed with failing her speech/swallow evaluation yesterday, which prevented her from getting any chocolate ice cream. Voice is stronger. On TPN. 08/07: On 2 LPM via nasal cannula. Respiratory rate 17. Heart rate 100. Slee ping comfortably. Easily arousable. Notably, more confused today. The daughter raises the same concerns, as she noticed that the patient demonstrated confusion yesterday afternoon during her visit. She remains off her p.o. meds. 08/10/20. Transferred to floors awaiting SNF placement. 08/11/20. Seen and examined at bedside. Denies any chest pain, SOB, has mild cough. Appetite improving. 08/12/20. She was seen and examined at bedside. She has cough but denies SOB. She continues to require O2 support but her O2 needs has not increased. Her appetite is fair to good. She denies any chest pain,palpitations, abdominal pain. Reason For Visit: ACUTE RESPIRATORY FAILURE WITH HYPOXIA, COVID-19 Physical Exam Vital Signs: Temp Pulse Resp BP Pulse Ox 97.4 F 114 H 18 148/69 H 97 08/12/20 10:00 08/12/20 08:34 08/12/20 08:34 08/12/20 07:45 08/12/20 08:34 Intake & Output 08/11/20 08/12/20 08/13/20 06:59 06:59 06:59 Intake Total 770 2210 100 Balance 770 2210 100 Weight 60.7 kg 61.7 kg General appearance: PRESENT: cooperative, mild distress Head exam: PRESENT: atraumatic, normocephalic Eye exam: PRESENT: EOMI, PERRLA Mouth exam: PRESENT: moist Neck exam: PRESENT: full ROM Respiratory exam: PRESENT: rales, symmetrical, unlabored. ABSENT: wheezes Cardiovascular exam: PRESENT: RRR, +S1, +S2 Pulses: PRESENT: +2 pedal pulses bilateral GI/Abdominal exam: PRESENT: normal bowel sounds, soft. ABSENT: rebound, tenderness Extremities exam: PRESENT: other - generalized extremity weakness Neurological exam: PRESENT: alert, awake Psychiatric exam: PRESENT: flat affect Skin exam: PRESENT: normal color Results Laboratory Results: 08/10/20 20:50 08/10/20 20:50 06/30/20 08/02/20 09:15 05:15 Troponin I < 0.012 NT-Pro-B Natriuret Pep 906 H 763 H Impressions: KUB X-Ray 07/26/20 14:06 IMPRESSION: NG tube as described. Pulmonary findings as described. Chest X-Ray 08/04/20 04:00 IMPRESSION: STABLE APPEARANCE OF THE CHEST. SUPPORT DEVICES UNCHANGED. Modified Barium Swallow 08/08/20 00:00 IMPRESSION: NO EVIDENCE OF PENETRATION OR ASPIRATION. PLEASE SEE SPEECH PATHOLOGIST REPORT FOR OTHER FINDINGS AND RECOMMENDATIONS. Assessment and Plan - Diagnosis (1) Acute hypoxemic respiratory failure due to severe acute respiratory syndrome coronavirus 2 (SARS-CoV-2) disease Is this a current diagnosis for this admission?: Yes Plan: - intubated on the 07/16, extubated 08/03 - secondary to ARDS from severe COVID pneumonia - resolved - on 2l NC sats 95% (2) Poor nutrition Is this a current diagnosis for this admission?: Yes Plan: She is eating more. TPN stopped. She likely will need to mobilize more before appetite picks up. (3) Depression Qualifiers: Depression Type: unspecified Qualified Code(s): F32.9 - Major depressive disorder, single episode, unspecified Is this a current diagnosis for this admission?: Yes Plan: on paxil. (4) Schizoaffective disorder Qualifiers: Schizoaffective disorder type: bipolar Qualified Code(s): F25.0 - Schizoaffective disorder, bipolar type Is this a current diagnosis for this admission?: Yes Plan: Calm, on baseline psych meds. (5) Asthma Qualifiers: Asthma severity: moderate Asthma persistence: unspecified Asthma complication type: uncomplicated Qualified Code(s): J45.909 - Unspecified asthma, uncomplicated Is this a current diagnosis for this admission?: Yes Plan: Albuterol/budesonide scheduled. Continue Singulair. (6) Seizure disorder Is this a current diagnosis for this admission?: Yes Plan: Continue Keppra (7) Weakness Is this a current diagnosis for this admission?: Yes Plan: Secondary to critical illness. When appropriate initiate physical therapy. [facility] - Plan Summary Summary: Plan is to transfer her tomorrow to a [facility] facility for rehab. - Time Time Spent with patient: 25-34 minutes Anticipated Discharge Disposition: Intermediate Facility Anticipated Discharge Timeframe: to be determined
[2020-08-12] MEDS: APTIOM 800 MG PO SCH (21:18)
[2020-08-12] MEDS: LATANOPROST 0.005% OPH SOLN 2.5 ML OU SCH (21:18)
[2020-08-12] MEDS: LEVETIRACETAM 500 MG TABLET PO SCH (21:18)
[2020-08-13] MEDS: DEXTROSE 5%-1/2 NORMAL SALINE 1,000 ML IV PRN (01:00)
[2020-08-13] MEDS: ALBUTEROL SULFATE 0.083% NEB 2.5 MG/3 ML AMPUL NEB SCH ×4 (01:58→19:59)
[2020-08-13] MEDS: INSULIN REG, HUMAN 100 UNIT/ML 3 ML VIAL (PYX) SUBCUT SCH ×4 (05:36→23:25)
[2020-08-13] MEDS: SUCRALFATE 1 GM TABLET NG SCH ×4 (05:38→23:25)
[2020-08-13] MEDS: BUDESONIDE NEB 0.25 MG/2 ML AMPUL NEB SCH ×2 (09:07→19:59)
[2020-08-13] MEDS: ZIPRASIDONE HCL 40 MG CAPSULE PO SCH (09:12)
[2020-08-13] MEDS: LEVETIRACETAM 500 MG TABLET PO SCH ×2 (09:12→21:25)
[2020-08-13] MEDS: ENOXAPARIN SODIUM INJ 40 MG/0.4 ML DISP.SYRIN SUBCUT SCH (09:13)
[2020-08-13 09:50] LABS: ALBUMIN 3.8 g/dL (3.5-5.0); ALKALINE PHOSPHATASE 94 U/L (38-126); ANION GAP 8 (5-19); ASPARTATE AMINO TRANSFERASE 31 U/L (14-36); BILIRUBIN,DIRECT 0.2 mg/dL (0.0-0.4); BILIRUBIN,TOTAL 0.8 mg/dL (0.2-1.3); CALCIUM 8.9 mg/dL (8.4-10.2); CARBON DIOXIDE 32 mmol/L (22-30); CHLORIDE 99 mmol/L (98-107); GLUCOSE 143 mg/dL (75-110); POTASSIUM 3.1 mmol/L (3.6-5.0); TOTAL PROTEIN 6.5 g/dL (6.3-8.2)
[2020-08-13 09:58] LABS: BLOOD UREA NITROGEN < 2 mg/dL (7-20)
--- NOTE | 2020-08-13 19:19 | PDOC PROGRESS REPORT ---
Subjective Progress Note for:: 08/13/20 Subjective:: DEMETRI CALDERON is a 64 year old female past medical history of s chizoaffective disorder, seizure disorder, depression, hypertension, anxiety, who was exposed to COVID-19 about 11 days ago, came into ED 2 days ago complaining of shortness of breath, fatigue, subjective fever and chills, was tested for COVID and sent home on hydroxychloroquine, azithromycin and Pu lmicort, she took all her medication however patient complaining of worsening fatigue, nausea, vomiting, diarrhea, loss of taste, loss of smell, denies any chest pain, abdominal pain, headache, vision changes, weight changes, focal neurological symptoms, or any urinary symptoms. In ED was noted to be hypoxic, tachypneic, tachycardic, elevated INR, elevated ferritin, elevated LDH, elevated C-reactive protein and transaminitis. Surgery was consulted for admission. She was admitted 06/30/20 07/01/2020. Saw patient this morning. Alert and oriented but unfortunately her respiratory distress is getting worse, stating that she could not sleep last night and hurting all over does not feel like eating, denies any fever or chills, chest pain, nausea, vomiting or abdominal pain. She mentions to me that she would like to stay full code on this admission. 07/02/2020. Overnight patient has been hypoxic, this morning patient seemed very stressed, tachypneic, on high flow nasal cannula, refuses to wear BiPAP citing claustrophobia, was given some Ativan but he still refused to wear it, ABG showed mild hypoxia otherwise unremarkable, patient still alert and oriented but very distressed denies any chest pain, fever, chills has not been able to eat due to the fact that she is on oxygen 24/. She is okay to be intubated if needed. Unfortunately she still cannot tolerate BiPAP even though she was given some Ativan. 07/03/2020. Saw patient this morning, wearing BiPAP, in mild respiratory distres s, alert and oriented and cooperative with physical examination, patient has been wearing her BiPAP since last night been taking benzodiazepine for anxiety, patient is on 100% oxygen and saturating high 80s and low 90s. Denies any chest pain, fever, chills, nausea, vomiting. Yesterday I mentioned to her that I could get her effervescent plasma but she is stating that he cannot receive it due to amish beliefs. 07/04/2020. Unfortunately patient still BiPAP dependent and on FiO2 of 100%, sat urating high 80s and low 90s, afebrile, noted to be in moderate respiratory distress however she still awake alert and oriented x3, stating that she is feeling weak all over. Denies any chest pain, nausea, vomiting, diarrhea, constipation. As per nursing staff and she was consulted for transfer overnight however they have refused to take the patient yet. 07/05/2020. Unfortunately patient still requiring high oxygen, still on 100% oxygen and BiPAP dependent, saturating in the 90s, ABG still shows hypoxemia however pH is WNL, patient is still alert and oriented and cooperative with physical examination, stating that she is feeling very tired and hurting everywhere, patient still does not want effervescent plasma transfusion, denies any chest pain, nausea, vomiting, abdominal pain. Once a while removes her BiPAP however for most of the time she is compliant with her BiPAP. 07/06/2020. No acute events overnight. Patient having moderate improvement of respiratory symptoms, FiO2 is 85 down from 100% and saturating high 90s, still seems to be more restless and however is alert and oriented x3 and cooperative with physical examination. Denies any fever, chills, nausea, vomiting. Feeling of back pain. 07/07/2020. Overnight patient was noted to be confused and flaccid on one side, suspicion was raised for possible CVA, since patient desaturates as soon as she is off of BiPAP CT head was not able to be done, this morning patient is alert but confused however does communicate and moving all her extremities, cranial nerves noted to be intact, unfortunately patient still on BiPAP however oxygen demand is improving, but noted to be hypoxemic on ABG this morning. Patient is stating that she is tired having pleuritic chest pain otherwise denies any fever, chills, nausea. Has not been able to eat anything as patient is BiPAP dependent. Instrument And Control Service Person consulted, recommendation is to keep patient in IMCU and will transfer to ICU if she worsens or becomes acidotic. 07/08/2020. No acute events overnight. Patient oxygen demand is improving, still on BiPAP FiO2 of 70% saturating in WNL, patient still alert but confused, alert and oriented x2, tends to pull on her BiPAP, stating that she is feeling better today, denies any chest pain, nausea, vomiting. Complaining of back pain. 07/16/20. She became lethargic and unresponsive and was intubated and was transferred to ICU. 07/18 the patient remains on the ventilator Her CXR shows diffuse Interstitial infiltrates perhaps slightly improved.Late in the day thepatient was dropping her 02 sats to the 89% range . She required some increase in FI02 and PEEP. 07/19 The patient remains on the ventilator. She has thick secretions. CXR may be a little worse with her diffuse bilateral infiltrates.The patient is on FI02 of about 70%.She is off levophed at this time.I have added lasix 20mg IV q day. I will be sending sputum culture and Procal. Her weight is up the past 3 days about 5 kg. 07/20 The patient remains on the ventilator. not alot has changed. Her had a chance to see her through the window yesterday. Remains hemodynamically stable. 07/22 The patient remains on the ventilaltor. She did do a short time on CPAP overnight. i will try again latelr once her sedation is weaned off. Her bood count is holding. No obvious blood loss. FI02 isd down to 45%. The patient is about 2.3 liters ahead since 07/19. The patient is being treated for a possible MSSA pneumonia with Ancef. 07/23 The patient still remains onmechanical ventiation. We nani her on SBT for a few hours yesterday and she did pretty well. I have taken down her sedation. 07/24 The patient did well on a lengthy CPAP trial yesterday. I have her on SBT today. She does respond to simple commands to wiggle her toes etc., her potassium this AM was 2.7 so she s getting supplementation.. HB is stabilzed in the low to mid 7 range. Will check ABG on CPAP. 08/01: Nursing staff reports that they have lost all peripheral IV access. They have been unsuccessful in reestablishing peripheral IVs. He remains intubated. She is off sedation (without IV access). She is awake. Follows commands. Tachypneic (respiratory rate 50s), anxious. She is on SIMV PRVC, FiO2 35%. 08/02: Patient remains intubated. She is quite anxious. On Precedex. On FiO2 35%. Demonstrates tachypnea, irrespective of ventilator mode. However, with sufficient sedation, she demonstrates very normal-appearing respiratory mechanics and rate. Started on Levaquin yesterday for MSSA and E cloacae in the sputum along with Pseudomonas in the urine. 08/03: Successfully extubated to high flow nasal cannula yesterday. She is currently on FiO2 40%, 25 LPM. She remains quite anxious. Of note, her hemodynamic parameters and respiratory status have not changed despite liberation from mechanical ventilatory support. Demonstrates strong cough. Interactive. Worse. Hemoglobin 6.7. 08/04: Remains extubated. On high flow cannula. Still tachypneic. Still seems to be primarily central/psychologically driven. She is able to slow down her breathing with verbal prompting. Strong cough. Much more interactive. States that she "wants to get up out of here". She "would like some chocolate ice cream". Hemoglobin 6.8. Failed bedside swallow evaluation. Started on TPN yesterday. 08/05: Remains extubated. Now on 5 LPM via nasal cannula. Still tachypneic, but overall, respiratory rate is trending downwards. 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 In good spirits. Interactive. Voice is getting stronger. On TPN. 08/06: On 2 LPM via nasal cannula. In good spirits, although disappointed with failing her speech/swallow evaluation yesterday, which prevented her from getting any chocolate ice cream. Voice is stronger. On TPN. 08/07: On 2 LPM via nasal cannula. Respiratory rate 17. Heart rate 100. Slee ping comfortably. Easily arousable. Notably, more confused today. The daughter raises the same concerns, as she noticed that the patient demonstrated confusion yesterday afternoon during her visit. She remains off her p.o. meds. 08/10/20. Transferred to floors awaiting SNF placement. 08/11/20. Seen and examined at bedside. Denies any chest pain, SOB, has mild cough. Appetite improving. 08/12/20. She was seen and examined at bedside. She has cough but denies SOB. She continues to require O2 support but her O2 needs has not increased. Her appetite is fair to good. She denies any chest pain,palpitations, abdominal pain. 08/13/20. She was seen and examined at bedside. She desaturates and becomes SOB whenever she transfers from bed to chair which reflects her deconditioned state. O2 had to be increased briefly when she desaturated after moving. She is awaiting negative COVID testing to be accepted at [facility]. Otherwise she does not complain of any chest pain, abdominal pain, nausea or vomiting. Reason For Visit: ACUTE RESPIRATORY FAILURE WITH HYPOXIA, COVID-19 Physical Exam Vital Signs: Temp Pulse Resp BP Pulse Ox 98.4 F 128 H 16 144/72 H 99 08/13/20 15:15 08/13/20 17:57 08/13/20 15:15 08/13/20 17:57 08/13/20 17:57 Intake & Output 08/12/20 08/13/20 08/14/20 06:59 06:59 06:59 Intake Total 2210 2905 1360 Output Total 450 Balance 2210 2905 910 Weight 61.7 kg 60.1 kg General appearance: PRESENT: cooperative, mild distress Head exam: PRESENT: atraumatic, normocephalic Eye exam: PRESENT: EOMI, PERRLA Mouth exam: PRESENT: moist Neck exam: PRESENT: full ROM Respiratory exam: PRESENT: rales, symmetrical, tachypnea, unlabored Cardiovascular exam: PRESENT: RRR, +S1, +S2 Pulses: PRESENT: +2 pedal pulses bilateral GI/Abdominal exam: PRESENT: normal bowel sounds, soft. ABSENT: rebound, tenderness Extremities exam: PRESENT: other - mild generalized extremity weakness Neurological exam: PRESENT: alert, awake, oriented to person Psychiatric exam: PRESENT: normal mood Skin exam: PRESENT: normal color Results Laboratory Results: 08/10/20 20:50 08/13/20 09:05 08/13/20 09:05 Sodium 139.1 Potassium 3.1 L Chloride 99 Carbon Dioxide 32 H Anion Gap 8 BUN < 2 L Creatinine 0.30 L Est GFR ( Amer) > 60 Glucose 143 H Calcium 8.9 Total Bilirubin 0.8 AST 31 Alkaline Phosphatase 94 Total Protein 6.5 Albumin 3.8 06/30/20 08/02/20 09:15 05:15 Troponin I < 0.012 NT-Pro-B Natriuret Pep 906 H 763 H Impressions: KUB X-Ray 07/26/20 14:06 IMPRESSION: NG tube as described. Pulmonary findings as described. Chest X-Ray 08/04/20 04:00 IMPRESSION: STABLE APPEARANCE OF THE CHEST. SUPPORT DEVICES UNCHANGED. Modified Barium Swallow 08/08/20 00:00 IMPRESSION: NO EVIDENCE OF PENETRATION OR ASPIRATION. PLEASE SEE SPEECH PATHOLOGIST REPORT FOR OTHER FINDINGS AND RECOMMENDATIONS. Assessment and Plan - Diagnosis (1) Acute hypoxemic respiratory failure due to severe acute respiratory syndrome coronavirus 2 (SARS-CoV-2) disease Is this a current diagnosis for this admission?: Yes Plan: - intubated on the 07/16, extubated 08/03 - secondary to ARDS from severe COVID pneumonia - resolved - on 2l NC sats 95% (2) Poor nutrition Is this a current diagnosis for this admission?: Yes Plan: She is eating more. TPN stopped. She likely will need to mobilize more before appetite picks up. (3) Depression Qualifiers: Depression Type: unspecified Qualified Code(s): F32.9 - Major depressive disorder, single episode, unspecified Is this a current diagnosis for this admission?: Yes Plan: on paxil. (4) Schizoaffective disorder Qualifiers: Schizoaffective disorder type: bipolar Qualified Code(s): F25.0 - Schizoaffective disorder, bipolar type Is this a current diagnosis for this admission?: Yes Plan: Calm, on baseline psych meds. (5) Asthma Qualifiers: Asthma severity: moderate Asthma persistence: unspecified Asthma complication type: uncomplicated Qualified Code(s): J45.909 - Unspecified asthma, uncomplicated Is this a current diagnosis for this admission?: Yes Plan: Albuterol/budesonide scheduled. Continue Singulair. (6) Seizure disorder Is this a current diagnosis for this admission?: Yes Plan: Continue Keppra (7) Weakness Is this a current diagnosis for this admission?: Yes Plan: Secondary to critical illness. When appropriate initiate physical therapy. [facility] - Plan Summary Summary: Plan is [facility]. - Time Time Spent with patient: 25-34 minutes Anticipated Discharge Disposition: Residential Facility Anticipated Discharge Timeframe: to be determined
[2020-08-13] MEDS: LATANOPROST 0.005% OPH SOLN 2.5 ML OU SCH (21:25)
[2020-08-13] MEDS: APTIOM 800 MG PO SCH (21:25)
[2020-08-14] MEDS: ALBUTEROL SULFATE 0.083% NEB 2.5 MG/3 ML AMPUL NEB SCH ×4 (02:12→20:31)
[2020-08-14] MEDS: INSULIN REG, HUMAN 100 UNIT/ML 3 ML VIAL (PYX) SUBCUT SCH ×3 (05:23→17:08)
[2020-08-14] MEDS: SUCRALFATE 1 GM TABLET NG SCH ×3 (05:48→17:29)
[2020-08-14 06:35] LABS: ABSOLUTE EOSINOPHILS # (AUTO) 0.2 10^3/uL (0.0-0.6); ABSOLUTE LYMPHOCYTES (AUTO) 1.1 10^3/uL (0.5-4.7); ABSOLUTE MONOCYTES (AUTO) 0.4 10^3/uL (0.1-1.4); ABSOLUTE NEUT (AUTO) 3.5 10^3/uL (1.7-8.2); BASOPHILS % (AUTO) 0.8 % (0-2); HEMATOCRIT 27.5 % (36.0-47.0); HEMOGLOBIN 9.1 g/dL (12.0-15.5); LYMPHOCYTES % (AUTO) 20.6 % (13-45); MEAN CORPUSCULAR HEMOGLOBIN 29.2 pg (27.0-33.4); MEAN CORPUSCULAR VOLUME 89 fl (80-97); MONOCYTES % (AUTO) 8.3 % (3-13); PLATELET COUNT 266 10^3/uL (150-450); RED CELL DISTRIBUTION WIDTH 17.3 % (11.5-14.0); SEGMENTED NEUTROPHILS % (AUTO) 66.3 % (42-78); TOTAL CELLS COUNTED % (AUTO) 100 %; WHITE BLOOD COUNT 5.3 10^3/uL (4.0-10.5)
[2020-08-14 06:49] LABS: ALBUMIN 3.5 g/dL (3.5-5.0); ALKALINE PHOSPHATASE 88 U/L (38-126); ANION GAP 8 (5-19); ASPARTATE AMINO TRANSFERASE 29 U/L (14-36); BILIRUBIN,DIRECT 0.3 mg/dL (0.0-0.4); BLOOD UREA NITROGEN 3 mg/dL (7-20); CARBON DIOXIDE 33 mmol/L (22-30); CHLORIDE 96 mmol/L (98-107); GLUCOSE 99 mg/dL (75-110); POTASSIUM 3.3 mmol/L (3.6-5.0); TOTAL PROTEIN 6.2 g/dL (6.3-8.2)
[2020-08-14] MEDS: BUDESONIDE NEB 0.25 MG/2 ML AMPUL NEB SCH ×2 (07:56→20:31)
[2020-08-14] MEDS: LEVETIRACETAM 500 MG TABLET PO SCH ×2 (09:34→21:57)
[2020-08-14] MEDS: ZIPRASIDONE HCL 40 MG CAPSULE PO SCH ×2 (09:34→21:57)
[2020-08-14] MEDS: ENOXAPARIN SODIUM INJ 40 MG/0.4 ML DISP.SYRIN SUBCUT SCH (09:35)
--- NOTE | 2020-08-14 18:57 | PDOC PROGRESS REPORT ---
Subjective Progress Note for:: 08/14/20 Subjective:: DEMETRI CALDERON is a 64 year old female past medical history of s chizoaffective disorder, seizure disorder, depression, hypertension, anxiety, who was exposed to COVID-19 about 11 days ago, came into ED 2 days ago complaining of shortness of breath, fatigue, subjective fever and chills, was tested for COVID and sent home on hydroxychloroquine, azithromycin and Pu lmicort, she took all her medication however patient complaining of worsening fatigue, nausea, vomiting, diarrhea, loss of taste, loss of smell, denies any chest pain, abdominal pain, headache, vision changes, weight changes, focal neurological symptoms, or any urinary symptoms. In ED was noted to be hypoxic, tachypneic, tachycardic, elevated INR, elevated ferritin, elevated LDH, elevated C-reactive protein and transaminitis. Surgery was consulted for admission. She was admitted 06/30/20 07/01/2020. Saw patient this morning. Alert and oriented but unfortunately her respiratory distress is getting worse, stating that she could not sleep last night and hurting all over does not feel like eating, denies any fever or chills, chest pain, nausea, vomiting or abdominal pain. She mentions to me that she would like to stay full code on this admission. 07/02/2020. Overnight patient has been hypoxic, this morning patient seemed very stressed, tachypneic, on high flow nasal cannula, refuses to wear BiPAP citing claustrophobia, was given some Ativan but he still refused to wear it, ABG showed mild hypoxia otherwise unremarkable, patient still alert and oriented but very distressed denies any chest pain, fever, chills has not been able to eat due to the fact that she is on oxygen 24/. She is okay to be intubated if needed. Unfortunately she still cannot tolerate BiPAP even though she was given some Ativan. 07/03/2020. Saw patient this morning, wearing BiPAP, in mild respiratory distres s, alert and oriented and cooperative with physical examination, patient has been wearing her BiPAP since last night been taking benzodiazepine for anxiety, patient is on 100% oxygen and saturating high 80s and low 90s. Denies any chest pain, fever, chills, nausea, vomiting. Yesterday I mentioned to her that I could get her effervescent plasma but she is stating that he cannot receive it due to gnosticism beliefs. 07/04/2020. Unfortunately patient still BiPAP dependent and on FiO2 of 100%, sat urating high 80s and low 90s, afebrile, noted to be in moderate respiratory distress however she still awake alert and oriented x3, stating that she is feeling weak all over. Denies any chest pain, nausea, vomiting, diarrhea, constipation. As per nursing staff and she was consulted for transfer overnight however they have refused to take the patient yet. 07/05/2020. Unfortunately patient still requiring high oxygen, still on 100% oxygen and BiPAP dependent, saturating in the 90s, ABG still shows hypoxemia however pH is WNL, patient is still alert and oriented and cooperative with physical examination, stating that she is feeling very tired and hurting everywhere, patient still does not want effervescent plasma transfusion, denies any chest pain, nausea, vomiting, abdominal pain. Once a while removes her BiPAP however for most of the time she is compliant with her BiPAP. 07/06/2020. No acute events overnight. Patient having moderate improvement of respiratory symptoms, FiO2 is 85 down from 100% and saturating high 90s, still seems to be more restless and however is alert and oriented x3 and cooperative with physical examination. Denies any fever, chills, nausea, vomiting. Feeling of back pain. 07/07/2020. Overnight patient was noted to be confused and flaccid on one side, suspicion was raised for possible CVA, since patient desaturates as soon as she is off of BiPAP CT head was not able to be done, this morning patient is alert but confused however does communicate and moving all her extremities, cranial nerves noted to be intact, unfortunately patient still on BiPAP however oxygen demand is improving, but noted to be hypoxemic on ABG this morning. Patient is stating that she is tired having pleuritic chest pain otherwise denies any fever, chills, nausea. Has not been able to eat anything as patient is BiPAP dependent. Mechanical Maintenance consulted, recommendation is to keep patient in IMCU and will transfer to ICU if she worsens or becomes acidotic. 07/08/2020. No acute events overnight. Patient oxygen demand is improving, still on BiPAP FiO2 of 70% saturating in WNL, patient still alert but confused, alert and oriented x2, tends to pull on her BiPAP, stating that she is feeling better today, denies any chest pain, nausea, vomiting. Complaining of back pain. 07/16/20. She became lethargic and unresponsive and was intubated and was transferred to ICU. 07/18 the patient remains on the ventilator Her CXR shows diffuse Interstitial infiltrates perhaps slightly improved.Late in the day thepatient was dropping her 02 sats to the 89% range . She required some increase in FI02 and PEEP. 07/19 The patient remains on the ventilator. She has thick secretions. CXR may be a little worse with her diffuse bilateral infiltrates.The patient is on FI02 of about 70%.She is off levophed at this time.I have added lasix 20mg IV q day. I will be sending sputum culture and Procal. Her weight is up the past 3 days about 5 kg. 07/20 The patient remains on the ventilator. not alot has changed. Her had a chance to see her through the window yesterday. Remains hemodynamically stable. 07/22 The patient remains on the ventilaltor. She did do a short time on CPAP overnight. i will try again latelr once her sedation is weaned off. Her bood count is holding. No obvious blood loss. FI02 isd down to 45%. The patient is about 2.3 liters ahead since 07/19. The patient is being treated for a possible MSSA pneumonia with Ancef. 07/23 The patient still remains onmechanical ventiation. We nani her on SBT for a few hours yesterday and she did pretty well. I have taken down her sedation. 07/24 The patient did well on a lengthy CPAP trial yesterday. I have her on SBT today. She does respond to simple commands to wiggle her toes etc., her potassium this AM was 2.7 so she s getting supplementation.. HB is stabilzed in the low to mid 7 range. Will check ABG on CPAP. 08/01: Nursing staff reports that they have lost all peripheral IV access. They have been unsuccessful in reestablishing peripheral IVs. He remains intubated. She is off sedation (without IV access). She is awake. Follows commands. Tachypneic (respiratory rate 50s), anxious. She is on SIMV PRVC, FiO2 35%. 08/02: Patient remains intubated. She is quite anxious. On Precedex. On FiO2 35%. Demonstrates tachypnea, irrespective of ventilator mode. However, with sufficient sedation, she demonstrates very normal-appearing respiratory mechanics and rate. Started on Levaquin yesterday for MSSA and E cloacae in the sputum along with Pseudomonas in the urine. 08/03: Successfully extubated to high flow nasal cannula yesterday. She is currently on FiO2 40%, 25 LPM. She remains quite anxious. Of note, her hemodynamic parameters and respiratory status have not changed despite liberation from mechanical ventilatory support. Demonstrates strong cough. Interactive. Worse. Hemoglobin 6.7. 08/04: Remains extubated. On high flow cannula. Still tachypneic. Still seems to be primarily central/psychologically driven. She is able to slow down her breathing with verbal prompting. Strong cough. Much more interactive. States that she "wants to get up out of here". She "would like some chocolate ice cream". Hemoglobin 6.8. Failed bedside swallow evaluation. Started on TPN yesterday. 08/05: Remains extubated. Now on 5 LPM via nasal cannula. Still tachypneic, but overall, respiratory rate is trending downwards. Got 2 doses of Ativan during car shifter. In good spirits. Interactive. Voice is getting stronger. On TPN. 08/06: On 2 LPM via nasal cannula. In good spirits, although disappointed with failing her speech/swallow evaluation yesterday, which prevented her from getting any chocolate ice cream. Voice is stronger. On TPN. 08/07: On 2 LPM via nasal cannula. Respiratory rate 17. Heart rate 100. Slee ping comfortably. Easily arousable. Notably, more confused today. The daughter raises the same concerns, as she noticed that the patient demonstrated confusion yesterday afternoon during her visit. She remains off her p.o. meds. 08/10/20. Transferred to floors awaiting SNF placement. 08/11/20. Seen and examined at bedside. Denies any chest pain, SOB, has mild cough. Appetite improving. 08/12/20. She was seen and examined at bedside. She has cough but denies SOB. She continues to require O2 support but her O2 needs has not increased. Her appetite is fair to good. She denies any chest pain,palpitations, abdominal pain. 08/13/20. She was seen and examined at bedside. She desaturates and becomes SOB whenever she transfers from bed to chair which reflects her deconditioned state. O2 had to be increased briefly when she desaturated after moving. She is awaiting negative COVID testing to be accepted at [facility]. Otherwise she does not complain of any chest pain, abdominal pain, nausea or vomiting. 08/14/20. She was seen and examined at bedside. She was moved to a different fl oor. She gets SOB whenever she moves but is otherwise to dyspneic. Appetite is improving. She is afebrile. Potassium noted to be low 3.3 and was replaced. Awaiting 3rd repeat COVID testing to be accepted to [facility]. Reason For Visit: ACUTE RESPIRATORY FAILURE WITH HYPOXIA, COVID-19 Physical Exam Vital Signs: Temp Pulse Resp BP Pulse Ox 97.6 F 112 H 16 136/59 H 100 08/14/20 16:11 08/14/20 16:11 08/14/20 16:11 08/14/20 16:11 08/14/20 16:11 Intake & Output 08/13/20 08/14/20 08/15/20 06:59 06:59 06:59 Intake Total 2905 1720 800 Output Total 450 Balance 2905 1270 800 Weight 60.1 kg 61 kg General appearance: PRESENT: no acute distress, mild distress - With ambulation Head exam: PRESENT: atraumatic, normocephalic Eye exam: PRESENT: EOMI, PERRLA Ear exam: PRESENT: normal external ear exam Mouth exam: PRESENT: moist Neck exam: PRESENT: full ROM Respiratory exam: PRESENT: rales, symmetrical, unlabored. ABSENT: wheezes Cardiovascular exam: PRESENT: RRR, +S1, +S2 GI/Abdominal exam: PRESENT: normal bowel sounds, soft. ABSENT: rebound, tenderness Extremities exam: PRESENT: other - Generalized weakness likely secondary to prolonged ICU stay Musculoskeletal exam: PRESENT: full ROM Neurological exam: PRESENT: alert, awake, oriented to person, oriented to place Psychiatric exam: PRESENT: flat affect, normal mood Skin exam: PRESENT: normal color Results Laboratory Results: 08/14/20 06:15 08/14/20 06:15 08/14/20 08/14/20 06:15 06:15 WBC 5.3 RBC 3.10 L Hgb 9.1 L Hct 27.5 L MCV 89 MCH 29.2 MCHC 33.0 RDW 17.3 H Plt Count 266 Seg Neutrophils % 66.3 Sodium 137.3 Potassium 3.3 L Chloride 96 L Carbon Dioxide 33 H Anion Gap 8 BUN 3 L Creatinine 0.41 L Est GFR ( Amer) > 60 Glucose 99 Calcium 9.0 Total Bilirubin 1.0 AST 29 Alkaline Phosphatase 88 Total Protein 6.2 L Albumin 3.5 06/30/20 08/02/20 09:15 05:15 Troponin I < 0.012 NT-Pro-B Natriuret Pep 906 H 763 H Impressions: KUB X-Ray 07/26/20 14:06 IMPRESSION: NG tube as described. Pulmonary findings as described. Chest X-Ray 08/04/20 04:00 IMPRESSION: STABLE APPEARANCE OF THE CHEST. SUPPORT DEVICES UNCHANGED. Modified Barium Swallow 08/08/20 00:00 IMPRESSION: NO EVIDENCE OF PENETRATION OR ASPIRATION. PLEASE SEE SPEECH PATHOLOGIST REPORT FOR OTHER FINDINGS AND RECOMMENDATIONS. Assessment and Plan - Diagnosis (1) Acute hypoxemic respiratory failure due to severe acute respiratory syndrome coronavirus 2 (SARS-CoV-2) disease Is this a current diagnosis for this admission?: Yes Plan: - intubated on the 07/16, extubated 08/03 - secondary to ARDS from severe COVID pneumonia - awaiting 3rd repeat COVID testing to be accepted at [facility] - resolved - on 2l NC sats 95% (2) Poor nutrition Is this a current diagnosis for this admission?: Yes Plan: - appetite is picking up. (3) Depression Qualifiers: Depression Type: unspecified Qualified Code(s): F32.9 - Major depressive disorder, single episode, unspecified Is this a current diagnosis for this admission?: Yes Plan: on paxil. (4) Schizoaffective disorder Qualifiers: Schizoaffective disorder type: bipolar Qualified Code(s): F25.0 - Schizoaffective disorder, bipolar type Is this a current diagnosis for this admission?: Yes Plan: - calm -On ziprasidone, paroxetine (5) Asthma Qualifiers: Asthma severity: moderate Asthma persistence: unspecified Asthma complication type: uncomplicated Qualified Code(s): J45.909 - Unspecified asthma, uncomplicated Is this a current diagnosis for this admission?: Yes Plan: Albuterol/budesonide scheduled. Continue Singulair. (6) Seizure disorder Is this a current diagnosis for this admission?: Yes Plan: Continue Keppra (7) Weakness Is this a current diagnosis for this admission?: Yes Plan: Secondary to critical illness. - awaiting repeat 3rd COVID testing to be accepted at rehab - Plan Summary Summary: Plan [facility]. - Time Time Spent with patient: 25-34 minutes Anticipated Discharge Disposition: Shelter Facility Anticipated Discharge Timeframe: within 24 hours
[2020-08-14] MEDS: POTASSI CL 20 MEQ/50 ML RIDER 20 MEQ/50 ML RTUPB IV SCH ×2 (19:54→21:58)
[2020-08-14] MEDS ORDERED: GUAIFENESIN/D-METHORPHAN (200-20 MG) SYRUP 10 ML NG PRN (20:00)
[2020-08-14] MEDS: LATANOPROST 0.005% OPH SOLN 2.5 ML OU SCH (21:58)
[2020-08-14] MEDS ORDERED: LEVETIRACETAM 500 MG TABLET PO SCH (22:00)
[2020-08-14] MEDS: APTIOM 800 MG PO SCH (22:29)
[2020-08-15] MEDS: SUCRALFATE 1 GM TABLET NG SCH ×5 (00:41→23:48)
[2020-08-15] MEDS: POTASSI CL 20 MEQ/50 ML RIDER 20 MEQ/50 ML RTUPB IV SCH (00:41)
[2020-08-15] MEDS: INSULIN REG, HUMAN 100 UNIT/ML 3 ML VIAL (PYX) SUBCUT SCH ×3 (00:44→11:44)
[2020-08-15] MEDS: ALBUTEROL SULFATE 0.083% NEB 2.5 MG/3 ML AMPUL NEB SCH ×4 (01:43→20:22)
[2020-08-15 06:40] LABS: ANION GAP 7 (5-19); BLOOD UREA NITROGEN 3 mg/dL (7-20); CALCIUM 8.8 mg/dL (8.4-10.2); CARBON DIOXIDE 32 mmol/L (22-30); CHLORIDE 100 mmol/L (98-107); GLUCOSE 100 mg/dL (75-110); POTASSIUM 3.8 mmol/L (3.6-5.0)
[2020-08-15] MEDS: BUDESONIDE NEB 0.25 MG/2 ML AMPUL NEB SCH ×2 (07:54→20:22)
[2020-08-15] MEDS: ENOXAPARIN SODIUM INJ 40 MG/0.4 ML DISP.SYRIN SUBCUT SCH (10:34)
[2020-08-15] MEDS: LEVETIRACETAM 500 MG TABLET PO SCH ×2 (10:41→21:30)
[2020-08-15] MEDS: EPOETIN ALFA-EPBX 3,000 UNIT/ML VIAL (NON-ESRD) SUBCUT SCH (10:42)
--- NOTE | 2020-08-15 21:10 | PDOC PROGRESS REPORT ---
Subjective Progress Note for:: 08/15/20 Subjective:: DEMETRI CALDERON is a 64 year old female past medical history of s chizoaffective disorder, seizure disorder, depression, hypertension, anxiety, who was exposed to COVID-19 about 11 days ago, came into ED 2 days ago complaining of shortness of breath, fatigue, subjective fever and chills, was tested for COVID and sent home on hydroxychloroquine, azithromycin and Pu lmicort, she took all her medication however patient complaining of worsening fatigue, nausea, vomiting, diarrhea, loss of taste, loss of smell, denies any chest pain, abdominal pain, headache, vision changes, weight changes, focal neurological symptoms, or any urinary symptoms. In ED was noted to be hypoxic, tachypneic, tachycardic, elevated INR, elevated ferritin, elevated LDH, elevated C-reactive protein and transaminitis. Surgery was consulted for admission. She was admitted 06/30/20 07/01/2020. Saw patient this morning. Alert and oriented but unfortunately her respiratory distress is getting worse, stating that she could not sleep last night and hurting all over does not feel like eating, denies any fever or chills, chest pain, nausea, vomiting or abdominal pain. She mentions to me that she would like to stay full code on this admission. 07/02/2020. Overnight patient has been hypoxic, this morning patient seemed very stressed, tachypneic, on high flow nasal cannula, refuses to wear BiPAP citing claustrophobia, was given some Ativan but he still refused to wear it, ABG showed mild hypoxia otherwise unremarkable, patient still alert and oriented but very distressed denies any chest pain, fever, chills has not been able to eat due to the fact that she is on oxygen 24/. She is okay to be intubated if needed. Unfortunately she still cannot tolerate BiPAP even though she was given some Ativan. 07/03/2020. Saw patient this morning, wearing BiPAP, in mild respiratory distres s, alert and oriented and cooperative with physical examination, patient has been wearing her BiPAP since last night been taking benzodiazepine for anxiety, patient is on 100% oxygen and saturating high 80s and low 90s. Denies any chest pain, fever, chills, nausea, vomiting. Yesterday I mentioned to her that I could get her effervescent plasma but she is stating that he cannot receive it due to hindu beliefs. 07/04/2020. Unfortunately patient still BiPAP dependent and on FiO2 of 100%, sat urating high 80s and low 90s, afebrile, noted to be in moderate respiratory distress however she still awake alert and oriented x3, stating that she is feeling weak all over. Denies any chest pain, nausea, vomiting, diarrhea, constipation. As per nursing staff and she was consulted for transfer overnight however they have refused to take the patient yet. 07/05/2020. Unfortunately patient still requiring high oxygen, still on 100% oxygen and BiPAP dependent, saturating in the 90s, ABG still shows hypoxemia however pH is WNL, patient is still alert and oriented and cooperative with physical examination, stating that she is feeling very tired and hurting everywhere, patient still does not want effervescent plasma transfusion, denies any chest pain, nausea, vomiting, abdominal pain. Once a while removes her BiPAP however for most of the time she is compliant with her BiPAP. 07/06/2020. No acute events overnight. Patient having moderate improvement of respiratory symptoms, FiO2 is 85 down from 100% and saturating high 90s, still seems to be more restless and however is alert and oriented x3 and cooperative with physical examination. Denies any fever, chills, nausea, vomiting. Feeling of back pain. 07/07/2020. Overnight patient was noted to be confused and flaccid on one side, suspicion was raised for possible CVA, since patient desaturates as soon as she is off of BiPAP CT head was not able to be done, this morning patient is alert but confused however does communicate and moving all her extremities, cranial nerves noted to be intact, unfortunately patient still on BiPAP however oxygen demand is improving, but noted to be hypoxemic on ABG this morning. Patient is stating that she is tired having pleuritic chest pain otherwise denies any fever, chills, nausea. Has not been able to eat anything as patient is BiPAP dependent. Wing Mailer Machine Operator consulted, recommendation is to keep patient in IMCU and will transfer to ICU if she worsens or becomes acidotic. 07/08/2020. No acute events overnight. Patient oxygen demand is improving, still on BiPAP FiO2 of 70% saturating in WNL, patient still alert but confused, alert and oriented x2, tends to pull on her BiPAP, stating that she is feeling better today, denies any chest pain, nausea, vomiting. Complaining of back pain. 07/16/20. She became lethargic and unresponsive and was intubated and was transferred to ICU. 07/18 the patient remains on the ventilator Her CXR shows diffuse Interstitial infiltrates perhaps slightly improved.Late in the day thepatient was dropping her 02 sats to the 89% range . She required some increase in FI02 and PEEP. 07/19 The patient remains on the ventilator. She has thick secretions. CXR may be a little worse with her diffuse bilateral infiltrates.The patient is on FI02 of about 70%.She is off levophed at this time.I have added lasix 20mg IV q day. I will be sending sputum culture and Procal. Her weight is up the past 3 days about 5 kg. 07/20 The patient remains on the ventilator. not alot has changed. Her had a chance to see her through the window yesterday. Remains hemodynamically stable. 07/22 The patient remains on the ventilaltor. She did do a short time on CPAP overnight. i will try again latelr once her sedation is weaned off. Her bood count is holding. No obvious blood loss. FI02 isd down to 45%. The patient is about 2.3 liters ahead since 07/19. The patient is being treated for a possible MSSA pneumonia with Ancef. 07/23 The patient still remains onmechanical ventiation. We nani her on SBT for a few hours yesterday and she did pretty well. I have taken down her sedation. 07/24 The patient did well on a lengthy CPAP trial yesterday. I have her on SBT today. She does respond to simple commands to wiggle her toes etc., her potassium this AM was 2.7 so she s getting supplementation.. HB is stabilzed in the low to mid 7 range. Will check ABG on CPAP. 08/01: Nursing staff reports that they have lost all peripheral IV access. They have been unsuccessful in reestablishing peripheral IVs. He remains intubated. She is off sedation (without IV access). She is awake. Follows commands. Tachypneic (respiratory rate 50s), anxious. She is on SIMV PRVC, FiO2 35%. 08/02: Patient remains intubated. She is quite anxious. On Precedex. On FiO2 35%. Demonstrates tachypnea, irrespective of ventilator mode. However, with sufficient sedation, she demonstrates very normal-appearing respiratory mechanics and rate. Started on Levaquin yesterday for MSSA and E cloacae in the sputum along with Pseudomonas in the urine. 08/03: Successfully extubated to high flow nasal cannula yesterday. She is currently on FiO2 40%, 25 LPM. She remains quite anxious. Of note, her hemodynamic parameters and respiratory status have not changed despite liberation from mechanical ventilatory support. Demonstrates strong cough. Interactive. Worse. Hemoglobin 6.7. 08/04: Remains extubated. On high flow cannula. Still tachypneic. Still seems to be primarily central/psychologically driven. She is able to slow down her breathing with verbal prompting. Strong cough. Much more interactive. States that she "wants to get up out of here". She "would like some chocolate ice cream". Hemoglobin 6.8. Failed bedside swallow evaluation. Started on TPN yesterday. 08/05: Remains extubated. Now on 5 LPM via nasal cannula. Still tachypneic, but overall, respiratory rate is trending downwards. Got 2 doses of Ativan during java technical manager. In good spirits. Interactive. Voice is getting stronger. On TPN. 08/06: On 2 LPM via nasal cannula. In good spirits, although disappointed with failing her speech/swallow evaluation yesterday, which prevented her from getting any chocolate ice cream. Voice is stronger. On TPN. 08/07: On 2 LPM via nasal cannula. Respiratory rate 17. Heart rate 100. Slee ping comfortably. Easily arousable. Notably, more confused today. The daughter raises the same concerns, as she noticed that the patient demonstrated confusion yesterday afternoon during her visit. She remains off her p.o. meds. 08/10/20. Transferred to floors awaiting SNF placement. 08/11/20. Seen and examined at bedside. Denies any chest pain, SOB, has mild cough. Appetite improving. 08/12/20. She was seen and examined at bedside. She has cough but denies SOB. She continues to require O2 support but her O2 needs has not increased. Her appetite is fair to good. She denies any chest pain,palpitations, abdominal pain. 08/13/20. She was seen and examined at bedside. She desaturates and becomes SOB whenever she transfers from bed to chair which reflects her deconditioned state. O2 had to be increased briefly when she desaturated after moving. She is awaiting negative COVID testing to be accepted at [facility]. Otherwise she does not complain of any chest pain, abdominal pain, nausea or vomiting. 08/14/20. She was seen and examined at bedside. She was moved to a different fl oor. She gets SOB whenever she moves but is otherwise to dyspneic. Appetite is improving. She is afebrile. Potassium noted to be low 3.3 and was replaced. Awaiting 3rd repeat COVID testing to be accepted to [facility] 08/15/20. She was seen and examined. Awaiting repeat COVID. . Reason For Visit: ACUTE RESPIRATORY FAILURE WITH HYPOXIA, COVID-19 Physical Exam Vital Signs: Temp Pulse Resp BP Pulse Ox 98.1 F 107 H 16 126/80 H 98 08/15/20 19:14 08/15/20 20:22 08/15/20 20:22 08/15/20 19:14 08/15/20 20:22 Intake & Output 08/14/20 08/15/20 08/16/20 06:59 06:59 06:59 Intake Total 1720 1250 1179 Output Total 450 0 Balance 1270 1250 1179 Weight 61 kg 62.2 kg General appearance: PRESENT: no acute distress, cooperative Head exam: PRESENT: atraumatic, normocephalic Eye exam: PRESENT: EOMI, PERRLA Mouth exam: PRESENT: moist Neck exam: PRESENT: full ROM, other - Central line right jugular area Respiratory exam: PRESENT: clear to auscultation sky, rales, symmetrical, unlabored. ABSENT: tachypnea, wheezes Cardiovascular exam: PRESENT: RRR, +S1, +S2 Pulses: PRESENT: +2 pedal pulses bilateral GI/Abdominal exam: PRESENT: normal bowel sounds, soft. ABSENT: rebound, tenderness Extremities exam: PRESENT: full ROM Musculoskeletal exam: PRESENT: full ROM Neurological exam: PRESENT: alert, awake, oriented to person, oriented to place, oriented to time, oriented to situation Psychiatric exam: PRESENT: normal mood Results Laboratory Results: 08/14/20 06:15 08/15/20 05:55 08/15/20 05:55 Sodium 138.5 Potassium 3.8 Chloride 100 Carbon Dioxide 32 H Anion Gap 7 BUN 3 L Creatinine 0.36 L Est GFR ( Amer) > 60 Glucose 100 Calcium 8.8 06/30/20 08/02/20 09:15 05:15 Troponin I < 0.012 NT-Pro-B Natriuret Pep 906 H 763 H Impressions: KUB X-Ray 07/26/20 14:06 IMPRESSION: NG tube as described. Pulmonary findings as described. Chest X-Ray 08/04/20 04:00 IMPRESSION: STABLE APPEARANCE OF THE CHEST. SUPPORT DEVICES UNCHANGED. Modified Barium Swallow 08/08/20 00:00 IMPRESSION: NO EVIDENCE OF PENETRATION OR ASPIRATION. PLEASE SEE SPEECH PATHOLOGIST REPORT FOR OTHER FINDINGS AND RECOMMENDATIONS. Assessment and Plan - Diagnosis (1) Acute hypoxemic respiratory failure due to severe acute respiratory syndrome coronavirus 2 (SARS-CoV-2) disease Is this a current diagnosis for this admission?: Yes Plan: - intubated on the 07/16, extubated 08/03 - secondary to ARDS from severe COVID pneumonia - awaiting 3rd repeat COVID testing to be accepted at [facility] - resolved off O2 (2) Poor nutrition Is this a current diagnosis for this admission?: Yes Plan: - appetite is picking up. (3) Depression Qualifiers: Depression Type: unspecified Qualified Code(s): F32.9 - Major depressive disorder, single episode, unspecified Is this a current diagnosis for this admission?: Yes Plan: on paxil. (4) Schizoaffective disorder Qualifiers: Schizoaffective disorder type: bipolar Qualified Code(s): F25.0 - Schizoaffective disorder, bipolar type Is this a current diagnosis for this admission?: Yes Plan: - calm -On ziprasidone, paroxetine (5) Asthma Qualifiers: Asthma severity: moderate Asthma persistence: unspecified Asthma complication type: uncomplicated Qualified Code(s): J45.909 - Unspecified asthma, uncomplicated Is this a current diagnosis for this admission?: Yes Plan: Albuterol/budesonide scheduled. Continue Singulair. (6) Seizure disorder Is this a current diagnosis for this admission?: Yes Plan: Continue Yelena (7) Weakness Is this a current diagnosis for this admission?: Yes Plan: Secondary to critical illness. - awaiting repeat 3rd COVID testing to be accepted at rehab - Plan Summary Summary: Plan is to transfer her tomorrow to a longterm facility for rehab pending COVID test. - Time Time Spent with patient: 15-24 minutes Anticipated Discharge Disposition: Alf Facility Anticipated Discharge Timeframe: within 24 hours
[2020-08-15] MEDS: ZIPRASIDONE HCL 40 MG CAPSULE PO SCH (21:30)
[2020-08-15] MEDS: LATANOPROST 0.005% OPH SOLN 2.5 ML OU SCH (21:31)
[2020-08-15] MEDS: APTIOM 800 MG PO SCH (21:31)
[2020-08-16] MEDS: ALBUTEROL SULFATE 0.083% NEB 2.5 MG/3 ML AMPUL NEB SCH ×4 (01:42→20:20)
[2020-08-16] MEDS: SUCRALFATE 1 GM TABLET NG SCH ×3 (05:49→17:08)
[2020-08-16] MEDS: BUDESONIDE NEB 0.25 MG/2 ML AMPUL NEB SCH ×2 (09:01→20:20)
[2020-08-16] MEDS: LEVETIRACETAM 500 MG TABLET PO SCH ×2 (09:25→21:49)
[2020-08-16] MEDS: ENOXAPARIN SODIUM INJ 40 MG/0.4 ML DISP.SYRIN SUBCUT SCH (09:26)
--- NOTE | 2020-08-16 12:40 | PDOC PROGRESS REPORT ---
Subjective Progress Note for:: 08/16/20 Subjective:: Patient is doing well today. She has no complaints. She is experiencing no pain. She also denies any shortness of breath. She is notably on about 2 to 3 L this morning. She states that she does not want to go to [facility] anymore because her family members researched the facility and felt it was subpar and that she would like to go to any other facility besides [facility]. Reason For Visit: ACUTE RESPIRATORY FAILURE WITH HYPOXIA, COVID-19 Physical Exam Vital Signs: Temp Pulse Resp BP Pulse Ox 97.1 F 110 H 14 131/69 H 97 08/16/20 10:00 08/16/20 11:36 08/16/20 11:36 08/16/20 11:36 08/16/20 11:36 Intake & Output 08/15/20 08/16/20 08/17/20 06:59 06:59 06:59 Intake Total 1250 1299 Output Total 0 Balance 1250 1299 Weight 62.2 kg 61.8 kg General appearance: PRESENT: no acute distress, cooperative Neck exam: ABSENT: JVD Respiratory exam: PRESENT: clear to auscultation sky, unlabored. ABSENT: tachypnea, wheezes Cardiovascular exam: PRESENT: +S1, +S2, tachycardia. ABSENT: irregular rhythm Neurological exam: PRESENT: alert, awake, oriented to person, oriented to place, oriented to time Results Laboratory Results: 08/14/20 06:15 08/15/20 05:55 06/30/20 08/02/20 09:15 05:15 Troponin I < 0.012 NT-Pro-B Natriuret Pep 906 H 763 H Impressions: KUB X-Ray 07/26/20 14:06 IMPRESSION: NG tube as described. Pulmonary findings as described. Chest X-Ray 08/04/20 04:00 IMPRESSION: STABLE APPEARANCE OF THE CHEST. SUPPORT DEVICES UNCHANGED. Modified Barium Swallow 08/08/20 00:00 IMPRESSION: NO EVIDENCE OF PENETRATION OR ASPIRATION. PLEASE SEE SPEECH PATHO LOGIST REPORT FOR OTHER FINDINGS AND RECOMMENDATIONS. Assessment and Plan - Diagnosis (1) Acute hypoxemic respiratory failure due to severe acute respiratory syndrome coronavirus 2 (SARS-CoV-2) disease Is this a current diagnosis for this admission?: Yes (2) Poor nutrition Is this a current diagnosis for this admission?: Yes (3) Depression Qualifiers: Depression Type: unspecified Qualified Code(s): F32.9 - Major depressive disorder, single episode, unspecified Is this a current diagnosis for this admission?: Yes (4) Schizoaffective disorder Qualifiers: Schizoaffective disorder type: bipolar Qualified Code(s): F25.0 - Schizoaffective disorder, bipolar type Is this a current diagnosis for this admission?: Yes (5) Asthma Qualifiers: Asthma severity: moderate Asthma persistence: unspecified Asthma complication type: uncomplicated Qualified Code(s): J45.909 - Unspecified asthma, uncomplicated Is this a current diagnosis for this admission?: Yes (6) Weakness Is this a current diagnosis for this admission?: Yes (7) Seizure disorder Is this a current diagnosis for this admission?: Yes - Plan Summary Summary: Continue O2 supplementation as needed via nasal cannula. She is receiving her paroxetine and ziprasidone as she has history of depression and schizoaffective disorder Continue breathing treatments. Notably patient was on Toprol-XL at home which I will go ahead and resume at this time as BP is stable and noted mild tachycardia funeral planner working on getting patient placed at [facility] where she can undergo significant rehab given her debilitated state. - Time Time Spent with patient: Less than 15 minutes Anticipated Discharge Disposition: Nursing Home Facility Anticipated Discharge Timeframe: when bed available
[2020-08-16] MEDS: METOPROLOL SUCCINATE 25 MG TAB.SR.24H PO SCH (13:20)
[2020-08-16] MEDS: ZIPRASIDONE HCL 40 MG CAPSULE PO SCH (21:49)
[2020-08-16] MEDS: APTIOM 800 MG PO SCH (21:49)
[2020-08-16] MEDS: LATANOPROST 0.005% OPH SOLN 2.5 ML OU SCH (22:12)
[2020-08-17] MEDS: SUCRALFATE 1 GM TABLET NG SCH ×5 (00:15→23:38)
[2020-08-17] MEDS: ALBUTEROL SULFATE 0.083% NEB 2.5 MG/3 ML AMPUL NEB SCH ×4 (01:34→20:54)
[2020-08-17] MEDS: BUDESONIDE NEB 0.25 MG/2 ML AMPUL NEB SCH ×2 (09:24→20:54)
[2020-08-17] MEDS: METOPROLOL SUCCINATE 25 MG TAB.SR.24H PO SCH (11:42)
[2020-08-17] MEDS: LEVETIRACETAM 500 MG TABLET PO SCH ×2 (11:42→21:39)
[2020-08-17] MEDS: ENOXAPARIN SODIUM INJ 40 MG/0.4 ML DISP.SYRIN SUBCUT SCH (11:42)
[2020-08-17] MEDS: EPOETIN ALFA-EPBX 3,000 UNIT/ML VIAL (NON-ESRD) SUBCUT SCH (11:43)
--- NOTE | 2020-08-17 15:22 | PDOC PROGRESS REPORT ---
Subjective Progress Note for:: 08/17/20 Subjective:: Patient feels well. Patient continues to await placement at [facility]. Reason For Visit: ACUTE RESPIRATORY FAILURE WITH HYPOXIA, COVID-19 Physical Exam Vital Signs: Temp Pulse Resp BP Pulse Ox 98.3 F 98 14 110/60 99 08/17/20 12:00 08/17/20 14:09 08/17/20 14:09 08/17/20 12:00 08/17/20 14:09 Intake & Output 08/16/20 08/17/20 08/18/20 06:59 06:59 06:59 Intake Total 1299 1010 480 Balance 1299 1010 480 Weight 61.8 kg 60.1 kg General appearance: PRESENT: no acute distress, cooperative Respiratory exam: PRESENT: unlabored. ABSENT: tachypnea Neurological exam: PRESENT: alert, awake, oriented to person, oriented to place, oriented to time Results Laboratory Results: 08/14/20 06:15 08/15/20 05:55 06/30/20 08/02/20 09:15 05:15 Troponin I < 0.012 NT-Pro-B Natriuret Pep 906 H 763 H Impressions: KUB X-Ray 07/26/20 14:06 IMPRESSION: NG tube as described. Pulmonary findings as described. Chest X-Ray 08/04/20 04:00 IMPRESSION: STABLE APPEARANCE OF THE CHEST. SUPPORT DEVICES UNCHANGED. Modified Barium Swallow 08/08/20 00:00 IMPRESSION: NO EVIDENCE OF PENETRATION OR ASPIRATION. PLEASE SEE SPEECH PATHOLOGIST REPORT FOR OTHER FINDINGS AND RECOMMENDATIONS. Assessment and Plan - Diagnosis (1) Acute hypoxemic respiratory failure due to severe acute respiratory syndrome coronavirus 2 (SARS-CoV-2) disease Is this a current diagnosis for this admission?: Yes (2) Poor nutrition Is this a current diagnosis for this admission?: Yes (3) Depression Qualifiers: Depression Type: unspecified Qualified Code(s): F32.9 - Major depressive disorder, single episode, unspecified Is this a current diagnosis for this admission?: Yes (4) Schizoaffective disorder Qualifiers: Schizoaffective disorder type: bipolar Qualified Code(s): F25.0 - Schizoaffective disorder, bipolar type Is this a current diagnosis for this admission?: Yes (5) Asthma Qualifiers: Asthma severity: moderate Asthma persistence: unspecified Asthma complication type: uncomplicated Qualified Code(s): J45.909 - Unspecified asthma, uncomplicated Is this a current diagnosis for this admission?: Yes (6) Weakness Is this a current diagnosis for this admission?: Yes (7) Seizure disorder Is this a current diagnosis for this admission?: Yes - Plan Summary Summary: Patient continues to remain stable. Interestingly, yesterday, staff from [facility] requested the fourth COVID 19 test to be negative before accepting patient. It seems that patient was swabbed last night. However, patient has already had 3- COVID test on 07/19, 07/21 and 08/12 since initial positive test on 06/28. I called facility DON to notify them that there is absolutely no need for a fourth negative covid test and is simply a waste of resources at this point. They have informed me that they will not required the 4th test at this point are simply waiting on [employer] approval. Continue rest of management as before. - Time Time Spent with patient: Less than 15 minutes Anticipated Discharge Disposition: Custodial Facility Anticipated Discharge Timeframe: when bed available
[2020-08-17] MEDS: ZIPRASIDONE HCL 40 MG CAPSULE PO SCH (21:40)
[2020-08-17] MEDS: APTIOM 800 MG PO SCH (21:41)
[2020-08-17] MEDS: LATANOPROST 0.005% OPH SOLN 2.5 ML OU SCH (21:42)
[2020-08-18] MEDS: ALBUTEROL SULFATE 0.083% NEB 2.5 MG/3 ML AMPUL NEB SCH ×3 (02:08→14:36)
[2020-08-18] MEDS: SUCRALFATE 1 GM TABLET NG SCH ×3 (05:23→17:44)
[2020-08-18] MEDS ORDERED: LEVETIRACETAM 500 MG TABLET PO SCH (08:00)
[2020-08-18] MEDS: BUDESONIDE NEB 0.25 MG/2 ML AMPUL NEB SCH (08:18)
[2020-08-18] MEDS: METOPROLOL SUCCINATE 25 MG TAB.SR.24H PO SCH (11:58)
[2020-08-18] MEDS: ENOXAPARIN SODIUM INJ 40 MG/0.4 ML DISP.SYRIN SUBCUT SCH (11:58)
--- NOTE | 2020-08-18 15:00 | PDOC DISCHARGE SUMMARY ---
Impression - Admit/DC Date/PCP Admission Date/Primary Care Provider: 06/30/20 11:35 ELIZABETH ALVARADO Discharge Date: 08/18/20 - Discharge Diagnosis (1) Acute hypoxemic respiratory failure due to severe acute respiratory syndrome coronavirus 2 (SARS-CoV-2) disease Is this a current diagnosis for this admission?: Yes (2) Poor nutrition Is this a current diagnosis for this admission?: Yes (3) Depression Is this a current diagnosis for this admission?: Yes (4) Schizoaffective disorder Is this a current diagnosis for this admission?: Yes (5) Asthma Is this a current diagnosis for this admission?: Yes (6) Weakness Is this a current diagnosis for this admission?: Yes (7) Seizure disorder Is this a current diagnosis for this admission?: Yes - Additional Information Resuscitation Status: Full Code Referrals: ELIZABETH ALVARADO MD [Primary Care Provider] - 08/18/20 2:15 pm (.Mrs. Valverde follow-up appointment has been cancelled; she will be going to rehab.) Home Medications: Eslicarbazepine Acetate [Aptiom] 800 mg PO DAILY 06/30/20 Latanoprost [Xalatan 0.005% Oph Soln 2.5 ml] 1 drop OU QHS 06/30/20 Levetiracetam [Keppra] 1,000 mg PO Q12 06/30/20 Metoprolol Succinate [Toprol Xl 25 mg Tab.sr] 25 mg PO DAILY 06/30/20 Montelukast Sodium [Singulair 10 mg Tablet] 10 mg PO QHS 06/30/20 Fluticasone/Umeclidin/Vilanter [Trelegy 100-62.5-25 Mcg Ellipta 14 Dose/Dpi] 1 inh IH DAILY inhaler 08/18/20 Paroxetine HCl [Paxil] 20 mg PO DAILY #0 08/18/20 Sucralfate [Carafate 1 gm Tablet] 1 gm NG Q6 tablet 08/18/20 Ziprasidone HCl [Geodon 40 mg Capsule] 40 mg PO QHS #0 08/18/20 History of Present Illiness History of Present Illness: According to admitting provider: DEMETRI CALDERON is a 64 year old female past medical history of schizoaffective disorder, seizure disorder, depression, hypertension, anxiety, who was exposed to COVID-19 about 11 days ago, came into ED 2 days ago complaining of shortness of breath, fatigue, subjective fever and chills, was tested for COVID and sent home on hydroxychloroquine, azithromycin and Pulmicort, she took all her medication however patient complaining of worsening fatigue, nausea, vomiting, diarrhea, loss of taste, loss of smell, denies any chest pain, abdominal pain, headache, vision changes, weight changes, focal neurological symptoms, or any urinary symptoms. In ED was noted to be hypoxic, tachypneic, tachycardic, elevated INR, elevated ferritin, elevated LDH, elevated C-reactive protein and transaminitis. Surgery was consulted for admission. Hospital Course Hospital Course: Mrs. Calderon has had a very complicated and prolonged stay in the hospital. She was initially admitted to the hospital on 06/30/2020 for treatment of acute respiratory failure secondary to COVID-19 pneumonia. She was notably hypoxic and hypercapnic. Patient was initially treated in the COVID unit IMCU and completed 10-day course of dexamethasone, received Lovenox, completed course of Remdesivir and also received many days of antibiotics. Her oxygen status status was severely compromised and she required oxygen support initially with CPAP, high flow nasal cannula and at a point tolerated Oxymizer. However her coronavirus infection worsened and she ended up requiring transfer to the ICU where she was intubated and placed on ventilatory support. She was intubated on 07/16/2020 and with subsequent treatment was able to be extubated on 08/03/2020. Since then her respiratory status has been improving slowly. She was transferred out of the ICU on 08/10/2020. She underwent modified barium swallow study and was placed on a mechanical soft diet with thin regular liquids. We have been able to wean down her oxygen requirements are currently she actually stays on room air with SPO2 of 89 to low 90s. She often may require about 1 to 2 L nasal cannula only. She has been stable for several days now and her oxygenation has been good. She has also had 4- coronavirus tests since the initial positive test on 06/28/2020. Patient is notably Jehovah witness and it has been anemic several days ago with hemoglobin in the 6 range. She was treated with Epo which can be discontinued at this point. No current GI bleeding. Anemia work-up showed.......... Patient is to continue the prescribed medications and follow-up with her PCP. Also recommend repeat blood work in 2 weeks to keep an eye on patient's blood count. Physical Exam Vital Signs: Temp Pulse Resp BP Pulse Ox 98.2 F 109 H 14 140/71 H 89 L 08/18/20 11:21 08/18/20 11:21 08/18/20 11:21 08/18/20 11:21 08/18/20 11:21 Intake & Output 08/17/20 08/18/20 08/19/20 06:59 06:59 06:59 Intake Total 1010 720 460 Balance 1010 720 460 Weight 60.1 kg 60.2 kg General appearance: PRESENT: no acute distress, cooperative Neck exam: ABSENT: JVD Respiratory exam: PRESENT: symmetrical, unlabored. ABSENT: tachypnea, wheezes Cardiovascular exam: PRESENT: +S1, +S2, tachycardia - mild. ABSENT: irregular rhythm GI/Abdominal exam: PRESENT: normal bowel sounds, soft. ABSENT: distended, firm, guarding, rebound, rigid, tenderness Extremities exam: ABSENT: calf tenderness Neurological exam: PRESENT: alert, awake, oriented to person, oriented to place, oriented to time, oriented to situation Psychiatric exam: ABSENT: agitated, anxious Focused psych exam: ABSENT: pressured speech Results Laboratory Results: WBC 5.3 10^3/uL (4.0-10.5) 08/14/20 06:15 RBC 3.10 10^6/uL (3.72-5.28) L 08/14/20 06:15 Hgb 9.1 g/dL (12.0-15.5) L 08/14/20 06:15 Hct 27.5 % (36.0-47.0) L 08/14/20 06:15 MCV 89 fl (80-97) 08/14/20 06:15 MCH 29.2 pg (27.0-33.4) 08/14/20 06:15 MCHC 33.0 g/dL (32.0-36.0) 08/14/20 06:15 RDW 17.3 % (11.5-14.0) H 08/14/20 06:15 Plt Count 266 10^3/uL (150-450) 08/14/20 06:15 Lymph % (Auto) 20.6 % (13-45) 08/14/20 06:15 [place] % (Auto) 8.3 % (3-13) 08/14/20 06:15 Eos % (Auto) 4.0 % (0-6) 08/14/20 06:15 Baso % (Auto) 0.8 % (0-2) 08/14/20 06:15 Absolute Neuts (auto) 3.5 10^3/uL (1.7-8.2) 08/14/20 06:15 Absolute Lymphs (auto) 1.1 10^3/uL (0.5-4.7) 08/14/20 06:15 Absolute Monos (auto) 0.4 10^3/uL (0.1-1.4) 08/14/20 06:15 Absolute Eos (auto) 0.2 10^3/uL (0.0-0.6) 08/14/20 06:15 Absolute Basos (auto) 0.0 10^3/uL (0.0-0.2) 08/14/20 06:15 Total Counted 100 08/02/20 05:15 Seg Neutrophils % 66.3 % (42-78) 08/14/20 06:15 Seg Neuts % (Manual) 82 % (42-78) H 08/02/20 05:15 Band Neutrophils % 1 % (3-5) L 08/02/20 05:15 Lymphocytes % (Manual) 12 % (13-45) L 08/02/20 05:15 Atypical Lymphs % Cancelled 07/09/20 05:20 Monocytes % (Manual) 4 % (3-13) 08/02/20 05:15 Eosinophils % (Manual) 1 % (0-6) 08/02/20 05:15 Basophils % (Manual) 0 % (0-2) 08/02/20 05:15 Metamyelocytes % 1 % (0-1) 07/21/20 04:45 Myelocytes % Cancelled 07/09/20 05:20 Promyelocytes % Cancelled 07/09/20 05:20 Immature Leukocytes % Cancelled 07/09/20 05:20 Abs Neuts (Manual) 8.7 10^3/uL (1.7-8.2) H 08/02/20 05:15 Abs Lymphs (Manual) 1.3 10^3/uL (0.5-4.7) 08/02/20 05:15 Abs Monocytes (Manual) 0.4 10^3/uL (0.1-1.4) 08/02/20 05:15 Absolute Eos (Manual) 0.1 10^3/uL (0.0-0.6) 08/02/20 05:15 Abs Basophils (Manual) 0.0 10^3/uL (0.0-0.2) 08/02/20 05:15 Nucleated RBCs 1 /100 WBC (0) 07/23/20 04:40 Differential Comment Cancelled 07/09/20 05:20 Hypersegmented Neuts Cancelled 07/09/20 05:20 Smudge Cells Cancelled 07/09/20 05:20 Toxic Granulation 1+ 08/02/20 05:15 Toxic Vacuolation Cancelled 07/09/20 05:20 Dohle Bodies Cancelled 07/09/20 05:20 Mona Rods Cancelled 07/09/20 05:20 WBC Morphology Comment Cancelled 07/09/20 05:20 Platelet Estimate Cancelled 07/09/20 05:20 Clumped Platelets PRESENT 07/09/20 08:47 Large Platelets PRESENT 07/21/20 04:45 Giant Platelets Cancelled 07/09/20 05:20 Platelet Comment ADEQUATE 08/02/20 05:15 Polychromasia SLIGHT 07/25/20 05:40 Hypochromasia Cancelled 07/09/20 05:20 Poikilocytosis SLIGHT 08/02/20 05:15 Basophilic Stippling Cancelled 07/09/20 05:20 Anisocytosis SLIGHT 08/02/20 05:15 Microcytosis Cancelled 07/09/20 05:20 Macrocytosis Cancelled 07/09/20 05:20 Spherocytes Cancelled 07/09/20 05:20 Pappenheimer Bodies Cancelled 07/09/20 05:20 Sickle Cells Cancelled 07/09/20 05:20 Target Cells Cancelled 07/09/20 05:20 Tear Drop Cells SLIGHT 07/25/20 05:40 Ovalocytes SLIGHT 08/02/20 05:15 Stomatocytes SLIGHT 07/25/20 05:40 Helmet Cells Cancelled 07/09/20 05:20 Lozano-Geddes Bodies Cancelled 07/09/20 05:20 [place] Cells Cancelled 07/09/20 05:20 Acanthocytes (Spur) Cancelled 07/09/20 05:20 Rouleaux Cancelled 07/09/20 05:20 Schistocytes Cancelled 07/09/20 05:20 RBC Morph Comment NORMO-CYTIC/CHROMIC 07/09/20 08:47 PT 13.9 SEC (11.4-15.4) 08/08/20 05:30 INR 1.05 08/08/20 05:30 D-Dimer 2.82 ug/mL (0.00-0.50) H 07/13/20 06:04 Carbonic Acid 1.50 mmol/L (1.05-1.35) H 08/03/20 04:36 HCO3/H2CO3 Ratio 22:1 08/03/20 04:36 ABG pH 7.44 (7.35-7.45) 08/03/20 04:36 ABG pCO2 49.7 mmHg (35-45) H 08/03/20 04:36 ABG pO2 72.6 mmHg (80-100) L 08/03/20 04:36 ABG HCO3 33.3 mmol/L (20-24) H 08/03/20 04:36 ABG Total CO2 34.8 mmol/L (21-25) H 08/03/20 04:36 ABG O2 Saturation 95.0 % (94-98) 08/03/20 04:36 ABG Base Excess 8.2 mmol/L 08/03/20 04:36 VBG pH 7.48 (7.30-7.42) H 06/30/20 09:15 VBG pCO2 33.9 mmHg (35-63) L 06/30/20 09:15 VBG HCO3 24.5 mmol/L (20-32) 06/30/20 09:15 VBG Base Excess 1.0 mmol/L 06/30/20 09:15 FiO2 40% 08/03/20 04:36 Sodium 138.5 mmol/L (137-145) 08/15/20 05:55 Potassium 3.8 mmol/L (3.6-5.0) 08/15/20 05:55 Chloride 100 mmol/L (98-107) 08/15/20 05:55 Carbon Dioxide 32 mmol/L (22-30) H 08/15/20 05:55 Anion Gap 7 (5-19) 08/15/20 05:55 BUN 3 mg/dL (7-20) L 08/15/20 05:55 Creatinine 0.36 mg/dL (0.52-1.25) L 08/15/20 05:55 Est GFR ( Amer) > 60 (>60) 08/15/20 05:55 Est GFR (MDRD) Non-Af > 60 (>60) 08/15/20 05:55 Glucose 100 mg/dL (75-110) 08/15/20 05:55 POC Glucose 111 mg/dL (70-110) H 08/18/20 11:40 Lactic Acid 1.1 mmol/L (0.7-2.1) 07/25/20 09:19 Calcium 8.8 mg/dL (8.4-10.2) 08/15/20 05:55 Ionized Calcium Gaby 1.14 mmol/L (1.14-1.30) 07/27/20 05:57 Phosphorus 4.9 mg/dL (2.5-4.5) H 08/08/20 05:30 Magnesium 2.1 mg/dL (1.6-2.3) 08/08/20 05:30 Ferritin 146.00 ng/mL (11.1-264.0) 07/21/20 04:45 Total Bilirubin 1.0 mg/dL (0.2-1.3) 08/14/20 06:15 Direct Bilirubin 0.3 mg/dL (0.0-0.4) 08/14/20 06:15 Neonat Total Bilirubin Not Reportable 08/14/20 06:15 Neonat Direct Bilirubin Not Reportable 08/14/20 06:15 Neonat Indirect Bili Not Reportable 08/14/20 06:15 AST 29 U/L (14-36) 08/14/20 06:15 ALT 32 U/L (<35) 08/14/20 06:15 Alkaline Phosphatase 88 U/L (38-126) 08/14/20 06:15 Lactate Dehydrogenase 390 U/L (120-246) H 06/30/20 09:15 Troponin I < 0.012 ng/mL 06/30/20 09:15 C-Reactive Protein 23.9 mg/L (<10.0) H 07/21/20 04:45 NT-Pro-B Natriuret Pep 763 pg/mL (<125) H 08/02/20 05:15 Total Protein 6.2 g/dL (6.3-8.2) L 08/14/20 06:15 Albumin 3.5 g/dL (3.5-5.0) 08/14/20 06:15 Prealbumin 25.3 mg/dL (17.6-36.0) 08/08/20 05:30 Triglycerides 146 mg/dL (<150) 08/09/20 09:05 Procalcitonin 0.14 ng/mL (0.00-0.08) H 07/19/20 11:24 Random Cortisol 7.34 ug/dL (None Established) 07/16/20 18:00 Urine Color YELLOW 07/18/20 04:48 Urine Appearance SLIGHTLY-CLOUDY 07/18/20 04:48 Urine pH 5.0 (5.0-9.0) 07/18/20 04:48 Ur Specific [place] 1.021 07/18/20 04:48 Urine Protein 30 mg/dL (NEGATIVE) H 07/18/20 04:48 Urine Glucose (UA) NEGATIVE mg/dL (NEGATIVE) 07/18/20 04:48 Urine Ketones NEGATIVE mg/dL (NEGATIVE) 07/18/20 04:48 Urine Blood SMALL (NEGATIVE) H 07/18/20 04:48 Urine Nitrite NEGATIVE (NEGATIVE) 07/18/20 04:48 Urine Bilirubin NEGATIVE (NEGATIVE) 07/18/20 04:48 Urine Urobilinogen 4.0 mg/dL (<2.0) H 07/18/20 04:48 Ur Leukocyte Esterase SMALL (NEGATIVE) H 07/18/20 04:48 Urine WBC (Auto) 45 /HPF 07/18/20 04:48 Urine RBC (Auto) 7 /HPF 07/18/20 04:48 U Hyaline Cast (Auto) 1 /LPF 07/18/20 04:48 Urine Bacteria (Auto) 1+ /HPF 07/18/20 04:48 Squamous Epi Cells Auto <1 /HPF 07/18/20 04:48 Urine Mucus (Auto) MANY /LPF 07/18/20 04:48 Urine Ascorbic Acid NEGATIVE (NEGATIVE) 07/18/20 04:48 Time Trough Drawn 1145 07/21/20 11:45 Vancomycin Trough 10.9 ug/mL (5.0-20.0) 07/21/20 11:45 COVID-19 Source See comment 08/16/20 21:14 COVID-19 (JAQUELINE) Not Detected (Not Detect) 08/16/20 21:14 Slides for Path Review Cancelled 07/09/20 05:20 Blood Type AB POSITIVE 07/19/20 06:05 Blood Type Confirm AB POSITIVE 07/19/20 06:05 Antibody Screen NEGATIVE 07/19/20 06:05 Crossmatch See Detail 07/19/20 06:05 06/30/20 08/02/20 09:15 05:15 Troponin I < 0.012 NT-Pro-B Natriuret Pep 906 H 763 H Impressions: Chest X-Ray 06/30/20 09:47 IMPRESSION: Increased radiographic conspicuity of multifocal airspace opacities in this patient with reported known diagnosis with COVID. Chest X-Ray 07/05/20 15:45 IMPRESSION: DIFFUSE BILATERAL AIRSPACE DISEASE WITH WORSENING IN THE UPPER LOBES. KUB X-Ray 07/10/20 22:51 IMPRESSION: Indeterminate bowel gas pattern. Mild colonic stool load. copyright 2010 [employer]- All Rights Reserved KUB X-Ray 07/14/20 13:41 IMPRESSION: Nasogastric tube in the stomach. Chest X-Ray 07/15/20 12:51 IMPRESSION: Extensive diffuse bilateral airspace disease, mildly worsened from prior. Chest X-Ray 07/16/20 00:00 IMPRESSION: Endotracheal tube Tip is approximately 5 mm above the level of the ludmila directed towards the right mainstem bronchus, this could be withdrawn approximately 1.5 cm for more ideal placement. Similar appearance of diffuse interstitial -alveolar opacities bilaterally. KUB X-Ray 07/16/20 21:44 IMPRESSION: Enteric tube tip in the stomach copyright 2010 [employer]- All Rights Reserved Chest X-Ray 07/19/20 00:00 IMPRESSION: EXTENSIVE DIFFUSE AIRSPACE DISEASE WITH INTERVAL WORSENING. DIFFERENTIAL INCLUDES DIFFUSE PNEUMONIA AND/OR PULMONARY EDEMA. Chest X-Ray 07/21/20 00:00 IMPRESSION: Moderate interstitial markings. Small hazy opacity of the lateral left lung field. Small left basilar opacity-effusion.Interval improvement. Chest X-Ray 07/24/20 00:00 IMPRESSION: Tubes and lines in good positioning. Unchanged diffuse bilateral infiltrates Chest X-Ray 07/25/20 00:00 IMPRESSION: Diffuse bilateral airspace disease, mildly worsened from prior. Stable support lines and tubes as above. Chest X-Ray 07/26/20 00:00 IMPRESSION: THE TIP OF THE CENTRAL LINE IS NOW AT THE LEVEL OF THE RIGHT CLAVICLE. OTHERWISE NO SIGNIFICANT CHANGE IN APPEARANCE OF THE CHEST. KUB X-Ray 07/26/20 14:06 IMPRESSION: NG tube as described. Pulmonary findings as described. Chest X-Ray 08/02/20 05:00 IMPRESSION: STABLE APPEARANCE OF THE CHEST. SUPPORT DEVICES UNCHANGED. Chest X-Ray 08/03/20 04:00 IMPRESSION: Status post extubation and removal of the enteric tube. Otherwise unchanged radiographic appearance of the chest. Chest X-Ray 08/04/20 04:00 IMPRESSION: STABLE APPEARANCE OF THE CHEST. SUPPORT DEVICES UNCHANGED. Modified Barium Swallow 08/08/20 00:00 IMPRESSION: NO EVIDENCE OF PENETRATION OR ASPIRATION. PLEASE SEE SPEECH PATHOLOGIST REPORT FOR OTHER FINDINGS AND RECOMMENDATIONS. Plan Time Spent: Greater than 30 Minutes Stroke Is this a Stroke Patient?: No Acute Heart Failure Is this a Heart Failure Patient?: No
[2020-08-18 15:17] LABS: ABSOLUTE RETICS # 0.096 10^6/uL (0.028-0.122); HEMATOCRIT 32.2 % (36.0-47.0); HEMOGLOBIN 10.6 g/dL (12.0-15.5); MEAN CORPUSCULAR HEMOGLOBIN 28.9 pg (27.0-33.4); MEAN CORPUSCULAR HGB CONC 32.8 g/dL (32.0-36.0); MEAN CORPUSCULAR VOLUME 88 fl (80-97); PLATELET COUNT 338 10^3/uL (150-450); RED BLOOD COUNT 3.66 10^6/uL (3.72-5.28); RED CELL DISTRIBUTION WIDTH 17.2 % (11.5-14.0); RETICULOCYTE COUNT (AUTO) 2.63 % (0.66-2.85)
[2020-08-18 15:38] LABS: IRON(TIBC) 35.4 ug/dL (37-170)
--- NOTE | 2020-08-18 16:30 | PDOC TRANSFER SUMMARY ---
Impression - Admit/DC Date/PCP Admission Date/Primary Care Provider: 06/30/20 11:35 ELIZABETH ALVARADO Discharge Date: 08/18/20 - Discharge Diagnosis (1) Acute hypoxemic respiratory failure due to severe acute respiratory syndrome coronavirus 2 (SARS-CoV-2) disease Is this a current diagnosis for this admission?: Yes (2) Poor nutrition Is this a current diagnosis for this admission?: Yes (3) Depression Is this a current diagnosis for this admission?: Yes (4) Schizoaffective disorder Is this a current diagnosis for this admission?: Yes (5) Asthma Is this a current diagnosis for this admission?: Yes (6) Weakness Is this a current diagnosis for this admission?: Yes (7) Seizure disorder Is this a current diagnosis for this admission?: Yes (8) Iron deficiency anemia Is this a current diagnosis for this admission?: Yes - Additional Information Resuscitation Status: Full Code Referrals: ELIZABETH ALVARADO MD [Primary Care Provider] - 08/18/20 2:15 pm (.Mrs. Valverde follow-up appointment has been cancelled; she will be going to rehab.) Prescriptions: Ferrous Sulfate [Feosol 325 mg Tablet] 325 mg PO DAILY #30 tab Home Medications: Eslicarbazepine Acetate [Aptiom] 800 mg PO DAILY 06/30/20 Latanoprost [Xalatan 0.005% Oph Soln 2.5 ml] 1 drop OU QHS 06/30/20 Levetiracetam [Keppra] 1,000 mg PO Q12 06/30/20 Metoprolol Succinate [Toprol Xl 25 mg Tab.sr] 25 mg PO DAILY 06/30/20 Montelukast Sodium [Singulair 10 mg Tablet] 10 mg PO QHS 06/30/20 Ferrous Sulfate [Feosol 325 mg Tablet] 325 mg PO DAILY #30 tab 08/18/20 Fluticasone/Umeclidin/Vilanter [Trelegy 100-62.5-25 Mcg Ellipta 14 Dose/Dpi] 1 inh IH DAILY inhaler 08/18/20 Paroxetine HCl [Paxil] 20 mg PO DAILY #0 08/18/20 Sucralfate [Carafate 1 gm Tablet] 1 gm NG Q6 tablet 08/18/20 Ziprasidone HCl [Geodon 40 mg Capsule] 40 mg PO QHS #0 08/18/20 History of Present Illiness History of Present Illness: According to admitting provider: DEMETRI CALDERON is a 64 year old female past medical history of schizoaffective disorder, seizure disorder, depression, hypertension, anxiety, who was exposed to COVID-19 about 11 days ago, came into ED 2 days ago complaining of shortness of breath, fatigue, subjective fever and chills, was tested for COVID and sent home on hydroxychloroquine, azithromycin and Pulmicort, she took all her medication however patient complaining of worsening fatigue, nausea, vomiting, diarrhea, loss of taste, loss of smell, denies any chest pain, abdominal pain, headache, vision changes, weight changes, focal neurological symptoms, or any urinary symptoms. In ED was noted to be hypoxic, tachypneic, tachycardic, elevated INR, elevated ferritin, elevated LDH, elevated C-reactive protein and transaminitis. Surgery was consulted for admission. Hospital Course Hospital Course: Mrs. Calderon has had a very complicated and prolonged stay in the hospital. She was initially admitted to the hospital on 06/30/2020 for treatment of acute respiratory failure secondary to COVID-19 pneumonia. She was notably hypoxic and hypercapnic. Patient was initially treated in the COVID unit IMCU and completed 10-day course of dexamethasone, received Lovenox, completed course of Remdesivir and also received many days of antibiotics. Her oxygen status status was severely compromised and she required oxygen support initially with CPAP, high flow nasal cannula and at a point tolerated Oxymizer. However her coronavirus infection worsened and she ended up requiring transfer to the ICU where she was intubated and placed on ventilatory support. She was intubated on 07/16/2020 and with subsequent treatment was able to be extubated on 08/03/2020. Since then her respiratory status has been improving slowly. She was transferred out of the ICU on 08/10/2020. She underwent modified barium swallow study and was placed on a mechanical soft diet with thin regular liquids. We have been able to wean down her oxygen requirements are currently she actually stays on room air with SPO2 of 89 to low 90s. She often may require about 1 to 2 L nasal cannula only. She has been stable for several days now and her oxygenation has been good. She has also had 4 negative coronavirus tests since the initial positive test on 06/28/2020. Patient is notably Jehovah witness and it has been anemic several days ago with hemoglobin in the 6 range. She was treated with Epo which can be discontinued at this point. No current GI bleeding. Anemia work-up showed iron deficiency with normal b12 and folate level. Ferrous sulfate prescribed. Hb has stabilized between 8s-10. Last Hb on blood work today was 10.6. Patient is to continue the prescribed medications and follow-up with her PCP. Also recommend repeat blood work in 2 weeks to keep an eye on patient's blood count. Discussed plan of care with patient's daughter, son and patient's . Physical Exam Vital Signs: Temp Pulse Resp BP Pulse Ox 98.2 F 102 H 16 140/71 H 97 08/18/20 11:21 08/18/20 14:36 08/18/20 14:36 08/18/20 11:21 08/18/20 14:36 Intake & Output 08/17/20 08/18/20 08/19/20 06:59 06:59 06:59 Intake Total 1010 720 460 Balance 1010 720 460 Weight 60.1 kg 60.2 kg General appearance: PRESENT: no acute distress, cooperative Neck exam: ABSENT: JVD Respiratory exam: PRESENT: symmetrical, unlabored. ABSENT: accessory muscle use, tachypnea, wheezes Cardiovascular exam: PRESENT: +S1, +S2, tachycardia - mild. ABSENT: irregular rhythm GI/Abdominal exam: PRESENT: soft. ABSENT: rebound, rigid, tenderness Neurological exam: PRESENT: alert, awake, oriented to person, oriented to place Psychiatric exam: ABSENT: agitated, anxious Results Laboratory Results: WBC 6.0 10^3/uL (4.0-10.5) 08/18/20 14:55 RBC 3.66 10^6/uL (3.72-5.28) L 08/18/20 14:55 Hgb 10.6 g/dL (12.0-15.5) L 08/18/20 14:55 Hct 32.2 % (36.0-47.0) L 08/18/20 14:55 MCV 88 fl (80-97) 08/18/20 14:55 MCH 28.9 pg (27.0-33.4) 08/18/20 14:55 MCHC 32.8 g/dL (32.0-36.0) 08/18/20 14:55 RDW 17.2 % (11.5-14.0) H 08/18/20 14:55 Plt Count 338 10^3/uL (150-450) 08/18/20 14:55 Lymph % (Auto) 20.6 % (13-45) 08/14/20 06:15 Daggett % (Auto) 8.3 % (3-13) 08/14/20 06:15 Eos % (Auto) 4.0 % (0-6) 08/14/20 06:15 Baso % (Auto) 0.8 % (0-2) 08/14/20 06:15 Reticulocyte # 0.096 10^6/uL (0.028-0.122) 08/18/20 14:55 Absolute Neuts (auto) 3.5 10^3/uL (1.7-8.2) 08/14/20 06:15 Absolute Lymphs (auto) 1.1 10^3/uL (0.5-4.7) 08/14/20 06:15 Absolute Monos (auto) 0.4 10^3/uL (0.1-1.4) 08/14/20 06:15 Absolute Eos (auto) 0.2 10^3/uL (0.0-0.6) 08/14/20 06:15 Absolute Basos (auto) 0.0 10^3/uL (0.0-0.2) 08/14/20 06:15 Total Counted 100 08/02/20 05:15 Seg Neutrophils % 66.3 % (42-78) 08/14/20 06:15 Seg Neuts % (Manual) 82 % (42-78) H 08/02/20 05:15 Band Neutrophils % 1 % (3-5) L 08/02/20 05:15 Lymphocytes % (Manual) 12 % (13-45) L 08/02/20 05:15 Atypical Lymphs % Cancelled 07/09/20 05:20 Monocytes % (Manual) 4 % (3-13) 08/02/20 05:15 Eosinophils % (Manual) 1 % (0-6) 08/02/20 05:15 Basophils % (Manual) 0 % (0-2) 08/02/20 05:15 Metamyelocytes % 1 % (0-1) 07/21/20 04:45 Myelocytes % Cancelled 07/09/20 05:20 Promyelocytes % Cancelled 07/09/20 05:20 Immature Leukocytes % Cancelled 07/09/20 05:20 Abs Neuts (Manual) 8.7 10^3/uL (1.7-8.2) H 08/02/20 05:15 Abs Lymphs (Manual) 1.3 10^3/uL (0.5-4.7) 08/02/20 05:15 Abs Monocytes (Manual) 0.4 10^3/uL (0.1-1.4) 08/02/20 05:15 Absolute Eos (Manual) 0.1 10^3/uL (0.0-0.6) 08/02/20 05:15 Abs Basophils (Manual) 0.0 10^3/uL (0.0-0.2) 08/02/20 05:15 Nucleated RBCs 1 /100 WBC (0) 07/23/20 04:40 Differential Comment Cancelled 07/09/20 05:20 Hypersegmented Neuts Cancelled 07/09/20 05:20 Smudge Cells Cancelled 07/09/20 05:20 Toxic Granulation 1+ 08/02/20 05:15 Toxic Vacuolation Cancelled 07/09/20 05:20 Dohle Bodies Cancelled 07/09/20 05:20 Mona Rods Cancelled 07/09/20 05:20 WBC Morphology Comment Cancelled 07/09/20 05:20 Platelet Estimate Cancelled 07/09/20 05:20 Clumped Platelets PRESENT 07/09/20 08:47 Large Platelets PRESENT 07/21/20 04:45 Giant Platelets Cancelled 07/09/20 05:20 Platelet Comment ADEQUATE 08/02/20 05:15 Polychromasia SLIGHT 07/25/20 05:40 Hypochromasia Cancelled 07/09/20 05:20 Poikilocytosis SLIGHT 08/02/20 05:15 Basophilic Stippling Cancelled 07/09/20 05:20 Anisocytosis SLIGHT 08/02/20 05:15 Microcytosis Cancelled 07/09/20 05:20 Macrocytosis Cancelled 07/09/20 05:20 Spherocytes Cancelled 07/09/20 05:20 Pappenheimer Bodies Cancelled 07/09/20 05:20 Sickle Cells Cancelled 07/09/20 05:20 Target Cells Cancelled 07/09/20 05:20 Tear Drop Cells SLIGHT 07/25/20 05:40 Ovalocytes SLIGHT 08/02/20 05:15 Stomatocytes SLIGHT 07/25/20 05:40 Helmet Cells Cancelled 07/09/20 05:20 Lozano-Livengood Bodies Cancelled 07/09/20 05:20 Melina Cells Cancelled 07/09/20 05:20 Acanthocytes (Spur) Cancelled 07/09/20 05:20 Rouleaux Cancelled 07/09/20 05:20 Schistocytes Cancelled 07/09/20 05:20 RBC Morph Comment NORMO-CYTIC/CHROMIC 07/09/20 08:47 Retic Count (auto) 2.63 % (0.66-2.85) 08/18/20 14:55 PT 13.9 SEC (11.4-15.4) 08/08/20 05:30 INR 1.05 08/08/20 05:30 D-Dimer 2.82 ug/mL (0.00-0.50) H 07/13/20 06:04 Carbonic Acid 1.50 mmol/L (1.05-1.35) H 08/03/20 04:36 HCO3/H2CO3 Ratio 22:1 08/03/20 04:36 ABG pH 7.44 (7.35-7.45) 08/03/20 04:36 ABG pCO2 49.7 mmHg (35-45) H 08/03/20 04:36 ABG pO2 72.6 mmHg (80-100) L 08/03/20 04:36 ABG HCO3 33.3 mmol/L (20-24) H 08/03/20 04:36 ABG Total CO2 34.8 mmol/L (21-25) H 08/03/20 04:36 ABG O2 Saturation 95.0 % (94-98) 08/03/20 04:36 ABG Base Excess 8.2 mmol/L 08/03/20 04:36 VBG pH 7.48 (7.30-7.42) H 06/30/20 09:15 VBG pCO2 33.9 mmHg (35-63) L 06/30/20 09:15 VBG HCO3 24.5 mmol/L (20-32) 06/30/20 09:15 VBG Base Excess 1.0 mmol/L 06/30/20 09:15 FiO2 40% 08/03/20 04:36 Sodium 138.5 mmol/L (137-145) 08/15/20 05:55 Potassium 3.8 mmol/L (3.6-5.0) 08/15/20 05:55 Chloride 100 mmol/L (98-107) 08/15/20 05:55 Carbon Dioxide 32 mmol/L (22-30) H 08/15/20 05:55 Anion Gap 7 (5-19) 08/15/20 05:55 BUN 3 mg/dL (7-20) L 08/15/20 05:55 Creatinine 0.36 mg/dL (0.52-1.25) L 08/15/20 05:55 Est GFR ( Amer) > 60 (>60) 08/15/20 05:55 Est GFR (MDRD) Non-Af > 60 (>60) 08/15/20 05:55 Glucose 100 mg/dL (75-110) 08/15/20 05:55 POC Glucose 92 mg/dL (70-110) 08/18/20 15:19 Lactic Acid 1.1 mmol/L (0.7-2.1) 07/25/20 09:19 Calcium 8.8 mg/dL (8.4-10.2) 08/15/20 05:55 Ionized Calcium Gaby 1.14 mmol/L (1.14-1.30) 07/27/20 05:57 Phosphorus 4.9 mg/dL (2.5-4.5) H 08/08/20 05:30 Magnesium 2.1 mg/dL (1.6-2.3) 08/08/20 05:30 Ferritin 146.00 ng/mL (11.1-264.0) 07/21/20 04:45 Total Bilirubin 1.0 mg/dL (0.2-1.3) 08/14/20 06:15 Direct Bilirubin 0.3 mg/dL (0.0-0.4) 08/14/20 06:15 Neonat Total Bilirubin Not Reportable 08/14/20 06:15 Neonat Direct Bilirubin Not Reportable 08/14/20 06:15 Neonat Indirect Bili Not Reportable 08/14/20 06:15 AST 29 U/L (14-36) 08/14/20 06:15 ALT 32 U/L (<35) 08/14/20 06:15 Alkaline Phosphatase 88 U/L (38-126) 08/14/20 06:15 Lactate Dehydrogenase 390 U/L (120-246) H 06/30/20 09:15 Troponin I < 0.012 ng/mL 06/30/20 09:15 C-Reactive Protein 23.9 mg/L (<10.0) H 07/21/20 04:45 NT-Pro-B Natriuret Pep 763 pg/mL (<125) H 08/02/20 05:15 Total Protein 6.2 g/dL (6.3-8.2) L 08/14/20 06:15 Albumin 3.5 g/dL (3.5-5.0) 08/14/20 06:15 Prealbumin 25.3 mg/dL (17.6-36.0) 08/08/20 05:30 Triglycerides 146 mg/dL (<150) 08/09/20 09:05 Procalcitonin 0.14 ng/mL (0.00-0.08) H 07/19/20 11:24 Random Cortisol 7.34 ug/dL (None Established) 07/16/20 18:00 Urine Color YELLOW 07/18/20 04:48 Urine Appearance SLIGHTLY-CLOUDY 07/18/20 04:48 Urine pH 5.0 (5.0-9.0) 07/18/20 04:48 Ur Specific Elsie 1.021 07/18/20 04:48 Urine Protein 30 mg/dL (NEGATIVE) H 07/18/20 04:48 Urine Glucose (UA) NEGATIVE mg/dL (NEGATIVE) 07/18/20 04:48 Urine Ketones NEGATIVE mg/dL (NEGATIVE) 07/18/20 04:48 Urine Blood SMALL (NEGATIVE) H 07/18/20 04:48 Urine Nitrite NEGATIVE (NEGATIVE) 07/18/20 04:48 Urine Bilirubin NEGATIVE (NEGATIVE) 07/18/20 04:48 Urine Urobilinogen 4.0 mg/dL (<2.0) H 07/18/20 04:48 Ur Leukocyte Esterase SMALL (NEGATIVE) H 07/18/20 04:48 Urine WBC (Auto) 45 /HPF 07/18/20 04:48 Urine RBC (Auto) 7 /HPF 07/18/20 04:48 U Hyaline Cast (Auto) 1 /LPF 07/18/20 04:48 Urine Bacteria (Auto) 1+ /HPF 07/18/20 04:48 Squamous Epi Cells Auto <1 /HPF 07/18/20 04:48 Urine Mucus (Auto) MANY /LPF 07/18/20 04:48 Urine Ascorbic Acid NEGATIVE (NEGATIVE) 07/18/20 04:48 Time Trough Drawn 1145 07/21/20 11:45 Vancomycin Trough 10.9 ug/mL (5.0-20.0) 07/21/20 11:45 COVID-19 Source See comment 08/16/20 21:14 COVID-19 (JAQUELINE) Not Detected (Not Detect) 08/16/20 21:14 Slides for Path Review Cancelled 07/09/20 05:20 Blood Type AB POSITIVE 07/19/20 06:05 Blood Type Confirm AB POSITIVE 07/19/20 06:05 Antibody Screen NEGATIVE 07/19/20 06:05 Crossmatch See Detail 07/19/20 06:05 06/30/20 08/02/20 09:15 05:15 Troponin I < 0.012 NT-Pro-B Natriuret Pep 906 H 763 H Impressions: Chest X-Ray 06/30/20 09:47 IMPRESSION: Increased radiographic conspicuity of multifocal airspace opacities in this patient with reported known diagnosis with COVID. Chest X-Ray 07/05/20 15:45 IMPRESSION: DIFFUSE BILATERAL AIRSPACE DISEASE WITH WORSENING IN THE UPPER LOBES. KUB X-Ray 07/10/20 22:51 IMPRESSION: Indeterminate bowel gas pattern. Mild colonic stool load. copyright 2011 [employer]- All Rights Reserved KUB X-Ray 07/14/20 13:41 IMPRESSION: Nasogastric tube in the stomach. Chest X-Ray 07/15/20 12:51 IMPRESSION: Extensive diffuse bilateral airspace disease, mildly worsened from prior. Chest X-Ray 07/16/20 00:00 IMPRESSION: Endotracheal tube Tip is approximately 5 mm above the level of the ludmila directed towards the right mainstem bronchus, this could be withdrawn approximately 1.5 cm for more ideal placement. Similar appearance of diffuse interstitial -alveolar opacities bilaterally. KUB X-Ray 07/16/20 21:44 IMPRESSION: Enteric tube tip in the stomach copyright 2010 [employer]- All Rights Reserved Chest X-Ray 07/19/20 00:00 IMPRESSION: EXTENSIVE DIFFUSE AIRSPACE DISEASE WITH INTERVAL WORSENING. D IFFERENTIAL INCLUDES DIFFUSE PNEUMONIA AND/OR PULMONARY EDEMA. Chest X-Ray 07/21/20 00:00 IMPRESSION: Moderate interstitial markings. Small hazy opacity of the lateral left lung field. Small left basilar opacity-effusion.Interval improvement. Chest X-Ray 07/24/20 00:00 IMPRESSION: Tubes and lines in good positioning. Unchanged diffuse bilateral infiltrates Chest X-Ray 07/25/20 00:00 IMPRESSION: Diffuse bilateral airspace disease, mildly worsened from prior. Stable support lines and tubes as above. Chest X-Ray 07/26/20 00:00 IMPRESSION: THE TIP OF THE CENTRAL LINE IS NOW AT THE LEVEL OF THE RIGHT CLAVICLE. OTHERWISE NO SIGNIFICANT CHANGE IN APPEARANCE OF THE CHEST. KUB X-Ray 07/26/20 14:06 IMPRESSION: NG tube as described. Pulmonary findings as described. Chest X-Ray 08/02/20 05:00 IMPRESSION: STABLE APPEARANCE OF THE CHEST. SUPPORT DEVICES UNCHANGED. Chest X-Ray 08/03/20 04:00 IMPRESSION: Status post extubation and removal of the enteric tube. Otherwise unchanged radiographic appearance of the chest. Chest X-Ray 08/04/20 04:00 IMPRESSION: STABLE APPEARANCE OF THE CHEST. SUPPORT DEVICES UNCHANGED. Modified Barium Swallow 08/08/20 00:00 IMPRESSION: NO EVIDENCE OF PENETRATION OR ASPIRATION. PLEASE SEE SPEECH PATHOLOGIST REPORT FOR OTHER FINDINGS AND RECOMMENDATIONS. Plan Time Spent: Greater than 30 Minutes Stroke Is this a Stroke Patient?: No Acute Heart Failure Is this a Heart Failure Patient?: No
[2020-08-18 16:45] LABS: FOLATE 7.16 ng/mL (>2.76)
[2020-08-18 17:07] VITALS: BP 115/65
[2020-08-18] MEDS ORDERED: ZIPRASIDONE HCL 40 MG CAPSULE PO SCH (20:00)
== END 2020-08-18 17:46 | DRG 207 ==
LOC: ER 09:07 → EH 11:35 → 3W 21:45 → 3N 07-03 13:16 → ICU 07-16 10:58 → 3N 08-08 15:23 → ICU 08-08 15:31 → 3W 08-10 15:52
PROVIDERS: ADMIT Anesthesiology; ATTEND Internal Medicine
PROC: 5A09557 Assistance with Respiratory Ventilation, Greater than 96 Consecutive Hours, Continuous Positive Airway Pressure (ICD-10-PCS; 2020-06-30)
PROC: XW033E5 Introduction of Remdesivir Anti-infective into Peripheral Vein, Percutaneous Approach, New Technology Group 5 (ICD-10-PCS; 2020-06-30)
PROC: 02HV33Z Insertion of Infusion Device into Superior Vena Cava, Percutaneous Approach (ICD-10-PCS; 2020-07-15)
PROC: 02HV33Z Insertion of Infusion Device into Superior Vena Cava, Percutaneous Approach (ICD-10-PCS; 2020-07-15)
PROC: 06HN33Z Insertion of Infusion Device into Left Femoral Vein, Percutaneous Approach (ICD-10-PCS; 2020-07-15)
PROC: 3E0336Z Introduction of Nutritional Substance into Peripheral Vein, Percutaneous Approach (ICD-10-PCS; 2020-07-15)
PROC: 5A1955Z Respiratory Ventilation, Greater than 96 Consecutive Hours (ICD-10-PCS; principal; 2020-07-16)
PROC: 0BH17EZ Insertion of Endotracheal Airway into Trachea, Via Natural or Artificial Opening (ICD-10-PCS; 2020-07-16)
DX: U07.1 COVID-19 (principal); J96.01 Acute respiratory failure with hypoxia; J12.89 Other viral pneumonia; J96.02 Acute respiratory failure with hypercapnia; J15.211 Pneumonia due to Methicillin susceptible Staphylococcus aureus; J15.6 Pneumonia due to other Gram-negative bacteria; E87.1 Hypo-osmolality and hyponatremia; N39.0 Urinary tract infection, site not specified; K21.9 Gastro-esophageal reflux disease without esophagitis; F31.9 Bipolar disorder, unspecified; F41.9 Anxiety disorder, unspecified; E87.6 Hypokalemia; R74.0 Nonspecific elevation of levels of transaminase and lactic acid dehydrogenase [LDH]; R79.1 Abnormal coagulation profile; E78.00 Pure hypercholesterolemia, unspecified; F25.0 Schizoaffective disorder, bipolar type; I48.91 Unspecified atrial fibrillation; Z53.1 Procedure and treatment not carried out because of patient's decision for reasons of belief and group pressure; F40.240 Claustrophobia; E86.0 Dehydration; J45.40 Moderate persistent asthma, uncomplicated; D50.0 Iron deficiency anemia secondary to blood loss (chronic); Z66 Do not resuscitate; Z51.5 Encounter for palliative care; I87.2 Venous insufficiency (chronic) (peripheral); B96.5 Pseudomonas (aeruginosa) (mallei) (pseudomallei) as the cause of diseases classified elsewhere; Z75.1 Person awaiting admission to adequate facility elsewhere; Z78.1 Physical restraint status; Z03.818 Encounter for observation for suspected exposure to other biological agents ruled out; Z88.8 Allergy status to other drugs, medicaments and biological substances; Z88.2 Allergy status to sulfonamides; Z88.4 Allergy status to anesthetic agent; Z98.1 Arthrodesis status; Z85.828 Personal history of other malignant neoplasm of skin; Z88.3 Allergy status to other anti-infective agents; Z91.041 Radiographic dye allergy status; Z83.3 Family history of diabetes mellitus; Z82.49 Family history of ischemic heart disease and other diseases of the circulatory system; Z79.82 Long term (current) use of aspirin; Z79.899 Other long term (current) drug therapy; Z91.19 Patient's noncompliance with other medical treatment and regimen
CPT/HCPCS: 31500; 36415; 36556; 36600; 71045; 74018; 74230; 80048; 80053; 80202; 81001; 82310; 82330; 82533; 82607; 82728; 82746; 82803; 82962; 83540; 83550; 83605; 83615; 83735; 83880; 84100; 84132; 84134; 84145; 84478; 84484; 85025; 85027; 85045; 85379; 85610; 86140; 86850; 86900; 86901; 87040; 87070; 87077; 87086; 87088; 87186; 87205; 87635; 92950; 93005; 93010; 94002; 94003; 94640; 94660; 94799; 96361; 96374; 96375; 99221; 99222; 99285; 99291; 99292; J0610; C9113; C9803; J0360; J0456; J0690; J0696; J1100; J1170; J1630; J1642; J1650; J1720; J1815; J1940; J1953; J1956; J2020; J2060; J2250; J2270; J2310; J2405; J2543; J3010; J3360; J3370; J3475; J3480; J3486; J3490; J7030; J7042; J7050; J7060; J7120; J7608; J7613; P9047; Q5106; S0028; S0119

== ENCOUNTER → 2020-10-10 | Outpatient (CLI) | payer MEDICARE ==
--- NOTE | 2020-10-10 11:20 | RADIOLOGY REPORT (SQ) ---
EXAM DESCRIPTION: CHEST PA/LATERAL IMAGES COMPLETED DATE/TIME: 10/10/2020 9:31 am REASON FOR STUDY: ACUTE RESPIRATORY FAILURE WITH HYPOXIA COMPARISON: AP view of the chest from 08/04/2020. EXAM PARAMETERS: NUMBER OF VIEWS: Two views. TECHNIQUE: PA and lateral views of the chest were obtained. RADIATION DOSE: NA. LIMITATIONS: None. FINDINGS: LUNGS AND PLEURA: Unchanged apical pleuroparenchymal thickening. There is no acute consol idation, pleural effusion or pneumothorax. MEDIASTINUM AND HILAR STRUCTURES: No mediastinal or hilar contour abnormality. HEART AND VASCULAR STRUCTURES: The cardiac silhouette and pulmonary vasculature are within normal wall its. BONES: No acute findings. HARDWARE: None in the chest. OTHER: No other finding. IMPRESSION: No acute cardiopulmonary process. TECHNICAL DOCUMENTATION: JOB ID: [id number] 2010 [employer]- All Rights Reserved Reading location - IP/workstation name: [email or web address]
== END ==
LOC: OD 09:16
PROVIDERS: ATTEND Internal Medicine Pulmonary Disease
DX: J45.30 Mild persistent asthma, uncomplicated (principal); J96.01 Acute respiratory failure with hypoxia
CPT/HCPCS: 71046

== ENCOUNTER → 2020-10-26 | Outpatient (CLI) | payer MEDICARE ==
--- NOTE | 2020-10-26 13:46 | WOMENS IMAGING REPORT ---
EXAM DESCRIPTION: BONE DENSITY HIP/SPINE IMAGES COMPLETED DATE/TIME: 10/26/2020 1:32 pm REASON FOR STUDY: Z78.0 ASYMPTOMATIC MENOPAUSAL STATE Z12.31 ENCNTR SCREEN MAMMOGRAM FOR MALIGNANT NEOPLASM OF MARY Z78.0 ASYMPTOMATIC MENOPAUSAL STATE COMPARISON: None. TECHNIQUE: Dual-Energy X-ray Absorptiometry (DEXA) of the AP Spine and Hip. LIMITATIONS: None. FINDINGS: LUMBAR SPINE: The bone mineral density (BMD) measured from L1-L4 in the AP projection correlates with a T-score of -1.7, which is osteopenia as defined by the World Health Organization. BMD Change vs Baseline: N/A HIP: The bone mineral density (BMD) measured in the left hip correlates with a T-score of -1.9, which is o steopenia as defined by the World Health Organization. BMD Change vs Baseline: N/A 10 year Fracture Risk Assessment: Major Osteoporotic Fracture: 11% Hip Fracture: 1.6% IMPRESSION: 1. LUMBAR SPINE WHO CLASSIFICATION: OSTEOPENIA. 2. HIP WHO CLASSIFICATION: OSTEOPENIA. OVERALL ASSESSMENT: WHO CLASSIFICATION: OSTEOPENIA. COMMENT: The World Health Organization defines low BMD as follows: T-score: Normal: At or above -1.0 Osteopenia: Between -1.0 and -2.5 Osteoporosis: At or below -2.5 without fractures Established osteoporosis: At or below -2.5 with fractures In general, you may wish to consider: Diagnosis Treatment Follow-up DEXA Normal BMD Prevention 2-3 years Osteopenia Prevention/Therapy 1-2 years Osteoporosis Therapy Yearly TECHNICAL DOCUMENTATION: JOB ID: [id number] 2010 [employer]- All Rights Reserved Reading location - IP/workstation name: [email or web address]
--- NOTE | 2020-10-26 14:16 | WOMENS IMAGING REPORT ---
EXAM DESCRIPTION: BILAT SCREENING MAMMO W/CAD IMAGES COMPLETED DATE/TIME: 10/26/2020 1:32 pm REASON FOR STUDY: Z12.31 ENCNTR SCREEN MAMMOGRAM FOR MALIGNANT NEOPLASM OF AHFIXPR25.31 ENCNTR SCRE EN MAMMOGRAM FOR MALIGNANT NEOPLASM OF BREZ78.0 ASYMPTOMATIC MENOPAUSAL STATE COMPARISON: 01/03/2015 and 11/12/2018 EXAM PARAMETERS: Standard craniocaudal and mediolateral oblique views of each breast recorded using digital acquisition. Read with the assistance of CAD. .[facility] - [employer] Child Welfare Caseworker Version 9.2 LIMITATIONS: None. FINDINGS: RIGHT BREAST MASSES: No suspicious masses. CALCIFICATIONS: No new or suspicious calcifications. ARCHITECTURAL DISTORTION: None. ASYMMETRY: None noted. OTHER: No other significant findings. LEFT BREAST MASSES: No suspicious masses. CALCIFICATIONS: No new or suspicious calcifications. ARCHITECTURAL DISTORTION: None. ASYMMETRY: There is a partially imaged asymmetric density within the inferior breast demonstrated on the MLO image only. OTHER: No other significant findings. IMPRESSION: Partially imaged asymmetric density within the left lower breast. 0 Incomplete: Needs Additional Imaging Evaluation and/or prior Mammograms for Comparison. BREAST DENSITY: b. There are scattered areas of fibroglandular density. BIRAD: ASSESSMENT: 0 Incomplete: Needs Additional Imaging Evaluation and/or prior Mammograms for C omparison. RECOMMENDATION: RECOMMENDED FOLLOW-UP: Recommend spot compression of the left lower breast. Additi onal sonographic evaluation at the interpreting radiologist's discretion. ADDITIONAL RECOMMENDATION- No additional recommendations. The patient will be contacted for additional imaging. COMMENT: The patient has been notified of the results by letter per [place] requirements. Additional no tification policies are in place for contacting patient with suspicious or incomplete findings. Quality ID #225: The [employer] recommends an annual screening mammogram for women aged 40 years or over. This facility utilizes a reminder system to ensure that all patients receive reminder letters, and/or direct phone calls for appointments. This includes reminders for routine scr eening mammograms, diagnostic mammograms, or other Breast Imaging Interventions when appropriate. Th is patient will be placed in the appropriate reminder system. TECHNICAL DOCUMENTATION: FINDING NUMBER: (1) ASSESSMENT: (1) JOB ID: [id number] 2010 [employer]- All Rights Reserved Reading location - IP/workstation name: [email or web address]
== END ==
LOC: WI 13:01
PROVIDERS: ATTEND Family Medicine
DX: Z12.31 Encounter for screening mammogram for malignant neoplasm of breast (principal); N64.89 Other specified disorders of breast; Z78.0 Asymptomatic menopausal state
CPT/HCPCS: 77067; 77080

== ENCOUNTER → 2020-11-21 | Outpatient (CLI) | payer MEDICARE ==
--- NOTE | 2020-11-21 16:37 | WOMENS IMAGING REPORT ---
EXAM DESCRIPTION: 3D DX MAMMO LEFT UNILAT; U/S BREAST UNILAT LIMITED IMAGES COMPLETED DATE/TIME: 11/21/2020 12:54 pm; 11/21/2020 1:26 pm REASON FOR STUDY: LT BREAST R92.8; R92.8 R92.8 OTH ABN AND INCONCLUSIVE FINDINGS ON DX IMAGING OF B RE COMPARISON: Prior mammograms, most recently 10/26/2020. EXAM PARAMETERS: Spot MLO and true lateral. Non spot true lateral and MLO. Tomosynthesis imaging a nd targeted breast ultrasound. LIMITATIONS: None. FINDINGS: BREAST LATERALITY: left MASSES: No suspicious masses. CALCIFICATIONS: No new or suspicious calcifications. ARCHITECTURAL DISTORTION: None. ASYMMETRY: Partially circumscribed asymmetry may persist on the MLO views. See ultrasound. OTHER: No other significant findings. Ultrasound: Close to 4- 5 o'clock lying 6- 8 cm from the nipple is a 4 mm wider than tall well-circu mscribed oval hypoechoic mass consistent with a cyst. IMPRESSION: No worrisome findings. BREAST DENSITY: c. The breasts are heterogeneously dense, which may obscure small masses. BIRAD: ASSESSMENT: 2 Benign findings. RECOMMENDATION: RECOMMENDED FOLLOW UP: Birads 1 or 2: The patient should resume routine screening . SPECIFIC INTERVENTION/IMAGING/CONSULTATION RECOMMENDED:No additional intervention/ imaging/consultati on needed at this time. COMMUNICATION:No significant abnormalities to discuss with the patient today. COMMENT: The patient has been notified of the results by letter per MQSA requirements. Additional no tification policies are in place for contacting patient with suspicious or incomplete findings. Quality ID #225: The [employer] recommends an annual screening mammogram for women aged 40 years or over. This facility utilizes a reminder system to ensure that all patients receive reminder letters, and/or direct phone calls for appointments. This includes reminders for routine scr eening mammograms, diagnostic mammograms, or other Breast Imaging Interventions when appropriate. Th is patient will be placed in the appropriate reminder system. TECHNICAL DOCUMENTATION: FINDING NUMBER: (1) ASSESSMENT: (1) JOB ID: [id number] [employer]- All Rights Reserved Reading location - IP/workstation name: [email or web address]
--- NOTE | 2020-11-21 16:37 | WOMENS IMAGING REPORT ---
EXAM DESCRIPTION: 3D DX MAMMO LEFT UNILAT; U/S BREAST UNILAT LIMITED IMAGES COMPLETED DATE/TIME: 11/21/2020 12:54 pm; 11/21/2020 1:26 pm REASON FOR STUDY: LT BREAST R92.8; R92.8 R92.8 OTH ABN AND INCONCLUSIVE FINDINGS ON DX IMAGING OF B RE COMPARISON: Prior mammograms, most recently 10/26/2020. EXAM PARAMETERS: Spot MLO and true lateral. Non spot true lateral and MLO. Tomosynthesis imaging a nd targeted breast ultrasound. LIMITATIONS: None. FINDINGS: BREAST LATERALITY: left MASSES: No suspicious masses. CALCIFICATIONS: No new or suspicious calcifications. ARCHITECTURAL DISTORTION: None. ASYMMETRY: Partially circumscribed asymmetry may persist on the MLO views. See ultrasound. OTHER: No other significant findings. Ultrasound: Close to 4- 5 o'clock lying 6- 8 cm from the nipple is a 4 mm wider than tall well-circu mscribed oval hypoechoic mass consistent with a cyst. IMPRESSION: No worrisome findings. BREAST DENSITY: c. The breasts are heterogeneously dense, which may obscure small masses. BIRAD: ASSESSMENT: 2 Benign findings. RECOMMENDATION: RECOMMENDED FOLLOW UP: Birads 1 or 2: The patient should resume routine screening . SPECIFIC INTERVENTION/IMAGING/CONSULTATION RECOMMENDED:No additional intervention/ imaging/consultati on needed at this time. COMMUNICATION:No significant abnormalities to discuss with the patient today. COMMENT: The patient has been notified of the results by letter per MQSA requirements. Additional no tification policies are in place for contacting patient with suspicious or incomplete findings. Quality ID #225: The [employer] recommends an annual screening mammogram for women aged 40 years or over. This facility utilizes a reminder system to ensure that all patients receive reminder letters, and/or direct phone calls for appointments. This includes reminders for routine scr eening mammograms, diagnostic mammograms, or other Breast Imaging Interventions when appropriate. Th is patient will be placed in the appropriate reminder system. TECHNICAL DOCUMENTATION: FINDING NUMBER: (1) ASSESSMENT: (1) JOB ID: [id number] [employer]- All Rights Reserved Reading location - IP/workstation name: [email or web address]
== END ==
LOC: WI 12:56
PROVIDERS: ATTEND Family Medicine
DX: N60.02 Solitary cyst of left breast (principal)
CPT/HCPCS: 76642; 77065; G0279